=== PATIENT | male | born 1965 | race Caucasian/White ===

== ENCOUNTER 2018-12-04 17:53 | Inpatient (IN) | payer OTHER ==
[2018-12-04] MEDS ORDERED: IPRATROPIUM/ALBUTEROL 0.5-2.5 MG/3 ML AMPUL NEB ONE ×2 (18:10→18:29)
[2018-12-04] MEDS ORDERED: MAGNESIUM SULFATE/D5W 1 GM/100 ML RTUPB IV ONE ×2 (18:29)
[2018-12-04] MEDS ORDERED: METHYLPREDNISOLONE INJ 125 MG/2 ML SDV IV ONE (18:29)
--- NOTE | 2018-12-04 18:32 | ER Document Report ---
ED Medical Screen (RME) - General Chief Complaint: Cough Stated Complaint: DIFFICULTY BREATHING Time Seen by Provider: 12/04/18 18:23 TRAVEL OUTSIDE OF THE [place] IN LAST 30 DAYS: No - HPI Notes: 12/04/18 18:30 Patient is a 53-year-old male with history of COPD (not oxygen dependent) who presents complaining of semi-productive cough with wheezing and shortness of breath over the past 3 days. He was seen by urgent care at [facility] yesterday and was diagnosed with left-sided pneumonia on x-ray and was given steroids and Zithromax. Patient states that his cough is been severe and has not been able to catch his breath with the coughing fits. Patient here for treatment and evaluation. No h/o DVT/PE or CAD. Denies NAGY, fever, neck pain, URI, Abd pain, dysuria, back pain, or rash. I have treated and performed a rapid initial assessment of this patient. A comprehensive ED assessment and evaluation of the patient, analysis of test results and completion of medical decision making process will be conducted by additional ED providers. PHYSICAL EXAMINATION: GENERAL: Well-appearing, well-nourished and in no acute distress. A&Ox4. Answers questions appropriately. LUNGS: wheezing b/l. harsh cough noted HEART: Regular rate and rhythm without murmurs, rubs, gallops. Ext's: no edema. - Related Data Allergies/Adverse Reactions: Penicillins Allergy (Verified 06/06/14 22:21) Past Medical History - Social History Frequency of alcohol use: None Drug Abuse: None Renal/ Medical History: Reports: Hx Kidney Stones - Immunizations Hx Diphtheria, Pertussis, Tetanus Vaccination: No Physical Exam - Vital signs Vitals: Pulse Ox 92 12/04/18 18:23 Course - Vital Signs Vital signs: Temp Pulse Resp BP Pulse Ox 92 12/04/18 18:23 - Laboratory Result Diagrams: 12/04/18 18:15 12/04/18 18:15
[2018-12-04] MEDS ORDERED: NORMAL SALINE 1000 ML 1,000 ML IV ONE (18:34)
[2018-12-04 18:36] LABS: HEMATOCRIT 44.7 % (37.9-51.0); HEMOGLOBIN 15.2 g/dL (13.5-17.0); MEAN CORPUSCULAR HEMOGLOBIN 31.2 pg (27.0-33.4); MEAN CORPUSCULAR VOLUME 92 fl (80-97); PLATELET COUNT 324 10^3/uL (150-450); RED BLOOD COUNT 4.88 10^6/uL (4.35-5.55); RED CELL DISTRIBUTION WIDTH 13.9 % (11.5-14.0); WHITE BLOOD COUNT 16.4 10^3/uL (4.0-10.5)
[2018-12-04 18:47] LABS: ALBUMIN 4.4 g/dL (3.5-5.0); ALKALINE PHOSPHATASE 62 U/L (38-126); ANION GAP 14 (5-19); ASPARTATE AMINO TRANSFERASE 27 U/L (17-59); BILIRUBIN,DIRECT 0.2 mg/dL (0.0-0.4); BILIRUBIN,TOTAL 0.7 mg/dL (0.2-1.3); BLOOD UREA NITROGEN 13 mg/dL (7-20); CALCIUM 10.2 mg/dL (8.4-10.2); CARBON DIOXIDE 23 mmol/L (22-30); CHLORIDE 103 mmol/L (98-107); GLUCOSE 132 mg/dL (75-110); POTASSIUM 4.7 mmol/L (3.6-5.0); TOTAL PROTEIN 7.3 g/dL (6.3-8.2)
--- NOTE | 2018-12-04 18:57 | RADIOLOGY REPORT (SQ) ---
EXAM DESCRIPTION: CHEST SINGLE VIEW COMPLETED DATE/TIME: 12/04/2018 6:43 pm REASON FOR STUDY: SOB COMPARISON: None. NUMBER OF VIEWS: One view. TECHNIQUE: Single frontal radiographic view of the chest acquired. LIMITATIONS: None. FINDINGS: LUNGS AND PLEURA: No opacities, masses or pneumothorax. No pleural effusion. Attenuated bl ood vessels and flattened melony-diaphragms. MEDIASTINUM AND HILAR STRUCTURES: No masses. Contour normal. HEART AND VASCULAR STRUCTURES: Heart normal in size. Normal vasculature. BONES: No acute findings. HARDWARE: None in the chest. OTHER: No other significant finding. IMPRESSION: COPD. NO ACUTE RADIOGRAPHIC FINDING IN THE CHEST. TECHNICAL DOCUMENTATION: JOB ID: [id number] [employer]- All Rights Reserved Reading location - IP/workstation name: [email or web address]
[2018-12-04 19:16] LABS: ABSOLUTE LYMPHOCYTES# (MANUAL) 1.3 10^3/uL (0.5-4.7); ABSOLUTE MONOCYTES # (MANUAL) 0.3 10^3/uL (0.1-1.4); BASOPHILS % (MANUAL) 0 % (0-2); EOSINOPHILS % (MANUAL) 0 % (0-6); LYMPHOCYTES % (MANUAL) 7 % (13-45); MONOCYTES % (MANUAL) 2 % (3-13); PLATELET COMMENT ADEQUATE; RBC MORPHOLOGY COMMENT NORMO-CYTIC/CHROMIC; SEGMENTED NEUTROPHILS % (MAN) 90 % (42-78); TOTAL CELLS COUNTED 100
[2018-12-04 19:59] LABS: VENOUS BLOOD BASE EXCESS -0.2 mmol/L; VENOUS BLOOD HCO3 23.5 mmol/L (20-32); VENOUS BLOOD PCO2 35.9 mmHg (35-63); VENOUS BLOOD PH 7.43 (7.30-7.42)
--- NOTE | 2018-12-04 20:15 | ER Document Report ---
ED General - General Chief Complaint: Cough Stated Complaint: DIFFICULTY BREATHING Time Seen by Provider: 12/04/18 18:23 Primary Care Provider: HAI,MIGUELINA [Primary Care Provider] - Follow up as needed TRAVEL OUTSIDE OF THE [place] IN LAST 30 DAYS: No - HPI Notes: Patient is a 53-year-old male with a history of COPD who comes to the emergency department for evaluation of cough and congestion. Symptoms been present for the last 3 days. He states that he was seen by [facility], diagnosed with pneumonia. He started Zithromax and steroids. He does continue to smoke. He states now that he is short of breath with even just to walk across the room. His cough is intermittently productive. He just feels achy and weak all over. He denies any nausea or vomiting. He states he has coughing spells in which he cannot catch his breath at all. - Related Data Allergies/Adverse Reactions: Penicillins Allergy (Verified 12/04/18 19:35) Home Medications: Singulair, prednisone, Zithromax, ipratropium Past Medical History - General Information source: Patient - Social History Smoking Status: Current Every Day Smoker Frequency of alcohol use: None Drug Abuse: None Family History: Reviewed & Not Pertinent Patient has suicidal ideation: No Patient has homicidal ideation: No Pulmonary Medical History: Reports: Hx COPD Renal/ Medical History: Reports: Hx Kidney Stones - Immunizations Hx Diphtheria, Pertussis, Tetanus Vaccination: No Review of Systems - Review of Systems Constitutional: See HPI EENT: No symptoms reported Cardiovascular: No symptoms reported Respiratory: See HPI Gastrointestinal: No symptoms reported Genitourinary: No symptoms reported Musculoskeletal: No symptoms reported Skin: No symptoms reported Neurological/Psychological: No symptoms reported Physical Exam - Vital signs Vitals: Resp BP Pulse Ox 23 H 156/93 H 95 12/04/18 18:05 12/04/18 18:05 12/04/18 18:05 - Notes Notes: Vital signs reviewed, please refer to chart. Head is normocephalic, atraumatic. Pupils equal round, reactive to light. Neck is supple without meningismus. Heart is regular rate and rhythm. Lungs reveal diminished breath sounds throughout with expiratory wheezes.. Abdomen is soft, nontender, normoactive bowel sounds throughout. Extremities without cyanosis, clubbing. Posterior anay ves are nontender. Peripheral pulses are equal. Skin is warm and dry. Patient is awake, alert, neurological exam is nonfocal. Course - Re-evaluation Re-evalutation: 12/04/18 20:15 Patient presents emergency department for evaluation of cough and shortness of breath. He was treated here in the back with DuoNeb, magnesium, steroids. He still is not feeling any improvement. His laboratory investigations revealed leukocytosis, but he is currently on steroids. He has no clear infiltrate on x- ray, but is certainly appropriate for his COPD exacerbation to be treated with antibiotics. He has already had his Zithromax dose for the day. Just walking to the bathroom, the patient became hypoxic, and this was only a few feet. Will contact Dr. Seaman for potential medicine admission. 12/04/18 20:[address] Seaman, he agrees admission is appropriate. Patient will be admitted for further care. - Vital Signs Vital signs: Temp Pulse Resp BP Pulse Ox 26 H 140/85 H 92 12/04/18 19:00 12/04/18 19:00 12/04/18 19:00 - Laboratory Result Diagrams: 12/04/18 18:15 12/04/18 18:15 Laboratory results interpreted by me: 12/04/18 12/04/18 12/04/18 18:15 18:15 19:21 WBC 16.4 H Seg Neuts % (Manual) 90 H Lymphocytes % (Manual) 7 L Monocytes % (Manual) 2 L Abs Neuts (Manual) 14.8 H VBG pH 7.43 H Glucose 132 H Urine Urobilinogen Urine Ascorbic Acid 12/04/18 19:46 WBC Seg Neuts % (Manual) Lymphocytes % (Manual) Monocytes % (Manual) Abs Neuts (Manual) VBG pH Glucose Urine Urobilinogen 2.0 H Urine Ascorbic Acid 40 H - Diagnostic Test Radiology reviewed: Reports reviewed Radiology results interpreted by me: 12/04/18 20:14 Chest X-Ray 12/04/18 18:10 IMPRESSION: COPD. NO ACUTE RADIOGRAPHIC FINDING IN THE CHEST. - EKG Interpretation by Me Additional EKG results interpreted by me: 12/04/18 20:14 Sinus mechanism with rate 89 bpm. Normal axis and intervals. Nonspecific ST changes, but no acute changes concerning for ischemia or infarction. Discharge - Discharge Clinical Impression: COPD exacerbation, Hypoxia Condition: Stable Disposition: ADMITTED INPATIENT Admitting Provider: Urszula (Hospitalist) Unit Admitted: Medical Floor [facility] - Follow up as needed
[2018-12-04 20:18] LABS: APPEARANCE,URINE CLEAR; BILIRUBIN,URINE NEGATIVE (NEGATIVE); COLOR,URINE YELLOW; GLUCOSE, URINE NEGATIVE (NEGATIVE); KETONES,URINE NEGATIVE (NEGATIVE); LEUKOCYTE ESTERASE,URINE NEGATIVE (NEGATIVE); NITRITE,URINE NEGATIVE (NEGATIVE); PROTEIN,URINE NEGATIVE (NEGATIVE); URINE SPECIFIC GRAVITY 1.018
[2018-12-04] MEDS ORDERED: MAGNESIUM HYDROXIDE SUSP 30 ML UDCUP PO PRN (20:41)
[2018-12-04] MEDS ORDERED: LEVALBUTEROL HCL NEB 0.63 MG/3 ML AMPUL NEB PRN (20:41)
[2018-12-04] MEDS ORDERED: NALBUPHINE HCL INJ 10 MG/1 ML AMPULE IV PRN (20:41)
[2018-12-04] MEDS ORDERED: IBUPROFEN 800 MG TABLET PO PRN (20:41)
[2018-12-04] MEDS ORDERED: ACETAMINOPHEN 325 MG TABLET PO PRN (20:41)
[2018-12-04] MEDS ORDERED: NICOTINE 21 MG/24 HR PATCH.TD24 TD PRN (20:41)
[2018-12-04] MEDS ORDERED: MAG HYDROX/AL HYDROX/SIMETH SUSP 30 ML UDCUP PO PRN (20:41)
[2018-12-04] MEDS ORDERED: PROMETHAZINE HCL INJ 25 MG/1 ML VIAL IV PRN (20:45)
[2018-12-04] MEDS ORDERED: ZOLPIDEM TARTRATE 5 MG TABLET PO PRN (20:45)
[2018-12-04] MEDS: HEPARIN SOD (PORCINE) 5,000 UNIT/ML 1 ML VIAL SUBCUT SCH (21:34)
[2018-12-04] MEDS: FAMOTIDINE 20 MG TABLET PO SCH (21:35)
[2018-12-04] MEDS: AZITHROMYCIN 250 MG TABLET PO SCH (21:35)
[2018-12-04] MEDS ORDERED: GUAIFENESIN/D-METHORPHAN (200-20 MG) SYRUP 10 ML PO PRN (22:11)
--- NOTE | 2018-12-04 22:27 | EKG REPORT ---
SEVERITY:- BORDERLINE ECG - SINUS RHYTHM PROBABLE LEFT ATRIAL ABNORMALITY CONSIDER RIGHT VENTRICULAR HYPERTROPHY : Confirmed by: Andrea Ordaz 04-Dec-2018 22:27:00
[2018-12-04] MEDS ORDERED: BENZONATATE 100 MG CAPSULE PO ONE (22:45)
[2018-12-04] MEDS: METHYLPREDNISOLONE INJ 40 MG/1 ML SDV IV SCH (23:04)
[2018-12-04] MEDS: IPRATROPIUM BROMIDE 0.02% NEB 0.5 MG/2.5 ML AMPUL NEB SCH (23:49)
[2018-12-04] MEDS: LEVALBUTEROL HCL NEB 1.25 MG/3 ML AMPUL NEB SCH (23:49)
--- NOTE | 2018-12-05 03:01 | PDOC H&P ---
History of Present Illness Admission Date/PCP: 12/04/18 20:32 Dr. Celeste Zaragoza Patient complains of: Dyspnea History of Present Illness: CAITLIN CASTELLANO is a 53 year old male who presents the emergency room with a 3-day history of dyspnea. Patient admits progressively worsening dyspnea over the last 3 days becoming severe today. His dyspnea has been accompanied by 3 pillow orthopnea, a progressively worsening cough and wheezing. His dyspnea is markedly worsened by even minimal exertion. Today he was experiencing moderate to severe wheezing and severe paroxysmal coughing episodes. He was seen by a primary care provider yesterday and was diagnosed with pneumonia (by in office x-ray) and was started on oral steroids and Zithromax. He further admits that despite knowing he has COPD he has continued to smoke cigarettes. He denies other associated or accompanying signs or symptoms. He admits prior similar episodes related to his COPD. He has not identified any additional aggravating or ameliorating factors for his dyspnea. In the emergency room he was found to have a chest x-ray negative for an acute pulmonary process but did demonstrate moderate to severe COPD. His white blood count was mildly elevated as was his blood sugar probably associated with his acute use of prednisone. Because the patient had failed to improve on outpatient therapy he was admitted for further evaluation and treatment. 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 Denies: Cataracts Neurological Medical History: Denies: Hemorrhagic CVA, Ischemic CVA, Seizures Endocrine Medical History: Denies: Diabetes Mellitus Type 1, Diabetes Mellitus Type 2, Hyperthyroidism, Hypothyroidism, Obesity Renal/ Medical History: Reports: Nephrolithiasis Denies: Chronic Kidney Disease Malignancy Medical History: Reports: None GI Medical History: Denies: Cirrhosis, Crohn's Disease, Gastroesophageal Reflux Disease, Hepatitis, Peptic Ulcer Disease, Ulcerative Colitis Musculoskeltal Medical History: Denies: Arthritis, Gout Skin Medical History: Reports: Other - 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 Denies: Eczema, Psoriasis - Hearing aids Psychiatric Medical History: Reports: Tobacco Dependency Denies: Alcohol Dependency, Substance Abuse Traumatic Medical History: Reports: None Hematology: Denies: Anemia, Bleeding Tendencies Infectious Medical History: Reports: None Past Surgical History Past Surgical History: Reports: Tonsillectomy, Other - 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 Social History Information Source: Patient Smoking Status: Current Every Day Smoker Frequency of Alcohol Use: None Hx Recreational Drug Use: No Drugs: None Hx Prescription Drug Abuse: No - Advance Directive Resuscitation Status: Full Code Surrogate healthcare decision maker:: Obi Castellano Family History Family History: DM, Hypertension, Other - Stomach ulcers, gout. denies: CAD, Malignancy Parental Family History Reviewed: Yes Children Family History Reviewed: No Sibling(s) Family History Reviewed.: Yes Medication/Allergy Home Medications: Albuterol Sulfate [Proair HFA Inhalation Aerosol 8.5 gm MDI] 2 puff IH Q6HP PRN 12/04/18 Azithromycin 250 mg PO DAILY 12/04/18 Benzonatate 400 mg PO QHS 12/04/18 Budesonide/Formoterol Fumarate [Symbicort HFA 160-4.5 mcg Inhaler 6 gm] 2 puff IH Q12 12/04/18 Ipratropium [place] [Atrovent 0.06% Nasal [place]] 2 spray NASL TIDP PRN 12/04/18 Montelukast Sodium [Singulair 10 mg Tablet] 10 mg PO DAILY 12/04/18 Prednisone 10 mg PO DAILY 12/04/18 Allergies/Adverse Reactions: Penicillins Allergy (Verified 12/04/18 19:35) Review of Systems Constitutional: ABSENT: chills, fever(s) Eyes: ABSENT: visual disturbances, other - Eye pain Ears: ABSENT: hearing changes, other - Ear pain Nose, Mouth, and Throat: ABSENT: mouth pain, sore throat Cardiovascular: PRESENT: as per HPI, dyspnea on exertion, orthropnea. ABSENT: chest pain, edema, palpitations Respiratory: PRESENT: as per HPI, cough, dyspnea, sputum. ABSENT: hemoptysis Gastrointestinal: ABSENT: abdominal pain, constipation, diarrhea, nausea, vomiting Genitourinary: ABSENT: dysuria, hematuria Musculoskeletal: ABSENT: back pain, joint swelling, muscle weakness Integumentary: ABSENT: pruritus, rash Neurological: ABSENT: confusion, convulsions, focal weakness, memory loss, syncope Psychiatric: ABSENT: anxiety, depression Endocrine: ABSENT: cold intolerance, heat intolerance Hematologic/Lymphatic: ABSENT: easy bleeding, easy bruising Allergic/Immunologic: ABSENT: seasonal rhinorrhea Physical Exam Vital Signs: Temp Pulse Resp BP Pulse Ox 26 H 140/85 H 92 12/04/18 19:00 12/04/18 19:00 12/04/18 19:00 Intake & Output 12/02/18 12/03/18 12/04/18 23:59 23:59 23:59 Intake Total 1200 Balance 1200 Weight 68.1 kg General appearance: PRESENT: no acute distress, cooperative, other - On O2 per [place] Head exam: ABSENT: atraumatic, normocephalic Eye exam: PRESENT: conjunctiva pink. ABSENT: conjunctival injection, scleral icterus Ear exam: PRESENT: normal external ear exam. ABSENT: bleeding, drainage Mouth exam: PRESENT: dry mucosa, neck supple Neck exam: ABSENT: thyromegaly, tracheal deviation Respiratory exam: PRESENT: decreased breath sounds - Moderately decreased breath sounds in all sifuentes consistent with moderate to severe COPD, prolonged expiratory phas - Moderately prolonged expiratory phase in all sifuentes, symmetrical, wheezes - Expiratory wheezes in all fileds Cardiovascular exam: PRESENT: RRR. ABSENT: clicks, gallop, rubs Pulses: PRESENT: normal radial pulses, normal dorsalis pedis pul Vascular exam: PRESENT: normal capillary refill. ABSENT: pallor GI/Abdominal exam: PRESENT: normal bowel sounds, soft Rectal exam: PRESENT: deferred Extremities exam: ABSENT: pedal edema, tenderness Musculoskeletal exam: PRESENT: full ROM, normal inspection Neurological exam: PRESENT: alert, oriented to person, oriented to place, oriented to time, oriented to situation, CN II-XII grossly intact. ABSENT: motor sensory deficit Psychiatric exam: PRESENT: appropriate affect, normal mood Skin exam: PRESENT: dry, intact, warm. ABSENT: jaundice, rash, urticaria Results Laboratory Results: 12/04/18 18:15 12/04/18 18:15 12/04/18 12/04/18 12/04/18 18:15 18:15 19:21 WBC 16.4 H RBC 4.88 Hgb 15.2 Hct 44.7 MCV 92 MCH 31.2 MCHC 34.0 RDW 13.9 Plt Count 324 Seg Neutrophils % Not Reportable VBG pH VBG pCO2 VBG HCO3 VBG Base Excess Sodium 140.1 Potassium 4.7 Chloride 103 Carbon Dioxide 23 Anion Gap 14 BUN 13 Creatinine 0.64 Est GFR ( Amer) > 60 Glucose 132 H Lactic Acid 1.8 Calcium 10.2 Total Bilirubin 0.7 AST 27 Alkaline Phosphatase 62 Total Protein 7.3 Albumin 4.4 Urine Color Urine Appearance Urine pH Ur Specific [place] Urine Protein Urine Glucose (UA) Urine Ketones Urine Blood Urine Nitrite Ur Leukocyte Esterase Urine WBC (Auto) Urine RBC (Auto) 12/04/18 12/04/18 19:21 19:46 WBC RBC Hgb Hct MCV MCH MCHC RDW Plt Count Seg Neutrophils % VBG pH 7.43 H VBG pCO2 35.9 VBG HCO3 23.5 VBG Base Excess -0.2 Sodium Potassium Chloride Carbon Dioxide Anion Gap BUN Creatinine Est GFR ( Amer) Glucose Lactic Acid Calcium Total Bilirubin AST Alkaline Phosphatase Total Protein Albumin Urine Color YELLOW Urine Appearance CLEAR Urine pH 6.0 Ur Specific [place] 1.018 Urine Protein NEGATIVE Urine Glucose (UA) NEGATIVE Urine Ketones NEGATIVE Urine Blood NEGATIVE Urine Nitrite NEGATIVE Ur Leukocyte Esterase NEGATIVE Urine WBC (Auto) 1 Urine RBC (Auto) 3 Impressions: Chest X-Ray 12/04/18 18:10 IMPRESSION: COPD. NO ACUTE RADIOGRAPHIC FINDING IN THE CHEST. Assessment and Plan - Diagnosis (1) COPD exacerbation Is this a current diagnosis for this admission?: Yes Plan: Patient will be treated with an aggressive pulmonary toilet utilizing nebulized Xopenex, Atrovent and Pulmicort. He will also receive IV Solu-Medrol and a short burst dosing and will be continued on Zithromax 500 mg p.o. daily. His clinical status was monitored closely with regular examinations. His O2 sat will be monitored on a regular basis with vital signs. Will receive supplemental oxygen as required to maintain an adequate O2 saturation greater than 93%. Any associated pain will be treated with Nubain 5 to 10 mg IV every 3 hours on a as needed basis via sliding scale. (2) Acute respiratory failure with hypoxia Is this a current diagnosis for this admission?: Yes Plan: Patient will be treated with supplemental oxygen utilizing nasal cannula and or noninvasive airway pressure devices as required. Patient's O2 saturation will be maintained at greater than 93%. Patient's O2 sat will be checked on a regular basis throughout his hospital course. (3) Paroxysmal cough Is this a current diagnosis for this admission?: Yes Plan: Patient's paroxysmal cough will be treated with Robitussin-DM and Marizolon Luigi initially, with further intervention using low-dose morphine 2 mg IV every 2 hours as needed, if required. (4) Tobacco use disorder, severe, dependence Is this a current diagnosis for this admission?: Yes Plan: Smoking cessation is advised and counseled briefly at the bedside. A nicotine replacement patch is available for the patient's use. - Time Time Spent with patient: 25-34 minutes Smoking Cessation Education: 3 to 10 minutes Medications reviewed and adjusted accordingly: Yes Anticipated discharge: Home - Inpatient Certification Based on my medical assessment, after consideration of the patient's comorbidities, presenting symptoms, or acuity I expect that the services needed warrant INPATIENT care.: Yes I certify that my determination is in accordance with my understanding of Medicare's requirements for reasonable and necessary INPATIENT services [42 CFR 412.3e].: Yes Medical Necessity: Failure to Improve With Outpatient Therapy, Need Close Monitoring Due to Risk of Patient Decompensation, Need for Nebulizer Therapy and Monitoring of Response, Risk of Complication if Not Cared For in Hospital
[2018-12-05] MEDS ORDERED: MORPHINE SULFATE 10 MG/ML INJ IV PRN (03:08)
[2018-12-05] MEDS: HEPARIN SOD (PORCINE) 5,000 UNIT/ML 1 ML VIAL SUBCUT SCH ×3 (05:16→21:50)
[2018-12-05] MEDS: BENZONATATE 100 MG CAPSULE PO SCH ×3 (05:16→21:50)
[2018-12-05] MEDS: METHYLPREDNISOLONE INJ 40 MG/1 ML SDV IV SCH ×3 (05:16→17:19)
[2018-12-05 05:31] LABS: HEMATOCRIT 42.1 % (37.9-51.0); HEMOGLOBIN 14.4 g/dL (13.5-17.0); MEAN CORPUSCULAR HGB CONC 34.1 g/dL (32.0-36.0); MEAN CORPUSCULAR VOLUME 91 fl (80-97); PLATELET COUNT 288 10^3/uL (150-450); RED BLOOD COUNT 4.63 10^6/uL (4.35-5.55); RED CELL DISTRIBUTION WIDTH 13.9 % (11.5-14.0); WHITE BLOOD COUNT 16.8 10^3/uL (4.0-10.5)
[2018-12-05 05:52] LABS: ANION GAP 10 (5-19); BLOOD UREA NITROGEN 12 mg/dL (7-20); CARBON DIOXIDE 28 mmol/L (22-30); CHLORIDE 103 mmol/L (98-107); GLUCOSE 163 mg/dL (75-110); POTASSIUM 4.9 mmol/L (3.6-5.0)
[2018-12-05] MEDS: BUDESONIDE NEB 0.5 MG/2 ML AMPUL NEB SCH ×2 (08:20→19:26)
[2018-12-05] MEDS: IPRATROPIUM BROMIDE 0.02% NEB 0.5 MG/2.5 ML AMPUL NEB SCH (08:20)
[2018-12-05] MEDS: LEVALBUTEROL HCL NEB 1.25 MG/3 ML AMPUL NEB SCH (08:20)
[2018-12-05] MEDS: DOCUSATE SODIUM 100 MG CAPSULE PO SCH ×2 (09:49→17:16)
[2018-12-05] MEDS: FAMOTIDINE 20 MG TABLET PO SCH ×2 (09:49→21:50)
[2018-12-05] MEDS: AZITHROMYCIN 250 MG TABLET PO SCH (09:49)
[2018-12-05] MEDS ORDERED: HYDRALAZINE HCL INJ/PF 20 MG/1 ML SDV IV PRN (13:22)
--- NOTE | 2018-12-05 13:27 | PDOC PROGRESS REPORT ---
Subjective Progress Note for:: 12/05/18 Subjective:: CAITLIN CASTELLANO is a 53 year old male who presents the emergency room with a 3-day history of dyspnea. Patient admits progressively worsening dyspnea over the last 3 days becoming severe today. His dyspnea has been accompanied by 3 pillow orthopnea, a progressively worsening cough and wheezing. His dyspnea is markedly worsened by even minimal exertion. Today he was experiencing moderate to severe wheezing and severe paroxysmal coughing episodes. He was seen by a primary care provider yesterday and was diagnosed with pneumonia (by in office x-ray) and was started on oral steroids and Zithromax. He further admits that despite knowing he has COPD he has continued to smoke cigarettes. He denies other associated or accompanying signs or symptoms. He admits prior similar episodes related to his COPD. He has not identified any additional aggravating or ameliorating factors for his dyspnea. In the emergency room he was found to have a chest x-ray negative for an acute pulmonary process but did demonstrate moderate to severe COPD. His white blood count was mildly elevated as was his blood sugar probably associated with his acute use of prednisone. Because the patient had failed to improve on outpatient therapy he was admitted for further evaluation and treatment. 12/05/2018. No acute events overnight. Patient is enjoying his breakfast Reason For Visit: ACUTE EXACERBATION OF COPD,ACUTE RESPIRATORY Physical Exam Vital Signs: Temp Pulse Resp BP Pulse Ox 97.8 F 92 26 H 167/98 H 92 12/04/18 22:32 12/05/18 08:15 12/05/18 08:15 12/04/18 22:32 12/05/18 08:15 Intake & Output 12/04/18 12/05/18 12/06/18 06:59 06:59 06:59 Intake Total 1200 Output Total 260 Balance 940 Weight 68.7 kg General appearance: PRESENT: mild distress Head exam: PRESENT: atraumatic, normocephalic Respiratory exam: PRESENT: clear to auscultation rian, prolonged expiratory phas, symmetrical, tachypnea, wheezes. ABSENT: rales, rhonchi Cardiovascular exam: PRESENT: RRR. ABSENT: diastolic murmur, rubs, systolic murmur GI/Abdominal exam: PRESENT: normal bowel sounds, soft. ABSENT: distended, guarding, mass, organolmegaly, rebound, tenderness Neurological exam: PRESENT: alert, awake, oriented to person, oriented to place, oriented to time, oriented to situation, CN II-XII grossly intact. ABSENT: motor sensory deficit Skin exam: PRESENT: dry, intact, warm. ABSENT: cyanosis, rash Results Laboratory Results: 12/05/18 04:25 12/05/18 04:25 12/04/18 12/04/18 12/04/18 18:15 18:15 19:21 WBC 16.4 H RBC 4.88 Hgb 15.2 Hct 44.7 MCV 92 MCH 31.2 MCHC 34.0 RDW 13.9 Plt Count 324 Seg Neutrophils % Not Reportable VBG pH VBG pCO2 VBG HCO3 VBG Base Excess Sodium 140.1 Potassium 4.7 Chloride 103 Carbon Dioxide 23 Anion Gap 14 BUN 13 Creatinine 0.64 Est GFR ( Amer) > 60 Glucose 132 H Lactic Acid 1.8 Calcium 10.2 Total Bilirubin 0.7 AST 27 Alkaline Phosphatase 62 Total Protein 7.3 Albumin 4.4 Urine Color Urine Appearance Urine pH Ur Specific [place] Urine Protein Urine Glucose (UA) Urine Ketones Urine Blood Urine Nitrite Ur Leukocyte Esterase Urine WBC (Auto) Urine RBC (Auto) 12/04/18 12/04/18 12/05/18 19:21 19:46 04:25 WBC 16.8 H RBC 4.63 Hgb 14.4 Hct 42.1 MCV 91 MCH 31.0 MCHC 34.1 RDW 13.9 Plt Count 288 Seg Neutrophils % VBG pH 7.43 H VBG pCO2 35.9 VBG HCO3 23.5 VBG Base Excess -0.2 Sodium Potassium Chloride Carbon Dioxide Anion Gap BUN Creatinine Est GFR ( Amer) Glucose Lactic Acid Calcium Total Bilirubin AST Alkaline Phosphatase Total Protein Albumin Urine Color YELLOW Urine Appearance CLEAR Urine pH 6.0 Ur Specific [place] 1.018 Urine Protein NEGATIVE Urine Glucose (UA) NEGATIVE Urine Ketones NEGATIVE Urine Blood NEGATIVE Urine Nitrite NEGATIVE Ur Leukocyte Esterase NEGATIVE Urine WBC (Auto) 1 Urine RBC (Auto) 3 12/05/18 04:25 WBC RBC Hgb Hct MCV MCH MCHC RDW Plt Count Seg Neutrophils % VBG pH VBG pCO2 VBG HCO3 VBG Base Excess Sodium 140.9 Potassium 4.9 Chloride 103 Carbon Dioxide 28 Anion Gap 10 BUN 12 Creatinine 0.63 Est GFR ( Amer) > 60 Glucose 163 H Lactic Acid Calcium 10.0 Total Bilirubin AST Alkaline Phosphatase Total Protein Albumin Urine Color Urine Appearance Urine pH Ur Specific [place] Urine Protein Urine Glucose (UA) Urine Ketones Urine Blood Urine Nitrite Ur Leukocyte Esterase Urine WBC (Auto) Urine RBC (Auto) Impressions: Chest X-Ray 12/04/18 18:10 IMPRESSION: COPD. NO ACUTE RADIOGRAPHIC FINDING IN THE CHEST. Assessment and Plan - Diagnosis (1) Acute respiratory failure with hypoxia Is this a current diagnosis for this admission?: Yes Plan: Due to COPD exacerbation complicated by ongoing tobacco abuse. DuoNeb's, IV steroids, empiric antibiotics, flutter valve, incentive spirometry, supplemental oxygen, PRN BiPAP, LABA, LAMA, ICS. (2) COPD exacerbation Is this a current diagnosis for this admission?: Yes Plan: Plan as per #1. (3) Tobacco use disorder, severe, dependence Is this a current diagnosis for this admission?: Yes Plan: Advised on smoking cessation. Patient does not want a nicotine patch at this point.
[2018-12-05] MEDS: IPRATROPIUM/ALBUTEROL 0.5-2.5 MG/3 ML AMPUL NEB SCH ×2 (13:54→19:26)
[2018-12-06] MEDS: METHYLPREDNISOLONE INJ 40 MG/1 ML SDV IV SCH ×5 (01:25→20:31)
[2018-12-06] MEDS: IPRATROPIUM/ALBUTEROL 0.5-2.5 MG/3 ML AMPUL NEB SCH ×4 (02:13→19:40)
[2018-12-06] MEDS: HEPARIN SOD (PORCINE) 5,000 UNIT/ML 1 ML VIAL SUBCUT SCH ×3 (05:12→21:03)
[2018-12-06] MEDS: BENZONATATE 100 MG CAPSULE PO SCH ×3 (05:20→21:04)
[2018-12-06 06:49] LABS: HEMATOCRIT 40.5 % (37.9-51.0); HEMOGLOBIN 13.7 g/dL (13.5-17.0); MEAN CORPUSCULAR HGB CONC 33.9 g/dL (32.0-36.0); MEAN CORPUSCULAR VOLUME 91 fl (80-97); PLATELET COUNT 278 10^3/uL (150-450); RED BLOOD COUNT 4.43 10^6/uL (4.35-5.55); WHITE BLOOD COUNT 19.8 10^3/uL (4.0-10.5)
[2018-12-06 07:04] LABS: ANION GAP 10 (5-19); BLOOD UREA NITROGEN 16 mg/dL (7-20); CALCIUM 9.9 mg/dL (8.4-10.2); CARBON DIOXIDE 29 mmol/L (22-30); CHLORIDE 100 mmol/L (98-107); GLUCOSE 196 mg/dL (75-110); POTASSIUM 4.9 mmol/L (3.6-5.0)
[2018-12-06] MEDS: BUDESONIDE NEB 0.5 MG/2 ML AMPUL NEB SCH (08:01)
[2018-12-06] MEDS: DOCUSATE SODIUM 100 MG CAPSULE PO SCH ×2 (09:38→17:05)
[2018-12-06] MEDS: FAMOTIDINE 20 MG TABLET PO SCH ×2 (09:38→21:03)
[2018-12-06] MEDS: LEVOFLOXACIN 500 MG TABLET PO SCH (09:40)
[2018-12-06] MEDS: FLUTICASONE/VILANTEROL 200-25 MCG/DOSE IH SCH (09:41)
[2018-12-06] MEDS: TIOTROPIUM BROMIDE DPI 5 CAP/KIT (18 MCG/CAP) IH SCH (09:41)
[2018-12-06] MEDS ORDERED: CODEINE SULF 15 MG TABLET PO ONE (10:12)
[2018-12-06] MEDS ORDERED: ACETAMINOPHEN WITH CODEINE #3 TABLET PO PRN (10:13)
--- NOTE | 2018-12-06 10:22 | PDOC PROGRESS REPORT ---
Subjective Progress Note for:: 12/06/18 Subjective:: CAITLIN CASTELLANO is a 53 year old male who presents the emergency room with a 3-day history of dyspnea. Patient admits progressively worsening dyspnea over the last 3 days becoming severe today. His dyspnea has been accompanied by 3 pillow orthopnea, a progressively worsening cough and wheezing. His dyspnea is markedly worsened by even minimal exertion. Today he was experiencing moderate to severe wheezing and severe paroxysmal coughing episodes. He was seen by a primary care provider yesterday and was diagnosed with pneumonia (by in office x-ray) and was started on oral steroids and Zithromax. He further admits that despite knowing he has COPD he has continued to smoke cigarettes. He denies other associated or accompanying signs or symptoms. He admits prior similar episodes related to his COPD. He has not identified any additional aggravating or ameliorating factors for his dyspnea. In the emergency room he was found to have a chest x-ray negative for an acute pulmonary process but did demonstrate moderate to severe COPD. His white blood count was mildly elevated as was his blood sugar probably associated with his acute use of prednisone. Because the patient had failed to improve on outpatient therapy he was admitted for further evaluation and treatment. 12/05/2018. No acute events overnight. Patient is enjoying his breakfast 12/06/2018. No acute events overnight. Patient still complaining of shortness of breath, worse on exertion, chest congestion, cough, denies any fever, chills, nausea, vomiting, diarrhea, constipation or any urinary symptoms. Oxygen demand is down from 4 L to 2 L. Still significant wheezing on physical examination. Reason For Visit: ACUTE EXACERBATION OF COPD,ACUTE RESPIRATORY Physical Exam Vital Signs: Temp Pulse Resp BP Pulse Ox 97.6 F 65 18 136/74 H 98 12/06/18 08:01 12/06/18 08:01 12/06/18 08:01 12/06/18 08:01 12/06/18 08:01 Intake & Output 12/05/18 12/06/18 12/07/18 06:59 06:59 06:59 Intake Total 1200 1026 Output Total 260 3 Balance 940 1023 Weight 68.7 kg 69.9 kg General appearance: PRESENT: no acute distress, well-developed, well-nourished Respiratory exam: PRESENT: tachypnea, wheezes. ABSENT: rales, rhonchi Cardiovascular exam: PRESENT: RRR. ABSENT: diastolic murmur, rubs, systolic murmur GI/Abdominal exam: PRESENT: normal bowel sounds, soft. ABSENT: distended, guarding, mass, organolmegaly, rebound, tenderness Neurological exam: PRESENT: alert, awake, oriented to person, oriented to place, oriented to time, oriented to situation, CN II-XII grossly intact. ABSENT: motor sensory deficit Results Laboratory Results: 12/06/18 06:17 12/06/18 06:17 12/06/18 12/06/18 06:17 06:17 WBC 19.8 H RBC 4.43 Hgb 13.7 Hct 40.5 MCV 91 MCH 31.0 MCHC 33.9 RDW 14.0 Plt Count 278 Sodium 138.5 Potassium 4.9 Chloride 100 Carbon Dioxide 29 Anion Gap 10 BUN 16 Creatinine 0.63 Est GFR ( Amer) > 60 Glucose 196 H Calcium 9.9 Impressions: Chest X-Ray 12/04/18 18:10 IMPRESSION: COPD. NO ACUTE RADIOGRAPHIC FINDING IN THE CHEST. Assessment and Plan - Diagnosis (1) Acute respiratory failure with hypoxia Is this a current diagnosis for this admission?: Yes Plan: Mild improvement. SPO2 WNL on 2 L. Significant wheezing on physical examination. Due to COPD exacerbation complicated by ongoing tobacco abuse. Day 3 antibiotics. Received 1 day of azithromycin. Switch to levofloxacin. Levofloxacin day 2. Cultures negative so far. DuoNeb's, IV steroids, empiric antibiotics, flutter valve, incentive spirometry, supplemental oxygen, PRN BiPAP, LABA, LAMA, ICS. (2) COPD exacerbation Is this a current diagnosis for this admission?: Yes Plan: Plan as per #1. (3) Tobacco use disorder, severe, dependence Is this a current diagnosis for this admission?: Yes Plan: Advised on smoking cessation. Patient does not want a nicotine patch at this point.
[2018-12-06] MEDS ORDERED: PROMETHAZINE HCL INJ 25 MG/1 ML VIAL IV PRN (11:00)
[2018-12-06] MEDS: GUAIFENESIN/D-METHORPHAN (200-20 MG) SYRUP 10 ML PO SCH ×5 (12:00→23:40)
[2018-12-07] MEDS: IPRATROPIUM/ALBUTEROL 0.5-2.5 MG/3 ML AMPUL NEB SCH ×4 (01:50→19:36)
[2018-12-07] MEDS: METHYLPREDNISOLONE INJ 40 MG/1 ML SDV IV SCH ×4 (03:50→21:22)
[2018-12-07] MEDS: GUAIFENESIN/D-METHORPHAN (200-20 MG) SYRUP 10 ML PO SCH ×5 (03:50→17:23)
[2018-12-07] MEDS: HEPARIN SOD (PORCINE) 5,000 UNIT/ML 1 ML VIAL SUBCUT SCH ×3 (05:09→21:22)
[2018-12-07] MEDS ORDERED: GUAIFENESIN SYRP 200 MG/10 ML UDC ONE (06:18)
[2018-12-07] MEDS: BENZONATATE 100 MG CAPSULE PO SCH ×3 (06:28→21:22)
[2018-12-07 07:06] LABS: HEMATOCRIT 42.3 % (37.9-51.0); HEMOGLOBIN 14.4 g/dL (13.5-17.0); MEAN CORPUSCULAR VOLUME 91 fl (80-97); PLATELET COUNT 289 10^3/uL (150-450); RED BLOOD COUNT 4.64 10^6/uL (4.35-5.55); RED CELL DISTRIBUTION WIDTH 13.9 % (11.5-14.0); WHITE BLOOD COUNT 17.4 10^3/uL (4.0-10.5)
[2018-12-07 07:25] LABS: ANION GAP 9 (5-19); BLOOD UREA NITROGEN 18 mg/dL (7-20); CALCIUM 9.9 mg/dL (8.4-10.2); CARBON DIOXIDE 32 mmol/L (22-30); CHLORIDE 98 mmol/L (98-107); GLUCOSE 146 mg/dL (75-110); POTASSIUM 4.9 mmol/L (3.6-5.0)
[2018-12-07] MEDS: DOCUSATE SODIUM 100 MG CAPSULE PO SCH ×2 (09:23→17:13)
[2018-12-07] MEDS: FAMOTIDINE 20 MG TABLET PO SCH ×2 (09:23→21:23)
[2018-12-07 09:24] LABS: ARTERIAL BLOOD BASE EXCESS 1.8 mmol/L; ARTERIAL BLOOD FIO2 3L; ARTERIAL BLOOD H2CO3 1.14 mmol/L (1.05-1.35); ARTERIAL BLOOD HCO3 25.6 mmol/L (20-24); ARTERIAL BLOOD O2 SATURATION 89.8 % (94-98); ARTERIAL BLOOD PCO2 37.9 mmHg (35-45); ARTERIAL BLOOD PH 7.45 (7.35-7.45); ARTERIAL BLOOD PO2 54.6 mmHg (80-100); ARTERIAL BLOOD TOTAL CO2 26.8 mmol/L (23-27)
[2018-12-07] MEDS: FLUTICASONE/VILANTEROL 200-25 MCG/DOSE IH SCH (09:24)
[2018-12-07] MEDS: LEVOFLOXACIN 500 MG TABLET PO SCH (09:25)
[2018-12-07] MEDS: TIOTROPIUM BROMIDE DPI 5 CAP/KIT (18 MCG/CAP) IH SCH (09:26)
[2018-12-07] MEDS ORDERED: CEFTRIAXONE 1 GM/D5W RTU 1 GM/50 ML RTUPB IV SCH (10:00)
[2018-12-07] MEDS ORDERED: ACETYLCYSTEINE 10% NEB 400 MG/4 ML VIAL NEB ONE (10:30)
[2018-12-07] MEDS: LEVOFLOXACIN 500 MG/D5W RTU 500 MG/100 ML RTUPB IV SCH (10:59)
--- NOTE | 2018-12-07 12:00 | PDOC PROGRESS REPORT ---
Subjective Progress Note for:: 12/07/18 Subjective:: CAITLIN CASTELLANO is a 53 year old male who presents the emergency room with a 3-day history of dyspnea. Patient admits progressively worsening dyspnea over the last 3 days becoming severe today. His dyspnea has been accompanied by 3 pillow orthopnea, a progressively worsening cough and wheezing. His dyspnea is markedly worsened by even minimal exertion. Today he was experiencing moderate to severe wheezing and severe paroxysmal coughing episodes. He was seen by a primary care provider yesterday and was diagnosed with pneumonia (by in office x-ray) and was started on oral steroids and Zithromax. He further admits that despite knowing he has COPD he has continued to smoke cigarettes. He denies other associated or accompanying signs or symptoms. He admits prior similar episodes related to his COPD. He has not identified any additional aggravating or ameliorating factors for his dyspnea. In the emergency room he was found to have a chest x-ray negative for an acute pulmonary process but did demonstrate moderate to severe COPD. His white blood count was mildly elevated as was his blood sugar probably associated with his acute use of prednisone. Because the patient had failed to improve on outpatient therapy he was admitted for further evaluation and treatment. 12/05/2018. No acute events overnight. Patient is enjoying his breakfast 12/06/2018. No acute events overnight. Patient still complaining of shortness of breath, worse on exertion, chest congestion, cough, denies any fever, chills, nausea, vomiting, diarrhea, constipation or any urinary symptoms. Oxygen demand is down from 4 L to 2 L. Still significant wheezing on physical examination. 12/07/2018. Overnight patient was having worsening of his respiratory symptoms, SPO2 dropped to 89% on 3 L, oxygen was increased to 5 L nasal cannula, steroids increased to 2 mg IV every 6 hours. Stating that he is feeling more tightness in his chest and his shortness of breath has worsened since yesterday. He denies any chest pain, nausea, vomiting, diarrhea, constipation or any urinary symptoms. Reason For Visit: ACUTE EXACERBATION OF COPD,ACUTE RESPIRATORY Physical Exam Vital Signs: Temp Pulse Resp BP Pulse Ox 97.7 F 82 18 152/83 H 93 12/06/18 23:00 12/07/18 07:45 12/07/18 07:45 12/06/18 23:00 12/07/18 07:45 Intake & Output 12/06/18 12/07/18 12/08/18 06:59 06:59 06:59 Intake Total 1026 520 Output Total 3 1 Balance 1023 519 Weight 69.9 kg 96.6 kg General appearance: PRESENT: mild distress Head exam: PRESENT: atraumatic, normocephalic Respiratory exam: PRESENT: decreased breath sounds, prolonged expiratory phas, symmetrical, tachypnea, wheezes. ABSENT: rales, rhonchi Cardiovascular exam: PRESENT: RRR. ABSENT: diastolic murmur, rubs, systolic murmur GI/Abdominal exam: PRESENT: normal bowel sounds, soft. ABSENT: distended, guarding, mass, organolmegaly, rebound, tenderness Neurological exam: PRESENT: alert, awake, oriented to person, oriented to place, oriented to time, oriented to situation, CN II-XII grossly intact. ABSENT: motor sensory deficit Results Laboratory Results: 12/07/18 06:01 12/07/18 06:01 12/07/18 12/07/18 12/07/18 06:01 06:01 09:20 WBC 17.4 H RBC 4.64 Hgb 14.4 Hct 42.3 MCV 91 MCH 31.0 MCHC 34.0 RDW 13.9 Plt Count 289 Carbonic Acid 1.14 HCO3/H2CO3 Ratio 22:1 ABG pH 7.45 ABG pCO2 37.9 ABG pO2 54.6 L ABG HCO3 25.6 H ABG O2 Saturation 89.8 L ABG Base Excess 1.8 FiO2 3L Sodium 138.6 Potassium 4.9 Chloride 98 Carbon Dioxide 32 H Anion Gap 9 BUN 18 Creatinine 0.58 Est GFR ( Amer) > 60 Glucose 146 H Calcium 9.9 Impressions: Chest X-Ray 12/04/18 18:10 IMPRESSION: COPD. NO ACUTE RADIOGRAPHIC FINDING IN THE CHEST. Assessment and Plan - Diagnosis (1) Acute respiratory failure with hypoxia Is this a current diagnosis for this admission?: Yes Plan: Worsening. ABG shows hypoxia. Saturating WNL on 5 L FiO2 32%. Moderate wheezing on physical examination. 12/07/2018. ABG: pH 7.45, PCO2 37.9, PO2 54.6, FiO2 32%.Mild improvement. Due to COPD exacerbation complicated by ongoing tobacco abuse. Day 4 antibiotics. Received 1 day of azithromycin. Switch to levofloxacin. Received 2 days of p.o. levofloxacin. Switch to IV levofloxacin. Day 1 IV levofloxacin. Allergic to penicillins, was started on IV ceftriaxone but unfortunately had a mild allergic reaction and it was stopped. Cultures negative so far. DuoNeb's, IV steroids, switch antibiotics to IV, BiPAP every 6 hours, flutter valve, incentive spirometry, supplemental oxygen, LABA, LAMA, ICS. (2) COPD exacerbation Is this a current diagnosis for this admission?: Yes Plan: Plan as per #1. (3) Tobacco use disorder, severe, dependence Is this a current diagnosis for this admission?: Yes Plan: Advised on smoking cessation. Patient does not want a nicotine patch at this point.
--- NOTE | 2018-12-07 15:12 | RADIOLOGY REPORT (SQ) ---
EXAM DESCRIPTION: CTA CHEST COMPLETED DATE/TIME: 12/07/2018 1:39 pm REASON FOR STUDY: Increased SOB COMPARISON: CT abdomen pelvis 06/07/2014, 08/16/2007 AP chest 12/04/2018 TECHNIQUE: CT scan of the chest performed using helical scanning technique with dynamic intravenous contrast injection. Images reviewed with lung, soft tissue and bone windows. Reconstructed coronal and sagittal MPR images reviewed. Additional 3 dimensional post-processing performed to develop Maximal Intensity Projection images (HI P). All images stored on PACS. All CT scanners at this facility use dose modulation, iterative reconstruction, and/or weight based d osing when appropriate to reduce radiation dose to as low as reasonably achievable (ALARA). [facility]: Dose Right [facility]: CareDose [facility]: Dose Right [facility]: Teradose 4D [facility]: Surround App CONTRAST TYPE AND DOSE: contrast/concentration: Isovue 350.00 mg/ml; Total Contrast Delivered: 61.0 ml; Total Saline Delivered: 55.0 ml Contrast bolus optimized for the pulmonary arteries. Not diagnostic for the aorta. RENAL FUNCTION: Creatinine 0.58 RADIATION DOSE: CT Rad equipment meets quality standard of care and radiation dose reduction techniq ues were employed. CTDIvol: 7.5 - 33.8 mGy. DLP: 362 mGy-cm. . LIMITATIONS: None. FINDINGS: LUNGS AND PLEURA: Diffuse hypoinflation of the left lung is present. There is an ill-defi jill left hilar mass obstructing the left upper and lower lobe bronchi, lower lobe bronchi are partial ly filled with debris. These changes are best shown on coronal images 52-60. Bronchoscopy with airw ay mass biopsy is recommended. There is volume loss throughout the left lung with crowding of bronchovascular markings. Too numerou s to count alveolar nodules throughout the left upper lobe likely from micro atelectasis. 12 mm spic ulated nodule superior segment left lower lobe, scar versus neoplasm axial image 32. Left posterior costophrenic sulcus atelectasis. No left pleural effusion or pneumothorax. Right lung is hyperinflated. Mild increased interstitial markings in the right middle lobe and right upper lobe near the minor fissure, likely chronic in appearance. AORTA AND GREAT VESSELS: No aneurysm. Contrast bolus not optimized for the aorta. HEART: No pericardial effusion. No significant coronary artery calcifications. PULMONARY ARTERIES: No emboli visualized in the main pulmonary arteries or the segmental branches. HILAR AND MEDIASTINAL STRUCTURES: 4 x 3 cm left hilar mass obstructing the left-sided airways, best s hown on axial image 60 HARDWARE: None in the chest. UPPER ABDOMEN: No significant findings. Limited exam. THYROID AND OTHER SOFT TISSUES: No masses. No adenopathy. BONES: No acute or significant finding. 3D MIPS: Confirm above findings. OTHER: No other significant finding. IMPRESSION: Ill-defined left hilar mass obstructing the left mainstem bronchus. Diffuse hypoinflati on of the left lung with debris in lower lobe airways. COMMENT: Quality ID # [id number]: Final reports with documentation of one or more dose reduction techniques (e.g., Automated exposure control, adjustment of the mA and/or kV according to patient size, use of iterative reconstruction technique) TECHNICAL DOCUMENTATION: JOB ID: [id number] [employer]- All Rights Reserved Reading location - IP/workstation name: [email or web address]
[2018-12-07] MEDS ORDERED: LORAZEPAM INJ 2 MG/1 ML VIAL IV ONE ×2 (15:30→20:35)
[2018-12-08] MEDS: IPRATROPIUM/ALBUTEROL 0.5-2.5 MG/3 ML AMPUL NEB SCH ×4 (01:47→19:45)
[2018-12-08] MEDS: HEPARIN SOD (PORCINE) 5,000 UNIT/ML 1 ML VIAL SUBCUT SCH ×3 (05:05→21:50)
[2018-12-08] MEDS: METHYLPREDNISOLONE INJ 40 MG/1 ML SDV IV SCH ×4 (05:05→20:32)
[2018-12-08] MEDS: BENZONATATE 100 MG CAPSULE PO SCH ×3 (05:05→21:51)
[2018-12-08] MEDS: GUAIFENESIN/D-METHORPHAN (200-20 MG) SYRUP 10 ML PO SCH ×4 (05:05→18:12)
[2018-12-08 05:50] LABS: ABSOLUTE LYMPHOCYTES (AUTO) 0.8 10^3/uL (0.5-4.7); ABSOLUTE MONOCYTES (AUTO) 1.4 10^3/uL (0.1-1.4); ABSOLUTE NEUT (AUTO) 12.9 10^3/uL (1.7-8.2); HEMATOCRIT 42.6 % (37.9-51.0); HEMOGLOBIN 14.3 g/dL (13.5-17.0); LYMPHOCYTES % (AUTO) 5.3 % (13-45); MEAN CORPUSCULAR HEMOGLOBIN 30.6 pg (27.0-33.4); MEAN CORPUSCULAR HGB CONC 33.6 g/dL (32.0-36.0); MEAN CORPUSCULAR VOLUME 91 fl (80-97); MONOCYTES % (AUTO) 9.4 % (3-13); PLATELET COUNT 281 10^3/uL (150-450); RED BLOOD COUNT 4.69 10^6/uL (4.35-5.55); RED CELL DISTRIBUTION WIDTH 13.7 % (11.5-14.0); SEGMENTED NEUTROPHILS % (AUTO) 85.3 % (42-78); TOTAL CELLS COUNTED % (AUTO) 100 %; WHITE BLOOD COUNT 15.1 10^3/uL (4.0-10.5)
[2018-12-08 06:10] LABS: ALBUMIN 3.3 g/dL (3.5-5.0); ALKALINE PHOSPHATASE 47 U/L (38-126); ANION GAP 7 (5-19); ASPARTATE AMINO TRANSFERASE 17 U/L (17-59); BILIRUBIN,DIRECT 0.3 mg/dL (0.0-0.4); BILIRUBIN,TOTAL 0.7 mg/dL (0.2-1.3); BLOOD UREA NITROGEN 19 mg/dL (7-20); CALCIUM 9.8 mg/dL (8.4-10.2); CARBON DIOXIDE 32 mmol/L (22-30); CHLORIDE 97 mmol/L (98-107); GLUCOSE 136 mg/dL (75-110); POTASSIUM 4.5 mmol/L (3.6-5.0); TOTAL PROTEIN 5.8 g/dL (6.3-8.2)
--- NOTE | 2018-12-08 09:00 | PDOC CONSULTATION ---
Consultation Consult Date: 12/08/18 Attending physician:: MEJIA DICKEY Provider Consulted: BRANDON CARROLL Consult reason:: New left hilar mass History of Present Illness Admission Date/PCP: 12/07/18 11:[facility] Patient complains of: Shortness of breath, increasing cough and dyspnea History of Present Illness: CAITLIN CASTELLANO is a 53 year old male with about 1 year history of what was felt to initially be a recurrent pneumonia. He was being seen by his PCP in [facility] for this. Thus far no CT imaging had been done only chest x- rays and it was felt to be pneumonia alternating with COPD exacerbations. But functionally he was doing okay. Until about 3 to 4 days ago when he began experiencing extreme shortness of breath and could not catch his breath. Ultimately he came in and he was in acute respiratory distress, he had been on BiPAP, CTA of the chest was done which indicated a large left hilar mass that was about 4.3 cm, with associated postobstructive changes. Over about 3 years he notes about 20 pounds but over the last 1 year he notes that his weight is been stable in the 1 50-1 60 range. He does have left-sided discomfort but since being on the BiPAP over the last 24 hours he feels that discomfort is much better. He has been able to speak in full sentences this morning when I talked to him, and he notes this is the first time he is been able to do that in several days. He has been having very mild hemoptysis over the last 6 months, only specks of blood. He is a lifelong smoker with a [id number] history of tobacco. 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 Denies: Cataracts Neurological Medical History: Denies: Hemorrhagic CVA, Ischemic CVA, Seizures Endocrine Medical History: Denies: Diabetes Mellitus Type 1, Diabetes Mellitus Type 2, Hyperthyroidism, Hypothyroidism, Obesity Renal/ Medical History: Reports: Nephrolithiasis Denies: Chronic Kidney Disease Malignancy Medical History: Reports: None GI Medical History: Denies: Cirrhosis, Crohn's Disease, Gastroesophageal Reflux Disease, Hepatiti s, Peptic Ulcer Disease, Ulcerative Colitis Musculoskeltal Medical History: Denies: Arthritis, Gout Skin Medical History: Reports: Other - 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 Denies: Eczema, Psoriasis - Hearing aids Psychiatric Medical History: Reports: Tobacco Dependency Denies: Alcohol Dependency, Depression, Substance Abuse Traumatic Medical History: Reports: None Hematology: Denies: Anemia, Bleeding Tendencies Infectious Medical History: Reports: None Past Surgical History Past Surgical History: Reports: Tonsillectomy, Other - 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 Social History Information Source: Patient Smoking Status: Current Every Day Smoker Cigarettes Packs Per Day: 1 Number of Years Smokin Last Time Smoked: 12/04/18 Frequency of Alcohol Use: None Hx Recreational Drug Use: No Drugs: None Hx Prescription Drug Abuse: No - Advance Directive Resuscitation Status: Full Code Family History Family History: DM, Hypertension, Other - Stomach ulcers, gout. denies: CAD, Malignancy Parental Family History Reviewed: Yes Children Family History Reviewed: Yes Sibling(s) Family History Reviewed.: Yes Medication/Allergy Home Medications: Albuterol Sulfate [Proair HFA Inhalation Aerosol 8.5 gm MDI] 2 puff IH Q6HP PRN 12/04/18 Azithromycin 250 mg PO DAILY 12/04/18 Benzonatate 400 mg PO QHS 12/04/18 Budesonide/Formoterol Fumarate [Symbicort HFA 160-4.5 mcg Inhaler 6 gm] 2 puff IH Q12 12/04/18 Ipratropium [place] [Atrovent 0.06% Nasal [place]] 2 spray NASL TIDP PRN 12/04/18 Montelukast Sodium [Singulair 10 mg Tablet] 10 mg PO DAILY 12/04/18 Prednisone 10 mg PO DAILY 12/04/18 Allergies/Adverse Reactions: Penicillins Allergy (Intermediate, Verified 12/07/18 09:39) Generalized rash ceftriaxone [From Rocephin] Adverse Reaction (Intermediate, Verified 12/07/18 18:37) Edema Review of Systems Constitutional: ABSENT: chills, fever(s), headache(s), weight gain, weight loss Eyes: ABSENT: visual disturbances Ears: ABSENT: hearing changes Cardiovascular: ABSENT: chest pain, dyspnea on exertion, edema, orthropnea, palpitations Respiratory: ABSENT: cough, hemoptysis Gastrointestinal: ABSENT: abdominal pain, constipation, diarrhea, hematemesis, hematochezia, nausea, vomiting Genitourinary: ABSENT: dysuria, hematuria Musculoskeletal: ABSENT: joint swelling Integumentary: ABSENT: rash, wounds Neurological: ABSENT: abnormal gait, abnormal speech, confusion, dizziness, focal weakness, syncope Psychiatric: ABSENT: anxiety, depression, homidical ideation, suicidal ideation Endocrine: ABSENT: cold intolerance, heat intolerance, polydipsia, polyuria Hematologic/Lymphatic: ABSENT: easy bleeding, easy bruising Physical Exam Vital Signs: Temp Pulse Resp BP Pulse Ox 97.4 F 98 25 H 157/94 H 99 12/07/18 16:20 12/08/18 01:47 12/08/18 01:47 12/07/18 16:20 12/08/18 01:47 Intake & Output 12/07/18 12/08/18 12/09/18 06:59 06:59 06:59 Intake Total 520 927 Output Total 1 350 Balance 519 577 Weight 96.6 kg 68.7 kg General appearance: PRESENT: no acute distress, well-developed, well-nourished Head exam: PRESENT: atraumatic, normocephalic Eye exam: PRESENT: conjunctiva pink, EOMI, PERRLA. ABSENT: scleral icterus Ear exam: PRESENT: normal external ear exam Mouth exam: PRESENT: moist, tongue midline Neck exam: ABSENT: carotid bruit, JVD, lymphadenopathy, thyromegaly Respiratory exam: PRESENT: clear to auscultation rian. ABSENT: rales, rhonchi, w heezes Cardiovascular exam: PRESENT: RRR. ABSENT: diastolic murmur, rubs, systolic murmur Pulses: PRESENT: normal dorsalis pedis pul Vascular exam: PRESENT: normal capillary refill GI/Abdominal exam: PRESENT: normal bowel sounds, soft. ABSENT: distended, guarding, mass, organolmegaly, rebound, tenderness Rectal exam: PRESENT: deferred Extremities exam: PRESENT: full ROM. ABSENT: calf tenderness, clubbing, pedal edema Neurological exam: PRESENT: alert, awake, oriented to person, oriented to place, oriented to time, oriented to situation, CN II-XII grossly intact. ABSENT: motor sensory deficit Psychiatric exam: PRESENT: appropriate affect, normal mood. ABSENT: homicidal ideation, suicidal ideation Skin exam: PRESENT: dry, intact, warm. ABSENT: cyanosis, rash Results Laboratory Results: 12/08/18 05:03 12/08/18 05:03 12/07/18 12/08/18 12/08/18 09:20 05:03 05:03 WBC 15.1 H RBC 4.69 Hgb 14.3 Hct 42.6 MCV 91 MCH 30.6 MCHC 33.6 RDW 13.7 Plt Count 281 Seg Neutrophils % 85.3 H Carbonic Acid 1.14 HCO3/H2CO3 Ratio 22:1 ABG pH 7.45 ABG pCO2 37.9 ABG pO2 54.6 L ABG HCO3 25.6 H ABG O2 Saturation 89.8 L ABG Base Excess 1.8 FiO2 3L Sodium 135.8 L Potassium 4.5 Chloride 97 L Carbon Dioxide 32 H Anion Gap 7 BUN 19 Creatinine 0.64 Est GFR ( Amer) > 60 Glucose 136 H Calcium 9.8 Magnesium 2.2 Total Bilirubin 0.7 AST 17 Alkaline Phosphatase 47 Total Protein 5.8 L Albumin 3.3 L Impressions: Chest X-Ray 12/04/18 18:10 IMPRESSION: COPD. NO ACUTE RADIOGRAPHIC FINDING IN THE CHEST. Chest/Abdomen CTA 12/07/18 00:00 IMPRESSION: Ill-defined left hilar mass obstructing the left mainstem bronchus. Diffuse hypoinflation of the left lung with debris in lower lobe airways. Status: Image reviewed by me Assessment & Plan - Diagnosis (1) Mass of left lung Is this a current diagnosis for this admission?: Yes Plan: Left hilar mass, with smoking history concerning for primary lung cancer, bronchoscopy with biopsy as well as PET/CT will be needed as an outpatient. I usually like to get the bronchoscopy done in [place]. I discussed this with him. Once he is clinically stable from a lung standpoint to be dischargeable, which I do not think will be for another 24 to 48 hours, I will set up outpatient bronchoscopy as well as PET/CT. I will continue to follow. - Time Time Spent: Greater than 70 Minutes - Inpatient Certification Based on my medical assessment, after consideration of the patient's comorbidities, presenting symptoms, or acuity I expect that the services needed warrant INPATIENT care.: Yes I certify that my determination is in accordance with my understanding of Medicare's requirements for reasonable and necessary INPATIENT services [42 CFR 412.3e].: Yes Medical Necessity: Need For Continuous Telemetry Monitoring, Need for Nebulizer Therapy and Monitoring of Response, Need for IV Antibiotics, Risk of Complication if Not Cared For in Hospital
[2018-12-08] MEDS: FAMOTIDINE 20 MG TABLET PO SCH ×2 (09:36→21:51)
[2018-12-08] MEDS: DOCUSATE SODIUM 100 MG CAPSULE PO SCH ×2 (09:36→17:13)
[2018-12-08] MEDS: LEVOFLOXACIN 500 MG/D5W RTU 500 MG/100 ML RTUPB IV SCH (09:39)
[2018-12-08] MEDS: LORAZEPAM INJ 2 MG/1 ML VIAL IV PRN ×2 (09:39→18:12)
[2018-12-08] MEDS: FLUTICASONE/VILANTEROL 200-25 MCG/DOSE IH SCH (09:46)
[2018-12-08] MEDS ORDERED: TIOTROPIUM BROMIDE DPI 5 CAP/KIT (18 MCG/CAP) IH SCH (10:00)
--- NOTE | 2018-12-08 10:42 | PDOC PROGRESS REPORT ---
Subjective Progress Note for:: 12/08/18 Subjective:: CAITLIN CASTELLANO is a 53 year old male who presents the emergency room with a 3-day history of dyspnea. Patient admits progressively worsening dyspnea over the last 3 days becoming severe today. His dyspnea has been accompanied by 3 pillow orthopnea, a progressively worsening cough and wheezing. His dyspnea is markedly worsened by even minimal exertion. Today he was experiencing moderate to severe wheezing and severe paroxysmal coughing episodes. He was seen by a primary care provider yesterday and was diagnosed with pneumonia (by in office x-ray) and was started on oral steroids and Zithromax. He further admits that despite knowing he has COPD he has continued to smoke cigarettes. He denies other associated or accompanying signs or symptoms. He admits prior similar episodes related to his COPD. He has not identified any additional aggravating or ameliorating factors for his dyspnea. In the emergency room he was found to have a chest x-ray negative for an acute pulmonary process but did demonstrate moderate to severe COPD. His white blood count was mildly elevated as was his blood sugar probably associated with his acute use of prednisone. Because the patient had failed to improve on outpatient therapy he was admitted for further evaluation and treatment. 12/05/2018. No acute events overnight. Patient is enjoying his breakfast 12/06/2018. No acute events overnight. Patient still complaining of shortness of breath, worse on exertion, chest congestion, cough, denies any fever, chills, nausea, vomiting, diarrhea, constipation or any urinary symptoms. Oxygen demand is down from 4 L to 2 L. Still significant wheezing on physical examination. 12/07/2018. Overnight patient was having worsening of his respiratory symptoms, SPO2 dropped to 89% on 3 L, oxygen was increased to 5 L nasal cannula, steroids increased to 2 mg IV every 6 hours. Stating that he is feeling more tightness in his chest and his shortness of breath has worsened since yesterday. He denies any chest pain, nausea, vomiting, diarrhea, constipation or any urinary symptoms. 12/08/2018. No acute events overnight, respiratory symptoms are improving, able to speak in full sentences, has been using BiPAP and breathing treatments, stating that left-sided chest discomfort is improving, very anxious about the fact that she might have lung malignancy, cough has improved, is any fever, chills, nausea, vomiting, diarrhea, constipation or any urinary symptoms. Patient has been seen by oncologist and plan is possible outpatient bronchoscopy and biopsy and PET/CT once patient is discharged. Reason For Visit: COPD EXACERBATION Physical Exam Vital Signs: Temp Pulse Resp BP Pulse Ox 98.5 F 89 20 161/90 H 90 L 12/08/18 08:00 12/08/18 08:03 12/08/18 08:03 12/08/18 08:00 12/08/18 08:03 Intake & Output 12/07/18 12/08/18 12/09/18 06:59 06:59 06:59 Intake Total 520 927 Output Total 1 350 Balance 519 577 Weight 96.6 kg 68.7 kg General appearance: PRESENT: no acute distress, well-developed, well-nourished Head exam: PRESENT: atraumatic, normocephalic Respiratory exam: PRESENT: decreased breath sounds, prolonged expiratory phas - Decreased breath sounds on the left side., wheezes. ABSENT: rales, rhonchi Cardiovascular exam: PRESENT: RRR. ABSENT: diastolic murmur, rubs, systolic murmur GI/Abdominal exam: PRESENT: normal bowel sounds, soft. ABSENT: distended, guarding, mass, organolmegaly, rebound, tenderness Neurological exam: PRESENT: alert, awake, oriented to person, oriented to place, oriented to time, oriented to situation, CN II-XII grossly intact. ABSENT: motor sensory deficit Psychiatric exam: PRESENT: anxious Results Laboratory Results: 12/08/18 05:03 12/08/18 05:03 12/08/18 12/08/18 05:03 05:03 WBC 15.1 H RBC 4.69 Hgb 14.3 Hct 42.6 MCV 91 MCH 30.6 MCHC 33.6 RDW 13.7 Plt Count 281 Seg Neutrophils % 85.3 H Sodium 135.8 L Potassium 4.5 Chloride 97 L Carbon Dioxide 32 H Anion Gap 7 BUN 19 Creatinine 0.64 Est GFR ( Amer) > 60 Glucose 136 H Calcium 9.8 Magnesium 2.2 Total Bilirubin 0.7 AST 17 Alkaline Phosphatase 47 Total Protein 5.8 L Albumin 3.3 L 12/06/18 09:36 Sputum Gram Stain - Final Impressions: Chest X-Ray 12/04/18 18:10 IMPRESSION: COPD. NO ACUTE RADIOGRAPHIC FINDING IN THE CHEST. Chest/Abdomen CTA 12/07/18 00:00 IMPRESSION: Ill-defined left hilar mass obstructing the left mainstem bronchus. Diffuse hypoinflation of the left lung with debris in lower lobe airways. Assessment and Plan - Diagnosis (1) Acute respiratory failure with hypoxia Is this a current diagnosis for this admission?: Yes Plan: Improving. Saturating in the 90s on 3 L FiO2 of 32%. Moderate wheezing on physical examination. 12/07/2018. ABG: pH 7.45, PCO2 37.9, PO2 54.6, FiO2 32%. Due to COPD exacerbation complicated by ongoing tobacco abuse and left hilar m ass compromising airflow. Day 5 antibiotics. Day 2 IV levofloxacin. Received 1 day of azithromycin. Switch to levofloxacin. Received 3 days of p.o. levofloxacin. Switched to IV levofloxacin. Allergic to penicillins, was started on IV ceftriaxone but unfortunately had a mild allergic reaction and it was stopped. Cultures negative so far. Continue DuoNeb's, IV steroids, IV antibiotics, BiPAP every 6 hours, flutter valve, incentive spirometry, supplemental oxygen, LABA, LAMA, ICS. (2) Mass of left lung Is this a current diagnosis for this admission?: Yes Plan: Concerning for malignancy given patient's history of chronic smoking. Oncology he has been consulted, recommendations noted. Please refer to note. (3) COPD exacerbation Is this a current diagnosis for this admission?: Yes Plan: Plan as per #1. (4) Tobacco use disorder, severe, dependence Is this a current diagnosis for this admission?: Yes Plan: Advised on smoking cessation. Patient does not want a nicotine patch at this point. (5) HTN (hypertension) Is this a current diagnosis for this admission?: Yes Plan: Euvolemic. Pressure running in the 150s. Start on ARB. Will avoid YUNIOR as patient has been suffering from paroxysmal cough. Avoid beta-blockers if possible due to underlying COPD.
[2018-12-08] MEDS: LOSARTAN POTASSIUM 50 MG TABLET PO SCH (13:21)
[2018-12-08] MEDS: MORPHINE SULFATE 10 MG/ML INJ IV PRN (21:59)
[2018-12-09] MEDS: GUAIFENESIN/D-METHORPHAN (200-20 MG) SYRUP 10 ML PO SCH ×4 (00:14→17:13)
[2018-12-09] MEDS: IPRATROPIUM/ALBUTEROL 0.5-2.5 MG/3 ML AMPUL NEB SCH ×4 (02:10→20:05)
[2018-12-09] MEDS: METHYLPREDNISOLONE INJ 40 MG/1 ML SDV IV SCH ×4 (04:31→21:49)
[2018-12-09] MEDS: HEPARIN SOD (PORCINE) 5,000 UNIT/ML 1 ML VIAL SUBCUT SCH ×3 (05:01→21:42)
[2018-12-09] MEDS: BENZONATATE 100 MG CAPSULE PO SCH ×3 (05:02→21:49)
[2018-12-09 06:21] LABS: CHOLESTEROL 152.11 mg/dL (0-200); TRIGLYCERIDES 100 mg/dL (<150)
[2018-12-09 06:32] LABS: DIRECT LDL 73 mg/dL (<100)
[2018-12-09] MEDS: DOCUSATE SODIUM 100 MG CAPSULE PO SCH ×2 (09:20→17:13)
[2018-12-09] MEDS: FLUTICASONE/VILANTEROL 200-25 MCG/DOSE IH SCH (09:20)
[2018-12-09] MEDS: LOSARTAN POTASSIUM 50 MG TABLET PO SCH (09:24)
[2018-12-09] MEDS: FAMOTIDINE 20 MG TABLET PO SCH ×2 (09:24→21:49)
[2018-12-09] MEDS: LEVOFLOXACIN 500 MG/D5W RTU 500 MG/100 ML RTUPB IV SCH (09:24)
--- NOTE | 2018-12-09 10:46 | PDOC PROGRESS REPORT ---
Subjective Progress Note for:: 12/09/18 Subjective:: CAITLIN CASTELLANO is a 53 year old male who presents the emergency room with a 3-day history of dyspnea. Patient admits progressively worsening dyspnea over the last 3 days becoming severe today. His dyspnea has been accompanied by 3 pillow orthopnea, a progressively worsening cough and wheezing. His dyspnea is markedly worsened by even minimal exertion. Today he was experiencing moderate to severe wheezing and severe paroxysmal coughing episodes. He was seen by a primary care provider yesterday and was diagnosed with pneumonia (by in office x-ray) and was started on oral steroids and Zithromax. He further admits that despite knowing he has COPD he has continued to smoke cigarettes. He denies other associated or accompanying signs or symptoms. He admits prior similar episodes related to his COPD. He has not identified any additional aggravating or ameliorating factors for his dyspnea. In the emergency room he was found to have a chest x-ray negative for an acute pulmonary process but did demonstrate moderate to severe COPD. His white blood count was mildly elevated as was his blood sugar probably associated with his acute use of prednisone. Because the patient had failed to improve on outpatient therapy he was admitted for further evaluation and treatment. 12/05/2018. No acute events overnight. Patient is enjoying his breakfast 12/06/2018. No acute events overnight. Patient still complaining of shortness of breath, worse on exertion, chest congestion, cough, denies any fever, chills, nausea, vomiting, diarrhea, constipation or any urinary symptoms. Oxygen demand is down from 4 L to 2 L. Still significant wheezing on physical examination. 12/07/2018. Overnight patient was having worsening of his respiratory symptoms, SPO2 dropped to 89% on 3 L, oxygen was increased to 5 L nasal cannula, steroids increased to 2 mg IV every 6 hours. Stating that he is feeling more tightness in his chest and his shortness of breath has worsened since yesterday. He denies any chest pain, nausea, vomiting, diarrhea, constipation or any urinary symptoms. 12/08/2018. No acute events overnight, respiratory symptoms are improving, able to speak in full sentences, has been using BiPAP and breathing treatments, stating that left-sided chest discomfort is improving, very anxious about the fact that she might have lung malignancy, cough has improved, is any fever, chills, nausea, vomiting, diarrhea, constipation or any urinary symptoms. Patient has been seen by oncologist and plan is possible outpatient bronchoscopy and biopsy and PET/CT once patient is discharged. 12/09/2018. No acute events overnight. Respiratory symptoms are improving. Able to speak in full sentences while on 2-3 L of nasal cannula. Used BiPAP overnight. Left chest discomfort has improved, wheezing are minimal. Concerned about elevated BPs. Denies any fever, chills, nausea, vomiting, diarrhea, constipation or any urinary symptoms. and [id number] in the room updated about plan. Oncology wants a bronchoscopy for biopsy of the left lung mass which needs to be done at [facility], Dr. Hurtado has arranged has talked to Dr. Dougie chamberlain drone operator who has accepted to do his lung biopsy, however patient needs to be transferred to [facility], he is trying to arrange that. We will transfer patient to [facility] once he has been accepted. Reason For Visit: COPD EXACERBATION Physical Exam Vital Signs: Temp Pulse Resp BP Pulse Ox 97.4 F 85 18 129/90 H 91 L 12/08/18 23:42 12/09/18 08:25 12/09/18 08:25 12/08/18 23:42 12/09/18 08:25 Intake & Output 12/08/18 12/09/18 12/10/18 06:59 06:59 06:59 Intake Total 927 802 Output Total 350 Balance 577 802 Weight 68.7 kg 67.8 kg General appearance: PRESENT: no acute distress, well-developed, well-nourished Head exam: PRESENT: atraumatic, normocephalic Respiratory exam: PRESENT: decreased breath sounds - Left long, wheezes - Mild expiratory wheezes. ABSENT: rales, rhonchi Cardiovascular exam: PRESENT: RRR. ABSENT: diastolic murmur, rubs, systolic murmur GI/Abdominal exam: PRESENT: normal bowel sounds, soft. ABSENT: distended, guarding, mass, organolmegaly, rebound, tenderness Neurological exam: PRESENT: alert, awake, oriented to person, oriented to place, oriented to time, oriented to situation, CN II-XII grossly intact. ABSENT: motor sensory deficit Results Laboratory Results: 12/08/18 05:03 12/08/18 05:03 12/09/18 05:35 Triglycerides 100 Cholesterol 152.11 LDL Cholesterol Direct 73 VLDL Cholesterol 20.0 HDL Cholesterol 67 12/06/18 09:36 Sputum Gram Stain - Final Impressions: Chest X-Ray 12/04/18 18:10 IMPRESSION: COPD. NO ACUTE RADIOGRAPHIC FINDING IN THE CHEST. Chest/Abdomen CTA 12/07/18 00:00 IMPRESSION: Ill-defined left hilar mass obstructing the left mainstem bronchus. Diffuse hypoinflation of the left lung with debris in lower lobe airways. Assessment and Plan - Diagnosis (1) Acute respiratory failure with hypoxia Is this a current diagnosis for this admission?: Yes Plan: Improving. Saturating in the 90s on 3 L FiO2 of 32%. Minimum wheezing on physical examination. Decreased air entry to the left lung. 12/07/2018. ABG: pH 7.45, PCO2 37.9, PO2 54.6, FiO2 32%. Due to COPD exacerbation complicated by ongoing tobacco abuse and left hilar mass compromising airflow. Day 6 antibiotics. Day 3 IV levofloxacin. Received 1 day of azithromycin. Switch to levofloxacin. Received 3 days of p.o. levofloxacin. Switched to IV levofloxacin. Allergic to penicillins, was started on IV ceftriaxone but unfortunately had a mild allergic reaction and it was stopped. Cultures negative so far. Continue DuoNeb's, IV steroids, IV antibiotics, BiPAP every 6 hours, flutter valve, incentive spirometry, supplemental oxygen, LABA, LAMA, ICS. (2) Mass of left lung Is this a current diagnosis for this admission?: Yes Plan: Concerning for malignancy given patient's history of chronic smoking. Oncology he has been consulted, recommendations noted. Please refer to note. Oncology wants a bronchoscopy for biopsy of the left lung mass which needs to be done at [facility], Dr. Hurtado has arranged has talked to Dr. Dougie chamberlain drone operator who has accepted to do his lung biopsy, however patient needs to be transferred to [facility], he is trying to arrange that. We will transfer patient to [facility] once he has been accepted. (3) COPD exacerbation Is this a current diagnosis for this admission?: Yes Plan: Plan as per #1. (4) Tobacco use disorder, severe, dependence Is this a current diagnosis for this admission?: Yes Plan: Advised on smoking cessation. Patient does not want a nicotine patch at this point. (5) HTN (hypertension) Is this a current diagnosis for this admission?: Yes Plan: Euvolemic. Pressure running in the 150s. Denies history of hypertension. Likely due to IV steroids and anxiety. Start on ARB. Will avoid YUNIOR as patient has been suffering from paroxysmal cough. Avoid beta-blockers if possible due to underlying COPD. Continue ARB and PRN IV hydralazine. Monitor vitals, adjust dosage as needed.
--- NOTE | 2018-12-09 11:29 | PDOC PROGRESS REPORT ---
Subjective Progress Note for:: 12/09/18 Subjective:: Patient still required BiPAP overnight, doing a little bit better this morning on nasal cannula. Today we had a long discussion about next steps of care, we discussed transfer to [place] for [facility] with biopsy, to that extent I spoke with Dr. chamberlain of pulmonology as well as spoke with the transfer center in [place] and the hospitalist has accepted the patient. Reason For Visit: COPD EXACERBATION Physical Exam Vital Signs: Temp Pulse Resp BP Pulse Ox 97.8 F 85 18 160/88 H 91 L 12/09/18 08:00 12/09/18 08:25 12/09/18 08:25 12/09/18 08:00 12/09/18 08:25 Intake & Output 12/08/18 12/09/18 12/10/18 06:59 06:59 06:59 Intake Total 927 802 Output Total 350 Balance 577 802 Weight 68.7 kg 67.8 kg General appearance: PRESENT: no acute distress, well-developed, well-nourished Head exam: PRESENT: atraumatic, normocephalic Eye exam: PRESENT: conjunctiva pink, EOMI, PERRLA. ABSENT: scleral icterus Ear exam: PRESENT: normal external ear exam Mouth exam: PRESENT: moist, tongue midline Neck exam: ABSENT: carotid bruit, JVD, lymphadenopathy, thyromegaly Respiratory exam: PRESENT: clear to auscultation rian. ABSENT: rales, rhonchi, wheezes Cardiovascular exam: PRESENT: RRR. ABSENT: diastolic murmur, rubs, systolic murmur Pulses: PRESENT: normal dorsalis pedis pul Vascular exam: PRESENT: normal capillary refill GI/Abdominal exam: PRESENT: normal bowel sounds, soft. ABSENT: distended, guarding, mass, organolmegaly, rebound, tenderness Rectal exam: PRESENT: deferred Extremities exam: PRESENT: full ROM. ABSENT: calf tenderness, clubbing, pedal edema Neurological exam: PRESENT: alert, awake, oriented to person, oriented to place, oriented to time, oriented to situation, CN II-XII grossly intact. ABSENT: motor sensory deficit Psychiatric exam: PRESENT: appropriate affect, normal mood. ABSENT: homicidal ideation, suicidal ideation Skin exam: PRESENT: dry, intact, warm. ABSENT: cyanosis, rash Results Laboratory Results: 12/08/18 05:03 09/27/19 05:03 12/09/18 05:35 Triglycerides 100 Cholesterol 152.11 LDL Cholesterol Direct 73 VLDL Cholesterol 20.0 HDL Cholesterol 67 12/06/18 09:36 Sputum Gram Stain - Final Impressions: Chest X-Ray 12/04/18 18:10 IMPRESSION: COPD. NO ACUTE RADIOGRAPHIC FINDING IN THE CHEST. Chest/Abdomen CTA 12/07/18 00:00 IMPRESSION: Ill-defined left hilar mass obstructing the left mainstem bronchus. Diffuse hypoinflation of the left lung with debris in lower lobe airways. Assessment & Plan - Diagnosis (1) Mass of left lung Is this a current diagnosis for this admission?: Yes Plan: Plan for transfer to [place] for bronc with biopsy, thereafter we can either see him as an outpatient and to take over care. Once bronc is complete and we have a diagnosis I would like to do PET/CT thereafter. - Time Time Spent with patient: 35 or more minutes Anticipated discharge: [facility]
[2018-12-09] MEDS: LORAZEPAM INJ 2 MG/1 ML VIAL IV PRN ×2 (14:37→22:01)
[2018-12-10] MEDS: MORPHINE SULFATE 10 MG/ML INJ IV PRN
[2018-12-10] MEDS: GUAIFENESIN/D-METHORPHAN (200-20 MG) SYRUP 10 ML PO SCH ×5 (00:01→23:02)
[2018-12-10] MEDS: IPRATROPIUM/ALBUTEROL 0.5-2.5 MG/3 ML AMPUL NEB SCH ×4 (02:24→19:49)
[2018-12-10] MEDS: METHYLPREDNISOLONE INJ 40 MG/1 ML SDV IV SCH ×4 (03:21→21:54)
[2018-12-10] MEDS: HEPARIN SOD (PORCINE) 5,000 UNIT/ML 1 ML VIAL SUBCUT SCH ×3 (05:56→21:55)
[2018-12-10] MEDS: BENZONATATE 100 MG CAPSULE PO SCH ×3 (05:58→21:54)
--- NOTE | 2018-12-10 08:50 | PDOC PROGRESS REPORT ---
Subjective Progress Note for:: 12/10/18 Subjective:: CAITLIN CASTELLANO is a 53 year old male who presents the emergency room with a 3-day history of dyspnea. Patient admits progressively worsening dyspnea over the last 3 days becoming severe today. His dyspnea has been accompanied by 3 pillow orthopnea, a progressively worsening cough and wheezing. His dyspnea is markedly worsened by even minimal exertion. Today he was experiencing moderate to severe wheezing and severe paroxysmal coughing episodes. He was seen by a primary care provider yesterday and was diagnosed with pneumonia (by in office x-ray) and was started on oral steroids and Zithromax. He further admits that despite knowing he has COPD he has continued to smoke cigarettes. He denies other associated or accompanying signs or symptoms. He admits prior similar episodes related to his COPD. He has not identified any additional aggravating or ameliorating factors for his dyspnea. In the emergency room he was found to have a chest x-ray negative for an acute pulmonary process but did demonstrate moderate to severe COPD. His white blood count was mildly elevated as was his blood sugar probably associated with his acute use of prednisone. Because the patient had failed to improve on outpatient therapy he was admitted for further evaluation and treatment. 12/05/2018. No acute events overnight. Patient is enjoying his breakfast 12/06/2018. No acute events overnight. Patient still complaining of shortness of breath, worse on exertion, chest congestion, cough, denies any fever, chills, nausea, vomiting, diarrhea, constipation or any urinary symptoms. Oxygen demand is down from 4 L to 2 L. Still significant wheezing on physical examination. 12/07/2018. Overnight patient was having worsening of his respiratory symptoms, SPO2 dropped to 89% on 3 L, oxygen was increased to 5 L nasal cannula, steroids increased to 2 mg IV every 6 hours. Stating that he is feeling more tightness in his chest and his shortness of breath has worsened since yesterday. He denies any chest pain, nausea, vomiting, diarrhea, constipation or any urinary symptoms. 12/08/2018. No acute events overnight, respiratory symptoms are improving, able to speak in full sentences, has been using BiPAP and breathing treatments, stating that left-sided chest discomfort is improving, very anxious about the fact that she might have lung malignancy, cough has improved, is any fever, chills, nausea, vomiting, diarrhea, constipation or any urinary symptoms. Patient has been seen by oncologist and plan is possible outpatient bronchoscopy and biopsy and PET/CT once patient is discharged. 12/09/2018. No acute events overnight. Respiratory symptoms are improving. Able to speak in full sentences while on 2-3 L of nasal cannula. Used BiPAP overnight. Left chest discomfort has improved, wheezing are minimal. Concerned about elevated BPs. Denies any fever, chills, nausea, vomiting, diarrhea, constipation or any urinary symptoms. and [id number] in the room updated about plan. Oncology wants a bronchoscopy for biopsy of the left lung mass which needs to be done at [facility], Dr. Hurtado has arranged has talked to Dr. Dougie chamberlain assurance assistant who has accepted to do his lung biopsy, however patient needs to be transferred to [facility], he is trying to arrange that. We will transfer patient to [facility] once he has been accepted. 12/10/2018. No acute events overnight, patient is feeling better compared to yesterday, still complaining of left-sided pleuritic chest pain, use BiPAP overnight, on 3 L nasal cannula SPO2 WNL, denies any fever, chills, nausea, vomiting, diarrhea, constipation or any urinary symptoms. Cough has improved significantly. Patient is pending transfer to [place] for bronchoscopy. Reason For Visit: COPD EXACERBATION Physical Exam Vital Signs: Temp Pulse Resp BP Pulse Ox 97.5 F 92 18 157/96 H 94 12/10/18 08:10 12/10/18 08:38 12/10/18 08:38 12/10/18 08:10 12/10/18 08:38 Intake & Output 12/09/18 12/10/18 12/11/18 06:59 06:59 06:59 Intake Total 802 820 Balance 802 820 Weight 67.8 kg 68.9 kg General appearance: PRESENT: no acute distress, well-developed, well-nourished Head exam: PRESENT: atraumatic, normocephalic Eye exam: PRESENT: conjunctiva pink, EOMI, PERRLA. ABSENT: scleral icterus Ear exam: PRESENT: normal external ear exam Mouth exam: PRESENT: moist, tongue midline Neck exam: ABSENT: carotid bruit, JVD, lymphadenopathy, thyromegaly Respiratory exam: PRESENT: clear to auscultation rian, decreased breath sounds - LL. ABSENT: rales, rhonchi, wheezes Cardiovascular exam: PRESENT: RRR. ABSENT: diastolic murmur, rubs, systolic murmur Pulses: PRESENT: normal dorsalis pedis pul Vascular exam: PRESENT: normal capillary refill GI/Abdominal exam: PRESENT: normal bowel sounds, soft. ABSENT: distended, guarding, mass, organolmegaly, rebound, tenderness Rectal exam: PRESENT: deferred Extremities exam: PRESENT: full ROM. ABSENT: calf tenderness, clubbing, pedal edema Neurological exam: PRESENT: alert, awake, oriented to person, oriented to place, oriented to time, oriented to situation, CN II-XII grossly intact. ABSENT: motor sensory deficit Psychiatric exam: PRESENT: appropriate affect, normal mood. ABSENT: homicidal ideation, suicidal ideation Skin exam: PRESENT: dry, intact, warm. ABSENT: cyanosis, rash Results Laboratory Results: 12/08/18 05:03 12/08/18 05:03 12/04/18 20:45 Blood Blood Culture - Final NO GROWTH IN 5 DAYS 12/04/18 19:46 Blood Blood Culture - Final NO GROWTH IN 5 DAYS 12/06/18 09:36 Sputum Gram Stain - Final Impressions: Chest X-Ray 12/04/18 18:10 IMPRESSION: COPD. NO ACUTE RADIOGRAPHIC FINDING IN THE CHEST. Chest/Abdomen CTA 12/07/18 00:00 IMPRESSION: Ill-defined left hilar mass obstructing the left mainstem bronchus. Diffuse hypoinflation of the left lung with debris in lower lobe airways. Assessment and Plan - Diagnosis (1) Acute respiratory failure with hypoxia Is this a current diagnosis for this admission?: Yes Plan: Improving. Saturating high 90s on 3-4 L FiO2 of 32%. Minimum wheezing on physical examination. Decreased air entry to the left lung. 12/07/2018. ABG: pH 7.45, PCO2 37.9, PO2 54.6, FiO2 32%. Due to COPD exacerbation complicated by ongoing tobacco abuse and left hilar mass compromising airflow. Day 7 antibiotics. Day 4 IV levofloxacin. Received 1 day of azithromycin. Switch to levofloxacin. Received 3 days of p.o. levofloxacin. Switched to IV levofloxacin. Allergic to penicillins, was started on IV ceftriaxone but unfortunately had a mild allergic reaction and it was stopped. Cultures negative so far. Continue DuoNeb's, IV steroids, IV antibiotics, BiPAP every 6 hours, flutter valve, incentive spirometry, supplemental oxygen, LABA, LAMA, ICS. (2) Mass of left lung Is this a current diagnosis for this admission?: Yes Plan: Concerning for malignancy given patient's history of chronic smoking. Oncology he has been consulted, recommendations noted. Please refer to note. Oncology wants a bronchoscopy for biopsy of the left lung mass which needs to be done at [facility], Dr. Hurtado has arranged has talked to Dr. Dougie chamberlain assurance assistant who has accepted to do his lung biopsy, however patient needs to be transferred to [facility], he is trying to arrange that. Pending transfer to [facility] (3) COPD exacerbation Is this a current diagnosis for this admission?: Yes Plan: Plan as per #1. (4) Tobacco use disorder, severe, dependence Is this a current diagnosis for this admission?: Yes Plan: Advised on smoking cessation. Patient does not want a nicotine patch at this point. (5) HTN (hypertension) Is this a current diagnosis for this admission?: Yes Plan: Euvolemic. Pressure running in the 150s. Denies history of hypertension. Likely due to IV steroids and anxiety. Increase losartan to 100 p.o. daily. Will avoid YUNIOR as patient has been suffering from paroxysmal cough. Avoid beta-blockers if possible due to underlying COPD. Continue ARB and PRN IV hydralazine. Monitor vitals, adjust dosage as needed.
[2018-12-10] MEDS: LEVOFLOXACIN 500 MG/D5W RTU 500 MG/100 ML RTUPB IV SCH (09:42)
[2018-12-10] MEDS: FAMOTIDINE 20 MG TABLET PO SCH ×2 (09:43→21:54)
[2018-12-10] MEDS: LOSARTAN POTASSIUM 50 MG TABLET PO SCH (09:43)
[2018-12-10] MEDS: DOCUSATE SODIUM 100 MG CAPSULE PO SCH ×2 (09:45→17:02)
[2018-12-10] MEDS: FLUTICASONE/VILANTEROL 200-25 MCG/DOSE IH SCH (09:45)
--- NOTE | 2018-12-10 11:11 | PDOC PROGRESS REPORT ---
Subjective Progress Note for:: 12/10/18 Subjective:: Patient is doing a little bit better this morning, overnight he had severe left- sided chest pain related probably to the tumor, while on BiPAP, BiPAP was removed and patient was given morphine and did better. Nursing notes that there is still waiting on a discharge at [place] before they can transfer him, so probably will happen tomorrow. Gave orders for n.p.o. after midnight to nursing. Reason For Visit: COPD EXACERBATION Physical Exam Vital Signs: Temp Pulse Resp BP Pulse Ox 97.5 F 92 18 157/96 H 94 12/10/18 08:10 12/10/18 08:38 12/10/18 08:38 12/10/18 08:10 12/10/18 08:38 Intake & Output 12/09/18 12/10/18 12/11/18 06:59 06:59 06:59 Intake Total 802 820 Balance 802 820 Weight 67.8 kg 68.9 kg General appearance: PRESENT: no acute distress, well-developed, well-nourished Head exam: PRESENT: atraumatic, normocephalic Eye exam: PRESENT: conjunctiva pink, EOMI, PERRLA. ABSENT: scleral icterus Ear exam: PRESENT: normal external ear exam Mouth exam: PRESENT: moist, tongue midline Neck exam: ABSENT: carotid bruit, JVD, lymphadenopathy, thyromegaly Respiratory exam: PRESENT: clear to auscultation rian. ABSENT: rales, rhonchi, wheezes Cardiovascular exam: PRESENT: RRR. ABSENT: diastolic murmur, rubs, systolic mu rmur Pulses: PRESENT: normal dorsalis pedis pul Vascular exam: PRESENT: normal capillary refill GI/Abdominal exam: PRESENT: normal bowel sounds, soft. ABSENT: distended, guarding, mass, organolmegaly, rebound, tenderness Rectal exam: PRESENT: deferred Extremities exam: PRESENT: full ROM. ABSENT: calf tenderness, clubbing, pedal edema Neurological exam: PRESENT: alert, awake, oriented to person, oriented to place, oriented to time, oriented to situation, CN II-XII grossly intact. ABSENT: motor sensory deficit Psychiatric exam: PRESENT: appropriate affect, normal mood. ABSENT: homicidal ideation, suicidal ideation Skin exam: PRESENT: dry, intact, warm. ABSENT: cyanosis, rash Results Laboratory Results: 12/08/18 05:03 12/08/18 05:03 12/04/18 20:45 Blood Blood Culture - Final NO GROWTH IN 5 DAYS 12/04/18 19:46 Blood Blood Culture - Final NO GROWTH IN 5 DAYS 12/06/18 09:36 Sputum Gram Stain - Final Impressions: Chest X-Ray 12/04/18 18:10 IMPRESSION: COPD. NO ACUTE RADIOGRAPHIC FINDING IN THE CHEST. Chest/Abdomen CTA 12/07/18 00:00 IMPRESSION: Ill-defined left hilar mass obstructing the left mainstem bronchus. Diffuse hypoinflation of the left lung with debris in lower lobe airways. Assessment & Plan - Diagnosis (1) Mass of left lung Is this a current diagnosis for this admission?: Yes Plan: Hopeful transfer to [place] soon for [facility] with biopsy, ultimately if a probable stage III lung cancer is confirmed, he will require chemoradiation or potentially neoadjuvant chemotherapy followed by chemoradiation. Once we have diagnosis, the next step would be PET/CT as well as MRI or CT of the head with contrast.
[2018-12-10] MEDS: LORAZEPAM INJ 2 MG/1 ML VIAL IV PRN (16:54)
[2018-12-10] MEDS ORDERED: DEXTROSE 40% GEL 15 GM TUBE PO PRN ×2 (23:12)
[2018-12-10] MEDS ORDERED: GLUCAGON,HUMAN RECOMB 1 MG INJ SUBCUT PRN (23:12)
[2018-12-10] MEDS ORDERED: DEXTROSE 50%-WATER 25 GM/50 ML DISP.SYRIN IV PRN ×2 (23:12)
[2018-12-11] MEDS: IPRATROPIUM/ALBUTEROL 0.5-2.5 MG/3 ML AMPUL NEB SCH ×4 (02:17→20:38)
[2018-12-11] MEDS: METHYLPREDNISOLONE INJ 40 MG/1 ML SDV IV SCH ×4 (02:27→20:42)
[2018-12-11] MEDS: BENZONATATE 100 MG CAPSULE PO SCH ×3 (05:20→21:38)
[2018-12-11] MEDS: GUAIFENESIN/D-METHORPHAN (200-20 MG) SYRUP 10 ML PO SCH ×3 (05:20→19:00)
[2018-12-11] MEDS: HEPARIN SOD (PORCINE) 5,000 UNIT/ML 1 ML VIAL SUBCUT SCH ×3 (05:21→21:38)
[2018-12-11 05:22] LABS: HEMATOCRIT 45.2 % (37.9-51.0); HEMOGLOBIN 15.2 g/dL (13.5-17.0); MEAN CORPUSCULAR HEMOGLOBIN 30.8 pg (27.0-33.4); MEAN CORPUSCULAR HGB CONC 33.6 g/dL (32.0-36.0); MEAN CORPUSCULAR VOLUME 92 fl (80-97); PLATELET COUNT 302 10^3/uL (150-450); RED BLOOD COUNT 4.93 10^6/uL (4.35-5.55); RED CELL DISTRIBUTION WIDTH 13.3 % (11.5-14.0); WHITE BLOOD COUNT 15.2 10^3/uL (4.0-10.5)
[2018-12-11 05:44] LABS: ALBUMIN 2.9 g/dL (3.5-5.0); ALKALINE PHOSPHATASE 43 U/L (38-126); ASPARTATE AMINO TRANSFERASE 19 U/L (17-59); BILIRUBIN,TOTAL 0.7 mg/dL (0.2-1.3); BLOOD UREA NITROGEN 20 mg/dL (7-20); CALCIUM 9.3 mg/dL (8.4-10.2); CHLORIDE 96 mmol/L (98-107); GLUCOSE 152 mg/dL (75-110); POTASSIUM 4.8 mmol/L (3.6-5.0); TOTAL PROTEIN 5.2 g/dL (6.3-8.2)
[2018-12-11 05:48] LABS: ABSOLUTE LYMPHOCYTES# (MANUAL) 0.5 10^3/uL (0.5-4.7); ABSOLUTE MONOCYTES # (MANUAL) 0.8 10^3/uL (0.1-1.4); BAND NEUTROPHILS % (MANUAL) 2 % (3-5); BASOPHILS % (MANUAL) 0 % (0-2); EOSINOPHILS % (MANUAL) 0 % (0-6); LYMPHOCYTES % (MANUAL) 3 % (13-45); MONOCYTES % (MANUAL) 5 % (3-13); SEGMENTED NEUTROPHILS % (MAN) 90 % (42-78); TOTAL CELLS COUNTED 100
[2018-12-11 05:49] LABS: RBC MORPHOLOGY COMMENT NORMO-CYTIC/CHROMIC
[2018-12-11 05:50] LABS: ANION GAP 5 (5-19); CARBON DIOXIDE 34 mmol/L (22-30); PLATELET COMMENT ADEQUATE
--- NOTE | 2018-12-11 08:00 | PDOC PROGRESS REPORT ---
Subjective Progress Note for:: 12/11/18 Subjective:: Pt slept well, NPO currently, awaiting transfer to [facility] Reason For Visit: COPD EXACERBATION Physical Exam Vital Signs: Temp Pulse Resp BP Pulse Ox 98.4 F 89 20 129/86 H 90 L 12/11/18 01:08 12/11/18 07:54 12/11/18 07:54 12/11/18 01:08 12/11/18 07:54 Intake & Output 12/10/18 12/11/18 12/12/18 06:59 06:59 06:59 Intake Total 820 1047 Balance 820 1047 Weight 68.9 kg 68.5 kg General appearance: PRESENT: no acute distress, well-developed, well-nourished Head exam: PRESENT: atraumatic, normocephalic Eye exam: PRESENT: conjunctiva pink, EOMI, PERRLA. ABSENT: scleral icterus Ear exam: PRESENT: normal external ear exam Mouth exam: PRESENT: moist, tongue midline Neck exam: ABSENT: carotid bruit, JVD, lymphadenopathy, thyromegaly Respiratory exam: PRESENT: clear to auscultation rian. ABSENT: rales, rhonchi, wheezes Cardiovascular exam: PRESENT: RRR. ABSENT: diastolic murmur, rubs, systolic murmur Pulses: PRESENT: normal dorsalis pedis pul Vascular exam: PRESENT: normal capillary refill GI/Abdominal exam: PRESENT: normal bowel sounds, soft. ABSENT: distended, guarding, mass, organolmegaly, rebound, tenderness Rectal exam: PRESENT: deferred Extremities exam: PRESENT: full ROM. ABSENT: calf tenderness, clubbing, pedal edema Neurological exam: PRESENT: alert, awake, oriented to person, oriented to place, oriented to time, oriented to situation, CN II-XII grossly intact. ABSENT: motor sensory deficit Psychiatric exam: PRESENT: appropriate affect, normal mood. ABSENT: homicidal ideation, suicidal ideation Skin exam: PRESENT: dry, intact, warm. ABSENT: cyanosis, rash Results Laboratory Results: 12/11/18 05:03 12/11/18 05:03 12/11/18 12/11/18 05:03 05:03 WBC 15.2 H RBC 4.93 Hgb 15.2 Hct 45.2 MCV 92 MCH 30.8 MCHC 33.6 RDW 13.3 Plt Count 302 Seg Neutrophils % Not Reportable Sodium 134.5 L Potassium 4.8 Chloride 96 L Carbon Dioxide 34 H Anion Gap 5 BUN 20 Creatinine 0.78 Est GFR ( Amer) > 60 Glucose 152 H Calcium 9.3 Total Bilirubin 0.7 AST 19 Alkaline Phosphatase 43 Total Protein 5.2 L Albumin 2.9 L 12/06/18 09:36 Sputum Gram Stain - Final 12/06/18 09:36 Sputum Sputum Culture - Final Yeast, Not Dalia Albicans Normal Bella Impressions: Chest X-Ray 12/04/18 18:10 IMPRESSION: COPD. NO ACUTE RADIOGRAPHIC FINDING IN THE CHEST. Chest/Abdomen CTA 12/07/18 00:00 IMPRESSION: Ill-defined left hilar mass obstructing the left mainstem bronchus. Diffuse hypoinflation of the left lung with debris in lower lobe airways. Assessment & Plan - Diagnosis (1) Mass of left lung Is this a current diagnosis for this admission?: Yes Plan: Hopeful transfer to [facility] today, hopeful bronch soon.
[2018-12-11] MEDS: DOCUSATE SODIUM 100 MG CAPSULE PO SCH ×2 (10:55→19:01)
[2018-12-11] MEDS: FLUTICASONE/VILANTEROL 200-25 MCG/DOSE IH SCH (10:55)
[2018-12-11] MEDS: LEVOFLOXACIN 500 MG/D5W RTU 500 MG/100 ML RTUPB IV SCH (11:17)
[2018-12-11] MEDS: LOSARTAN POTASSIUM 50 MG TABLET PO SCH (11:17)
[2018-12-11] MEDS: FAMOTIDINE 20 MG TABLET PO SCH ×2 (11:18→21:38)
--- NOTE | 2018-12-11 12:41 | PDOC PROGRESS REPORT ---
Subjective Progress Note for:: 12/11/18 Subjective:: CAITLIN CASTELLANO is a 53 year old male who presents the emergency room with a 3-day history of dyspnea. Patient admits progressively worsening dyspnea over the last 3 days becoming severe today. His dyspnea has been accompanied by 3 pillow orthopnea, a progressively worsening cough and wheezing. His dyspnea is markedly worsened by even minimal exertion. Today he was experiencing moderate to severe wheezing and severe paroxysmal coughing episodes. He was seen by a primary care provider yesterday and was diagnosed with pneumonia (by in office x-ray) and was started on oral steroids and Zithromax. He further admits that despite knowing he has COPD he has continued to smoke cigarettes. He denies other associated or accompanying signs or symptoms. He admits prior similar episodes related to his COPD. He has not identified any additional aggravating or ameliorating factors for his dyspnea. In the emergency room he was found to have a chest x-ray negative for an acute pulmonary process but did demonstrate moderate to severe COPD. His white blood count was mildly elevated as was his blood sugar probably associated with his acute use of prednisone. Because the patient had failed to improve on outpatient therapy he was admitted for further evaluation and treatment. 12/05/2018. No acute events overnight. Patient is enjoying his breakfast 12/06/2018. No acute events overnight. Patient still complaining of shortness of breath, worse on exertion, chest congestion, cough, denies any fever, chills, nausea, vomiting, diarrhea, constipation or any urinary symptoms. Oxygen demand is down from 4 L to 2 L. Still significant wheezing on physical examination. 12/07/2018. Overnight patient was having worsening of his respiratory symptoms, SPO2 dropped to 89% on 3 L, oxygen was increased to 5 L nasal cannula, steroids increased to 2 mg IV every 6 hours. Stating that he is feeling more tightness in his chest and his shortness of breath has worsened since yesterday. He denies any chest pain, nausea, vomiting, diarrhea, constipation or any urinary symptoms. 12/08/2018. No acute events overnight, respiratory symptoms are improving, able to speak in full sentences, has been using BiPAP and breathing treatments, stating that left-sided chest discomfort is improving, very anxious about the fact that she might have lung malignancy, cough has improved, is any fever, chills, nausea, vomiting, diarrhea, constipation or any urinary symptoms. Patient has been seen by oncologist and plan is possible outpatient bronchoscopy and biopsy and PET/CT once patient is discharged. 12/09/2018. No acute events overnight. Respiratory symptoms are improving. Able to speak in full sentences while on 2-3 L of nasal cannula. Used BiPAP overnight. Left chest discomfort has improved, wheezing are minimal. Concerned about elevated BPs. Denies any fever, chills, nausea, vomiting, diarrhea, constipation or any urinary symptoms. and [id number] in the room updated about plan. Oncology wants a bronchoscopy for biopsy of the left lung mass which needs to be done at [facility], Dr. Hurtado has arranged has talked to Dr. Dougie chamberlain transitional care nurse who has accepted to do his lung biopsy, however patient needs to be transferred to [facility], he is trying to arrange that. We will transfer patient to [facility] once he has been accepted. 12/10/2018. No acute events overnight, patient is feeling better compared to yesterday, still complaining of left-sided pleuritic chest pain, use BiPAP overnight, on 3 L nasal cannula SPO2 WNL, denies any fever, chills, nausea, vomiting, diarrhea, constipation or any urinary symptoms. Cough has improved significantly. Patient is pending transfer to [place] for bronchoscopy. 12/11/2018. No acute distress overnight, pending transfer to [facility]. SPO2 98% on on 4 L nasal cannula FiO2 36%. Patient reports improvement of left chest pleuritic pain, cough is improved, denies any fever, chills, nausea, vomiting, diarrhea, constipation or any urinary symptoms. Reason For Visit: COPD EXACERBATION Physical Exam Vital Signs: Temp Pulse Resp BP Pulse Ox 97.7 F 71 18 139/83 H 98 12/11/18 11:09 12/11/18 11:09 12/11/18 11:09 12/11/18 11:09 12/11/18 11:09 Intake & Output 12/10/18 12/11/18 12/12/18 06:59 06:59 06:59 Intake Total 820 1147 Balance 820 1147 Weight 68.9 kg 68.5 kg General appearance: PRESENT: no acute distress, well-developed, well-nourished Head exam: PRESENT: atraumatic, normocephalic Respiratory exam: PRESENT: decreased breath sounds - Left long. ABSENT: rales, rhonchi, wheezes Cardiovascular exam: PRESENT: RRR. ABSENT: diastolic murmur, rubs, systolic murmur GI/Abdominal exam: PRESENT: normal bowel sounds, soft. ABSENT: distended, guarding, mass, organolmegaly, rebound, tenderness Neurological exam: PRESENT: alert, awake, oriented to person, oriented to place, oriented to time, oriented to situation, CN II-XII grossly intact. ABSENT: motor sensory deficit Results Laboratory Results: 12/11/18 05:03 12/11/18 05:03 12/11/18 12/11/18 05:03 05:03 WBC 15.2 H RBC 4.93 Hgb 15.2 Hct 45.2 MCV 92 MCH 30.8 MCHC 33.6 RDW 13.3 Plt Count 302 Seg Neutrophils % Not Reportable Sodium 134.5 L Potassium 4.8 Chloride 96 L Carbon Dioxide 34 H Anion Gap 5 BUN 20 Creatinine 0.78 Est GFR ( Amer) > 60 Glucose 152 H Calcium 9.3 Total Bilirubin 0.7 AST 19 Alkaline Phosphatase 43 Total Protein 5.2 L Albumin 2.9 L 12/06/18 09:36 Sputum Gram Stain - Final 12/06/18 09:36 Sputum Sputum Culture - Final Yeast, Not Dalia Albicans Normal Bella Impressions: Chest X-Ray 12/04/18 18:10 IMPRESSION: COPD. NO ACUTE RADIOGRAPHIC FINDING IN THE CHEST. Chest/Abdomen CTA 12/07/18 00:00 IMPRESSION: Ill-defined left hilar mass obstructing the left mainstem bronchus. Diffuse hypoinflation of the left lung with debris in lower lobe airways. Assessment and Plan - Diagnosis (1) Acute respiratory failure with hypoxia Is this a current diagnosis for this admission?: Yes Plan: Improving. SPO2 WNL on 3-4 L FiO2 of 32%. Minimum wheezing on physical examination. Decreased air entry to the left lung. 12/07/2018. ABG: pH 7.45, PCO2 37.9, PO2 54.6, FiO2 32%. Due to COPD exacerbation complicated by ongoing tobacco abuse and left hilar mass compromising airflow. Day 8 antibiotics. Day 5 IV levofloxacin. Received 1 day of azithromycin. Switch to levofloxacin. Received 3 days of p.o. levofloxacin. Switched to IV levofloxacin. Allergic to penicillins, was started on IV ceftriaxone but unfortunately had a mild allergic reaction and it was stopped. Cultures negative so far. Continue DuoNeb's, IV steroids, IV antibiotics, BiPAP every 6 hours, flutter valve, incentive spirometry, supplemental oxygen, LABA, LAMA, ICS. (2) Mass of left lung Is this a current diagnosis for this admission?: Yes Plan: Concerning for malignancy given patient's history of chronic smoking. Oncology he has been consulted, recommendations noted. Please refer to note. Oncology wants a bronchoscopy for biopsy of the left lung mass which needs to be done at [facility], Dr. Hurtado has arranged has talked to Dr. Dougie chamberlain transitional care nurse who has accepted to do his lung biopsy, however patient needs to be transferred to [facility], he is trying to arrange that. Pending transfer to [facility] (3) COPD exacerbation Is this a current diagnosis for this admission?: Yes Plan: Plan as per #1. (4) Tobacco use disorder, severe, dependence Is this a current diagnosis for this admission?: Yes Plan: Advised on smoking cessation. Patient does not want a nicotine patch at this point. (5) HTN (hypertension) Is this a current diagnosis for this admission?: Yes Plan: Euvolemic. Pressure running in the 150s. Denies history of hypertension. Likely due to IV steroids and anxiety. Increase losartan to 100 p.o. daily. Will avoid YUNIOR as patient has been suffering from paroxysmal cough. Avoid beta-blockers if possible due to underlying COPD. Continue ARB and PRN IV hydralazine. Monitor vitals, adjust dosage as needed.
--- NOTE | 2018-12-11 12:41 | PDOC TRANSFER SUMMARY ---
General Admission Date/PCP: 12/07/18 11:58 [facility] Resuscitation Status: Full Code - Transfer Diagnosis (1) Acute respiratory failure with hypoxia Is this a current diagnosis for this admission?: Yes (2) Mass of left lung Is this a current diagnosis for this admission?: Yes (3) COPD exacerbation Is this a current diagnosis for this admission?: Yes (4) Tobacco use disorder, severe, dependence Is this a current diagnosis for this admission?: Yes (5) HTN (hypertension) Is this a current diagnosis for this admission?: Yes - Transfer Medications Home Medications: Albuterol Sulfate [Proair HFA Inhalation Aerosol 8.5 gm MDI] 2 puff IH Q6HP PRN 12/04/18 Azithromycin 250 mg PO DAILY 12/04/18 Benzonatate 400 mg PO QHS 12/04/18 Budesonide/Formoterol Fumarate [Symbicort HFA 160-4.5 mcg Inhaler 6 gm] 2 puff IH Q12 12/04/18 Ipratropium [place] [Atrovent 0.06% Nasal [place]] 2 spray NASL TIDP PRN 12/04/18 Montelukast Sodium [Singulair 10 mg Tablet] 10 mg PO DAILY 12/04/18 Prednisone 10 mg PO DAILY 12/04/18 Transfer Medications: Current Medications Acetaminophen (Tylenol 325 Mg Tablet) 650 mg PO Q4HP PRN PRN Reason: For headache, pain or fever Stop: 01/03/19 20:40 Last Admin: 12/05/18 19:53 Dose: 650 mg Documented by: Al Hydrox/Mg Hydrox/Simethicone (Maalox Plus Susp 30 Udcup) 30 ml PO Q6HP PRN PRN Reason: HEARTBURN Stop: 01/03/19 20:40 Albuterol/Ipratropium (Duoneb 3 Ml Ampul) 3 ml NEB RTQ6 JAYA Stop: 01/04/19 13:59 Last Admin: 12/11/18 07:53 Dose: 3 ml Documented by: Benzonatate (Tessalon Perles 100 Mg Capsule) 100 mg PO Q8 JAYA Stop: 01/04/19 05:59 Last Admin: 12/11/18 05:20 Dose: 100 mg Documented by: Dextrose (Dextrose Inj 50% Syringe (25 Gm/50 Ml)) 12.5 gm IV PRN PRN; Protocol PRN Reason: FOR BG 50-69 IN ALERT PATIENT Stop: 01/09/19 23:11 Dextrose (Dextrose Inj 50% Syringe (25 Gm/50 Ml)) 25 gm IV PRN PRN; Protocol PRN Reason: See Label Comments Stop: 01/09/19 23:11 Docusate Sodium (Colace 100 Mg Capsule) 100 mg PO BID [facility] Stop: 01/04/19 09:59 Last Admin: 12/11/18 10:55 Dose: Not Given Documented by: Famotidine (Pepcid 20 Mg Tablet) 20 mg PO Q12 JAYA Stop: 01/03/19 21:59 Last Admin: 12/11/18 11:18 Dose: 20 mg Documented by: Fluticasone/Vilanterol (Breo 200-25 Mcg Ellipta 14 Dose/Dpi) 1 inh IH DAILY [facility] Stop: 01/05/19 09:59 Last Admin: 12/11/18 10:55 Dose: Not Given Documented by: Glucagon (Glucagen Inj 1 Mg Vial) 1 mg SUBCUT PRN PRN; Protocol PRN Reason: Evaluate for BG < 70 Stop: 01/09/19 23:11 Glucose (Glutose 40% Gel 15 Gm Tube) 15 gm PO PRN PRN; Protocol PRN Reason: For BG 50-69 in Alert Patient Stop: 01/09/19 23:11 Glucose (Glutose 40% Gel 15 Gm Tube) 30 gm PO PRN PRN; Protocol PRN Reason: FOR BG < 50 IN ALERT PATIENT Stop: 01/09/19 23:11 Guaifenesin/Dextromethorphan (Robitussin-Dm Syrup 10 Ml Udcup) 10 ml PO Q6 JAYA Stop: 01/06/19 11:59 Last Admin: 12/11/18 11:17 Dose: 10 ml Documented by: Heparin Sodium (Porcine) (Heparin Inj 5,000 Units/Ml 1 Ml Vial) 5,000 unit SUBCUT Q8 JAYA Stop: 01/03/19 21:59 Last Admin: 12/11/18 05:21 Dose: Not Given Documented by: Hydralazine HCl (Apresoline Inj/Pf 20 Mg/1 Ml Sdv) 10 mg IV Q3HP PRN PRN Reason: Give For Sbp > [150] Stop: 01/04/19 13:21 Levofloxacin/Dextrose (Levaquin Rtu 500mg/D5w 100 Ml Premix) 500 mg in 100 mls @ 100 mls/hr IV DAILY JAYA Stop: 12/14/18 09:59 Last Admin: 12/11/18 11:17 Dose: 100 mls/hr, 100 mls/hr Documented by: Lorazepam (Ativan Inj 2 Mg/1 Ml Vial) 1 mg IV Q6HP PRN PRN Reason: ANXIETY/AGITATION Stop: 12/15/18 06:52 Last Admin: 12/10/18 16:54 Dose: 1 mg Documented by: Losartan Potassium (Cozaar 50 Mg Tablet) 100 mg PO DAILY JAYA Stop: 01/09/19 09:59 Last Admin: 12/11/18 11:17 Dose: 100 mg Documented by: Magnesium Hydroxide (Milk Of Magnesia 30 Ml Udcup) 30 ml PO HSP PRN PRN Reason: FOR CONSTIPATION Stop: 01/03/19 20:40 Methylprednisolone Sodium Succinate (Solu-Medrol Inj/Pf 40 Mg/1 Ml Sdv) 40 mg IV Q6A JAYA Stop: 01/05/19 20:59 Last Admin: 12/11/18 11:17 Dose: 40 mg Documented by: Morphine Sulfate (Morphine 10 Mg/Ml Inj) 2 mg IV Q6HP PRN PRN Reason: FOR PAIN SCALE 3-4 Stop: 12/14/18 09:26 Last Admin: 12/10/18 00:00 Dose: 2 mg Documented by: Nicotine (Nicoderm 21 Mg/24 Hr Transderm Patch) 1 each TD DAILYP PRN PRN Reason: WITHDRAWAL SYMPTOMS Stop: 01/03/19 20:40 Promethazine HCl (Phenergan Inj 25 Mg/1 Ml Vial) 12.5 mg IV Q4HP PRN PRN Reason: FOR NAUSEA/VOMITING Stop: 01/03/19 20:44 Sodium Chloride (Saline Flush 2.5 Ml Monoject Prefil Syrin) 2.5 ml IV Q8 [facility] Stop: 01/03/19 21:59 Last Admin: 12/11/18 05:20 Dose: 2.5 ml Documented by: - Allergies Allergies/Adverse Reactions: Penicillins Allergy (Intermediate, Verified 12/07/18 09:39) Generalized rash ceftriaxone [From Rocephin] Adverse Reaction (Intermediate, Verified 12/07/18 18:37) Edema Hospital Course Hospital Course: CAITLIN CASTELLANO is a 53 no significant past medical 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 His shortness of breath started around March 2018, seen his PCP and has been treated for pneumonia with no significant clinical improvement. Initially he was treated for community-acquired pneumonia complicated by COPD e xacerbation, and was started on IV Zithromax, IV steroids, duo nebs, supplemental oxygen and BiPAP. On physical examination patient had significant wheezing on the right side but minimal air entry on the left side. Patient was not showing any sign of improvement and his hypoxia was worsening, and CTA chest was pursued which showed left mediastinal mass compromising airflow to the left lung. Given his history of heavy chronic tobacco abuse suspicion was raised for lung malignancy. Oncology were consulted and bronchoscopy was recommended for possible left flank mass biopsy. A transfer has been arranged by Dr. Hurtado oncologist at [facility] where Dr. Spivey will do a bronchoscopy for possible Mass biopsy. Patient was placed on n.p.o. Tuesday night in anticipation of transfer this morning but as per transfer center at [facility] patient may not be transferred until this afternoon or tomorrow. Patient is placed back on regular diet, and n.p.o. was planned after midnight. Patient antibiotic regiment has been as follows so far with blood culture being negative and sputum culture growing yeast normal oral natty. Day 8 IV antibiotics. Day 5 IV levofloxacin. Received 1 day of azithromycin. Switch to levofloxacin. Received 3 days of p.o. levofloxacin. Switched to IV levofloxacin. Allergic to penicillins, was started on IV ceftriaxone but unfortunately had a mild allergic reaction and it was stopped. Patient does not have history of hypertension however he was found to be hypertensive on this admission on a started on losartan 50 mg p.o. daily which was increased to 100 mg p.o. daily. Physical Exam Vital Signs: Temp Pulse Resp BP Pulse Ox 97.7 F 71 18 139/83 H 98 12/11/18 11:09 12/11/18 11:09 12/11/18 11:09 12/11/18 11:09 12/11/18 11:09 Intake & Output 12/10/18 12/11/18 12/12/18 06:59 06:59 06:59 Intake Total 820 1147 Balance 820 1147 Weight 68.9 kg 68.5 kg General appearance: PRESENT: no acute distress, well-developed, well-nourished Head exam: PRESENT: atraumatic, normocephalic Eye exam: PRESENT: conjunctiva pink, EOMI, PERRLA. ABSENT: scleral icterus Ear exam: PRESENT: normal external ear exam Mouth exam: PRESENT: moist, tongue midline Neck exam: ABSENT: carotid bruit, JVD, lymphadenopathy, thyromegaly Respiratory exam: PRESENT: decreased breath sounds - LL. ABSENT: rales, rhonchi, wheezes Cardiovascular exam: PRESENT: RRR. ABSENT: diastolic murmur, rubs, systolic murmur Pulses: PRESENT: normal dorsalis pedis pul Vascular exam: PRESENT: normal capillary refill GI/Abdominal exam: PRESENT: normal bowel sounds, soft. ABSENT: distended, guarding, mass, organolmegaly, rebound, tenderness Rectal exam: PRESENT: deferred Extremities exam: PRESENT: full ROM. ABSENT: calf tenderness, clubbing, pedal edema Neurological exam: PRESENT: alert, awake, oriented to person, oriented to place, oriented to time, oriented to situation, CN II-XII grossly intact. ABSENT: motor sensory deficit Psychiatric exam: PRESENT: appropriate affect, normal mood. ABSENT: homicidal ideation, suicidal ideation Skin exam: PRESENT: dry, intact, warm. ABSENT: cyanosis, rash Results Laboratory Results: 12/11/18 05:03 12/11/18 05:03 12/11/18 12/11/18 05:03 05:03 WBC 15.2 H RBC 4.93 Hgb 15.2 Hct 45.2 MCV 92 MCH 30.8 MCHC 33.6 RDW 13.3 Plt Count 302 Seg Neutrophils % Not Reportable Sodium 134.5 L Potassium 4.8 Chloride 96 L Carbon Dioxide 34 H Anion Gap 5 BUN 20 Creatinine 0.78 Est GFR ( Amer) > 60 Glucose 152 H Calcium 9.3 Total Bilirubin 0.7 AST 19 Alkaline Phosphatase 43 Total Protein 5.2 L Albumin 2.9 L 12/06/18 09:36 Sputum Gram Stain - Final 12/06/18 09:36 Sputum Sputum Culture - Final Yeast, Not Dalia Albicans Normal Natty Impressions: Chest X-Ray 12/04/18 18:10 IMPRESSION: COPD. NO ACUTE RADIOGRAPHIC FINDING IN THE CHEST. Chest/Abdomen CTA 12/07/18 00:00 IMPRESSION: Ill-defined left hilar mass obstructing the left mainstem bronchus. Diffuse hypoinflation of the left lung with debris in lower lobe airways.
[2018-12-11 20:18] VITALS: BP 144/86
[2018-12-11] MEDS: LORAZEPAM INJ 2 MG/1 ML VIAL IV PRN (21:39)
== END 2018-12-11 22:53 | disposition short-term general hospital (02) | DRG 190 ==
LOC: ER 17:53 → EH 20:32 → INTOOBSV 20:32 → 5 22:20 → OBSVTOIN 12-07 11:58
PROVIDERS: ADMIT Emergency Medicine; ATTEND Emergency Medicine
PROC: 5A09357 Assistance with Respiratory Ventilation, Less than 24 Consecutive Hours, Continuous Positive Airway Pressure (ICD-10-PCS; principal; 2018-12-07)
DX: J44.0 Chronic obstructive pulmonary disease with (acute) lower respiratory infection (principal); J96.01 Acute respiratory failure with hypoxia; J18.9 Pneumonia, unspecified organism; R04.2 Hemoptysis; J44.1 Chronic obstructive pulmonary disease with (acute) exacerbation; I10 Essential (primary) hypertension; E78.5 Hyperlipidemia, unspecified; F17.210 Nicotine dependence, cigarettes, uncomplicated; R91.8 Other nonspecific abnormal finding of lung field; Z71.6 Tobacco abuse counseling; Z88.1 Allergy status to other antibiotic agents; Z88.0 Allergy status to penicillin; Z82.49 Family history of ischemic heart disease and other diseases of the circulatory system
CPT/HCPCS: 36415; 36600; 71045; 71275; 80048; 80053; 80061; 81001; 82803; 83036; 83605; 83735; 85025; 85027; 87040; 87070; 87205; 93005; 93010; 94640; 94660; 94667; 99284; G0378; J0696; J1644; J1956; J2060; J2270; J2920; J2930; J3475; J3490; J7030; J7620

== ENCOUNTER → 2019-01-14 | Outpatient (CLI) | payer OTHER ==
--- NOTE | 2019-01-15 08:50 | RADIOLOGY REPORT (SQ) ---
EXAM DESCRIPTION: PET CT SKULL/THIGH COMPLETED DATE/TIME: 01/14/2019 11:58 pm REASON FOR STUDY: (C34.32)MALIGNANT NEOPLASM OF LOWER LOBE, LEFT BRONCHUS OR LUNG C34.32 MALIGNANT NEOPLASM OF LOWER LOBE, LEFT BRONCHUS OR ANGIE COMPARISON: None. RADIONUCLIDE AND DOSE: 9.87 mCi F18 FDG The route of agent administration: Intravenous FASTING BLOOD SUGAR: 87 mg/dl CONTRAST TYPE AND DOSE: No CT contrast given. TECHNIQUE: Blood glucose level was verified. Above dose of FDG was injected intravenously. 2-D seg mented attenuation correction images were obtained from the base of the skull to the midthighs. Nonc ontrast CT images were obtained for attenuation correction and fusion with emission images. CT image s were performed without oral or intravenous contrast and are not sensitive for parenchymal lesions. A series of overlapping emission PET images were obtained. Images reviewed and manipulated at [facility] work station by the radiologist. Images stored on PACS. LIMITATIONS: None. FINDINGS: HEAD AND NECK: Symmetric vocal cord uptake likely artifact secondary to phonation. CHEST: Hypermetabolic left hilar mass 7.8 SUV and approximately 3.5 x 4.4 cm AP by transverse diamete r. ABDOMEN AND PELVIS: No areas of abnormal metabolic activity in the abdomen or pelvis. Expected physi ologic activity is present in the genitourinary system and bowel. PROXIMAL LOWER EXTREMITIES: No areas of abnormal metabolic activity in the soft tissues of the lower extremities. BONES: No abnormal metabolic activity in the visualized skeleton. ADDITIONAL CT FINDINGS: See recent separate reports. OTHER: Blood pool 1.3 SUV. Liver background 2.0 SUV. IMPRESSION: Hypermetabolic left hilar mass. No evidence of metastatic disease. TECHNICAL DOCUMENTATION: JOB ID: [id number]- All Rights Reserved Reading location - IP/workstation name: [email or web address]
== END ==
LOC: RAD 14:25
PROVIDERS: ATTEND Internal Medicine
DX: C34.32 Malignant neoplasm of lower lobe, left bronchus or lung (principal)
CPT/HCPCS: 78815; A9552

== ENCOUNTER 2019-03-05 10:43 | Emergency (ER) | payer OTHER, MEDICAID ==
[2019-03-05] MEDS ORDERED: ASPIRIN 81 MG TABLET, CHEWABLE PO ONE (10:55)
[2019-03-05] MEDS ORDERED: NORMAL SALINE 1000 ML 1,000 ML IV ONE (10:56)
[2019-03-05] MEDS ORDERED: IPRATROPIUM/ALBUTEROL 0.5-2.5 MG/3 ML AMPUL NEB ONE (10:57)
--- NOTE | 2019-03-05 10:58 | ER Document Report ---
ED Medical Screen (RME) - General Chief Complaint: Chest Pain Stated Complaint: CHEST PAIN, LEFT ARM PAIN Time Seen by Provider: 03/05/19 10:51 Primary Care Provider: BRANDON CARROLL MD [Primary Care Provider] - Follow up as needed Mode of Arrival: Ambulatory Information source: Patient Notes: Patient has a history of lung cancer for which he is receiving chemotherapy and radiation treatment. Patient reports having chest discomfort for the past 3 days. Patient states that the pain does radiate to the left arm making the arm feel numb. Patient complains of some nausea. Patient denies any cough or cold symptoms but does report exertional shortness of breath. I have greeted and performed a rapid initial assessment of this patient. A comprehensive ED assessment and evaluation of the patient, analysis of test results and completion of the medical decision making process will be conducted by additional ED providers. TRAVEL OUTSIDE OF THE [place] IN LAST 30 DAYS: No - Related Data Allergies/Adverse Reactions: Penicillins Allergy (Intermediate, Verified 03/05/19 10:54) Generalized rash ceftriaxone [From Rocephin] Adverse Reaction (Intermediate, Verified 03/05/19 10:54) Edema Past Medical History - Past Medical History Cardiac Medical History: Reports: Hx Hypercholesterolemia Denies: Hx Coronary Artery Disease, Hx Hypertension Pulmonary Medical History: Reports: Hx COPD Denies: Hx Asthma Neurological Medical History: Denies: Hx Seizures Endocrine Medical History: Denies: Hx Diabetes Mellitus Type 1, Hx Diabetes Mellitus Type 2, Hx Hyperthyroidism, Hx Hypothyroidism Renal/ Medical History: Reports: Hx Kidney Stones GI Medical History: Denies: Hx Cirrhosis, Hx Crohn's Disease, Hx Gastroesophageal Reflux Disease, Hx Hepatitis, Hx Ulcerative Colitis Musculoskeltal Medical History: Denies Hx Arthritis, Denies Hx Gout Skin Medical History: Denies Hx Eczema, Denies Hx Psoriasis - Hearing aids Psychiatric Medical History: Denies: Hx Depression Infectious Medical History: Denies: Hx Hepatitis Past Surgical History: Reports: Hx Tonsillectomy, Other - 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
[2019-03-05 11:18] LABS: ABSOLUTE LYMPHOCYTES (AUTO) 1.3 10^3/uL (0.5-4.7); ABSOLUTE MONOCYTES (AUTO) 0.5 10^3/uL (0.1-1.4); BASOPHILS % (AUTO) 0.6 % (0-2); EOSINOPHILS % (AUTO) 0.6 % (0-6); HEMOGLOBIN 14.1 g/dL (13.5-17.0); LYMPHOCYTES % (AUTO) 26.7 % (13-45); MEAN CORPUSCULAR HEMOGLOBIN 32.4 pg (27.0-33.4); MEAN CORPUSCULAR HGB CONC 35.2 g/dL (32.0-36.0); MEAN CORPUSCULAR VOLUME 92 fl (80-97); MONOCYTES % (AUTO) 10.1 % (3-13); PLATELET COUNT 240 10^3/uL (150-450); RED BLOOD COUNT 4.35 10^6/uL (4.35-5.55); RED CELL DISTRIBUTION WIDTH 16.6 % (11.5-14.0); TOTAL CELLS COUNTED % (AUTO) 100 %; WHITE BLOOD COUNT 4.9 10^3/uL (4.0-10.5)
[2019-03-05 11:49] LABS: ALBUMIN 4.5 g/dL (3.5-5.0); ALKALINE PHOSPHATASE 46 U/L (38-126); ANION GAP 12 (5-19); ASPARTATE AMINO TRANSFERASE 26 U/L (17-59); BILIRUBIN,DIRECT 0.1 mg/dL (0.0-0.4); BILIRUBIN,TOTAL 0.8 mg/dL (0.2-1.3); BLOOD UREA NITROGEN 20 mg/dL (7-20); CALCIUM 10.3 mg/dL (8.4-10.2); CARBON DIOXIDE 25 mmol/L (22-30); CHLORIDE 100 mmol/L (98-107); GLUCOSE 128 mg/dL (75-110); POTASSIUM 4.1 mmol/L (3.6-5.0); TOTAL PROTEIN 6.9 g/dL (6.3-8.2)
[2019-03-05 12:02] LABS: NT PRO BNP 19 pg/mL (<125); TROPONIN I < 0.012 ng/mL
--- NOTE | 2019-03-05 12:02 | ER Document Report ---
ED General - General Chief Complaint: Chest Pain Stated Complaint: CHEST PAIN, LEFT ARM PAIN Time Seen by Provider: 03/05/19 10:51 Primary Care Provider: BRANDON CARROLL MD [Primary Care Provider] - Follow up as needed Mode of Arrival: Ambulatory TRAVEL OUTSIDE OF THE [place] IN LAST 30 DAYS: No - Related Data Allergies/Adverse Reactions: Penicillins Allergy (Intermediate, Verified 03/05/19 10:54) Generalized rash ceftriaxone [From Rocephin] Adverse Reaction (Intermediate, Verified 03/05/19 10:54) Edema Past Medical History - General Information source: Patient - Social History Smoking Status: Former Smoker Family History: DM, Hypertension, Other - Stomach ulcers, gout. denies: CAD, Malignancy Patient has suicidal ideation: No Patient has homicidal ideation: No - Past Medical History Cardiac Medical History: Reports: Hx Hypercholesterolemia Denies: Hx Coronary Artery Disease, Hx Hypertension Pulmonary Medical History: Reports: Hx COPD Denies: Hx Asthma Neurological Medical History: Denies: Hx Seizures Endocrine Medical History: Denies: Hx Diabetes Mellitus Type 1, Hx Diabetes Mellitus Type 2, Hx Hyperthyroidism, Hx Hypothyroidism Renal/ Medical History: Reports: Hx Kidney Stones GI Medical History: Denies: Hx Cirrhosis, Hx Crohn's Disease, Hx Gastroesophageal Reflux Disease, Hx Hepatitis, Hx Ulcerative Colitis Musculoskeletal Medical History: Denies Hx Arthritis, Denies Hx Gout Skin Medical History: Denies Hx Eczema, Denies Hx Psoriasis - Hearing aids Psychiatric Medical History: Denies: Hx Depression Infectious Medical History: Denies: Hx Hepatitis Past Surgical History: Reports: Hx Tonsillectomy, Other - 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 Not related to activity or rest pain seems to be worse at night. Is a squeezing sensation similar to what he had before when he was seen in the emergency department and diagnosed with lung cancer in the past episodes were brief but he says over the past 2 to 3 days and lasting longer than usual and now going into his left arm. Said he had the pain all day yesterday. Did not have any this morning but still had persistent pain in his left shoulder. He says some intermittent nausea but no vomiting. He has chronic shortness of breath which is unchanged. He said he had a chronic cough for months which is unchanged he has had no diaphoresis fevers associated with this. He denies any trauma falls or heavy lifting. He says the pain does not really seem to be occurring with activity does not change with rest. Is not related to meals and again reports that she is worse at night. Occasionally waking him up. However he denies any history of reflux when he wakes up is not associated with a sour taste in his mouth or increasing burping. Patient was reports that he had some numbness in his left arm that is been constant for the past 2 days. Denies any headaches or neck pain. Is no weakness in the arm and no numbness or weakness in his leg Past medical history significant for hypertension and COPD. Recently diagnosed with left lung cancer and is currently receiving chemo has not had radiation. He has no history of elevated cholesterol or coronary artery disease and no diabetes. Social history smokes no alcohol. Family history is negative for heart disease at an early age Review of systems pertinent positives and negatives in HPI otherwise all the systems were reviewed and acutely negative PHYSICIAN EXAM -vital signs are noted triage note and note from triage reviewed GENERAL: Well-appearing, well-nourished and in _no acute distress HEAD: Atraumatic, normocephalic. EYES: Pupils equal round and reactive to light, extraocular movements intact, sclera anicteric, conjunctiva are normal. ENT: nares patent, oropharynx clear without exudates. Moist mucous membranes. NECK: supple without lymphadenopathy no JVD nontender in the midline LUNGS: He has decreased breath sounds on the left but no respiratory distress is a rare wheeze on forced exhalation chest wall tenderness HEART: Regular rate and rhythm without murmurs ABDOMEN: Soft, nontender, normoactive bowel sounds. EXTREMITIES: No deformity, no edema. There is no palpable cords NEUROLOGICAL: Alert and oriented x4. Cranial nerves he has symmetrical smile facies and shoulder shrug. His motor strength is 5/5 bilaterally in the upper and lower extremities. Toes downgoing. Sensation is intact to light touch and pinprick in the upper lower extremities. Is a negative Romberg PSYCH: Normal mood, normal affect. SKIN: Warm, Dry, normal turgor, no rashes or lesions noted. BACK-nontender in the midline Differential diagnosis includes angina malignancy pleurisy reflux apathy neuropathy Course - Vital Signs Vital signs: Temp Pulse Resp BP Pulse Ox 97.5 F 106 H 15 129/77 H 100 03/05/19 10:57 03/05/19 10:57 03/05/19 14:00 03/05/19 14:00 03/05/19 14:00 - Laboratory Result Diagrams: 03/05/19 11:08 03/05/19 11:08 Laboratory results interpreted by me: 03/05/19 03/05/19 11:08 11:08 RDW 16.6 H Glucose 128 H Calcium 10.3 H Discharge - Discharge Clinical Impression: COPD exacerbation, Reflux esophagitis Chest pain Qualifiers: Chest pain type: unspecified Qualified Code(s): R07.9 - Chest pain, unspecified Disposition: HOME, SELF-CARE Instructions: Chest Pain of Unclear Cause ([facility]), Reflux Disease (GERD) ([facility]) Additional Instructions: Please review the discharge instructions, they will tell you about your d isease/injury and what you need to return to the ED for Return to the ED if you feel worse or can follow-up with your family doctor Use your aerosol machine 4 times a day for the next 5 days then as needed Avoid fatty greasy foods and caffeine especially in the evening Prescriptions: Prednisone [Deltasone] 20 mg PO TID #15 tablet Doxycycline Hyclate 100 mg PO BID #14 capsule Esomeprazole Magnesium [Nexium] 20 mg PO ASDIR PRN #30 capsule.dr EDMONDSON Reason: Referrals: BRANDON CARROLL MD [Primary Care Provider] - Follow up as needed
--- NOTE | 2019-03-05 12:08 | RADIOLOGY REPORT (SQ) ---
EXAM DESCRIPTION: CHEST 2 VIEWS COMPLETED DATE/TIME: 03/05/2019 11:20 am REASON FOR STUDY: cp, hx lung cancer COMPARISON: None. EXAM PARAMETERS: NUMBER OF VIEWS: two views TECHNIQUE: Digital Frontal and Lateral radiographic views of the chest acquired. RADIATION DOSE: NA LIMITATIONS: none FINDINGS: LUNGS AND PLEURA: Decreased volume in the left lung compared to the right. No infiltrate, effusion, or mass. MEDIASTINUM AND HILAR STRUCTURES: No masses or contour abnormalities. HEART AND VASCULAR STRUCTURES: Heart normal size. No evidence for failure. BONES: No acute findings. HARDWARE: None in the chest. OTHER: No other significant finding. IMPRESSION: NO ACUTE RADIOGRAPHIC FINDING IN THE CHEST. TECHNICAL DOCUMENTATION: JOB ID: [id number] [email or web address]- All Rights Reserved Reading location - IP/workstation name: [email or web address]
--- NOTE | 2019-03-05 12:44 | EKG REPORT ---
SEVERITY:- NORMAL ECG - SINUS RHYTHM : Confirmed by: Kary King MD 05-Mar-2019 12:43:40
[2019-03-05 15:43] VITALS: BP 127/83
== END 2019-03-05 15:47 | disposition home or self-care (01) ==
LOC: ER 10:43
DX: J44.1 Chronic obstructive pulmonary disease with (acute) exacerbation (principal); K21.0 Gastro-esophageal reflux disease with esophagitis; R07.9 Chest pain, unspecified; M79.602 Pain in left arm; R05 Cough; R20.0 Anesthesia of skin; I45.10 Unspecified right bundle-branch block; Z87.891 Personal history of nicotine dependence; I10 Essential (primary) hypertension
CPT/HCPCS: 93005; 94640; 99285; 96360; 36415; 85025; 80053; 84484; 83880; 71046; 93010; J7030; J7620

== ENCOUNTER 2019-03-12 18:18 | Inpatient (IN) | payer OTHER, MEDICAID ==
--- NOTE | 2019-03-12 18:47 | EKG REPORT ---
SEVERITY:- BORDERLINE ECG - SINUS TACHYCARDIA RIGHT AXIS DEVIATION BORDERLINE ST DEPRESSION, ANTEROLATERAL LEADS : Confirmed by: Louis Holloway MD 12-Mar-2019 18:47:30
--- NOTE | 2019-03-12 19:43 | ER Document Report ---
ED Medical Screen (RME) - General Chief Complaint: Chest Pain Stated Complaint: CHEST PAINS Time Seen by Provider: 03/12/19 19:38 Primary Care Provider: BRANDON CARROLL MD [Primary Care Provider] - Follow up as needed Mode of Arrival: Wheelchair Information source: Patient Notes: 53-year-old patient with history of lung cancer presents emergency department with complaints of chest pain. Reports chest pain radiates down his left arm. Reports he was here last week for the same things. He reports his left arm is now more swollen than his right arm. Patient also reports now he has to stay on home oxygen all the time because he is not breathing well enough. He reports he is on 4 L nasal cannula. No other complaint such as nausea vomiting diarrhea. I have greeted and performed a rapid initial assessment of this patient. A comprehensive ED assessment and evaluation of the patient, analysis of test results and completion of the medical decision making process will be conducted by additional ED providers. TRAVEL OUTSIDE OF THE [place] IN LAST 30 DAYS: No - Related Data Allergies/Adverse Reactions: Penicillins Allergy (Intermediate, Verified 03/12/19 19:36) Generalized rash ceftriaxone [From Rocephin] Adverse Reaction (Intermediate, Verified 03/12/19 19:36) Edema Past Medical History - Past Medical History Cardiac Medical History: Reports: Hx Hypercholesterolemia Denies: Hx Coronary Artery Disease, Hx Hypertension Pulmonary Medical History: Reports: Hx COPD Denies: Hx Asthma Neurological Medical History: Denies: Hx Seizures Endocrine Medical History: Denies: Hx Diabetes Mellitus Type 1, Hx Diabetes Mellitus Type 2, Hx Hyperthyroidism, Hx Hypothyroidism Renal/ Medical History: Reports: Hx Kidney Stones GI Medical History: Denies: Hx Cirrhosis, Hx Crohn's Disease, Hx Gastroesophageal Reflux Disease, Hx Hepatitis, Hx Ulcerative Colitis Musculoskeltal Medical History: Denies Hx Arthritis, Denies Hx Gout Skin Medical History: Denies Hx Eczema, Denies Hx Psoriasis - Hearing aids Psychiatric Medical History: Denies: Hx Depression Infectious Medical History: Denies: Hx Hepatitis Past Surgical History: Reports: Hx Tonsillectomy, Other - 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
[2019-03-12 21:03] LABS: ABSOLUTE LYMPHOCYTES (AUTO) 1.1 10^3/uL (0.5-4.7); ABSOLUTE NEUT (AUTO) 7.4 10^3/uL (1.7-8.2); BASOPHILS % (AUTO) 0.2 % (0-2); HEMATOCRIT 42.6 % (37.9-51.0); HEMOGLOBIN 14.9 g/dL (13.5-17.0); LYMPHOCYTES % (AUTO) 11.5 % (13-45); MEAN CORPUSCULAR HEMOGLOBIN 33.1 pg (27.0-33.4); MEAN CORPUSCULAR HGB CONC 35.1 g/dL (32.0-36.0); MEAN CORPUSCULAR VOLUME 94 fl (80-97); MONOCYTES % (AUTO) 10.5 % (3-13); PLATELET COUNT 374 10^3/uL (150-450); RED BLOOD COUNT 4.51 10^6/uL (4.35-5.55); RED CELL DISTRIBUTION WIDTH 17.5 % (11.5-14.0); SEGMENTED NEUTROPHILS % (AUTO) 77.8 % (42-78); TOTAL CELLS COUNTED % (AUTO) 100 %; WHITE BLOOD COUNT 9.5 10^3/uL (4.0-10.5)
[2019-03-12 21:11] LABS: ALBUMIN 4.5 g/dL (3.5-5.0); ALKALINE PHOSPHATASE 53 U/L (38-126); ANION GAP 11 (5-19); ASPARTATE AMINO TRANSFERASE 21 U/L (17-59); BILIRUBIN,DIRECT 0.3 mg/dL (0.0-0.4); BILIRUBIN,TOTAL 0.5 mg/dL (0.2-1.3); BLOOD UREA NITROGEN 18 mg/dL (7-20); CALCIUM 10.2 mg/dL (8.4-10.2); CARBON DIOXIDE 29 mmol/L (22-30); CHLORIDE 100 mmol/L (98-107); CREATINE KINASE 25 U/L (55-170); GLUCOSE 117 mg/dL (75-110); POTASSIUM 4.1 mmol/L (3.6-5.0); TOTAL PROTEIN 6.9 g/dL (6.3-8.2)
--- NOTE | 2019-03-12 21:30 | RADIOLOGY REPORT (SQ) ---
EXAM DESCRIPTION: XR CHEST 2 VIEWS COMPLETED DATE/TME: 03/12/2019 19:42 CLINICAL HISTORY: 53 years, Male, cp COMPARISON: X-ray chest 03/05/2019 NUMBER OF VIEWS: TECHNIQUE: LIMITATIONS: None. FINDINGS: There is atelectasis/consolidation of the left lower lobe, a new finding, as compared with the prior study. There is increased shift of the heart and mediastinum toward the left side, as compared with the prior chest x-ray. The right lung is clear. Pulmonary vascularity appears normal. IMPRESSION: Atelectasis/consolidation of the left lower lobe, compatible with pneumonia. An endobronchial mucous plug or neoplasm are considerations. copyright 2010 [employer]- All Rights Reserved
[2019-03-12] MEDS ORDERED: NITROGLYCERIN 0.4 MG/TAB 25 TAB/BOTTLE ONE (21:49)
[2019-03-12] MEDS ORDERED: NITROGLYCERIN 0.4 MG/TAB 25 TAB/BOTTLE SL PRN (21:50)
[2019-03-12] MEDS ORDERED: LORAZEPAM INJ 2 MG/1 ML VIAL IV ONE (22:10)
[2019-03-12] MEDS ORDERED: IPRATROPIUM/ALBUTEROL 0.5-2.5 MG/3 ML AMPUL NEB ONE (22:17)
[2019-03-12 22:30] LABS: INTERNATIONAL RATION (INR) 0.93; PARTIAL THROMBOPLASTIN TIME 25.8 SEC (23.5-35.8); PROTHROMBIN TIME 12.5 SEC (11.4-15.4)
[2019-03-12] MEDS ORDERED: TRANEXAMIC ACID INJ/PF 1,000 MG/10 ML SDV IV ONE (22:31)
--- NOTE | 2019-03-12 22:33 | RADIOLOGY REPORT (SQ) ---
EXAM DESCRIPTION: [facility]: CT CHEST ANGIOGRAPHY WITHOUT THEN WITH IV CONTRAST CLINICAL HISTORY: 53 years Male; hypoxic; C34.32 MALIGNANT NEOPLASM OF LOWER LOBE, LEFT BRONCHUS OR LUNG TECHNIQUE: CT angiogram of the chest using intravenous contrast.. MIP reconstructions were performed. All CT scans at this facility use dose modulation, iterative reconstruction, and/or weight based dosing when appropriate to reduce radiation dose to as low as reasonably achievable. COMPARISON: CT 02/26/2019 FINDINGS: Chest: No filling defects in the pulmonary arteries. There is complete collapse of the left lower lobe, new since the prior exam. Partial atelectasis of the left upper lobe. A small left pleural effusion has developed. The left hilar mass is again noted, likely responsible for occlusion of the left lower lobe bronchus. Right lung remains clear, slightly hyperinflated. No pneumothorax. Mediastinum is slightly shifted to the left due to volume loss in the left hemithorax. No pericardial effusion. Visualized portions of the upper abdomen are unchanged. No acute bone findings. IMPRESSION: 1. Collapse of the left lower lobe due to bronchial obstruction by the known left hilar mass. There is also partial atelectasis of the left upper lobe. Cannot exclude underlying pneumonia. 2. Small left pleural effusion, also new since 02/26/2019. 3. No CT evidence for pulmonary embolism.
[2019-03-12 22:52] LABS: ARTERIAL BLOOD BASE EXCESS 0.9 mmol/L; ARTERIAL BLOOD FIO2 4L; ARTERIAL BLOOD H2CO3 1.08 mmol/L (1.05-1.35); ARTERIAL BLOOD HCO3 24.5 mmol/L (20-24); ARTERIAL BLOOD O2 SATURATION 83.4 % (94-98); ARTERIAL BLOOD PH 7.45 (7.35-7.45); ARTERIAL BLOOD TOTAL CO2 25.6 mmol/L (23-27)
[2019-03-12] MEDS ORDERED: FENTANYL CITRATE INJ/PF 100 MCG/2 ML AMPUL IV ONE (22:52)
[2019-03-12] MEDS ORDERED: AZITHROMYCIN INJ 500 MG VIAL IV ONE (23:04)
[2019-03-12] MEDS ORDERED: VANCOMYCIN HCL INJ 1000 MG VIAL IV ONE (23:19)
[2019-03-12] MEDS ORDERED: METHYLPREDNISOLONE INJ 125 MG/2 ML SDV IV ONE (23:19)
[2019-03-12] MEDS ORDERED: MEROPENEM 1 GM VIAL IV ONE (23:21)
--- NOTE | 2019-03-12 23:34 | ER Document Report ---
ED General - General Chief Complaint: Shortness Of Breath Stated Complaint: CHEST PAINS Time Seen by Provider: 03/12/19 19:38 Primary Care Provider: BRANDON CARROLL MD [Primary Care Provider] - Follow up as needed Mode of Arrival: Wheelchair Notes: 53 year old male presents the emergency department complaining of progressively worsening left-sided chest pain radiating to his left arm and shortness of breath for the past week associated with worsening shortness of breath. Patient has tried using his home oxygen in his home breathing treatments without any improvement. Patient does have a history of lung cancer on the left-hand side that they have been told is blocking off a blood vessel in his lung. They are not entirely certain what type of lung cancer it is. They follow with Dr. Carroll. Of note they did recently finish a course of steroids and antibiotics for pneumonia within the past 2 weeks. Patient denies history of heart attack personally or in his family, also denies history of DVT, PE or dissection personally or in his family. Patient states that while waiting in the waiting room his chest pain and his breathing has acutely worsened. Patient was brought back to trauma 1 where he was found to have an oxygen saturation in the 80s. TRAVEL OUTSIDE OF THE [place] IN LAST 30 DAYS: No - Related Data Allergies/Adverse Reactions: Penicillins Allergy (Intermediate, Verified 03/12/19 19:36) Generalized rash ceftriaxone [From Rocephin] Adverse Reaction (Intermediate, Verified 03/12/19 19:36) Edema Past Medical History - General Information source: Patient - Social History Smoking Status: Former Smoker Frequency of alcohol use: Rare Drug Abuse: None Family History: DM, Hypertension, Other - Stomach ulcers, gout. denies: CAD, Malignancy Patient has suicidal ideation: No Patient has homicidal ideation: No - Past Medical History Cardiac Medical History: Reports: Hx Hypercholesterolemia Denies: Hx Coronary Artery Disease, Hx Hypertension Pulmonary Medical History: Reports: Hx COPD Denies: Hx Asthma Neurological Medical History: Denies: Hx Seizures Endocrine Medical History: Denies: Hx Diabetes Mellitus Type 1, Hx Diabetes Mellitus Type 2, Hx Hyperthyroidism, Hx Hypothyroidism Renal/ Medical History: Reports: Hx Kidney Stones GI Medical History: Denies: Hx Cirrhosis, Hx Crohn's Disease, Hx Gastroesophageal Reflux Disease, Hx Hepatitis, Hx Ulcerative Colitis Musculoskeletal Medical History: Denies Hx Arthritis, Denies Hx Gout Skin Medical History: Denies Hx Eczema, Denies Hx Psoriasis - Hearing aids Psychiatric Medical History: Denies: Hx Depression Infectious Medical History: Denies: Hx Hepatitis Past Surgical History: Reports: Hx Tonsillectomy, Other - 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 Pale, speaks in 2-3 word sentences. HEAD: Normocephalic, atraumatic EYES: Pupils equal, round and reactive to light, extraocular movements intact. ENT: Oral mucosa moist, tongue midline. NECK: Full range of motion, supple, trachea midline. LUNGS: Trace expiratory wheezing, tachypneic, no rales or rhonchi, sitting straight up and breathing rapidly and appears quite short of breath. Oxygen sat uration in the mid to low 80s with good waveform on nonrebreather. HEART: Tachycardic rate and rhythm, no murmurs, gallops, rubs. ABDOMEN: Soft, nontender, nondistended, bowel sounds present in all 4 quadrants. EXTREMITIES: Moves all 4 extremities spontaneously, no edema, radial and dorsalis pedis pulses 2/4 bilaterally. No cyanosis. NEUROLOGICAL: Alert and oriented x3, normal speech. PSYCH: Anxious. SKIN: Warm, Dry, normal turgor, no rashes or lesions noted. Course - Re-evaluation Re-evalutation: 03/13/19 00:11 When brought back from the lobby the patient was immediately placed on nonrebreather, oxygenation improved somewhat but not wonderfully, patient is uncertain about the possibility of being intubated. Patient was sent for a CTA of the chest to rule out pulmonary embolism from his cancer that may have acu tely worsened his hypoxia and pain. Nitroglycerin did not significantly relieve his pain, EKG did not show a STEMI on the repeat EKG. Patient was placed on BiPAP and given breathing treatments, oxygenation only improved somewhat, Ativan did improve compliance with the BiPAP however he kept sitting straight up and was unable to breathe well with BiPAP, he kept complaining of severe chest pain. Patient was then given 50 mcg of fentanyl IV which actually relieved all of his pain, normalized his breathing and made him able to maintain a normal oxygen saturation. His respiratory rate also slowed somewhat and his blood pressure normalized. Patient is appearing quite a bit more comfortable. Chest x-ray showed opacification on the left-hand side which was suspicious for mass versus effusion versus atelectasis versus pneumonia. CBC unremarkable, coags normal, arterial blood gas does not show any CO2 retention but it does show hypoxia, CMP grossly unremarkable, initial troponin negative. Chest/Abdomen CTA 03/12/19 00:00 IMPRESSION: 1. Collapse of the left lower lobe due to bronchial obstruction by the known left hilar mass. There is also partial atelectasis of the left upper lobe. Cannot exclude underlying pneumonia. 2. Small left pleural effusion, also new since 02/26/2019. 3. No CT evidence for pulmonary embolism. Chest X-Ray 03/12/19 19:42 IMPRESSION: Atelectasis/consolidation of the left lower lobe, compatible with pneumonia. An endobronchial mucous plug or neoplasm are considerations. copyright 2010 [employer]- All Rights Reserved Patient has now stabilized. I did discuss the patient with CT surgery at [facility] due to my concerns that the patient's pleural effusion may represent hemorrhage into the left lung. They made a very good point that if the patient is not having hemoptysis this is unlikely to be hemorrhage. Discussed the patient with Dr. Pamela tran who recommends intubating the patient should he remain hypoxic. Discussed the patient with Dr. Izzy Rosas the block saw operator who agrees to accept the patient to her service. Patient has now stabilized on BiPAP. Patient will be treated with vancomycin and meropenem, steroids and placed in the ICU. Family is aware of the plan, would like a trial of intubation if he worsens. - Vital Signs Vital signs: Temp Pulse Resp BP Pulse Ox 97.2 F 95 14 138/100 H 97 03/12/19 19:43 03/12/19 19:43 03/12/19 23:01 03/12/19 23:01 03/12/19 23:01 - Laboratory Result Diagrams: 03/12/19 19:55 03/12/19 19:55 Laboratory results interpreted by me: 03/12/19 03/12/19 03/12/19 19:55 19:55 22:20 RDW 17.5 H Lymph % (Auto) 11.5 L ABG pO2 ABG HCO3 ABG O2 Saturation Glucose 117 H Lactic Acid 2.3 H Creatine Kinase 25 L 03/12/19 22:20 RDW Lymph % (Auto) ABG pO2 45.0 L ABG HCO3 24.5 H ABG O2 Saturation 83.4 L Glucose Lactic Acid Creatine Kinase - EKG Interpretation by Me Additional EKG results interpreted by me: 03/13/19 00:13 Initial EKG shows sinus tachycardia at a rate of 102, right axis deviation, normal intervals, no ST segment elevations, trace ST segment depressions in the 2 through the 6, no elevations per my interpretation. Repeat EKG performed at 2153 shows sinus tachycardia at a rate of 105, right axis deviation, slightly improved ST segment depressions in V2 through V6, no ST segment elevations, normal intervals per my interpretation. Critical Care Note - Critical Care Note Total time excluding time spent on procedures (mins): 55 Discharge - Discharge Clinical Impression: Acute respiratory failure with hypoxia, Obstructive pneumonia, COPD exacerbation Cancer of left lung Qualifiers: Lung location: lower lobe of lung Qualified Code(s): C34.32 - Malignant neoplasm of lower lobe, left bronchus or lung Condition: Critical Disposition: ADMITTED INPATIENT Admitting Provider: Ralph ([facility]) Unit Admitted: ICU Referrals: BRANDON CARROLL MD [Primary Care Provider] - Follow up as needed
[2019-03-12] MEDS ORDERED: ALBUTEROL SULFATE 0.083% NEB 2.5 MG/3 ML AMPUL NEB PRN (23:43)
[2019-03-12] MEDS ORDERED: RINGERS SOLUTION,LACTATED 1,000 ML IV PRN (23:43)
[2019-03-12] MEDS ORDERED: CEFTRIAXONE 1 GM/D5W RTU 1 GM/50 ML RTUPB IV ONE (23:59)
[2019-03-13] MEDS ORDERED: VANCOMYCIN HCL 0 MG in DEXTROSE 5%-WATER 250 ML IV NR (02:15)
[2019-03-13] MEDS: MORPHINE SULFATE 10 MG/ML INJ IV PRN ×3 (02:30→12:58)
[2019-03-13 04:37] LABS: HEMOGLOBIN 14.7 g/dL (13.5-17.0); MEAN CORPUSCULAR HGB CONC 34.9 g/dL (32.0-36.0); MEAN CORPUSCULAR VOLUME 95 fl (80-97); PLATELET COUNT 346 10^3/uL (150-450); RED BLOOD COUNT 4.45 10^6/uL (4.35-5.55); RED CELL DISTRIBUTION WIDTH 18.1 % (11.5-14.0); WHITE BLOOD COUNT 11.3 10^3/uL (4.0-10.5)
[2019-03-13] MEDS ORDERED: SIMETHICONE 80 MG TAB.CHEW PO PRN (04:38)
[2019-03-13] MEDS ORDERED: METOPROLOL TARTRATE PF/INJ 5 MG/5 ML SDV IV ONE (04:45)
[2019-03-13 04:47] LABS: INTERNATIONAL RATION (INR) 0.98; PARTIAL THROMBOPLASTIN TIME 24.1 SEC (23.5-35.8)
[2019-03-13 05:10] LABS: ALBUMIN 4.2 g/dL (3.5-5.0); ALKALINE PHOSPHATASE 54 U/L (38-126); ANION GAP 10 (5-19); ASPARTATE AMINO TRANSFERASE 20 U/L (17-59); BILIRUBIN,DIRECT 0.2 mg/dL (0.0-0.4); BILIRUBIN,TOTAL 0.7 mg/dL (0.2-1.3); BLOOD UREA NITROGEN 19 mg/dL (7-20); CALCIUM 10.2 mg/dL (8.4-10.2); CARBON DIOXIDE 27 mmol/L (22-30); CHLORIDE 100 mmol/L (98-107); GLUCOSE 156 mg/dL (75-110); PHOSPHORUS 4.9 mg/dL (2.5-4.5); POTASSIUM 4.5 mmol/L (3.6-5.0); TOTAL PROTEIN 6.5 g/dL (6.3-8.2)
--- NOTE | 2019-03-13 05:21 | CRITICAL CARE ADMISSION REPORT ---
HPI Date:: 03/12/19 Time:: 23:55 Reason for ICU Reason:: acute respiratory failure, PNA HPI: Mr. Myles is a very pleasant 53yr old M with PMH of COPD, 70pk yr history of tobacco dependence and recently diagnosed lung cancer. Pt was recently admitted to the hospital in 11/2018 with complaints of progressive SOB and orthopnea and treated for COPD exacerbation. During this most recent admission, Dr. Hurtado was consulted for concerns for new left hilar mass (4.3cm with postobstructive changes) found on imaging with recs for PET scan and out patient bronchoscopy. Pt was discharged and PET scan was performed on 02/10/19 showing 3.5x4.4 left hilar mass. Pt returned to the ED on 03/05/19 complaining of left chest pain with left arm numbness for several days and discharged home from the ED. Today, pt arrived to the ED with complaints of progressive SOB, left-sided chest pain that radiates to left arm. He was placed on BiPAP in the ED and treated for pain with much relief. CTA chest showing collapse of LLL, partial atelectasis of MANUEL and new left side pleural effusion from most recent CT on 03/08. Chest XR showing marked shift of the heart and medistinum to the left that is worse than previous CXR on 03/05. Pt will be admitted to ICU on BiPAP for respiratory support, continued pain management, treatment for presumed PNA. - Diagnosis/Plan (1) Acute respiratory failure with hypoxia Is this a current diagnosis for this admission?: Yes (2) COPD exacerbation Is this a current diagnosis for this admission?: Yes (3) Tracheal deviation Is this a current diagnosis for this admission?: Yes (4) Obstructive pneumonia Is this a current diagnosis for this admission?: Yes (5) Cancer of left lung Qualifiers: Lung location: lower lobe of lung Qualified Code(s): C34.32 - Malignant neoplasm of lower lobe, left bronchus or lung Is this a current diagnosis for this admission?: Yes (6) HTN (hypertension) Is this a current diagnosis for this admission?: Yes (7) Tobacco use disorder, severe, dependence Is this a current diagnosis for this admission?: Yes - . Plan Summary: Pulm: * continue on BiPAP and wean FiO2 as tolerated - repeat ABG in the AM * Left medistinal, tracheal and heart shift that is worse since previous CRX - continue to follow and use extreme caution if pt require intubation or procedures * Recent dx of lung CA type unknown - follows with Dr. Hurtado, consult pending * Hx of COPD with exacerbation - uses home O2, continue nebs, steroids, abx CV: * Medistinal and heart shift to left - markedly worse since previous CRX - consider cardiothoracic or caridology consult, ECHO pending * continue close monitoring on tele Neuro: * no acute concerns - Q2hr neuro exams for acute changes * morphine q2hr for pain management Renal: * Monitor I&O, trend renal indices, replace lytes PRN * continue IV fluids GI: * NPO while on BiPAP * no current indication for GI ppx * Pt reports bowel gas while passing flautus - simethacone ordered ID: * Compressive atelectasis/consolidation of left lower lobe - expectorated sputum pending, continue vanco/mitra * COPD exacerbation - continue nebs, abx and steroids Heme/Onc: * Recent dx of lung CA type unknown - followed by Dr. Hurtado with consult pending * DVT ppx - subQ heparin and SCDs MSK/skin: * Left chest and left arm pain - likely 2/2 mass and shift in anatomy - CTA negative for PE, continue to treat pain * turn Q2 Prolonged conversation with pt and regarding goals of care. Presented pts initial chest xray on 12/04, follow up chest XR on 03/05 and his xray done today to show the dramatic difference. and pt states they were both unaware of how much change there has been and the concerns with the deviation in his chest. Pt and are both agreeable to meeting with palliative care to discuss goals of care and obtaining assistance in making decisions regarding HCP and POA - Palliative care consult placed. Past Medical History Past Medical History: as per HPI Cardiac Medical History: Reports: Hyperlipidema Denies: Coronary Artery Disease, Hypertension Pulmonary Medical History: Reports: Chronic Obstructive Pulmonary Disease (COPD), Pneumonia Denies: Asthma Neurological Medical History: Denies: Seizures Endocrine Medical History: Denies: Diabetes Mellitus Type 1, Diabetes Mellitus Type 2, Hyperthyroidism, Hypothyroidism GI Medical History: Denies: Cirrhosis, Crohn's Disease, Gastroesophageal Reflux Disease, Hepatitis, Ulcerative Colitis Musculoskeltal Medical History: Denies: Arthritis, Gout Skin Medical History: Denies: Eczema, Psoriasis - Hearing aids Psychiatric Medical History: Denies: Depression Hematology: Denies: Anemia, Bleeding Tendencies Past Surgical History Past Surgical History: Reports: Tonsillectomy, Other - 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 Social/Family History - Social History Smoking Status: Former Smoker Frequency of Alcohol Use: None Hx Recreational Drug Use: No Drugs: None Hx Prescription Drug Abuse: No - Medication/Allergies Home Medications: Albuterol Sulfate [Proair HFA Inhalation Aerosol 8.5 gm MDI] 2 puff IH Q6HP PRN 12/04/18 Azithromycin 250 mg PO DAILY 12/04/18 Benzonatate 400 mg PO QHS 12/04/18 Budesonide/Formoterol Fumarate [Symbicort HFA 160-4.5 mcg Inhaler 6 gm] 2 puff IH Q12 12/04/18 Ipratropium [place] [Atrovent 0.06% Nasal [place]] 2 spray NASL TIDP PRN 12/04/18 Montelukast Sodium [Singulair 10 mg Tablet] 10 mg PO DAILY 12/04/18 Prednisone 10 mg PO DAILY 12/04/18 Doxycycline Hyclate 100 mg PO BID #14 capsule 03/05/19 Esomeprazole Magnesium [Nexium] 20 mg PO ASDIR PRN #30 capsule. 03/05/19 Prednisone [Deltasone] 20 mg PO TID #15 tablet 03/05/19 Allergies/Adverse Reactions: Penicillins Allergy (Intermediate, Verified 03/12/19 19:36) Generalized rash ceftriaxone [From Rocephin] Adverse Reaction (Intermediate, Verified 03/12/19 19:36) Edema Review of Systems Constitutional: ABSENT: chills, fatigue, headache(s), night sweats Nose, Mouth, and Throat: ABSENT: mouth pain, sore throat Cardiovascular: PRESENT: chest pain - left side radiating to left arm, dyspnea on exertion, orthropnea. ABSENT: palpitations Respiratory: PRESENT: cough, dyspnea. ABSENT: hemoptysis, sputum Gastrointestinal: PRESENT: other - stool changes from regular to small round pieces. ABSENT: abdominal pain, nausea, vomiting Genitourinary: ABSENT: difficulty urinating, hematuria Integumentary: ABSENT: lesions, pruritus, rash Neurological: ABSENT: confusion, dizziness, numbness, tingling Hematologic/Lymphatic: ABSENT: easy bleeding, easy bruising Physical Exam Vital Signs: Temp Pulse Resp BP Pulse Ox 97.2 F 95 20 136/98 H 98 03/12/19 19:43 03/12/19 19:43 03/12/19 23:50 03/12/19 23:41 03/12/19 23:50 Intake & Output 03/11/19 03/12/19 03/13/19 06:59 06:59 06:59 Weight 75.7 kg Weight/Height Weight 75.7 kg Height 6 ft General appearance: PRESENT: no acute distress, well-developed, well-nourished Head exam: PRESENT: atraumatic, normocephalic Eye exam: PRESENT: conjunctiva pink, EOMI, PERRLA Ear exam: PRESENT: normal external ear exam Neck exam: ABSENT: tracheal deviation - no noted deviation on external exam Respiratory exam: PRESENT: chest wall tenderness, decreased breath sounds - LLL, rhonchi - MANUEL Cardiovascular exam: PRESENT: +S1, +S2 Pulses: PRESENT: normal dorsalis pedis pul GI/Abdominal exam: PRESENT: normal bowel sounds, soft. ABSENT: tenderness Extremities exam: ABSENT: pedal edema Neurological exam: PRESENT: alert, awake, oriented to person, oriented to place, oriented to time, oriented to situation, CN II-XII grossly intact Psychiatric exam: PRESENT: appropriate affect, normal mood Laboratory/Radiographs Laboratory Results: 03/12/19 19:55 03/12/19 19:55 03/12/19 03/12/19 03/12/19 19:55 19:55 22:20 WBC 9.5 RBC 4.51 Hgb 14.9 Hct 42.6 MCV 94 MCH 33.1 MCHC 35.1 RDW 17.5 H Plt Count 374 Seg Neutrophils % 77.8 Carbonic Acid HCO3/H2CO3 Ratio ABG pH ABG pCO2 ABG pO2 ABG HCO3 ABG O2 Saturation ABG Base Excess FiO2 Sodium 139.7 Potassium 4.1 Chloride 100 Carbon Dioxide 29 Anion Gap 11 BUN 18 Creatinine 0.67 Est GFR ( Amer) > 60 Glucose 117 H Lactic Acid 2.3 H Calcium 10.2 Total Bilirubin 0.5 AST 21 Alkaline Phosphatase 53 Total Protein 6.9 Albumin 4.5 03/12/19 22:20 WBC RBC Hgb Hct MCV MCH MCHC RDW Plt Count Seg Neutrophils % Carbonic Acid 1.08 HCO3/H2CO3 Ratio 22:1 ABG pH 7.45 ABG pCO2 36.0 ABG pO2 45.0 L ABG HCO3 24.5 H ABG O2 Saturation 83.4 L ABG Base Excess 0.9 FiO2 4L Sodium Potassium Chloride Carbon Dioxide Anion Gap BUN Creatinine Est GFR ( Amer) Glucose Lactic Acid Calcium Total Bilirubin AST Alkaline Phosphatase Total Protein Albumin 03/12/19 03/12/19 03/12/19 19:55 19:55 22:45 Creatine Kinase 25 L Troponin I < 0.012 < 0.012 Impressions: Chest/Abdomen CTA 03/12/19 00:00 IMPRESSION: 1. Collapse of the left lower lobe due to bronchial obstruction by the known left hilar mass. There is also partial atelectasis of the left upper lobe. Cannot exclude underlying pneumonia. 2. Small left pleural effusion, also new since 02/26/2019. 3. No CT evidence for pulmonary embolism. Chest X-Ray 03/12/19 19:42 IMPRESSION: Atelectasis/consolidation of the left lower lobe, compatible with pneumonia. An endobronchial mucous plug or neoplasm are considerations. copyright 2010 [employer]- All Rights Reserved Critical Time Critical Time (minutes): 60 - not including procedures -: The care of a critically ill patient is dynamic. This note represents a static moment in the admission process. Orders and treatments may be given simultaneously and urgently, and time is not medical service representative of the treatment process. This patient requires Critical Care secondary to life threatening organ or limb dysfunction. Without Critical Care services, the patient is at risk for incr eased mortality and morbidity.
[2019-03-13 05:42] LABS: ABSOLUTE LYMPHOCYTES# (MANUAL) 0.6 10^3/uL (0.5-4.7); BASOPHILS % (MANUAL) 0 % (0-2); EOSINOPHILS % (MANUAL) 0 % (0-6); LYMPHOCYTES % (MANUAL) 5 % (13-45); MONOCYTES % (MANUAL) 0 % (3-13); SEGMENTED NEUTROPHILS % (MAN) 95 % (42-78); TOTAL CELLS COUNTED 100
[2019-03-13 05:43] LABS: ANISOCYTOSIS 1+; PLATELET COMMENT ADEQUATE
[2019-03-13 05:44] LABS: TEAR DROP CELLS SLIGHT
[2019-03-13] MEDS ORDERED: MEROPENEM 1 GM in NORMAL SALINE 50 ML IV SCH ×2 (06:00→10:00)
[2019-03-13] MEDS ORDERED: HYDROCORTISONE SOD SUCCINATE INJ/PF 100 MG/2 ML SDV IV SCH (06:00)
[2019-03-13] MEDS ORDERED: HEPARIN SOD (PORCINE) 5,000 UNIT/ML 1 ML VIAL SUBCUT SCH (06:00)
[2019-03-13] MEDS ORDERED: DEXTROSE 50%-WATER 25 GM/50 ML DISP.SYRIN IV PRN ×2 (07:04)
[2019-03-13] MEDS ORDERED: GLUCAGON,HUMAN RECOMB 1 MG INJ IM PRN (07:04)
[2019-03-13] MEDS ORDERED: DEXTROSE 40% GEL 15 GM TUBE PO PRN ×2 (07:04)
[2019-03-13] MEDS ORDERED: VANCOMYCIN HCL 1,000 MG in DEXTROSE 5%-WATER 250 ML IV SCH (08:00)
[2019-03-13 08:26] LABS: ARTERIAL BLOOD H2CO3 1.32 mmol/L (1.05-1.35); ARTERIAL BLOOD HCO3 28.9 mmol/L (20-24); ARTERIAL BLOOD O2 SATURATION 97.9 % (94-98); ARTERIAL BLOOD PCO2 43.9 mmHg (35-45); ARTERIAL BLOOD PH 7.44 (7.35-7.45); ARTERIAL BLOOD PO2 103.9 mmHg (80-100); ARTERIAL BLOOD TOTAL CO2 30.2 mmol/L (23-27)
[2019-03-13 08:29] LABS: ARTERIAL BLOOD FIO2 90%
--- NOTE | 2019-03-13 08:34 | PDOC CONSULTATION ---
Consultation Consult Date: 03/13/19 Attending physician:: TAZ ULLOA Provider Consulted: BRANDON CARROLL Consult reason:: Respiratory failure, left lower lobe collapse History of Present Illness Admission Date/PCP: 03/13/19 00:07 BRANDON CARROLL MD Patient complains of: Extreme shortness of breath, hypoxia, weakness History of Present Illness: CAITLIN CASTELLANO is a 53 year old male with known history of non-small cell lung cancer, he presented initially about 2 months ago with a left postobstructive pneumonia, he had a large left hilar mass with partial collapse of the left lower lobe. Of note, PET/CT done as an outpatient only indicated the left hilar mass but no other distant disease. Ultimately he went to [place], saw Dr. Dougie chamberlain of the interventional pulmonology program, had bronchoscopy with biopsy which indicated non-small cell lung cancer, thereafter he got his first cycle of chemotherapy at [facility], thus far is gotten 2 more cycles of chemotherapy with carboplatin and Abraxane, we just had restaging rae ging done on 02/26/2019 which actually indicated improvement in aeration of the left lung. Next he was planned for concurrent chemoradiation approach, to start in approximately 3 to 4 weeks. Unfortunately about 48 hours prior to admission here, he was experiencing worsening shortness of breath, cough, congestion and some mild fevers. Upon presentation to the ED, he was there for several hours b ut then became acutely hypoxic, even on BiPAP he then was still satting in the 60s and 70s. Ultimately they got him to the ICU they are able to position him appropriately, give him some morphine, and his respiratory status improved. He is currently on BiPAP and satting well. However CT of the chest indicates full obstruction out of the left lower lobe, and there is tracheal deviation to the left because of that affect. Past Medical History Cardiac Medical History: Reports: Hyperlipidema Denies: Coronary Artery Disease, Hypertension Pulmonary Medical History: Reports: Chronic Obstructive Pulmonary Disease (COPD), Pneumonia Denies: Asthma Neurological Medical History: Denies: Seizures Endocrine Medical History: Denies: Diabetes Mellitus Type 1, Diabetes Mellitus Type 2, Hyperthyroidism, Hypothyroidism Malignancy Medical History: Reports: Lung Cancer GI Medical History: Denies: Cirrhosis, Crohn's Disease, Gastroesophageal Reflux Disease, Hepatitis, Ulcerative Colitis Musculoskeltal Medical History: Denies: Arthritis, Gout Skin Medical History: Denies: Eczema, Psoriasis - Hearing aids Psychiatric Medical History: Denies: Depression Hematology: Denies: Anemia, Bleeding Tendencies Past Surgical History Past Surgical History: Reports: Tonsillectomy, Other - 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 denies: CAD, Malignancy Parental Family History Reviewed: Yes Children Family History Reviewed: Yes Sibling(s) Family History Reviewed.: Yes Medication/Allergy Allergies/Adverse Reactions: Penicillins Allergy (Intermediate, Verified 03/12/19 19:36) Generalized rash ceftriaxone [From Rocephin] Adverse Reaction (Intermediate, Verified 03/12/19 19:36) Edema Review of Systems Constitutional: ABSENT: chills, fever(s), headache(s), weight gain, weight loss Eyes: ABSENT: visual disturbances Ears: ABSENT: hearing changes Cardiovascular: ABSENT: chest pain, dyspnea on exertion, edema, orthropnea, palpitations Respiratory: ABSENT: cough, hemoptysis Gastrointestinal: ABSENT: abdominal pain, constipation, diarrhea, hematemesis, hematochezia, nausea, vomiting Genitourinary: ABSENT: dysuria, hematuria Musculoskeletal: ABSENT: joint swelling Integumentary: ABSENT: rash, wounds Neurological: ABSENT: abnormal gait, abnormal speech, confusion, dizziness, focal weakness, syncope Psychiatric: ABSENT: anxiety, depression, homidical ideation, suicidal ideation Endocrine: ABSENT: cold intolerance, heat intolerance, polydipsia, polyuria Hematologic/Lymphatic: ABSENT: easy bleeding, easy bruising Physical Exam Vital Signs: Temp Pulse Resp BP Pulse Ox 96.9 F L 91 19 158/107 H 97 03/13/19 02:14 03/13/19 02:14 03/13/19 07:47 03/13/19 07:47 03/13/19 07:47 Intake & Output 03/12/19 03/13/19 03/14/19 06:59 06:59 06:59 Output Total 700 Balance -700 Weight 76.4 kg General appearance: PRESENT: no acute distress, well-developed, well-nourished Head exam: PRESENT: atraumatic, normocephalic Eye exam: PRESENT: conjunctiva pink, EOMI, PERRLA. ABSENT: scleral icterus Ear exam: PRESENT: normal external ear exam Mouth exam: PRESENT: moist, tongue midline Neck exam: ABSENT: carotid bruit, JVD, lymphadenopathy, thyromegaly Respiratory exam: PRESENT: clear to auscultation rian. ABSENT: rales, rhonchi, wheezes Cardiovascular exam: PRESENT: RRR. ABSENT: diastolic murmur, rubs, systolic murmur Pulses: PRESENT: normal dorsalis pedis pul Vascular exam: PRESENT: normal capillary refill GI/Abdominal exam: PRESENT: normal bowel sounds, soft. ABSENT: distended, guarding, mass, organolmegaly, rebound, tenderness Rectal exam: PRESENT: deferred Extremities exam: PRESENT: full ROM. ABSENT: calf tenderness, clubbing, pedal edema Neurological exam: PRESENT: alert, awake, oriented to person, oriented to place, oriented to time, oriented to situation, CN II-XII grossly intact. ABSENT: motor sensory deficit Psychiatric exam: PRESENT: appropriate affect, normal mood. ABSENT: homicidal ideation, suicidal ideation Skin exam: PRESENT: dry, intact, warm. ABSENT: cyanosis, rash Results Laboratory Results: 03/13/19 04:18 03/13/19 04:18 03/12/19 03/12/19 03/12/19 19:55 19:55 22:20 WBC 9.5 RBC 4.51 Hgb 14.9 Hct 42.6 MCV 94 MCH 33.1 MCHC 35.1 RDW 17.5 H Plt Count 374 Seg Neutrophils % 77.8 Carbonic Acid HCO3/H2CO3 Ratio ABG pH ABG pCO2 ABG pO2 ABG HCO3 ABG O2 Saturation ABG Base Excess FiO2 Sodium 139.7 Potassium 4.1 Chloride 100 Carbon Dioxide 29 Anion Gap 11 BUN 18 Creatinine 0.67 Est GFR ( Amer) > 60 Glucose 117 H Lactic Acid 2.3 H Calcium 10.2 Phosphorus Magnesium Total Bilirubin 0.5 AST 21 Alkaline Phosphatase 53 Total Protein 6.9 Albumin 4.5 03/12/19 03/13/19 03/13/19 22:20 04:18 04:18 WBC 11.3 H RBC 4.45 Hgb 14.7 Hct 42.0 MCV 95 MCH 33.0 MCHC 34.9 RDW 18.1 H Plt Count 346 Seg Neutrophils % Not Reportable Carbonic Acid 1.08 HCO3/H2CO3 Ratio 22:1 ABG pH 7.45 ABG pCO2 36.0 ABG pO2 45.0 L ABG HCO3 24.5 H ABG O2 Saturation 83.4 L ABG Base Excess 0.9 FiO2 4L Sodium 137.4 Potassium 4.5 Chloride 100 Carbon Dioxide 27 Anion Gap 10 BUN 19 Creatinine 0.65 Est GFR ( Amer) > 60 Glucose 156 H Lactic Acid Calcium 10.2 Phosphorus 4.9 H Magnesium 1.8 Total Bilirubin 0.7 AST 20 Alkaline Phosphatase 54 Total Protein 6.5 Albumin 4.2 03/12/19 03/12/19 03/12/19 19:55 19:55 22:45 Creatine Kinase 25 L Troponin I < 0.012 < 0.012 Impressions: Chest/Abdomen CTA 03/12/19 00:00 IMPRESSION: 1. Collapse of the left lower lobe due to bronchial obstruction by the known left hilar mass. There is also partial atelectasis of the left upper lobe. Cannot exclude underlying pneumonia. 2. Small left pleural effusion, also new since 02/26/2019. 3. No CT evidence for pulmonary embolism. Status: Image reviewed by me Assessment & Plan - Diagnosis (1) Acute respiratory failure with hypoxia Is this a current diagnosis for this admission?: Yes Plan: I am concerned this is may be related to mucous plugging or postobstructive pneumonia. Agree with current antibiotic regimen but I had a long discussion with cooker soda, he would be better served in [place] where he can have aggressive bronchoscopy for possible mucous plugging. Also if there is some sort of obstructive component that is worsening of the cancer, may be stent could be considered. However, I think worsening of the cancer is less likely because the tumor had shrunk on scan done just 2 weeks ago (2) Obstructive pneumonia Is this a current diagnosis for this admission?: Yes Plan: Postobstructive pneumonia, continue with meropenem and vancomycin. If cultures are negative for 48 hours, vancomycin can be discontinued. (3) Cancer of left lung Qualifiers: Lung location: lower lobe of lung Qualified Code(s): C34.32 - Malignant neoplasm of lower lobe, left bronchus or lung Is this a current diagnosis for this admission?: Yes Plan: Status post 3 cycles of chemotherapy, next step was going to be a concurrent chemoradiation approach. Patient had a good response thus far so I think we need to continue to be aggressive with his care. - Time Time Spent: Greater than 70 Minutes - Inpatient Certification Based on my medical assessment, after consideration of the patient's comorbidities, presenting symptoms, or acuity I expect that the services needed warrant INPATIENT care.: Yes I certify that my determination is in accordance with my understanding of Medicare's requirements for reasonable and necessary INPATIENT services [42 CFR 412.3e].: Yes Medical Necessity: Need For Continuous Telemetry Monitoring, Need for Nebulizer Therapy and Monitoring of Response, Risk of Complication if Not Cared For in Hospital
--- NOTE | 2019-03-13 08:59 | RADIOLOGY REPORT (SQ) ---
EXAM DESCRIPTION: CHEST SINGLE VIEW COMPLETED DATE/TIME: 03/13/2019 7:02 am REASON FOR STUDY: follow up COMPARISON: 03/12/2019 FINDINGS: Single-view chest AP portable upright. Worse compared to yesterday. There is now essential complete opacification of the left hemithorax with lung collapse and progressi ve pleural effusion. Associated shift of mediastinal structures to the left, as before. Right lung remains clear. TECHNICAL DOCUMENTATION: JOB ID: [id number] Reading location - IP/workstation name: [email or web address]
--- NOTE | 2019-03-13 11:28 | PDOC CRITICAL CARE PROG REPORT ---
General Date:: 03/13/19 - Critical Care Attending Note Resuscitation Status: Full Code Events in the past 12 to 24 Hours:: Pt is doing well on bipap. Is awake and alert and not in any distress. Reason for ICU Addmission:: acute respiratory failure, PNA - Medications: Medications reviewed and adjusted accordingly: Yes Physical Exam Vital Signs: Temp Pulse Resp BP Pulse Ox 97.3 F 80 22 H 159/106 H 98 03/13/19 08:00 03/13/19 10:00 03/13/19 10:22 03/13/19 10:00 03/13/19 10:22 Intake & Output 03/12/19 03/13/19 03/14/19 06:59 06:59 06:59 Intake Total 250 Output Total 700 0 Balance -700 250 Weight 76.4 kg Weight/Height Weight 76.4 kg Height 6 ft General appearance: PRESENT: no acute distress, well-developed, well-nourished Head exam: PRESENT: atraumatic, normocephalic Respiratory exam: PRESENT: decreased breath sounds, unlabored Cardiovascular exam: PRESENT: RRR GI/Abdominal exam: PRESENT: soft Extremities exam: PRESENT: other - no edema Neurological exam: PRESENT: alert, awake, CN II-XII grossly intact Laboratory/Radiographs Laboratory Results: 03/13/19 04:18 03/13/19 04:18 03/12/19 03/12/19 03/12/19 19:55 19:55 22:20 WBC 9.5 RBC 4.51 Hgb 14.9 Hct 42.6 MCV 94 MCH 33.1 MCHC 35.1 RDW 17.5 H Plt Count 374 Seg Neutrophils % 77.8 Carbonic Acid HCO3/H2CO3 Ratio ABG pH ABG pCO2 ABG pO2 ABG HCO3 ABG O2 Saturation ABG Base Excess FiO2 Sodium 139.7 Potassium 4.1 Chloride 100 Carbon Dioxide 29 Anion Gap 11 BUN 18 Creatinine 0.67 Est GFR ( Amer) > 60 Glucose 117 H Lactic Acid 2.3 H Calcium 10.2 Phosphorus Magnesium Total Bilirubin 0.5 AST 21 Alkaline Phosphatase 53 Total Protein 6.9 Albumin 4.5 03/12/19 03/13/19 03/13/19 22:20 04:18 04:18 WBC 11.3 H RBC 4.45 Hgb 14.7 Hct 42.0 MCV 95 MCH 33.0 MCHC 34.9 RDW 18.1 H Plt Count 346 Seg Neutrophils % Not Reportable Carbonic Acid 1.08 HCO3/H2CO3 Ratio 22:1 ABG pH 7.45 ABG pCO2 36.0 ABG pO2 45.0 L ABG HCO3 24.5 H ABG O2 Saturation 83.4 L ABG Base Excess 0.9 FiO2 4L Sodium 137.4 Potassium 4.5 Chloride 100 Carbon Dioxide 27 Anion Gap 10 BUN 19 Creatinine 0.65 Est GFR ( Amer) > 60 Glucose 156 H Lactic Acid Calcium 10.2 Phosphorus 4.9 H Magnesium 1.8 Total Bilirubin 0.7 AST 20 Alkaline Phosphatase 54 Total Protein 6.5 Albumin 4.2 03/13/19 08:15 WBC RBC Hgb Hct MCV MCH MCHC RDW Plt Count Seg Neutrophils % Carbonic Acid 1.32 HCO3/H2CO3 Ratio 21:1 ABG pH 7.44 ABG pCO2 43.9 ABG pO2 103.9 H ABG HCO3 28.9 H ABG O2 Saturation 97.9 ABG Base Excess 4.0 FiO2 90% Sodium Potassium Chloride Carbon Dioxide Anion Gap BUN Creatinine Est GFR ( Amer) Glucose Lactic Acid Calcium Phosphorus Magnesium Total Bilirubin AST Alkaline Phosphatase Total Protein Albumin 03/12/19 03/12/19 03/12/19 19:55 19:55 22:45 Creatine Kinase 25 L Troponin I < 0.012 < 0.012 Impressions: Chest/Abdomen CTA 03/12/19 00:00 IMPRESSION: 1. Collapse of the left lower lobe due to bronchial obstruction by the known left hilar mass. There is also partial atelectasis of the left upper lobe. Cannot exclude underlying pneumonia. 2. Small left pleural effusion, also new since 02/26/2019. 3. No CT evidence for pulmonary embolism. Assessment and Plan - Diagnosis (1) Acute respiratory failure with hypoxia Is this a current diagnosis for this admission?: Yes (2) Obstructive pneumonia Is this a current diagnosis for this admission?: Yes (3) Cancer of left lung Qualifiers: Lung location: lower lobe of lung Qualified Code(s): C34.32 - Malignant neoplasm of lower lobe, left bronchus or lung Is this a current diagnosis for this admission?: Yes (4) COPD exacerbation Is this a current diagnosis for this admission?: Yes Plan Summary: Assessment: Critically ill 53 yo man with acute on chronic respiratory failure, lung cancer, post-obstructive PNA, COPD. Plan: 1. Respiratory: acute on chronic respiratory failure. Pt is currently doing well on bipap. Will continue. Pt ok with intubation if the need arises. 2. Pulmonary:NSCLC involving left lung, post-obstructive PNA, COPD. Continue vanc and meropenem, solumedrol, bronchodilators. D/W Dr. Hurtado and we agree that pt should be tranferred to [facility] for evaluation by his sugar reprocess operator head Dr. Dougie Spivey. I spoke with Dr. Spivey and he has accept the pt for transfer 3. CV: heart rate and BP acceptable 4. Nutrition: NPO 5. Prophylaxis: sq heparin 6. at bedside. Updated on pt condition and plan of care. 7. Disposition: will transfer pt to [facility] when a bed becomes available Critical care time= 45 mi, excluding procedures Critical Time Critical Time (minutes): 45 Level of Care: ICU -: 1. The care of a critical patient is a dynamic process. This note is a charter representative synopsis but static in nature. The timeframe for treatments given in order is not necessarily the actual time these treatments may have been done. 2. This patient requires critical care secondary to ongoing requirements for therapy not offered or safe outside the critical care environment. Transfer to a lower level of care will result in altered life or limb morbidity and mortality. 3. Multidisciplinary rounds completed. 4. ABCDE bundle addressed.
[2019-03-13] MEDS ORDERED: INSULIN REG, HUMAN 100 UNIT/ML 3 ML VIAL (PYX) SUBCUT SCH (12:00)
[2019-03-13] MEDS ORDERED: METHYLPREDNISOLONE INJ 40 MG/1 ML SDV IV SCH (12:00)
--- NOTE | 2019-03-13 12:26 | PDOC TRANSFER SUMMARY ---
General Admission Date/PCP: 03/13/19 00:07 BRANDON HURTADO MD Admission Date: 03/12/19 Transfer Date: 03/13/19 Accepting Facility: [facility] Accepting Physician: Dr. Dougie Spivey Resuscitation Status: Full Code - Transfer Diagnosis (1) Acute respiratory failure with hypoxia Is this a current diagnosis for this admission?: Yes (2) Obstructive pneumonia Is this a current diagnosis for this admission?: Yes (3) Cancer of left lung Is this a current diagnosis for this admission?: Yes (4) COPD exacerbation Is this a current diagnosis for this admission?: Yes - Transfer Medications Home Medications: Budesonide/Formoterol Fumarate [Symbicort Hfa 160-4.5 Mcg Inhaler 6 gm] 2 puff IH Q12 03/13/19 Ipratropium/Albuterol Sulfate [Combivent Respimat 4 gm Mdi] 1 puff IH Q4 03/13/19 Ipratropium/Albuterol Sulfate [Duoneb 3 ml Ampul] 3 ml NEB RTQ4HP PRN 03/13/19 Lorazepam [Ativan 1 mg Tablet] 1 mg PO Q6HP PRN 03/13/19 Triamcinolone Acetonide [Aristocort 0.1% Cream 15 gm] 1 applic TP TIDP PRN 03/13/19 Transfer Medications: Current Medications Albuterol (Ventolin 0.083% Neb 2.5 Mg/3 Ml Ampul) 2.5 mg NEB RTQ2HP PRN PRN Reason: SHORTNESS OF BREATH Stop: 04/11/19 23:42 Dextrose (Dextrose Inj 50% Syringe (25 Gm/50 Ml)) 12.5 gm IV PRN PRN; Protocol PRN Reason: FOR BG 50-69 IN ALERT PATIENT Stop: 04/12/19 07:03 Dextrose (Dextrose Inj 50% Syringe (25 Gm/50 Ml)) 25 gm IV PRN PRN; Protocol PRN Reason: PER PROTOCOL Stop: 04/12/19 07:03 Glucagon (Glucagen Inj 1 Mg Vial) 1 mg IM PRN PRN; Protocol PRN Reason: Evaluate for BG < 70 Stop: 04/12/19 07:03 Glucose (Glutose 40% Gel 15 Gm Tube) 15 gm PO PRN PRN; Protocol PRN Reason: FOR BG 50-69 IN ALERT PATIENT Stop: 04/12/19 07:03 Glucose (Glutose 40% Gel 15 Gm Tube) 30 gm PO PRN PRN; Protocol PRN Reason: FOR BG < 50 IN ALERT PATIENT Stop: 04/12/19 07:03 Heparin Sodium (Porcine) (Heparin Inj 5,000 Units/Ml 1 Ml Vial) 5,000 unit SUBCUT Q8 [facility] Stop: 04/12/19 05:59 Last Admin: 03/13/19 06:24 Dose: 5,000 unit Documented by: Lactated Ringer's (Lactated Ringers 1000 Ml Iv Soln) 1,000 mls @ 75 mls/hr IV CONTINUOUS PRN PRN Reason: THIS MED IS NOT "PRN" Stop: 04/11/19 23:42 Last Admin: 03/13/19 06:26 Dose: 75 mls/hr Documented by: Meropenem 1 gm/ Sodium (Chloride) 50 mls @ 100 mls/hr IV Q8A [facility] Stop: 03/20/19 09:59 Last Admin: 03/13/19 10:27 Dose: 100 mls/hr, 100 mls/hr Documented by: Vancomycin HCl 1,000 mg/ (Dextrose) 250 mls @ 166.667 mls/hr IV 0000,0800,1600 [facility] Stop: 03/20/19 07:59 Last Infusion: 03/13/19 10:00 Dose: Infused Documented by: Insulin Human Regular (Humulin R (Pyxis) Insulin 100 Unit/Ml 3ml) 0 - 12 unit SUBCUT Q6 JAYA; Protocol Stop: 04/12/19 11:59 Methylprednisolone Sodium Succinate (Solu-Medrol Inj/Pf 40 Mg/1 Ml Sdv) 60 mg IV Q6 [facility] Stop: 04/12/19 11:59 Morphine Sulfate (Morphine 10 Mg/Ml Inj) 2 mg IV Q4HP PRN PRN Reason: FOR PAIN Stop: 03/20/19 01:49 Last Admin: 03/13/19 06:32 Dose: 2 mg Documented by: Nitroglycerin (Nitrostat 0.4 Mg (1/150 Gr) Tabs 25/Bottle) 1 tab SL Q5MP PRN PRN Reason: FOR CHEST PAIN Stop: 04/11/19 21:49 Last Admin: 03/12/19 21:52 Dose: 1 tab Documented by: Simethicone (Mylicon 80 Mg Chewable Tablet) 80 mg PO QIDP PRN PRN Reason: FOR GAS (FLATULENCE) Stop: 04/12/19 04:37 Sodium Chloride (Saline Flush 2.5 Ml Monoject Prefil Syrin) 2.5 ml IV Q8 JAYA Stop: 04/12/19 05:59 Last Admin: 03/13/19 06:25 Dose: 2.5 ml Documented by: - Allergies Allergies/Adverse Reactions: Penicillins Allergy (Intermediate, Verified 03/12/19 19:36) Generalized rash ceftriaxone [From Rocephin] Adverse Reaction (Intermediate, Verified 03/12/19 19:36) Edema Hospital Course Hospital Course: Assessment: Critically ill 53 yo man with acute on chronic respiratory failure, lung cancer, post-obstructive PNA, COPD. Plan: 1. Respiratory: acute on chronic respiratory failure. Pt has been on bipap, but has been weaned to NRB. Is doing well. 2. Pulmonary:NSCLC involving left lung, post-obstructive PNA, COPD. Continue vanc and meropenem, solumedrol, bronchodilators. D/W Dr. Hurtado and we agree that pt should be tranferred to [facility] for evaluation by his chemical plant manager Dr. Dougie Spivey. I spoke with Dr. Spivey and he has accept the pt for transfer 3. CV: heart rate and BP acceptable 4. Nutrition: NPO 5. Prophylaxis: sq heparin 6. at bedside. Updated on pt condition and plan of care. 7. Disposition: will transfer pt to [facility] when a bed becomes available Physical Exam Vital Signs: Temp Pulse Resp BP Pulse Ox 97.3 F 80 22 H 159/106 H 95 03/13/19 08:00 03/13/19 10:00 03/13/19 10:22 03/13/19 10:00 03/13/19 12:23 Intake & Output 03/12/19 03/13/19 03/14/19 06:59 06:59 06:59 Intake Total 250 Output Total 700 0 Balance -700 250 Weight 76.4 kg Results Laboratory Results: 03/13/19 04:18 03/13/19 04:18 03/12/19 03/12/19 03/12/19 19:55 19:55 22:20 WBC 9.5 RBC 4.51 Hgb 14.9 Hct 42.6 MCV 94 MCH 33.1 MCHC 35.1 RDW 17.5 H Plt Count 374 Seg Neutrophils % 77.8 Carbonic Acid HCO3/H2CO3 Ratio ABG pH ABG pCO2 ABG pO2 ABG HCO3 ABG O2 Saturation ABG Base Excess FiO2 Sodium 139.7 Potassium 4.1 Chloride 100 Carbon Dioxide 29 Anion Gap 11 BUN 18 Creatinine 0.67 Est GFR ( Amer) > 60 Glucose 117 H Lactic Acid 2.3 H Calcium 10.2 Phosphorus Magnesium Total Bilirubin 0.5 AST 21 Alkaline Phosphatase 53 Total Protein 6.9 Albumin 4.5 03/12/19 03/13/19 03/13/19 22:20 04:18 04:18 WBC 11.3 H RBC 4.45 Hgb 14.7 Hct 42.0 MCV 95 MCH 33.0 MCHC 34.9 RDW 18.1 H Plt Count 346 Seg Neutrophils % Not Reportable Carbonic Acid 1.08 HCO3/H2CO3 Ratio 22:1 ABG pH 7.45 ABG pCO2 36.0 ABG pO2 45.0 L ABG HCO3 24.5 H ABG O2 Saturation 83.4 L ABG Base Excess 0.9 FiO2 4L Sodium 137.4 Potassium 4.5 Chloride 100 Carbon Dioxide 27 Anion Gap 10 BUN 19 Creatinine 0.65 Est GFR ( Amer) > 60 Glucose 156 H Lactic Acid Calcium 10.2 Phosphorus 4.9 H Magnesium 1.8 Total Bilirubin 0.7 AST 20 Alkaline Phosphatase 54 Total Protein 6.5 Albumin 4.2 03/13/19 08:15 WBC RBC Hgb Hct MCV MCH MCHC RDW Plt Count Seg Neutrophils % Carbonic Acid 1.32 HCO3/H2CO3 Ratio 21:1 ABG pH 7.44 ABG pCO2 43.9 ABG pO2 103.9 H ABG HCO3 28.9 H ABG O2 Saturation 97.9 ABG Base Excess 4.0 FiO2 90% Sodium Potassium Chloride Carbon Dioxide Anion Gap BUN Creatinine Est GFR ( Amer) Glucose Lactic Acid Calcium Phosphorus Magnesium Total Bilirubin AST Alkaline Phosphatase Total Protein Albumin 03/12/19 03/12/19 03/12/19 19:55 19:55 22:45 Creatine Kinase 25 L Troponin I < 0.012 < 0.012 Impressions: Chest/Abdomen CTA 03/12/19 00:00 IMPRESSION: 1. Collapse of the left lower lobe due to bronchial obstruction by the known left hilar mass. There is also partial atelectasis of the left upper lobe. Cannot exclude underlying pneumonia. 2. Small left pleural effusion, also new since 02/26/2019. 3. No CT evidence for pulmonary embolism. Plan Discharge Plan: Will transfer to [facility]. Dr. Dougie Spivey is the accepting physician. Time Spent: Greater than 30 Minutes
[2019-03-13 12:48] LABS: A TYPE INFLUENZA AG NEGATIVE (NEGATIVE); B INFLUENZA AG NEGATIVE (NEGATIVE)
[2019-03-13 13:15] VITALS: BP 174/95
== END 2019-03-13 13:11 | disposition short-term general hospital (02) | DRG 189 ==
LOC: ER 18:18 → EH 03-13 00:07 → ICU 03-13 01:46
PROVIDERS: ADMIT Internal Medicine; ATTEND Internal Medicine
DX: J96.21 Acute and chronic respiratory failure with hypoxia (principal); J18.9 Pneumonia, unspecified organism; C34.32 Malignant neoplasm of lower lobe, left bronchus or lung; J44.1 Chronic obstructive pulmonary disease with (acute) exacerbation; J98.19 Other pulmonary collapse; J39.8 Other specified diseases of upper respiratory tract; E78.00 Pure hypercholesterolemia, unspecified; F17.210 Nicotine dependence, cigarettes, uncomplicated; Z79.51 Long term (current) use of inhaled steroids; Z79.52 Long term (current) use of systemic steroids; Z79.899 Other long term (current) drug therapy
CPT/HCPCS: 36415; 71045; 71046; 71275; 80053; 82550; 82803; 82962; 83605; 83735; 84100; 84484; 85025; 85610; 85730; 87040; 87804; 93005; 93010; 94640; 94660; 96365; 96368; 96375; 99239; 99291; J1644; J1720; J2060; J2185; J2270; J2920; J2930; J3010; J3370; J3490; J7060; J7120; J7620

== ENCOUNTER 2019-03-26 08:02 | Day surgery (SDC) | payer MEDICAID ==
[~2019-03-26 08:02] MED LIST: CEFAZOLIN 1 GM/D5W RTU 1 GM/50 ML RTUPB IV PRN; DIAZEPAM 5 MG TABLET PO PRN; OXYCODONE-ACETAMINOPHEN 5-325 MG TABLET PO PRN
[2019-03-26] MEDS ORDERED: CLINDAMYCIN 300 MG/D5W RTU 300 MG/50 ML RTUPB IV PRN (08:38)
[2019-03-26] MEDS ORDERED: CLINDAMYCIN 300 MG/D5W RTU 300 MG/50 ML RTUPB IV ONE (08:52)
[2019-03-26 09:27] LABS: HEMOGLOBIN 13.6 g/dL (13.5-17.0); MEAN CORPUSCULAR HEMOGLOBIN 33.6 pg (27.0-33.4); MEAN CORPUSCULAR VOLUME 96 fl (80-97); PLATELET COUNT 213 10^3/uL (150-450); RED BLOOD COUNT 4.05 10^6/uL (4.35-5.55); RED CELL DISTRIBUTION WIDTH 15.8 % (11.5-14.0); WHITE BLOOD COUNT 6.2 10^3/uL (4.0-10.5)
[2019-03-26] MEDS ORDERED: LIDOCAINE 0.5% INJ-PF (5 MG/ML) 50 ML SDV ONE (09:33)
[2019-03-26] MEDS ORDERED: FENTANYL CITRATE INJ/PF 100 MCG/2 ML AMPUL ONE (09:34)
[2019-03-26] MEDS ORDERED: MIDAZOLAM 2 MG/2 ML INJ ONE (09:34)
[2019-03-26] MEDS ORDERED: BACITRACIN INJ 50,000 UNIT VIAL ONE (09:34)
[2019-03-26] MEDS ORDERED: OXYCODONE-ACETAMINOPHEN 5-325 MG TABLET ONE (09:38)
[2019-03-26] MEDS ORDERED: DIAZEPAM 5 MG TABLET ONE (09:39)
--- NOTE | 2019-03-26 09:43 | RADIOLOGY REPORT (SQ) ---
EXAM DESCRIPTION: CHEST SINGLE VIEW COMPLETED DATE/TIME: 03/26/2019 9:30 am REASON FOR STUDY: PREOP COMPARISON: 03/13/2019 EXAM PARAMETERS: NUMBER OF VIEWS: One view. TECHNIQUE: Single frontal radiographic view of the chest acquired. RADIATION DOSE: NA LIMITATIONS: None. FINDINGS: LUNGS AND PLEURA: Aeration is significantly improved in the left upper lobe when compared to prior study. Persistent atelectasis or pneumonia involving the left base. Small left effusion. Right lung sifuentes hyperexpanded but clear. MEDIASTINUM AND HILAR STRUCTURES: No masses. Contour normal. HEART AND VASCULAR STRUCTURES: Grossly stable in appearance. BONES: No acute findings. HARDWARE: None in the chest. OTHER: No other significant finding. IMPRESSION: Improved aeration in the left upper lobe. Persistent left basilar collapse with small l eft effusion. TECHNICAL DOCUMENTATION: JOB ID: [id number] [employer]- All Rights Reserved Reading location - IP/workstation name: [email or web address]
[2019-03-26 09:45] LABS: ANION GAP 7 (5-19); BLOOD UREA NITROGEN 17 mg/dL (7-20); CALCIUM 9.8 mg/dL (8.4-10.2); CARBON DIOXIDE 29 mmol/L (22-30); CHLORIDE 101 mmol/L (98-107); GLUCOSE 90 mg/dL (75-110); POTASSIUM 4.1 mmol/L (3.6-5.0)
--- NOTE | 2019-03-26 11:19 | RADIOLOGY REPORT (SQ) ---
EXAM DESCRIPTION: PORTACATH INSERTION COMPLETED DATE/TIME: 03/26/2019 11:00 am REASON FOR STUDY: C34.32 LT LUNG CA C34.32 MALIGNANT NEOPLASM OF LOWER LOBE, LEFT BRONCHUS OR ANGIE COMPARISON: None. FLUOROSCOPY TIME: 0.1 minutes Cine images saved to PACS. TECHNIQUE: Intra-operative images acquired during surgical procedure to evaluate progress. NUMBER OF IMAGES: 76 LIMITATIONS: None. FINDINGS: Fluoroscopy was provided for intraoperative procedure. Please refer to the operative repo rt for further discussion. IMPRESSION: IMAGE(S) OBTAINED DURING PROCEDURE. COMMENT: Quality ID [id number]: Final reports for procedures using fluoroscopy that document radiation exp osure indices, or exposure time and number of fluorographic images (if radiation exposure indices are not available) Please consult full operative report of the attending physician for description of the procedure. TECHNICAL DOCUMENTATION: JOB ID: [id number] [employer]- All Rights Reserved Reading location - IP/workstation name: [email or web address]
--- NOTE | 2019-03-26 11:27 | Discharge Summary ---
Discharge Summary (SDC) - Discharge Final Diagnosis: #1 left lung cancer. 2. Hypertension. Date of Surgery: 03/26/19 Discharge Date: 03/26/19 Condition: Fair Forms: ASU Anesthesia D/C Instruction, Discharge POC-Surgical Service Treatment or Instructions: Discharge home [after recovery per ASU criteria]. Diet , s tolerated, when fully awake advance as tolerated. Activities within moderation encouraged. Follow up in my office by appointment in about [1 week]. Call for appointment. Leave wounds [covered], [keep clean and dry, until office visit in 1 week]. Hold of on school/work [until evaluation in office]. Meds per med rec. May shower [in 48 hrs], [try to keep operated area as dry as possible]. Referrals: NEIL HUGGINS PA-C [Primary Care Provider] - ZOLTAN SALINAS MD [ACTIVE STAFF] - 04/05/19 8:45 am Discharge Diet: As Tolerated Respiratory Treatments at Home: Deep Breathing/Coughing Discharge Activity: Activity As Tolerated Report the Following to Your Physician Immediately: Shortness of Breath, Unusual Bleeding
--- NOTE | 2019-03-26 11:29 | Operative Report ---
Operative Report DATE OF SURGERY: 03/26/19 PREOPERATIVE DIAGNOSIS: #1 left lung cancer. 2. Hypertension. POSTOPERATIVE DIAGNOSIS: #1 left lung cancer. 2. Hypertension. OPERATION: 1. Ultrasound evaluation of right internal jugular vein. 2. Insertion of single-lumen Port-A-Cath via real-time access in the right internal jugular vein. 3. Angiogram and interpretation. SURGEON: ZOLTAN BA STERILIZATION SPECIALIST: None. ANESTHESIA: Moderate Sedation TISSUE REMOVED OR ALTERED: Not applicable. COMPLICATIONS: None. ESTIMATED BLOOD LOSS: 5 mL. INTRAOPERATIVE FINDINGS: Of a satisfactory right internal jugular vein to support catheter. Good position of the catheter with the tip down of the distal superior vena cava. Easy egress of blood and ingress of heparinized solution. Contrast through the superior vena cava, right atrium. Postprocedure chest x- ray shows no untoward no untoward finding, hardware in good position. PROCEDURE: After obtaining informed consent, the patient was taken to the Outreach Specialist and positioned supine. The [right] neck and chest were prepared with chlorhexidine and draped out with sterile linen. After the " universal timeout", in which it was verified that the patient continued to receive antibiotic, the procedure commenced. A steriley sheathed ultrasound probe was used to evaluate the [right] internal jugular vein. Local anesthesia was infiltrated adjacent to the probe. Access into the [right] internal jugular vein was obtained using a micropuncture needle, followed by micropuncture wire and then a micropuncture catheter. This was followed by introduction of a 0.035 guidewire the tip of which was placed down into the inferior vena cava . The port sites was marked , locally anesthetized and incision made. Dissection now proceeded to the deep subcutaneous subcutaneous tissues so that a pocket for the port was made. Meticulous hemostasis was secured and the catheter was tunneled between the 2 incisions. Proximally, the catheter was now positioned using a peel-away sheath. Distally the catheter was tailored to an appropriate length and then mated to the port using the contained fixating device. The port was now placed in the pocket and the catheter optimally positioned. The port was accessed with a Porter needle and an angiogram done under digital subtraction. The findings as dictated. With adequate and satisfactory positioning, the lumen of the chamber were irrigated with heparinized solution. The wounds were now closed using interrupted 3-0 PDS to the subcutaneous tissues and a continuous subcuticular suture of 4-0 Monocryl to the skin. These are reinforced with Steri-Strips over benzoin and then dressings applied. Time: 0.1 minute. Dose: 2.08 m Gy Contrast: 5 Mls. Isovue 300. Copies of the dictated operative report for Dr. Zoltan Parra MD.
[2019-03-26 14:18] VITALS: BP 133/77
--- NOTE | 2019-03-26 17:18 | EKG REPORT ---
SEVERITY:- ABNORMAL ECG - SINUS RHYTHM PROBABLE LEFT ATRIAL ABNORMALITY PROBABLE LEFT VENTRICULAR HYPERTROPHY : Confirmed by: Kary King MD 26-Mar-2019 17:17:40
== END 2019-03-26 12:15 | disposition home or self-care (01) ==
LOC: CCL 08:02
PROVIDERS: ATTEND Surgery
DX: C34.32 Malignant neoplasm of lower lobe, left bronchus or lung (principal); I10 Essential (primary) hypertension; Z88.0 Allergy status to penicillin; J44.9 Chronic obstructive pulmonary disease, unspecified; J93.9 Pneumothorax, unspecified; Z99.81 Dependence on supplemental oxygen; Z79.51 Long term (current) use of inhaled steroids; Z79.899 Other long term (current) drug therapy
CPT/HCPCS: 36415; 85027; 80048; 36561; 76937; 77001; 71045; 93005; 93010; C1752; C1788; Q9967; J2250; J3490 ×4; J3010; J1644

== ENCOUNTER 2019-03-28 07:28 | Emergency (ER) | payer OTHER, MEDICAID ==
[2019-03-28 08:44] LABS: ABSOLUTE LYMPHOCYTES (AUTO) 0.5 10^3/uL (0.5-4.7); ABSOLUTE MONOCYTES (AUTO) 0.5 10^3/uL (0.1-1.4); ABSOLUTE NEUT (AUTO) 7.1 10^3/uL (1.7-8.2); BASOPHILS % (AUTO) 0.4 % (0-2); EOSINOPHILS % (AUTO) 0.2 % (0-6); HEMATOCRIT 39.7 % (37.9-51.0); HEMOGLOBIN 14.2 g/dL (13.5-17.0); LYMPHOCYTES % (AUTO) 6.2 % (13-45); MEAN CORPUSCULAR HEMOGLOBIN 34.4 pg (27.0-33.4); MEAN CORPUSCULAR HGB CONC 35.6 g/dL (32.0-36.0); MEAN CORPUSCULAR VOLUME 97 fl (80-97); MONOCYTES % (AUTO) 5.6 % (3-13); PLATELET COUNT 205 10^3/uL (150-450); RED BLOOD COUNT 4.12 10^6/uL (4.35-5.55); RED CELL DISTRIBUTION WIDTH 15.8 % (11.5-14.0); SEGMENTED NEUTROPHILS % (AUTO) 87.6 % (42-78); TOTAL CELLS COUNTED % (AUTO) 100 %; WHITE BLOOD COUNT 8.1 10^3/uL (4.0-10.5)
--- NOTE | 2019-03-28 08:54 | ER Document Report ---
ED General - General Chief Complaint: Chest Pain Stated Complaint: CHEST PAIN Time Seen by Provider: 03/28/19 08:33 Primary Care Provider: NEIL HUGGINS PA-C [Primary Care Provider] - Follow up as needed TRAVEL OUTSIDE OF THE [place] IN LAST 30 DAYS: No - HPI Notes: Mr. sams is a 53-year-old male with a history of stage II cancer of the left lung and oxygen dependent COPD with chronic respiratory failure dependent on 2 L of nasal O2 at home who is receiving XRT and chemotherapy now presenting with a chief complaint of worsening chronic/persistent pleuritic pain left chest area. Worse this morning. Severe when he first got up. He subsequently took some oxycodone and says his pain level is now 2/10. He denies any worsening of his shortness of breath. Denies hemoptysis. Denies pain or swelling of legs. Denies any prior history of PE. Patient spoke with his oncologist Dr. Max who sent him here for IV pain medication if needed. Patient says at this point he does not really feel he needs the IV medication. - Related Data Allergies/Adverse Reactions: Penicillins Allergy (Intermediate, Verified 03/12/19 19:36) Generalized rash ceftriaxone [From Rocephin] Adverse Reaction (Intermediate, Verified 03/12/19 19 :36) Edema Past Medical History - General Information source: Patient, Relative - Social History Smoking Status: Former Smoker Family History: DM, Hypertension, Other - Stomach ulcers, gout. denies: CAD, Malignancy Patient has suicidal ideation: No Patient has homicidal ideation: No - Past Medical History Cardiac Medical History: Reports: Hx Hypercholesterolemia Denies: Hx Coronary Artery Disease, Hx Hypertension Pulmonary Medical History: Reports: Hx COPD, Hx Pneumonia Denies: Hx Asthma Neurological Medical History: Denies: Hx Seizures Endocrine Medical History: Denies: Hx Diabetes Mellitus Type 1, Hx Diabetes Mellitus Type 2, Hx Hyperthyroidism, Hx Hypothyroidism Renal/ Medical History: Reports: Hx Kidney Stones Malignancy Medical History: Reports Hx Lung Cancer GI Medical History: Denies: Hx Cirrhosis, Hx Crohn's Disease, Hx Gastroesophageal Reflux Disease, Hx Hepatitis, Hx Ulcerative Colitis Musculoskeletal Medical History: Denies Hx Arthritis, Denies Hx Gout Skin Medical History: Denies Hx Eczema, Denies Hx Psoriasis - Hearing aids Psychiatric Medical History: Denies: Hx Depression Infectious Medical History: Denies: Hx Hepatitis Past Surgical History: Reports: Hx Tonsillectomy, Other - 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 HENT: Negative for sore throat. Eyes: Negative for visual changes. Cardiovascular: Negative for chest pain. Respiratory: As per HPI. Gastrointestinal: Negative for abdominal pain, vomiting or diarrhea. Genitourinary: Negative for dysuria. Musculoskeletal: Negative for back pain. Skin: Negative for rash. Neurological: Negative for headaches, weakness or numbness. 10 point ROS negative except as marked above and in HPI. Physical Exam - Vital signs Vitals: Temp Resp Pulse Ox 98 F 21 H 100 03/28/19 07:42 03/28/19 07:42 03/28/19 07:42 - Notes Notes: GENERAL: Chronically ill-appearing male who looks somewhat older than stated age and appears to be in mild discomfort. SKIN: Good turgor no rashes. HEAD: Normocephalic atraumatic. EYES: PERRLA. EOMI. Conjunctivae and sclerae clear. EARS: CANALS AND TMS CLEAR. NOSE: CLEAR. MOUTH: Moist mucosa. Good dentition. No stridor or edema. No drooling. NECK: Supple. No masses or thyromegaly. No adenopathy. Carotids 2+ without bruits. No JVD. BACK: Symmetrical without tenderness. CHEST: Respirations unlabored. Breath sounds diminished left base. HEART: Regular rhythm. No murmur gallop or rub. ABDOMEN: Soft nontender without masses, organomegaly or rebound. Bowel sounds normally active. No bruits. GENITALIA: Deferred. EXTREMITIES: Prominent clubbing of fingers both hands. No edema. No calf tenderness. Cap refill less than 1.5 seconds. Dorsalis pedis and posterior tibial pulses 3+ and symmetrical. NEUROLOGICAL: GCS 15. Alert and oriented x3. Normal gait. Fluent speech. Cranial nerves II through XII intact. Sensorimotor and cerebellar normal. Normal tone. PSYCHIATRIC: Appropriate affect. Course - Re-evaluation Re-evalutation: 03/28/19 10:09 Patient's pain level was only 2/10 by the time of his arrival here. He is remained relatively comfortable in the department and has declined IV pain medication here. His EKG showed no acute changes. His oxygenation is 100% on his usual 2 L of nasal O2. He is hemodynamically stable. His chest x-ray actually looks better than his prior film. His troponin level is normal. His CBC and chemistry profile are unremarkable. Current findings are discussed with his oncologist Dr. Hurtado who recommends he continue his oral pain medications at home and follow-up in the office PRN. - Vital Signs Vital signs: Temp Pulse Resp BP Pulse Ox 98 F 16 124/94 H 100 03/28/19 07:42 03/28/19 08:01 03/28/19 08:01 03/28/19 08:01 - Laboratory Result Diagrams: 03/28/19 07:40 03/28/19 07:40 Laboratory results interpreted by me: 03/28/19 03/28/19 07:40 07:40 RBC 4.12 L MCH 34.4 H RDW 15.8 H Lymph % (Auto) 6.2 L Seg Neutrophils % 87.6 H Sodium 133.9 L Chloride 95 L Glucose 114 H - EKG Interpretation by Me Additional EKG results interpreted by me: 03/28/19 10:10 Twelve-lead EKG obtained at 0820 hrs. was reviewed contemporaneously by me demonstrating a normal sinus rhythm with a rate of 86 normal axis and normal intervals. There were no acute ST/T wave changes. Discharge - Discharge Clinical Impression: Lung CA stage II left lung Condition: Stable Disposition: HOME, SELF-CARE Additional Instructions: Take your previously prescribed narcotic analgesic oxycodone 5 mg 2 tablets every 4-6 hours as needed for pain. Follow-up with your oncologist this week. Return here as needed for new or worsening symptoms: Pain that is worsening or unimproved Uncontrolled vomiting High fever or shaking chills Overall worsening Referrals: NEIL HUGGINS PA-C [Primary Care Provider] - Follow up as needed
[2019-03-28 08:55] LABS: ALKALINE PHOSPHATASE 47 U/L (38-126); ANION GAP 11 (5-19); ASPARTATE AMINO TRANSFERASE 21 U/L (17-59); BILIRUBIN,DIRECT 0.3 mg/dL (0.0-0.4); BLOOD UREA NITROGEN 14 mg/dL (7-20); CALCIUM 9.9 mg/dL (8.4-10.2); CARBON DIOXIDE 28 mmol/L (22-30); CHLORIDE 95 mmol/L (98-107); GLUCOSE 114 mg/dL (75-110); POTASSIUM 4.7 mmol/L (3.6-5.0); TOTAL PROTEIN 6.4 g/dL (6.3-8.2)
[2019-03-28 09:31] LABS: INTERNATIONAL RATION (INR) 1.01; PROTHROMBIN TIME 13.3 SEC (11.4-15.4)
--- NOTE | 2019-03-28 09:31 | RADIOLOGY REPORT (SQ) ---
EXAM DESCRIPTION: CHEST 2 VIEWS COMPLETED DATE/TIME: 03/28/2019 9:09 am REASON FOR STUDY: cp, lung CA COMPARISON: PA and lateral views of the chest from 03/28/2019 EXAM PARAMETERS: NUMBER OF VIEWS: two views TECHNIQUE: PA and lateral views of the chest were obtained. RADIATION DOSE: NA LIMITATIONS: none FINDINGS: LUNGS AND PLEURA: The left main bronchus is tapered, left costophrenic sulcus remains blun lena and the degree of volume loss in the left hemithorax is unchanged; despite these findings overall the aeration in the left base is improved compared to the radiograph from 03/26/2019. There is no pn eumothorax or consolidation MEDIASTINUM AND HILAR STRUCTURES: Stable mediastinal and hilar contours with mediastinal shift to the left of midline HEART AND VASCULAR STRUCTURES: Stable cardiac silhouette. BONES: No acute findings. HARDWARE: The tip of the right-sided single-lumen port projects within the SVC. OTHER: No other finding. IMPRESSION: The left main bronchus is tapered, left costophrenic sulcus remains blunted and the degr ee of volume loss in the left hemithorax is unchanged; despite these findings overall the aeration in the left base is improved compared to the radiograph from 03/26/2019. There is no acute cardiopulmon shirley process. TECHNICAL DOCUMENTATION: JOB ID: [id number] [employer]- All Rights Reserved Reading location - IP/workstation name: [email or web address]
[2019-03-28 09:32] LABS: PARTIAL THROMBOPLASTIN TIME 28.7 SEC (23.5-35.8)
[2019-03-28 10:28] VITALS: BP 126/84
--- NOTE | 2019-03-28 11:38 | EKG REPORT ---
SEVERITY:- NORMAL ECG - SINUS RHYTHM : Confirmed by: Kary King MD 28-Mar-2019 11:37:30
== END 2019-03-28 10:33 | disposition home or self-care (01) ==
LOC: ER 07:28
DX: C34.92 Malignant neoplasm of unspecified part of left bronchus or lung (principal); J44.9 Chronic obstructive pulmonary disease, unspecified; Z99.81 Dependence on supplemental oxygen; R07.81 Pleurodynia; E78.00 Pure hypercholesterolemia, unspecified; Z88.0 Allergy status to penicillin; Z87.442 Personal history of urinary calculi
CPT/HCPCS: 36415; 71046; 80053; 84484; 85025; 85610; 85730; 93005; 93010; 99285

== ENCOUNTER → 2019-05-25 | Outpatient (CLI) | payer OTHER ==
--- NOTE | 2019-05-25 11:02 | RADIOLOGY REPORT (SQ) ---
EXAM DESCRIPTION: CT CHEST WITH COMPLETED DATE/TIME: 05/25/2019 9:05 am REASON FOR STUDY: LUNG CA (C34.32) C34.32 MALIGNANT NEOPLASM OF LOWER LOBE, LEFT BRONCHUS OR ANGIE COMPARISON: 03/12/2019, 02/26/2019 CT chest TECHNIQUE: CT scan of the chest performed using helical scanning technique with dynamic intravenous contrast injection. Images reviewed with lung, soft tissue and bone windows. Reconstructed coronal and sagittal MPR and MIP images reviewed. All images stored on PACS. All CT scanners at this facility use dose modulation, iterative reconstruction, and/or weight based d osing when appropriate to reduce radiation dose to as low as reasonably achievable (ALARA). [facility]: Dose Right [facility]: CareDose [facility]: Dose Right [facility]: Teradose 4D [facility]: [employer] CONTRAST TYPE AND DOSE: contrast/concentration: Isovue 350.00 mg/ml; Total Contrast Delivered: 80.0 ml; Total Saline Delivered: 55.0 ml RENAL FUNCTION: Creatinine 0.7 RADIATION DOSE: CT Rad equipment meets quality standard of care and radiation dose reduction techniq ues were employed. CTDIvol: 6.2 mGy. DLP: 260 mGy-cm. . LIMITATIONS: None. FINDINGS: LUNGS AND PLEURA: There is been further reduction in size of the confluent soft tissue de nsity within the left hilum measuring approximately 3.0 xl 1.4 cm (series 2, image 36), previously do cumented at 3.9 x 2.2 cm. No new discrete soft tissue mass or adenopathy. Stable scattered calcifie d hilar and mediastinal nodes. No new discrete parenchymal nodules or masses. No focal airspace dis ease, pleural effusion or pneumothorax. Mild emphysematous change. HILAR AND MEDIASTINAL STRUCTURES: As above. HEART AND VASCULAR STRUCTURES: Normal heart size. Minimal scattered coronary atherosclerosis. Trace pericardial effusion. HARDWARE: Right-sided chest port with catheter tip at cavoatrial junction. UPPER ABDOMEN: No acute findings. THYROID AND OTHER SOFT TISSUES: Unremarkable thyroid. No discrete soft tissue mass. BONES: No acute bony abnormality. No suspicious osseous lesions. OTHER: No other significant finding. IMPRESSION: 1. Further reduction in size of the confluent soft tissue density within the left hilum as above. No evidence of new intrathoracic disease. 2. Stable areas of pleuroparenchymal biapical consolidation, likely scarring. TECHNICAL DOCUMENTATION: JOB ID: [id number] Quality ID # [id number]: Final reports with documentation of one or more dose reduction techniques (e.g., Au tomated exposure control, adjustment of the mA and/or kV according to patient size, use of iterative reconstruction technique) 2010 [employer]- All Rights Reserved Reading location - IP/workstation name: [email or web address]
== END ==
LOC: RAD 08:33
PROVIDERS: ATTEND Internal Medicine
DX: C34.32 Malignant neoplasm of lower lobe, left bronchus or lung (principal)
CPT/HCPCS: 71260

== ENCOUNTER → 2019-08-13 | Outpatient (CLI) | payer OTHER ==
--- NOTE | 2019-08-13 12:02 | RADIOLOGY REPORT (SQ) ---
EXAM DESCRIPTION: CT CHEST WITH IMAGES COMPLETED DATE/TIME: 08/13/2019 10:00 am REASON FOR STUDY: MALIGNANT NEOPLASM OF LOWER LOBE, LEFT BRONCHUS OR LUNG C34.32 MALIGNANT NEOPLASM OF LOWER LOBE, LEFT BRONCHUS OR ANGIE COMPARISON: 05/25/2019 TECHNIQUE: CT scan of the chest performed using helical scanning technique with dynamic intravenous contrast injection. Images reviewed with lung, soft tissue and bone windows. Reconstructed coronal and sagittal MPR and MIP images reviewed. All images stored on PACS. All CT scanners at this facility use dose modulation, iterative reconstruction, and/or weight based d osing when appropriate to reduce radiation dose to as low as reasonably achievable (ALARA). [facility]: Dose Right [facility]: CareDose [facility]: Dose Right [facility]: Teradose 4D [facility]: [employer] CONTRAST TYPE AND DOSE: contrast/concentration: Isovue 350.00 mg/ml; Total Contrast Delivered: 80.0 ml; Total Saline Delivered: 56.0 ml RENAL FUNCTION: GFR > 60. RADIATION DOSE: CT Rad equipment meets quality standard of care and radiation dose reduction techniq ues were employed. CTDIvol: 6.1 mGy. DLP: 282 mGy-cm. . LIMITATIONS: None. FINDINGS: LUNGS AND PLEURA: Stable nodular scarring in the right upper lobe. Scarring also in the l eft upper lobe and left lower lobe. 6 mm nodule left lower lobe image 73/132 looks new. There is ad jacent linear scarring or subsegmental atelectasis which looks slightly progressive as well. HILAR AND MEDIASTINAL STRUCTURES: Calcified nodes, as before. Tissue in the left hilum looks similar compared to prior. There appears to be more airspace disease or volume loss in the adjacent lung ne xt to the hilum. HEART AND VASCULAR STRUCTURES: No aneurysm or dissection. No central pulmonary emboli. No pericardi al effusion. HARDWARE: Right port. UPPER ABDOMEN: No significant findings. Limited exam. THYROID AND OTHER SOFT TISSUES: No masses. No adenopathy. BONES: No significant finding. OTHER: No other significant finding. IMPRESSION: 1. New nodule adjacent to more conspicuous appearing scar in the left lower lobe when compared to [place] dy from May. 2. Slightly more atelectatic lung or consolidation noted adjacent to the left hilum. 3. Other findings are stable. TECHNICAL DOCUMENTATION: JOB ID: [id number] Quality ID # [id number]: Final reports with documentation of one or more dose reduction techniques (e.g., Au tomated exposure control, adjustment of the mA and/or kV according to patient size, use of iterative reconstruction technique) 2010 [employer]- All Rights Reserved Reading location - IP/workstation name: [email or web address]
== END ==
LOC: RAD 09:32
PROVIDERS: ATTEND Nurse Practitioner Family
DX: C34.32 Malignant neoplasm of lower lobe, left bronchus or lung (principal)
CPT/HCPCS: 71260; 82565

== ENCOUNTER 2019-11-01 13:59 | Emergency (ER) | payer OTHER, MEDICAID ==
--- NOTE | 2019-11-01 14:24 | ER Document Report ---
ED Medical Screen (RME) - General Stated Complaint: COUGHING BLOOD Time Seen by Provider: 11/01/19 14:18 Primary Care Provider: BRANDON CARROLL MD [Primary Care Provider] - Follow up as needed Mode of Arrival: Ambulatory Information source: Patient Notes: HPI; 54-year-old male past medical history significant for lung cancer diagnosed 1 year ago, currently following with Dr. Ang presents emergency room stating that he has been coughing up blood that started earlier today after using his nebulizer. States he has been congested for the past 6 weeks was told by the office to take Mucinex which has been taking without relief. He denies any recent travel. No night sweats. No COVID-19 exposure. No history of TB. PE: Alert and oriented x3. Mild distress noted. Lungs diminished in the bases. Without rales, rhonchi, wheezes. Heart: Regular rate and rhythm without murmurs, rubs, gallops. I have greeted and performed a rapid initial assessment of this patient. A comprehensive ED assessment and evaluation of the patient, analysis of test results and completion of the medical decision making process will be conducted by additional ED providers. I have specifically instructed the patient or family members with the patient to immediately return to any nursing staff should anything change in the patient's condition or with their chief complaint. TRAVEL OUTSIDE OF THE [place] IN LAST 30 DAYS: No - Related Data Allergies/Adverse Reactions: Penicillins Allergy (Intermediate, Verified 03/12/19 19:36) Generalized rash ceftriaxone [From Rocephin] Adverse Reaction (Intermediate, Verified 03/12/19 19:36) Edema Past Medical History - Past Medical History Cardiac Medical History: Reports: Hx Hypercholesterolemia Denies: Hx Coronary Artery Disease, Hx Hypertension Pulmonary Medical History: Reports: Hx COPD, Hx Pneumonia Denies: Hx Asthma Neurological Medical History: Denies: Hx Seizures Endocrine Medical History: Denies: Hx Diabetes Mellitus Type 1, Hx Diabetes Mellitus Type 2, Hx Hyperthyroidism, Hx Hypothyroidism Renal/ Medical History: Reports: Hx Kidney Stones Malignancy Medical History: Reports Hx Lung Cancer GI Medical History: Denies: Hx Cirrhosis, Hx Crohn's Disease, Hx Gastroesophageal Reflux Disease, Hx Hepatitis, Hx Ulcerative Colitis Musculoskeltal Medical History: Denies Hx Arthritis, Denies Hx Gout Skin Medical History: Denies Hx Eczema, Denies Hx Psoriasis - Hearing aids Psychiatric Medical History: Denies: Hx Depression Infectious Medical History: Denies: Hx Hepatitis Past Surgical History: Reports: Hx Tonsillectomy, Other - 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
[2019-11-01 15:05] LABS: ABSOLUTE BASOPHILS # (AUTO) 0.1 10^3/uL (0.0-0.2); ABSOLUTE EOSINOPHILS # (AUTO) 0.1 10^3/uL (0.0-0.6); ABSOLUTE LYMPHOCYTES (AUTO) 0.8 10^3/uL (0.5-4.7); ABSOLUTE MONOCYTES (AUTO) 0.7 10^3/uL (0.1-1.4); ABSOLUTE NEUT (AUTO) 4.7 10^3/uL (1.7-8.2); BASOPHILS % (AUTO) 0.9 % (0-2); EOSINOPHILS % (AUTO) 0.8 % (0-6); HEMATOCRIT 43.4 % (37.9-51.0); LYMPHOCYTES % (AUTO) 12.7 % (13-45); MEAN CORPUSCULAR HEMOGLOBIN 31.5 pg (27.0-33.4); MEAN CORPUSCULAR HGB CONC 34.6 g/dL (32.0-36.0); MEAN CORPUSCULAR VOLUME 91 fl (80-97); MONOCYTES % (AUTO) 10.9 % (3-13); PLATELET COUNT 253 10^3/uL (150-450); RED BLOOD COUNT 4.77 10^6/uL (4.35-5.55); RED CELL DISTRIBUTION WIDTH 14.1 % (11.5-14.0); SEGMENTED NEUTROPHILS % (AUTO) 74.7 % (42-78); TOTAL CELLS COUNTED % (AUTO) 100 %; WHITE BLOOD COUNT 6.3 10^3/uL (4.0-10.5)
--- NOTE | 2019-11-01 15:08 | RADIOLOGY REPORT (SQ) ---
EXAM DESCRIPTION: CHEST 2 VIEWS IMAGES COMPLETED DATE/TIME: 11/01/2019 2:57 pm REASON FOR STUDY: cough COMPARISON: 03/28/2019 EXAM PARAMETERS: NUMBER OF VIEWS: two views TECHNIQUE: Digital Frontal and Lateral radiographic views of the chest acquired. RADIATION DOSE: NA LIMITATIONS: none FINDINGS: LUNGS AND PLEURA: No opacities, masses or pneumothorax. No pleural effusion. MEDIASTINUM AND HILAR STRUCTURES: No masses or contour abnormalities. HEART AND VASCULAR STRUCTURES: Heart normal size. No evidence for failure. BONES: No acute findings. HARDWARE: None in the chest. OTHER: Stable position of right-sided port. IMPRESSION: NO ACUTE RADIOGRAPHIC FINDING IN THE CHEST. TECHNICAL DOCUMENTATION: JOB ID: [id number] 2010 [employer]- All Rights Reserved Reading location - IP/workstation name: [email or web address]
[2019-11-01 15:32] LABS: ALBUMIN 4.7 g/dL (3.5-5.0); ALKALINE PHOSPHATASE 64 U/L (38-126); ANION GAP 8 (5-19); ASPARTATE AMINO TRANSFERASE 25 U/L (17-59); BILIRUBIN,TOTAL 0.8 mg/dL (0.2-1.3); BLOOD UREA NITROGEN 18 mg/dL (7-20); CALCIUM 10.1 mg/dL (8.4-10.2); CARBON DIOXIDE 31 mmol/L (22-30); CHLORIDE 102 mmol/L (98-107); GLUCOSE 105 mg/dL (75-110); POTASSIUM 4.6 mmol/L (3.6-5.0); TOTAL PROTEIN 7.2 g/dL (6.3-8.2)
--- NOTE | 2019-11-01 16:36 | ER Document Report ---
ED General - General Chief Complaint: Cough Stated Complaint: COUGHING BLOOD Time Seen by Provider: 11/01/19 14:18 Primary Care Provider: BRANDON CARROLL MD [Primary Care Provider] - Follow up as needed Mode of Arrival: Ambulatory TRAVEL OUTSIDE OF THE [place] IN LAST 30 DAYS: No - HPI Notes: Patient is a 54-year-old male with a known history of lung cancer, who has undergone chemotherapy and radiation, currently on immunotherapy, who presents to the emergency department for evaluation of hemoptysis. He has a chronic cough, states is not worse than normal. Over the last several weeks he has been wheezing a lot. He did have a cough productive of some clear/white mucus. He has been using his nebulizers, has also been using Mucinex. This morning, after his nebulizer therapy, he started coughing up blood. He brings a bottle with him, to which she admits he is also been spitting up clear phlegm. It seems to be about one quarter of a cup of liquid, some clearly bright red blood. He states this happened for about half an hour, he is continued coughing, and has had no further hemoptysis. He has some pain on the right side of his chest, this is not new. Otherwise he denies any current complaints. He states he does not feel like he is wheezing, this is been the first time in some time he is not wheezing. He states he is due for a chest CT next week. - Related Data Allergies/Adverse Reactions: Penicillins Allergy (Intermediate, Verified 03/12/19 19:36) Generalized rash ceftriaxone [From Rocephin] Adverse Reaction (Intermediate, Verified 03/12/19 19:36) Edema Home Medications: Nebulizers, Combivent, Tessalon Perles, Mucinex Past Medical History - General Information source: Patient - Social History Smoking Status: Former Smoker Chew tobacco use (# tins/day): No Frequency of alcohol use: Rare Drug Abuse: None Family History: DM, Hypertension, Other - Stomach ulcers, gout. denies: CAD, Malignancy Patient has homicidal ideation: No - Past Medical History Cardiac Medical History: Reports: Hx Hypercholesterolemia Denies: Hx Coronary Artery Disease, Hx Hypertension Pulmonary Medical History: Reports: Hx COPD, Hx Pneumonia Denies: Hx Asthma Neurological Medical History: Denies: Hx Seizures Endocrine Medical History: Denies: Hx Diabetes Mellitus Type 1, Hx Diabetes Mellitus Type 2, Hx Hyperthyroidism, Hx Hypothyroidism Renal/ Medical History: Reports: Hx Kidney Stones Malignancy Medical History: Reports Hx Lung Cancer GI Medical History: Denies: Hx Cirrhosis, Hx Crohn's Disease, Hx Gastroesophageal Reflux Disease, Hx Hepatitis, Hx Ulcerative Colitis Musculoskeletal Medical History: Denies Hx Arthritis, Denies Hx Gout Skin Medical History: Denies Hx Eczema, Denies Hx Psoriasis - Hearing aids Psychiatric Medical History: Denies: Hx Depression Infectious Medical History: Denies: Hx Hepatitis Past Surgical History: Reports: Hx Tonsillectomy, Other - 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 - Immunizations Hx Diphtheria, Pertussis, Tetanus Vaccination: No Hx Pneumococcal Vaccination: 11/28/18 Review of Systems - Review of Systems Constitutional: No symptoms reported EENT: No symptoms reported Cardiovascular: See HPI Respiratory: See HPI Gastrointestinal: No symptoms reported Genitourinary: No symptoms reported Musculoskeletal: No symptoms reported Skin: No symptoms reported Neurological/Psychological: No symptoms reported -: Yes All other systems reviewed and negative Physical Exam - Vital signs Vitals: Temp 98.2 F 11/01/19 14:00 - Notes Notes: This is a 54-year-old male who appears much older than his stated age, in no acute distress. Vital signs reviewed, please refer to chart. Head is normocephalic, atraumatic. Pupils equal round, reactive to light. Neck is supp le without meningismus. Heart is regular rate and rhythm. Lungs reveal diminished breath sounds but no wheezes, rales, rhonchi. Abdomen is soft, nontender, normoactive bowel sounds throughout. Extremities without cyanosis, clubbing. Posterior calves are nontender. Peripheral pulses are equal. Skin is warm and dry. Patient is awake, alert, neurological exam is nonfocal. Course - Re-evaluation Re-evalutation: 11/01/19 16:37 Patient presents to the emergency department for evaluation. He is complaining of hemoptysis. The patient has known lung cancer, although I cannot discern from the chart what kind of cancer he has, and he does not have much insight into this. His laboratory investigations and imaging were largely unremarkable. He is actually sitting in the room without his PRN oxygen, states he not feeling short of breath at all. He does remark that he needs a CT scan next week. I will speak to the on-call oncologist, patient is currently stable. 11/01/19 17:[address] Bonilla, on-call oncologist. She states that sometimes immunotherapy can lead to inflammation, and steroids might be helpful. Otherwise, she agrees that there does not seem to be any emergent need for more advanced imaging at this time. He is already scheduled for another CT next week. Patient is agreeable to this plan. I will send him with a steroid burst, have him follow-up next week. He is to return to the ED with worsening. - Vital Signs Vital signs: Temp Pulse Resp BP Pulse Ox 98.2 F 80 18 132/87 H 98 11/01/19 14:13 11/01/19 14:13 11/01/19 14:13 11/01/19 14:13 11/01/19 14:13 - Laboratory Result Diagrams: 11/01/19 14:35 11/01/19 14:35 Laboratory results interpreted by me: 11/01/19 11/01/19 14:35 14:35 RDW 14.1 H Lymph % (Auto) 12.7 L Carbon Dioxide 31 H - Diagnostic Test Radiology reviewed: Reports reviewed Radiology results interpreted by me: 11/01/19 16:37 Chest X-Ray 11/01/19 14:22 IMPRESSION: NO ACUTE RADIOGRAPHIC FINDING IN THE CHEST. Discharge - Discharge Clinical Impression: Hemoptysis Condition: Stable Disposition: HOME, SELF-CARE Instructions: Hemoptysis ([facility]) Additional Instructions: After discussion with your oncologist, the coughing up of blood may be in part due to inflammation. We will treat this with steroids. Otherwise, follow-up with oncology next week. Have your imaging as previously scheduled. If you develop increased coughing up blood, increased shortness of breath, or any other new or concerning symptoms, please return immediately to the ER for further evaluation. Referrals: BRANDON CARROLL MD [Primary Care Provider] - Follow up as needed
[2019-11-01 17:29] VITALS: BP 139/87
== END 2019-11-01 17:15 | disposition home or self-care (01) ==
LOC: ER 13:59
DX: R04.2 Hemoptysis (principal); Z88.0 Allergy status to penicillin; Z88.8 Allergy status to other drugs, medicaments and biological substances; Z79.899 Other long term (current) drug therapy; Z87.891 Personal history of nicotine dependence
CPT/HCPCS: 36415; 71046; 80053; 85025; 99284

== ENCOUNTER 2019-11-02 19:21 | Emergency (ER) | payer OTHER ==
[2019-11-02] MEDS ORDERED: ONDANSETRON HCL INJ/PF 4 MG/2 ML SDV IV ONE (20:52)
[2019-11-02] MEDS ORDERED: HYDROMORPHONE HCL INJ/PF 2 MG/ML AMPULE IV ONE ×3 (20:52→23:13)
[2019-11-02] MEDS ORDERED: NORMAL SALINE 1000 ML 1,000 ML IV ONE (20:56)
--- NOTE | 2019-11-02 20:59 | ER Document Report ---
Entered by BRUCE GUERRA SCRIBE 11/02/192052 Acting as scribe for:SYDNIE DAILEY IV, MD ED General - General Chief Complaint: Chest Pain Stated Complaint: CHEST PAIN, DIFFICULTY BREATHING Time Seen by Provider: 11/02/19 19:49 Primary Care Provider: BRANDON HURTADO MD [Primary Care Provider] - Follow up as needed Mode of Arrival: Wheelchair Information source: Patient Notes: This 54 year old male patient with a history of lung cancer, currently on immunotherapy presents to the ED today with complaints of mid-sternal nonradiating chest pain that started this morning. Patient states that the pain is worse with position and breathing. He was evaluated here yesterday for hemotpysis which has resolved at this time. He states that he took a total of x3 5 mg Hydrocodone tablets without relief, last dose was around 1730 this evening. at bedside mentions that the patient has a chest CT scheduled for next week, but they are trying to move it up due to his worsening symptoms. Denies any other complaints. TRAVEL OUTSIDE OF THE [place] IN LAST 30 DAYS: No - Related Data Allergies/Adverse Reactions: Penicillins Allergy (Intermediate, Verified 03/12/19 19:36) Generalized rash ceftriaxone [From Rocephin] Adverse Reaction (Intermediate, Verified 03/12/19 19:36) Edema Past Medical History - General Information source: Patient, [facility] Records - Social History Smoking Status: Former Smoker Smoking Education Provided: No Lives with: Spouse/Significant other Family History: Reviewed & Not Pertinent, DM, Hypertension, Other - Stomach ulcers, gout Patient has suicidal ideation: No Patient has homicidal ideation: No - Past Medical History Cardiac Medical History: Reports: Hx Hypercholesterolemia Pulmonary Medical History: Reports: Hx COPD, Hx Pneumonia Renal/ Medical History: Reports: Hx Kidney Stones Malignancy Medical History: Reports Hx Lung Cancer Past Surgical History: Reports: Hx Tonsillectomy, Other - 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 denies: Hemoptysis Gastrointestinal: No symptoms reported Genitourinary: No symptoms reported Male Genitourinary: No symptoms reported Musculoskeletal: No symptoms reported Skin: No symptoms reported Hematologic/Lymphatic: No symptoms reported Neurological/Psychological: No symptoms reported -: Yes All other systems reviewed and negative Physical Exam - Vital signs Vitals: Temp Pulse Resp BP 98.6 F 104 H 24 H 150/96 H 11/02/19 19:41 11/02/19 19:41 11/02/19 19:41 11/02/19 19:41 - General General appearance: Alert - HEENT Head: Normocephalic, Atraumatic Eyes: Normal Pupils: PERRL - Respiratory Respiratory status: Tachypnea Chest status: Nontender Breath sounds: Normal Chest palpation: Normal - Cardiovascular Rhythm: Regular, Tachycardia Heart sounds: Normal auscultation Murmur: No Friction rub: No Gallop: None auscultated - Abdominal Inspection: Normal Distension: No distension Bowel sounds: Normal Tenderness: Nontender - Abdomen soft Organomegaly: No organomegaly - Back Back: Normal, Nontender - Extremities General upper extremity: Normal inspection General lower extremity: Normal inspection - Neurological Neuro grossly intact: Yes Orientation: AAOx4 Monica Coma Scale Eye Opening: Spontaneous Amorita Coma Scale Verbal: Oriented Amorita Coma Scale Motor: Obeys Commands Monica Coma Scale Total: 15 - Psychological Associated symptoms: Normal affect, Normal mood - Skin Skin Temperature: Warm Skin Moisture: Dry Skin Color: Normal Course - Re-evaluation Re-evalutation: 11/03/19 01:03 Patient states his pain is improved from before. Results of ED MSE including CAT scan discussed with patient and patient's significant other. All questions were answered. Plan to discharge patient home discussed with patient and patient's significant other. Consult with Dr. Hernandez discussed with patient and patient's significant other. Patient and patient's significant other are comfortable with patient being discharged home at this time. Emergency signs and symptoms, reasons to return to the emergency department discussed with dudley chilel and patient's significant other. 11/03/19 01:08 - Vital Signs Vital signs: Temp Pulse Resp BP Pulse Ox 98.6 F 104 H 24 H 150/96 H 11/02/19 19:41 11/02/19 19:41 11/02/19 19:41 11/02/19 19:41 - Laboratory Result Diagrams: 11/02/19 21:50 11/02/19 21:50 Laboratory results interpreted by me: 11/02/19 11/02/19 21:50 21:50 Seg Neuts % (Manual) 90 H Lymphocytes % (Manual) 5 L Monocytes % (Manual) 0 L Abs Lymphs (Manual) 0.4 L Abs Monocytes (Manual) 0.0 L Sodium 136.4 L BUN 23 H Glucose 162 H - Diagnostic Test Radiology reviewed: Reports reviewed - EKG Interpretation by Me Additional EKG results interpreted by me: 11/03/19 01:04 EKG obtained on 11/02/2019 at 1930 hrs. was interpreted by this MD. Findings sinus tachycardia, rate 117, normal axis, P waves preceding QRS complexes, QRS complexes appear narrow, there are no obvious patterns of ST segment elevation or depression present to suggest acute myocardial ischemia or infarction. Impression: Sinus tachycardia with nonspecific ST segments. - Consults Dr. Hernandez Time consulted: 20:56 - Dr. Hernandez with doing CTA. Results of CTA of chest d/w Dr. Hernandez at 0024 hours. Pt's pain is controlled and vital signs are stable at this time. Dr. Hernandez agrees with plan to discharge patient home with prescription for Percocet and follow-up on 11/05/2019. Reason for consultation: 11/03/19 01:05 persistent chest pain, tachycardia, lung cancer patient Consulted provider: follow-up in office Discharge - Discharge Clinical Impression: Lung cancer Qualifiers: Laterality: unspecified laterality Lung location: unspecified part of lung Qualified Code(s): C34.90 - Malignant neoplasm of unspecified part of unspecified bronchus or lung Chest pain Qualifiers: Chest pain type: chest pain on breathing Qualified Code(s): R07.1 - Chest pain on breathing; R07.81 - Pleurodynia Condition: Stable Disposition: HOME, SELF-CARE Additional Instructions: Return to the Emergency Department without delay if any worse. Follow-up with Dr. Hernandez or Dr. Hurtado on 11/05/2019. Do not take hydrocodone when using percocet. HOME CARE INSTRUCTIONS & INFORMATION: Thank you for choosing us for your m edical needs. We hope you're satisfied with the care you received. After you leave, you must properly care for your problem and, at the same time, observe its progress. Any condition can change. Some illnesses can change rapidly over hours or days. If your condition worsens, return to the Emergency Department or see your physician promptly. ABOUT YOUR X-RAYS AND EKG'S: If you had an EKG or X-rays taken, they have been read by the Emergency Physician. The X-rays and EKG's will also be read by a Radiologist or Hand Drawer In within 24 hours. If discrepancies are noted, you will be notified by telephone. Please be certain the ED has a correct telephone number & address where you can be reached. Also, realize that some fractures or abnormalities do not show up on initial X-rays. If your symptoms continue, see your physician. ABOUT YOUR LABORATORY TEST: If you had laboratory tests, the results have been reviewed by the Emergency Physician. Some test results (for example cultures) may not be available for several days. You will be contacted if any test result shows you need additional treatment. Please be certain the ED has a correct telephone number and address where you can be reached. ABOUT YOUR MEDICATIONS: You will receive instructions on how to take your medicine on the prescription label you receive. Additional information may be provided by the Pharmacy. If you have questions afterwards, call the ED for clarification or further instructions. Some prescribed medications may cause drowsiness. Do not perform tasks such as driving a car or operating machinery without consulting your Pharmacist. If you feel you need a refill of pain medication, your condition will need re-evaluation. Please do not call for a refill of any medication. ABOUT YOUR SIGNATURE: Signature of this document acknowledges to followin. Understanding that you received emergency treatment and that you may be released before al medical problems are known or treated. Please be certain the ED has a correct phone number & address where you can be reached. 2. Acknowledgement that you will arrange for follow-up care as recommended. 3. Authorization for the Emergency Physician to provide information to your follow-up Physician in order to maximize your care. AT ANY TIME, IF YOUR SYMPTOMS CHANGE SIGNIFICANTLY OR WORSEN OR YOU DEVELOP NEW SYMPTOMS, RETURN TO THE EMERGENCY DEPARTMENT IMMEDIATELY FOR RE-EVALUATION. OUR GOAL IS TO PROVIDE EXCELLENT MEDICAL CARE! WE HOPE THAT WE HAVE MET YOUR EXPECTATIONS DURING YOUR EMERGENCY DEPARTMENT VISIT AND THAT YOU FEEL YOU HAVE RECEIVED EXCELLENT CARE! Prescriptions: Oxycodone HCl/Acetaminophen [Percocet 5-325 mg Tablet] 1 tab PO Q4H PRN #20 tablet PRN Reason: pain Referrals: BRANDON HURTADO MD [Primary Care Provider] - 11/05/19 I personally performed the services described in the documentation, reviewed and edited the documentation which was dictated to the scribe in my presence, and it accurately records my words and actions.
[2019-11-02 22:35] LABS: HEMOGLOBIN 15.4 g/dL (13.5-17.0); MEAN CORPUSCULAR HEMOGLOBIN 31.4 pg (27.0-33.4); MEAN CORPUSCULAR HGB CONC 34.3 g/dL (32.0-36.0); MEAN CORPUSCULAR VOLUME 92 fl (80-97); PLATELET COUNT 287 10^3/uL (150-450); RED BLOOD COUNT 4.91 10^6/uL (4.35-5.55); RED CELL DISTRIBUTION WIDTH 13.8 % (11.5-14.0); WHITE BLOOD COUNT 7.9 10^3/uL (4.0-10.5)
[2019-11-02 22:38] LABS: ALBUMIN 4.7 g/dL (3.5-5.0); ALKALINE PHOSPHATASE 77 U/L (38-126); ANION GAP 9 (5-19); ASPARTATE AMINO TRANSFERASE 25 U/L (17-59); BILIRUBIN,DIRECT 0.1 mg/dL (0.0-0.4); BILIRUBIN,TOTAL 0.7 mg/dL (0.2-1.3); BLOOD UREA NITROGEN 23 mg/dL (7-20); CARBON DIOXIDE 26 mmol/L (22-30); CHLORIDE 101 mmol/L (98-107); GLUCOSE 162 mg/dL (75-110); POTASSIUM 4.5 mmol/L (3.6-5.0); TOTAL PROTEIN 7.2 g/dL (6.3-8.2)
[2019-11-02 22:48] LABS: ABSOLUTE LYMPHOCYTES# (MANUAL) 0.4 10^3/uL (0.5-4.7); BAND NEUTROPHILS % (MANUAL) 5 % (3-5); BASOPHILS % (MANUAL) 0 % (0-2); EOSINOPHILS % (MANUAL) 0 % (0-6); LYMPHOCYTES % (MANUAL) 5 % (13-45); MONOCYTES % (MANUAL) 0 % (3-13); PLATELET COMMENT ADEQUATE; RBC MORPHOLOGY COMMENT NORMO-CYTIC/CHROMIC; SEGMENTED NEUTROPHILS % (MAN) 90 % (42-78); TOTAL CELLS COUNTED 100
[2019-11-03 01:41] VITALS: BP 151/99
--- NOTE | 2019-11-03 14:05 | EKG REPORT ---
SEVERITY:- ABNORMAL ECG - SINUS TACHYCARDIA RIGHT AXIS DEVIATION PROBABLE INFERIOR INFARCT, OLD : Confirmed by: Andrea Ordaz 03-Nov-2019 14:05:11
== END 2019-11-03 01:42 | disposition home or self-care (01) ==
LOC: ER 19:21
DX: C34.90 Malignant neoplasm of unspecified part of unspecified bronchus or lung (principal); R07.1 Chest pain on breathing; R00.0 Tachycardia, unspecified; J44.9 Chronic obstructive pulmonary disease, unspecified; Z79.899 Other long term (current) drug therapy; Z87.891 Personal history of nicotine dependence; Z87.01 Personal history of pneumonia (recurrent); Z88.0 Allergy status to penicillin
CPT/HCPCS: 93005; 36591; 96376; 99285; 96361; 96374; 96375; 36415; 85025; 80053; 84484; 71275; 93010; J1170; J2405; J7030; J1642

== ENCOUNTER → 2019-11-05 | Outpatient (CLI) | payer OTHER ==
--- NOTE | 2019-11-05 15:38 | RADIOLOGY REPORT (SQ) ---
EXAM DESCRIPTION: CT ABDOMEN IV CONTRAST ONLY IMAGES COMPLETED DATE/TIME: 11/05/2019 3:15 pm REASON FOR STUDY: C34.32 MALIGNANT NEOPLASM OF LOWER LOBE, LEFT BRONCHUS OR LUNG C34.32 MALIGNANT N EOPLASM OF LOWER LOBE, LEFT BRONCHUS OR ANGIE 10/31 COMPARISON: 11/02/2019, 08/13/2019 TECHNIQUE: CT scan of the abdomen performed with intravenous and without oral contrast using helical scanning technique with dynamic intravenous contrast injection. Images reviewed with lung, soft tiss ue, and bone windows. Reconstructed coronal and sagittal MPR images reviewed. Delayed images for eval uation of the urinary system also acquired and evaluated. All images stored on PACS. All CT scanners at this facility use dose modulation, iterative reconstruc tion, and/or weight based dosing when appropriate to reduce radiation dose to as low as reasonably ac hievable (ALARA). [facility]: Dose Right [facility]: CareDose [facility]: Dose Right [facility]: Teradose 4D [facility]: Klipfolio CONTRAST TYPE AND DOSE: contrast/concentration: Isovue 350.00 mmol/ml; Total Contrast Delivered: 94. 0 ml; Total Saline Delivered: 71.0 ml RENAL FUNCTION: Creatinine 0.8 RADIATION DOSE: CT Rad equipment meets quality standard of care and radiation dose reduction techniq ues were employed. CTDIvol: 5.2 - 7.0 mGy. DLP: 495 mGy-cm. . LIMITATIONS: None. FINDINGS: LOWER CHEST: Again seen is left basilar consolidation with evidence of volume loss and lef tward mediastinal shift. LIVER: Unchanged hypodense segment 4 lesion, likely cyst, stable since 2007. No other hepatic lesion s. No intrahepatic ductal dilation. SPLEEN: Normal size. No focal lesions. PANCREAS: No masses. No significant calcifications. No adjacent inflammation or peripancreatic fluid collections. Pancreatic duct not dilated. GALLBLADDER: No identified stones by CT criteria. No inflammatory changes to suggest cholecystitis. ADRENAL GLANDS: No significant masses or asymmetry. RIGHT KIDNEY AND URETER: No solid masses. 4 mm nonobstructing lower pole stone. No hydronephrosis or hydroureter. LEFT KIDNEY AND URETER: No solid masses. No significant calcifications. No hydronephrosis or hydr oureter. AORTA AND VESSELS: No aneurysm. No dissection. Renal arteries, SMA, celiac without stenosis. RETROPERITONEUM: No retroperitoneal adenopathy, hemorrhage or masses. BOWEL AND PERITONEAL CAVITY: No evidence of intestinal obstruction. No focal bowel wall thickening. Moderate formed stool throughout the colon. APPENDIX: Normal. ABDOMINAL WALL: No masses. No hernias. BONES: No acute bony abnormality. No discrete lytic or blastic osseous lesions. Lower lumbar facet arthropathy. OTHER: No other significant finding. IMPRESSION: 1. No evidence of acute intra-abdominal process. 2. No evidence of metastatic disease within the abdomen. 3. Additional incidental findings as above. TECHNICAL DOCUMENTATION: JOB ID: [id number] Quality ID # [id number]: Final reports with documentation of one or more dose reduction techniques (e.g., Au tomated exposure control, adjustment of the mA and/or kV according to patient size, use of iterative reconstruction technique) 2010 [employer]- All Rights Reserved Reading location - IP/workstation name: [email or web address]
== END ==
LOC: RAD 14:48
PROVIDERS: ATTEND Internal Medicine
DX: C34.32 Malignant neoplasm of lower lobe, left bronchus or lung (principal)
CPT/HCPCS: 74160

== ENCOUNTER 2019-12-11 15:01 | Inpatient (IN) | payer OTHER, MEDICAID ==
--- NOTE | 2019-12-11 15:29 | ER Document Report ---
ED Medical Screen (RME) - General Chief Complaint: Shortness Of Breath Stated Complaint: SHORTNESS OF BREATH Time Seen by Provider: 12/11/19 15:15 Primary Care Provider: BRANDON CARROLL MD [Primary Care Provider] - Follow up as needed TRAVEL OUTSIDE OF THE [place] IN LAST 30 DAYS: No - HPI Notes: 12/11/19 15:25 54-year-old male with history of lung cancer sent to the emergency department by his oncologist, Dr. Carroll, for increased shortness of breath, cough, fever since getting chemo infusion 2 days ago. Patient states he feels like he cannot really get a good deep breath and he feels very short of breath. He is on 2 L of oxygen continuously. He states he has had nausea. He states he feels awful and like he cannot get around. He states he called his oncologist office and asked him to come here. His significant other who is with him states that they called in some Levaquin but has not been able to get that filled. They deny any positive contacts with potential COVID-19 patients. He is not a current smoker. He quit smoking 1 year ago. I performed a brief medical screening exam on the patient determined that the patient needs further evaluation and management by main side provider. I have placed initial orders to help expedite care. - Related Data Allergies/Adverse Reactions: Penicillins Allergy (Intermediate, Verified 03/12/19 19:36) Generalized rash ceftriaxone [From Rocephin] Adverse Reaction (Intermediate, Verified 03/12/19 19:36) Edema Past Medical History - Past Medical History Cardiac Medical History: Reports: Hx Hypercholesterolemia Denies: Hx Coronary Artery Disease, Hx Hypertension Pulmonary Medical History: Reports: Hx COPD, Hx Pneumonia Denies: Hx Asthma Neurological Medical History: Denies: Hx Seizures Endocrine Medical History: Denies: Hx Diabetes Mellitus Type 1, Hx Diabetes Mellitus Type 2, Hx Hyperthyroidism, Hx Hypothyroidism Renal/ Medical History: Reports: Hx Kidney Stones Malignancy Medical History: Reports Hx Lung Cancer GI Medical History: Denies: Hx Cirrhosis, Hx Crohn's Disease, Hx Gastroesophageal Reflux Disease, Hx Hepatitis, Hx Ulcerative Colitis Musculoskeltal Medical History: Denies Hx Arthritis, Denies Hx Gout Skin Medical History: Denies Hx Eczema, Denies Hx Psoriasis - Hearing aids Psychiatric Medical History: Denies: Hx Depression Infectious Medical History: Denies: Hx Hepatitis Past Surgical History: Reports: Hx Tonsillectomy, Other - 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
[2019-12-11 16:21] LABS: HEMOGLOBIN 13.9 g/dL (13.5-17.0); MEAN CORPUSCULAR HEMOGLOBIN 32.4 pg (27.0-33.4); MEAN CORPUSCULAR HGB CONC 34.8 g/dL (32.0-36.0); MEAN CORPUSCULAR VOLUME 93 fl (80-97); PLATELET COUNT 121 10^3/uL (150-450); RED BLOOD COUNT 4.28 10^6/uL (4.35-5.55); RED CELL DISTRIBUTION WIDTH 13.6 % (11.5-14.0)
[2019-12-11 16:23] LABS: PROTHROMBIN TIME 13.4 SEC (11.4-15.4)
[2019-12-11 16:24] LABS: PARTIAL THROMBOPLASTIN TIME 46.1 SEC (23.5-35.8)
[2019-12-11 16:38] LABS: ABSOLUTE LYMPHOCYTES# (MANUAL) 0.4 10^3/uL (0.5-4.7); BASOPHILS % (MANUAL) 0 % (0-2); EOSINOPHILS % (MANUAL) 0 % (0-6); LYMPHOCYTES % (MANUAL) 22 % (13-45); MONOCYTES % (MANUAL) 2 % (3-13); SEGMENTED NEUTROPHILS % (MAN) 76 % (42-78); TOTAL CELLS COUNTED 50
[2019-12-11 16:42] LABS: PLATELET COMMENT DECREASED; RBC MORPHOLOGY COMMENT NORMO-CYTIC/CHROMIC
--- NOTE | 2019-12-11 16:42 | RADIOLOGY REPORT (SQ) ---
EXAM DESCRIPTION: CHEST SINGLE VIEW IMAGES COMPLETED DATE/TIME: 12/11/2019 4:24 pm REASON FOR STUDY: cough, fever, lung ca patinet on chemo COMPARISON: 11/01/2019 EXAM PARAMETERS: NUMBER OF VIEWS: One view. TECHNIQUE: Single frontal radiographic view of the chest acquired. RADIATION DOSE: NA LIMITATIONS: Patient rotation. FINDINGS: LUNGS AND PLEURA: No opacities, masses or pneumothorax. No pleural effusion. MEDIASTINUM AND HILAR STRUCTURES: No masses. Contour normal. HEART AND VASCULAR STRUCTURES: Heart normal in size. Normal vasculature. BONES: No acute findings. HARDWARE: Port-A-Cath terminates in the region of the distal superior vena cava. OTHER: No other significant finding. IMPRESSION: NO ACUTE RADIOGRAPHIC FINDING IN THE CHEST. TECHNICAL DOCUMENTATION: JOB ID: [id number] 2010 [employer]- All Rights Reserved Reading location - IP/workstation name: [email or web address]
[2019-12-11 16:45] LABS: ALBUMIN 3.9 g/dL (3.5-5.0); ALKALINE PHOSPHATASE 73 U/L (38-126); ANION GAP 6 (5-19); ASPARTATE AMINO TRANSFERASE 52 U/L (17-59); BILIRUBIN,DIRECT 0.2 mg/dL (0.0-0.4); BLOOD UREA NITROGEN 13 mg/dL (7-20); CARBON DIOXIDE 29 mmol/L (22-30); CHLORIDE 90 mmol/L (98-107); GLUCOSE 122 mg/dL (75-110); POTASSIUM 4.1 mmol/L (3.6-5.0); TOTAL PROTEIN 6.4 g/dL (6.3-8.2)
[2019-12-11] MEDS ORDERED: RINGERS SOLUTION,LACTATED 1,000 ML IV ONE ×2 (16:51→17:24)
--- NOTE | 2019-12-11 17:39 | ER Document Report ---
ED General - General Chief Complaint: Fever Stated Complaint: SHORTNESS OF BREATH Time Seen by Provider: 12/11/19 15:15 Primary Care Provider: BRANDON CARROLL MD [ACTIVE STAFF] - Follow up as needed TRAVEL OUTSIDE OF THE [place] IN LAST 30 DAYS: No - HPI Notes: Patient is a 54-year-old male who presents to the emergency department for evaluation of fever, cough, increase shortness of breath. He has a history of non-small cell lung cancer, is currently on chemotherapy, last dose on December 05. The patient states that he is had fevers intermittently since Tuesday. He feels weak. He is coughing nonstop. He has pain in his chest when he coughs. It is sharp and stabbing, he rates it a 4 out of 5. Nothing seems to make it better or worse. He has had some chills. No nausea or vomiting. He is still urinating. - Related Data Allergies/Adverse Reactions: Penicillins Allergy (Intermediate, Verified 03/12/19 19:36) Generalized rash ceftriaxone [From Rocephin] Adverse Reaction (Intermediate, Verified 03/12/19 19:36) Edema Past Medical History - General Information source: Patient - Social History Smoking Status: Former Smoker Frequency of alcohol use: None Family History: Reviewed & Not Pertinent, DM, Hypertension, Other - Stomach ulcers, gout - Past Medical History Cardiac Medical History: Reports: Hx Hypercholesterolemia Denies: Hx Coronary Artery Disease, Hx Hypertension Pulmonary Medical History: Reports: Hx COPD, Hx Pneumonia Denies: Hx Asthma Neurological Medical History: Denies: Hx Seizures Endocrine Medical History: Denies: Hx Diabetes Mellitus Type 1, Hx Diabetes Mellitus Type 2, Hx Hyperthyroidism, Hx Hypothyroidism Renal/ Medical History: Reports: Hx Kidney Stones Malignancy Medical History: Reports Hx Lung Cancer GI Medical History: Denies: Hx Cirrhosis, Hx Crohn's Disease, Hx Gastroesophageal Reflux Disease, Hx Hepatitis, Hx Ulcerative Colitis Musculoskeletal Medical History: Denies Hx Arthritis, Denies Hx Gout Skin Medical History: Denies Hx Eczema, Denies Hx Psoriasis - Hearing aids Psychiatric Medical History: Denies: Hx Depression Infectious Medical History: Denies: Hx Hepatitis Past Surgical History: Reports: Hx Tonsillectomy, Other - 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 - Immunizations Hx Diphtheria, Pertussis, Tetanus Vaccination: No Hx Pneumococcal Vaccination: 11/28/18 Review of Systems - Review of Systems Constitutional: See HPI EENT: No symptoms reported Cardiovascular: See HPI Respiratory: See HPI Gastrointestinal: No symptoms reported Genitourinary: No symptoms reported Musculoskeletal: No symptoms reported Skin: No symptoms reported Neurological/Psychological: No symptoms reported Physical Exam - Vital signs Vitals: Temp Pulse Resp BP Pulse Ox 99.3 F 115 H 18 140/87 H 97 12/11/19 15:12/11/19 15:12/11/19 15:12/11/19 15:12/11/19 15:09 - Notes Notes: This is a 54-year-old male who appears older than his stated age, in no acute distress. Vital signs reviewed, please refer to chart. Head is normocephalic, atraumatic. Pupils equal round, reactive to light. Neck is supple without meningismus. Heart is regular rate and rhythm. Lungs reveal diminished breath sounds, occasional expiratory wheezes. Abdomen is soft, nontender, normoactive bowel sounds throughout. Extremities without cyanosis, clubbing. Posterior calves are nontender. Peripheral pulses are equal. Skin is warm and dry. Patient is awake, alert, neurological exam is nonfocal. Course - Re-evaluation Re-evalutation: 12/11/19 17:38 Patient presents to the emergency department for evaluation. Laboratory investigations and cultures were obtained. Patient given IV fluids. Patient has a leukopenia, absolute neutrophils are low at 1.5. He is thrombocytopenic. He is hyponatremic. Chest x-ray is unremarkable. Still awaiting urinalysis. Otherwise, I will contact Dr. Carroll, who is on-call, for further management. 12/11/19 17:54 Discussed this with the patient's oncologist. He recommends Merrem. The patient is not feeling well, states he is not sleeping, not eating well at home, is concerned he would not do well there. Decision was made to keep the patient. I spoke with Dr. Joe, and the patient will be admitted to [facility] for further care. - Vital Signs Vital signs: Temp Pulse Resp BP Pulse Ox 99.3 F 115 H 18 140/87 H 97 12/11/19 15:12/11/19 15:12/11/19 15:12/11/19 15:12/11/19 15:09 - Laboratory Result Diagrams: 12/11/19 15:49 12/11/19 15:49 Laboratory results interpreted by me: 12/11/19 12/11/19 12/11/19 15:49 15:49 15:49 WBC 2.0 L RBC 4.28 L Plt Count 121 L Monocytes % (Manual) 2 L Abs Neuts (Manual) 1.5 L Abs Lymphs (Manual) 0.4 L Abs Monocytes (Manual) 0.0 L APTT 46.1 H Sodium 125.2 L Chloride 90 L Glucose 122 H ALT 120 H - Diagnostic Test Radiology reviewed: Image reviewed, Reports reviewed Radiology results interpreted by me: 12/11/19 17:39 Chest X-Ray 12/11/19 15:22 IMPRESSION: NO ACUTE RADIOGRAPHIC FINDING IN THE CHEST. - EKG Interpretation by Me Additional EKG results interpreted by me: 12/11/19 17:39 Sinus tachycardia with a rate of 135 bpm. Borderline right axis deviation. Normal intervals. Incomplete right bundle branch block. No acute ST elevation concerning for infarction. No significant change compared to prior study. Discharge - Discharge Clinical Impression: Neutropenic fever, Hyponatremia, Person under investigation for COVID-19 Condition: Stable Disposition: ADMITTED INPATIENT Admitting Provider: Tatyana (Hospitalist) Unit Admitted: [facility]U Referrals: BRANDON CARROLL MD [ACTIVE STAFF] - Follow up as needed
[2019-12-11] MEDS ORDERED: MEROPENEM 1 GM VIAL IV ONE (17:42)
[2019-12-11] MEDS ORDERED: MORPHINE SULFATE 10 MG/ML INJ IV ONE (17:49)
[2019-12-11 18:07] LABS: APPEARANCE,URINE CLEAR; BILIRUBIN,URINE NEGATIVE (NEGATIVE); COLOR,URINE YELLOW; GLUCOSE, URINE NEGATIVE (NEGATIVE); KETONES,URINE NEGATIVE (NEGATIVE); LEUKOCYTE ESTERASE,URINE NEGATIVE (NEGATIVE); NITRITE,URINE NEGATIVE (NEGATIVE); PROTEIN,URINE NEGATIVE (NEGATIVE); URINE SPECIFIC GRAVITY 1.006; UROBILINOGEN,URINE NEGATIVE mg/dL (<2.0)
--- NOTE | 2019-12-11 18:54 | EKG REPORT ---
SEVERITY:- BORDERLINE ECG - SINUS TACHYCARDIA PROBABLE LEFT ATRIAL ABNORMALITY BORDERLINE RIGHT AXIS DEVIATION : Confirmed by: Louis Holloway MD 11-Dec-2019 18:54:19
[2019-12-11] MEDS ORDERED: IPRATROPIUM/ALBUTEROL 0.5-2.5 MG/3 ML AMPUL NEB PRN (18:57)
[2019-12-11] MEDS ORDERED: OXYCODONE-ACETAMINOPHEN 5-325 MG TABLET PO PRN (19:00)
[2019-12-11] MEDS ORDERED: HYDROMORPHONE HCL INJ/PF 2 MG/ML AMPULE IV PRN (19:02)
[2019-12-11] MEDS ORDERED: LORAZEPAM 1 MG TABLET PO PRN (19:07)
[2019-12-11] MEDS ORDERED: VANCOMYCIN HCL 0 MG in DEXTROSE 5%-WATER 250 ML IV NR (19:30)
[2019-12-11] MEDS: FLUTICASONE/VILANTEROL 200-25 MCG/DOSE IH SCH (19:53)
--- NOTE | 2019-12-11 19:53 | PDOC H&P ---
History of Present Illness Admission Date/PCP: 12/11/19 18:36 History of Present Illness: CAITLIN CASTELLANO is a 54 year old male, past medical history of COPD, diagnosed February 2019 of non-small cell lung cancer last received chemo December 06, 2019, on 2 L of nasal cannula for chronic respiratory failure, who came to the ED due to fever. According to the patient he received his last chemotherapy last , since then he is developed shortness of breath, minimal cough, and fever of 101.5. He also has nausea and generalized fatigue. He denied any urinary symptoms, no diarrhea. Persistence of shortness of breath and fever prompted ED consult. In the emergency room, blood pressure 140/87, heart rate 115, respiratory rate 18, temperature 99.3. CBC showed WBC count 2.0 hemoglobin 13.9, platelet count 121. Absolute neutrophil count 1.5. CMP showed sodium of 125.2 potassium 4.1 troponin negative. As x-ray negative for pneumonia, urinalysis negative for infection. He was empirically started on meropenem for neutropenic fever, blood cultures and urine culture sent. He received LR bolus as well. Dr. Patel was consulted Past Medical History Cardiac Medical History: Reports: Hyperlipidema Denies: Coronary Artery Disease, Hypertension Pulmonary Medical History: Reports: Chronic Obstructive Pulmonary Disease (COPD), Pneumonia Denies: Asthma Neurological Medical History: Denies: Seizures Endocrine Medical History: Denies: Diabetes Mellitus Type 1, Diabetes Mellitus Type 2, Hyperthyroidism, Hypothyroidism Malignancy Medical History: Reports: Lung Cancer GI Medical History: Denies: Cirrhosis, Crohn's Disease, Gastroesophageal Reflux Disease, Hepatitis, Ulcerative Colitis Musculoskeltal Medical History: Denies: Arthritis, Gout Skin Medical History: Denies: Eczema, Psoriasis - Hearing aids Psychiatric Medical History: Denies: Depression Hematology: Denies: Anemia, Bleeding Tendencies Past Surgical History Past Surgical History: Reports: Tonsillectomy, Other - 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 Social History Information Source: Patient Smoking Status: Former Smoker Cigarettes Packs Per Day: 20 Number of Years Smokin Frequency of Alcohol Use: None Hx Recreational Drug Use: No Drugs: None Hx Prescription Drug Abuse: No Family History Family History: Reviewed & Not Pertinent, DM, Hypertension, Other - Stomach ulcers, gout Parental Family History Reviewed: Yes Children Family History Reviewed: Yes Sibling(s) Family History Reviewed.: Yes Medication/Allergy Allergies/Adverse Reactions: Penicillins Allergy (Intermediate, Verified 03/12/19 19:36) Generalized rash ceftriaxone [From Rocephin] Adverse Reaction (Intermediate, Verified 03/12/19 19:36) Edema Review of Systems Constitutional: PRESENT: anorexia, chills, fatigue, fever(s), weakness Nose, Mouth, and Throat: ABSENT: sore throat Cardiovascular: ABSENT: edema, orthropnea, palpitations Respiratory: PRESENT: cough, dyspnea Gastrointestinal: ABSENT: diarrhea, dysphagia, heartburn Genitourinary: ABSENT: difficulty urinating, dysuria, hematuria Neurological: PRESENT: numbness, paresthesias. ABSENT: focal weakness Physical Exam Vital Signs: Temp Pulse Resp BP Pulse Ox 99.3 F 115 H 18 140/87 H 97 12/11/19 15:09 12/11/19 15:09 12/11/19 15:09 12/11/19 15:09 12/11/19 15:09 Intake & Output 12/10/19 12/11/19 12/12/19 06:59 06:59 06:59 Intake Total 1050 Balance 1050 Weight 86.183 kg General appearance: PRESENT: cooperative, mild distress Head exam: PRESENT: atraumatic Eye exam: PRESENT: EOMI, PERRLA Ear exam: PRESENT: normal external ear exam Mouth exam: PRESENT: moist Throat exam: ABSENT: tonsillar erythema Neck exam: PRESENT: full ROM Respiratory exam: PRESENT: clear to auscultation rian, symmetrical, tachypnea. ABSENT: wheezes Cardiovascular exam: PRESENT: RRR, +S1, +S2 Pulses: PRESENT: +2 pedal pulses bilateral Vascular exam: PRESENT: normal capillary refill GI/Abdominal exam: PRESENT: normal bowel sounds, soft. ABSENT: rebound, tenderness Extremities exam: PRESENT: full ROM Musculoskeletal exam: PRESENT: full ROM Neurological exam: PRESENT: alert, awake, oriented to person, oriented to place, oriented to time, oriented to situation Psychiatric exam: PRESENT: normal mood Results Laboratory Results: 12/11/19 15:49 12/11/19 15:49 12/11/19 12/11/19 12/11/19 15:49 15:49 15:49 WBC 2.0 L RBC 4.28 L Hgb 13.9 Hct 40.0 MCV 93 MCH 32.4 MCHC 34.8 RDW 13.6 Plt Count 121 L Seg Neutrophils % Not Reportable Sodium 125.2 L Potassium 4.1 Chloride 90 L Carbon Dioxide 29 Anion Gap 6 BUN 13 Creatinine 0.71 Est GFR ( Amer) > 60 Glucose 122 H Lactic Acid 1.0 Calcium 9.0 Total Bilirubin 1.0 AST 52 Alkaline Phosphatase 73 Total Protein 6.4 Albumin 3.9 Urine Color Urine Appearance Urine pH Ur Specific [place] Urine Protein Urine Glucose (UA) Urine Ketones Urine Blood Urine Nitrite Ur Leukocyte Esterase Urine WBC (Auto) Urine RBC (Auto) 12/11/19 17:32 WBC RBC Hgb Hct MCV MCH MCHC RDW Plt Count Seg Neutrophils % Sodium Potassium Chloride Carbon Dioxide Anion Gap BUN Creatinine Est GFR ( Amer) Glucose Lactic Acid Calcium Total Bilirubin AST Alkaline Phosphatase Total Protein Albumin Urine Color YELLOW Urine Appearance CLEAR Urine pH 8.0 Ur Specific [place] 1.006 Urine Protein NEGATIVE Urine Glucose (UA) NEGATIVE Urine Ketones NEGATIVE Urine Blood NEGATIVE Urine Nitrite NEGATIVE Ur Leukocyte Esterase NEGATIVE Urine WBC (Auto) 1 Urine RBC (Auto) 1 12/11/19 15:49 Troponin I < 0.012 Impressions: Chest X-Ray 12/11/19 15:22 IMPRESSION: NO ACUTE RADIOGRAPHIC FINDING IN THE CHEST. Assessment and Plan - Diagnosis (1) Neutropenic fever Is this a current diagnosis for this admission?: Yes Plan: -Patient diagnosed case of non-small cell lung cancer with last chemotherapy 4 days prior to admission coming in with fever (cisplatin based?) -T-max 101.5 at home -WBC count 2.0, ANC 1.5 -Chest x-ray negative - UA negative -Blood Cultures pending -Urine cultures pending -Empirically started on meropenem and vancomycin pending culture results -Will monitor CBC daily -Oncology followingRober Patel informed (2) Neutropenia Qualifiers: Neutropenia type: secondary to cancer chemotherapy Qualified Code(s): D70.1 - Agranulocytosis secondary to cancer chemotherapy; T45.1X5A - Adverse effect of antineoplastic and immunosuppressive drugs, initial encounter Is this a current diagnosis for this admission?: Yes Plan: -Being treated for non-small cell lung cancer last chemo December 06, 2019 -WBC count 2.0 -ANC 1.5 -Empirically started on meropenem and Vanco -This is likely secondary to ongoing chemo -Neutropenic precautions, neutropenic diet -Daily CBC -No indication for G-CSF for now (3) Chronic respiratory failure with hypoxia Is this a current diagnosis for this admission?: Yes Plan: - normally on 2L NC at home - currently at his baseline needs (4) Hyponatremia Is this a current diagnosis for this admission?: Yes Plan: - Na 125.6, likely chronic - ddx 2/2 dehydration or SIADH - appears euvolemic on exam - received 2L LR - awaiting urine/serum osm, urine sodium - continue IV fluids for now - repeat BMP tonight. 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 Was slowly tapered. Last dose of prednisone 20 mg was on Tuesday - Dr. Patel consulted. No need to resume prednisone if he's not experiencing adrenal insufficiency (6) COPD (chronic obstructive pulmonary disease) Qualifiers: Chronic bronchitis type: unspecified Is this a current diagnosis for this admission?: Yes Plan: -Former smoker quit 1 year ago. 1 pack/day x 40 years -Chronically on 2 L of nasal cannula at home -On Symbicort, albutero inhaler at home -Switch to Breo inpatient -DuoNeb every 4 hours as needed (7) Person under investigation for COVID-19 Is this a current diagnosis for this admission?: Yes Plan: -COVID test pending - Time Time Spent with patient: 35 or more minutes Medications reviewed and adjusted accordingly: Yes Anticipated Discharge Disposition: Home, Self Care Anticipated Discharge Timeframe: within 48 hours - Inpatient Certification Based on my medical assessment, after consideration of the patient's comorbidities, presenting symptoms, or acuity I expect that the services needed warrant INPATIENT care.: Yes I certify that my determination is in accordance with my understanding of Medicare's requirements for reasonable and necessary INPATIENT services [42 CFR 412.3e].: Yes Medical Necessity: Need for IV Antibiotics
[2019-12-11 20:22] LABS: ANION GAP 5 (5-19); BLOOD UREA NITROGEN 12 mg/dL (7-20); CALCIUM 9.2 mg/dL (8.4-10.2); CARBON DIOXIDE 32 mmol/L (22-30); CHLORIDE 93 mmol/L (98-107); GLUCOSE 114 mg/dL (75-110); POTASSIUM 4.8 mmol/L (3.6-5.0)
[2019-12-11 20:50] LABS: URINE SODIUM 57 mmol/L (30-90)
[2019-12-11 20:59] LABS: OSMOLALITY,URINE 150 mOsm/kg (300-900)
[2019-12-11] MEDS: HEPARIN SOD (PORCINE) 5,000 UNIT/ML 1 ML VIAL SUBCUT SCH (21:12)
[2019-12-11] MEDS: RINGERS SOLUTION,LACTATED 1,000 ML IV PRN (21:19)
[2019-12-11] MEDS: VANCOMYCIN HCL 1,250 MG in DEXTROSE 5%-WATER 250 ML IV SCH (21:21)
[2019-12-11] MEDS: MEROPENEM 1 GM in NORMAL SALINE 50 ML IV SCH (21:22)
[2019-12-12] MEDS: HEPARIN SOD (PORCINE) 5,000 UNIT/ML 1 ML VIAL SUBCUT SCH ×3 (05:29→21:51)
[2019-12-12] MEDS: VANCOMYCIN HCL 1,250 MG in DEXTROSE 5%-WATER 250 ML IV SCH (05:33)
[2019-12-12] MEDS: MEROPENEM 1 GM in NORMAL SALINE 50 ML IV SCH ×3 (05:34→21:56)
[2019-12-12 06:27] LABS: ABSOLUTE LYMPHOCYTES (AUTO) 0.4 10^3/uL (0.5-4.7); ABSOLUTE MONOCYTES (AUTO) 0.1 10^3/uL (0.1-1.4); ABSOLUTE NEUT (AUTO) 1.8 10^3/uL (1.7-8.2); BASOPHILS % (AUTO) 0.3 % (0-2); EOSINOPHILS % (AUTO) 0.3 % (0-6); HEMATOCRIT 36.3 % (37.9-51.0); HEMOGLOBIN 12.8 g/dL (13.5-17.0); LYMPHOCYTES % (AUTO) 16.2 % (13-45); MEAN CORPUSCULAR HEMOGLOBIN 32.8 pg (27.0-33.4); MEAN CORPUSCULAR HGB CONC 35.3 g/dL (32.0-36.0); MEAN CORPUSCULAR VOLUME 93 fl (80-97); MONOCYTES % (AUTO) 5.5 % (3-13); PLATELET COUNT 100 10^3/uL (150-450); RED CELL DISTRIBUTION WIDTH 13.8 % (11.5-14.0); SEGMENTED NEUTROPHILS % (AUTO) 77.7 % (42-78); TOTAL CELLS COUNTED % (AUTO) 100 %; WHITE BLOOD COUNT 2.3 10^3/uL (4.0-10.5)
[2019-12-12 06:35] LABS: ALBUMIN 3.1 g/dL (3.5-5.0); ALKALINE PHOSPHATASE 61 U/L (38-126); ANION GAP 6 (5-19); ASPARTATE AMINO TRANSFERASE 39 U/L (17-59); BILIRUBIN,DIRECT 0.3 mg/dL (0.0-0.4); BILIRUBIN,TOTAL 0.9 mg/dL (0.2-1.3); BLOOD UREA NITROGEN 10 mg/dL (7-20); CALCIUM 8.5 mg/dL (8.4-10.2); CARBON DIOXIDE 30 mmol/L (22-30); CHLORIDE 92 mmol/L (98-107); GLUCOSE 144 mg/dL (75-110); TOTAL PROTEIN 5.3 g/dL (6.3-8.2)
[2019-12-12 06:45] LABS: POTASSIUM 3.8 mmol/L (3.6-5.0)
--- NOTE | 2019-12-12 08:27 | PDOC CONSULTATION ---
Consultation Consult Date: 12/12/19 Attending physician:: ALCON FANG Provider Consulted: BRANDON CARROLL Consult reason:: Patient with known stage IV lung cancer here with likely pneumonia, fever cough History of Present Illness Admission Date/PCP: 12/11/19 18:36 Patient complains of: Shortness of breath, fever, cough, chills History of Present Illness: This is a telemedicine visit. Patient voiced understanding of what a telemedicine is and was identified with 2 patient identifiers. CAITLIN CASTELLANO is a 54 year old male with known history of stage IV lung cancer that we diagnosed initially with stage III lung cancer about a year ago. He received concurrent chemoradiation and then was placed on adjuvant immunotherapy, unfortunately recently he had worsening shortness of breath and initially I thought it was pneumonitis caused by the immunotherapy and he started on high-dose steroids, but after imaging it was evident that he had progressive disease in the chest. He was then started on chemotherapy with Gemzar, received his last chemotherapy about 5 days ago. Over the weekend he began having fever and chills, yesterday morning I received a call and he was weak and had chills and initially I was going to treat him as an outpatient but his shortness of breath and fever got worse, and his weakness got worse and he h ad some bouts of confusion, and he presented to the ER. There he was tachycardic, and had fever, and he was admitted for concern of neutropenic fever although the ANC was 1500 so not pure neutropenia. He was placed on meropenem and vancomycin. He is having pain in the chest currently. Past Medical History Cardiac Medical History: Reports: Hyperlipidema Denies: Coronary Artery Disease, Hypertension Pulmonary Medical History: Reports: Chronic Obstructive Pulmonary Disease (COPD), Pneumonia Denies: Asthma Neurological Medical History: Denies: Seizures Endocrine Medical History: Denies: Diabetes Mellitus Type 1, Diabetes Mellitus Type 2, Hyperthyroidism, Hypothyroidism Malignancy Medical History: Reports: Lung Cancer GI Medical History: Denies: Cirrhosis, Crohn's Disease, Gastroesophageal Reflux Disease, Hepatitis, Ulcerative Colitis Musculoskeltal Medical History: Denies: Arthritis, Gout Skin Medical History: Denies: Eczema, Psoriasis - Hearing aids Psychiatric Medical History: Denies: Depression Hematology: Denies: Anemia, Bleeding Tendencies Past Surgical History Past Surgical History: Reports: Tonsillectomy, Other - 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 Social History Information Source: Patient Smoking Status: Former Smoker Cigarettes Packs Per Day: 20 Number of Years Smokin Frequency of Alcohol Use: None Hx Recreational Drug Use: No Drugs: None Hx Prescription Drug Abuse: No - Advance Directive Resuscitation Status: Full Code Family History Family History: Reviewed & Not Pertinent, DM, Hypertension, Other - Stomach ulcers, gout Parental Family History Reviewed: Yes Children Family History Reviewed: Yes Sibling(s) Family History Reviewed.: Yes Medication/Allergy Home Medications: Albuterol Sulfate [Proair Hfa Inhalation Aerosol 8.5 gm Mdi] 1 puff IH Q4HP PRN 12/11/19 Albuterol Sulfate [Ventolin 0.083% Neb 2.5 mg/3 ml Ampul] 1 vial NEB QAM 12/11/19 Budesonide/Formoterol Fumarate [Symbicort Hfa 160-4.5 Mcg Inhaler 6 gm] 2 puff IH Q12 12/11/19 Hydrocodone/Acetaminophen [Kirk 5-325 Tablet] 1 each PO Q6HP PRN 12/11/19 Ipratropium/Albuterol Sulfate [Combivent Respimat 4 gm Mdi] 1 puff IH Q6HP PRN 12/11/19 Lorazepam [Ativan 1 mg Tablet] 1 mg PO QHS 12/11/19 Magnesium Oxide 500 mg PO DAILY 12/11/19 Multivitamin [Tab-A-Jarred (Multiple Vitamin) Tablet] 1 tab PO DAILY 12/11/19 Potassium Gluconate [Potassium] 99 mg PO DAILY 12/11/19 Allergies/Adverse Reactions: Penicillins Allergy (Intermediate, Verified 03/12/19 19:36) Generalized rash ceftriaxone [From Rocephin] Adverse Reaction (Intermediate, Verified 03/12/19 19:36) Edema Review of Systems Constitutional: ABSENT: chills, fever(s), headache(s), weight gain, weight loss Eyes: ABSENT: visual disturbances Ears: ABSENT: hearing changes Cardiovascular: ABSENT: chest pain, dyspnea on exertion, edema, orthropnea, palpitations Respiratory: ABSENT: cough, hemoptysis Gastrointestinal: ABSENT: abdominal pain, constipation, diarrhea, hematemesis, hematochezia, nausea, vomiting Genitourinary: ABSENT: dysuria, hematuria Musculoskeletal: ABSENT: joint swelling Integumentary: ABSENT: rash, wounds Neurological: ABSENT: abnormal gait, abnormal speech, confusion, dizziness, focal weakness, syncope Psychiatric: ABSENT: anxiety, depression, homidical ideation, suicidal ideation Endocrine: ABSENT: cold intolerance, heat intolerance, polydipsia, polyuria Hematologic/Lymphatic: ABSENT: easy bleeding, easy bruising Physical Exam Vital Signs: Temp Pulse Resp BP Pulse Ox 102.2 F H 82 16 158/99 H 96 12/11/19 20:01 12/12/19 02:00 12/11/19 20:26 12/11/19 20:01 12/11/19 20:26 Intake & Output 12/11/19 12/12/19 12/13/19 06:59 06:59 06:59 Intake Total 2950 Output Total 1300 Balance 1650 Weight 83.1 kg General appearance: PRESENT: no acute distress, well-developed, well-nourished Head exam: PRESENT: atraumatic, normocephalic Eye exam: PRESENT: conjunctiva pink, EOMI, PERRLA. ABSENT: scleral icterus Ear exam: PRESENT: normal external ear exam Mouth exam: PRESENT: moist, tongue midline Neck exam: ABSENT: carotid bruit, JVD, lymphadenopathy, thyromegaly Respiratory exam: PRESENT: clear to auscultation rian. ABSENT: rales, rhonchi, wheezes Cardiovascular exam: PRESENT: RRR. ABSENT: diastolic murmur, rubs, systolic murmur Pulses: PRESENT: normal dorsalis pedis pul Vascular exam: PRESENT: normal capillary refill GI/Abdominal exam: PRESENT: normal bowel sounds, soft. ABSENT: distended, guarding, mass, organolmegaly, rebound, tenderness Rectal exam: PRESENT: deferred Extremities exam: PRESENT: full ROM. ABSENT: calf tenderness, clubbing, pedal edema Neurological exam: PRESENT: alert, awake, oriented to person, oriented to place, oriented to time, oriented to situation, CN II-XII grossly intact. ABSENT: motor sensory deficit Psychiatric exam: PRESENT: appropriate affect, normal mood. ABSENT: homicidal ideation, suicidal ideation Skin exam: PRESENT: dry, intact, warm. ABSENT: cyanosis, rash Results Laboratory Results: 12/12/19 05:24 12/12/19 05:24 12/11/19 12/11/19 12/11/19 15:49 15:49 15:49 WBC 2.0 L RBC 4.28 L Hgb 13.9 Hct 40.0 MCV 93 MCH 32.4 MCHC 34.8 RDW 13.6 Plt Count 121 L Seg Neutrophils % Not Reportable Sodium 125.2 L Potassium 4.1 Chloride 90 L Carbon Dioxide 29 Anion Gap 6 BUN 13 Creatinine 0.71 Est GFR ( Amer) > 60 Glucose 122 H Serum Osmolality Lactic Acid 1.0 Calcium 9.0 Total Bilirubin 1.0 AST 52 Alkaline Phosphatase 73 Total Protein 6.4 Albumin 3.9 Urine Color Urine Appearance Urine pH Ur Specific [place] Urine Protein Urine Glucose (UA) Urine Ketones Urine Blood Urine Nitrite Ur Leukocyte Esterase Urine WBC (Auto) Urine RBC (Auto) Urine Osmolality 12/11/19 12/11/19 12/11/19 17:32 19:44 19:44 WBC RBC Hgb Hct MCV MCH MCHC RDW Plt Count Seg Neutrophils % Sodium 129.5 L Potassium 4.8 Chloride 93 L Carbon Dioxide 32 H Anion Gap 5 BUN 12 Creatinine 0.81 Est GFR ( Amer) > 60 Glucose 114 H Serum Osmolality 270 L Lactic Acid Calcium 9.2 Total Bilirubin AST Alkaline Phosphatase Total Protein Albumin Urine Color YELLOW Urine Appearance CLEAR Urine pH 8.0 Ur Specific [place] 1.006 Urine Protein NEGATIVE Urine Glucose (UA) NEGATIVE Urine Ketones NEGATIVE Urine Blood NEGATIVE Urine Nitrite NEGATIVE Ur Leukocyte Esterase NEGATIVE Urine WBC (Auto) 1 Urine RBC (Auto) 1 Urine Osmolality 12/11/19 12/12/19 12/12/19 20:14 05:24 05:24 WBC 2.3 L RBC 3.90 L Hgb 12.8 L Hct 36.3 L MCV 93 MCH 32.8 MCHC 35.3 RDW 13.8 Plt Count 100 L Seg Neutrophils % 77.7 Sodium 127.7 L Potassium 3.8 D Chloride 92 L Carbon Dioxide 30 Anion Gap 6 BUN 10 Creatinine 0.76 Est GFR ( Amer) > 60 Glucose 144 H Serum Osmolality Lactic Acid Calcium 8.5 Total Bilirubin 0.9 AST 39 Alkaline Phosphatase 61 Total Protein 5.3 L Albumin 3.1 L Urine Color Urine Appearance Urine pH Ur Specific [place] Urine Protein Urine Glucose (UA) Urine Ketones Urine Blood Urine Nitrite Ur Leukocyte Esterase Urine WBC (Auto) Urine RBC (Auto) Urine Osmolality 150 L 12/11/19 15:49 Troponin I < 0.012 Impressions: Chest X-Ray 12/11/19 15:22 IMPRESSION: NO ACUTE RADIOGRAPHIC FINDING IN THE CHEST. Assessment & Plan - Diagnosis (1) Non-small cell lung cancer (NSCLC) Qualifiers: Laterality: left Qualified Code(s): C34.92 - Malignant neoplasm of unspecified part of left bronchus or lung Is this a current diagnosis for this admission?: Yes Plan: Patient with known lung cancer, currently on chemotherapy with Gemzar. This is his week off. He would generally continue chemotherapy next week but will probably need to hold for at least a week post hospitalization to make sure he recovers well. Counts will probably go down further over the next few days but should be short lasting. (2) Neutropenic fever Is this a current diagnosis for this admission?: Yes Plan: White count slightly improved today, should resolve quickly, continue with vancomycin until preliminary cultures are negative, of note I called pharmacy because I thought bank dosing was a little bit too high, pharmacy is adjusting now. Continue with meropenem. (3) Person under investigation for COVID-19 Is this a current diagnosis for this admission?: Yes Plan: Unlikely to be COVID but agreed with testing. We will continue with telehealth visit until patient is ruled out and moved. (4) Obstructive pneumonia Is this a current diagnosis for this admission?: Yes Plan: Continue with meropenem. Await cultures. (5) Acute respiratory failure with hypoxia Is this a current diagnosis for this admission?: Yes Plan: Probably secondary to postobstructive pneumonia, continue with supportive O2 and antibiotics (6) Pain, neoplasm-related Is this a current diagnosis for this admission?: Yes Plan: I will adjust pain medications, I adjusted pain medications today. - Time Time Spent: Greater than 70 Minutes - Inpatient Certification Based on my medical assessment, after consideration of the patient's comorbidities, presenting symptoms, or acuity I expect that the services needed warrant INPATIENT care.: Yes I certify that my determination is in accordance with my understanding of Medicare's requirements for reasonable and necessary INPATIENT services [42 CFR 412.3e].: Yes Medical Necessity: Need For Continuous Telemetry Monitoring, Need for Nebulizer Therapy and Monitoring of Response, Need for IV Antibiotics, Risk of Complication if Not Cared For in Hospital
[2019-12-12] MEDS: MULTIVITAMIN TABLET PO SCH (09:08)
[2019-12-12] MEDS: BENZONATATE 100 MG CAPSULE PO PRN (09:08)
[2019-12-12] MEDS: MAGNESIUM OXIDE 400 MG TABLET PO SCH (09:08)
[2019-12-12] MEDS: FLUTICASONE/VILANTEROL 200-25 MCG/DOSE IH SCH (09:08)
[2019-12-12] MEDS: HYDROMORPHONE HCL INJ/PF 2 MG/ML AMPULE IV PRN ×2 (09:08→21:15)
[2019-12-12] MEDS: RINGERS SOLUTION,LACTATED 1,000 ML IV PRN ×2 (12:27→21:56)
[2019-12-12 13:44] LABS: PATH REVIEW PATHOLOGIST REVIEWED
[2019-12-12] MEDS: ONDANSETRON 4 MG TAB.RAPDIS PO PRN (14:01)
--- NOTE | 2019-12-12 15:12 | PDOC PROGRESS REPORT ---
Subjective Progress Note for:: 12/12/19 Subjective:: CAITLIN CASTELLANO is a 54 year old male, past medical history of COPD, diagnosed February 2019 of non-small cell lung cancer last received chemo December 06, 2019, on 2 L of nasal cannula for chronic respiratory failure, who came to the ED due to fever. According to the patient he received his last chemotherapy last , since then he is developed shortness of breath, minimal cough, and fever of 101.5. He also has nausea and generalized fatigue. He denied any urinary symptoms, no diarrhea. Persistence of shortness of breath and fever prompted ED consult. In the emergency room, blood pressure 140/87, heart rate 115, respiratory rate 18, temperature 99.3. CBC showed WBC count 2.0 hemoglobin 13.9, platelet count 121. Absolute neutrophil count 1.5. CMP showed sodium of 125.2 potassium 4.1 troponin negative. As x-ray negative for pneumonia, urinalysis negative for infection. He was empirically started on meropenem for neutropenic fever, blood cultures and urine culture sent. He received LR bolus as well. Dr. Patel was consulted D2 hospital stay 12/12/19. He was seen and examined at bedside. He had another fever 102 at around 8 pm yesterday. He still has generalized body malaise and cough. WBC improved from 2.0 to 2.3. Na improved to 127.7. Blood cultures are still pending, urine cultures negative.He is on D2 of meropenem and vanc. COVID test pending. Reason For Visit: NEUTROPENIC FEVER,NON SMALL CELL LUNG CANCER Physical Exam Vital Signs: Temp Pulse Resp BP Pulse Ox 99.8 F 107 H 21 H 145/80 H 97 12/12/19 11:57 12/12/19 14:00 12/12/19 11:57 12/12/19 11:57 12/12/19 11:57 Intake & Output 12/11/19 12/12/19 12/13/19 06:59 06:59 06:59 Intake Total 2950 1250 Output Total 1300 Balance 1650 1250 Weight 83.1 kg General appearance: PRESENT: cooperative, mild distress Head exam: PRESENT: atraumatic, normocephalic Eye exam: PRESENT: EOMI, PERRLA Mouth exam: PRESENT: moist Neck exam: PRESENT: full ROM Respiratory exam: PRESENT: rales, symmetrical, unlabored. ABSENT: tachypnea, wheezes Cardiovascular exam: PRESENT: RRR, +S1, +S2 Pulses: PRESENT: +2 pedal pulses bilateral GI/Abdominal exam: PRESENT: normal bowel sounds Extremities exam: PRESENT: other - limited ROM right hip due to arthritis. ABSENT: +2 edema Musculoskeletal exam: PRESENT: ambulatory. ABSENT: deformity, dislocation Neurological exam: PRESENT: alert, awake, oriented to person, oriented to place, oriented to time, oriented to situation Psychiatric exam: PRESENT: normal mood Skin exam: PRESENT: normal color Results Laboratory Results: 12/12/19 05:24 12/12/19 05:24 12/11/19 12/11/19 12/11/19 15:49 15:49 15:49 WBC 2.0 L RBC 4.28 L Hgb 13.9 Hct 40.0 MCV 93 MCH 32.4 MCHC 34.8 RDW 13.6 Plt Count 121 L Seg Neutrophils % Not Reportable Sodium 125.2 L Potassium 4.1 Chloride 90 L Carbon Dioxide 29 Anion Gap 6 BUN 13 Creatinine 0.71 Est GFR ( Amer) > 60 Glucose 122 H Serum Osmolality Lactic Acid 1.0 Calcium 9.0 Total Bilirubin 1.0 AST 52 Alkaline Phosphatase 73 Total Protein 6.4 Albumin 3.9 Urine Color Urine Appearance Urine pH Ur Specific [place] Urine Protein Urine Glucose (UA) Urine Ketones Urine Blood Urine Nitrite Ur Leukocyte Esterase Urine WBC (Auto) Urine RBC (Auto) Urine Osmolality 12/11/19 12/11/19 12/11/19 17:32 19:44 19:44 WBC RBC Hgb Hct MCV MCH MCHC RDW Plt Count Seg Neutrophils % Sodium 129.5 L Potassium 4.8 Chloride 93 L Carbon Dioxide 32 H Anion Gap 5 BUN 12 Creatinine 0.81 Est GFR ( Amer) > 60 Glucose 114 H Serum Osmolality 270 L Lactic Acid Calcium 9.2 Total Bilirubin AST Alkaline Phosphatase Total Protein Albumin Urine Color YELLOW Urine Appearance CLEAR Urine pH 8.0 Ur Specific [place] 1.006 Urine Protein NEGATIVE Urine Glucose (UA) NEGATIVE Urine Ketones NEGATIVE Urine Blood NEGATIVE Urine Nitrite NEGATIVE Ur Leukocyte Esterase NEGATIVE Urine WBC (Auto) 1 Urine RBC (Auto) 1 Urine Osmolality 12/11/19 12/12/19 12/12/19 20:14 05:24 05:24 WBC 2.3 L RBC 3.90 L Hgb 12.8 L Hct 36.3 L MCV 93 MCH 32.8 MCHC 35.3 RDW 13.8 Plt Count 100 L Seg Neutrophils % 77.7 Sodium 127.7 L Potassium 3.8 D Chloride 92 L Carbon Dioxide 30 Anion Gap 6 BUN 10 Creatinine 0.76 Est GFR ( Amer) > 60 Glucose 144 H Serum Osmolality Lactic Acid Calcium 8.5 Total Bilirubin 0.9 AST 39 Alkaline Phosphatase 61 Total Protein 5.3 L Albumin 3.1 L Urine Color Urine Appearance Urine pH Ur Specific [place] Urine Protein Urine Glucose (UA) Urine Ketones Urine Blood Urine Nitrite Ur Leukocyte Esterase Urine WBC (Auto) Urine RBC (Auto) Urine Osmolality 150 L 12/11/19 15:49 Troponin I < 0.012 Impressions: Chest X-Ray 12/11/19 15:22 IMPRESSION: NO ACUTE RADIOGRAPHIC FINDING IN THE CHEST. Assessment and Plan - Diagnosis (1) Neutropenic fever Is this a current diagnosis for this admission?: Yes Plan: -Patient diagnosed case of non-small cell lung cancer with last chemotherapy 4 days prior to admission coming in with fever (cisplatin based?) -T-max 102 8 pm yesterday -WBC count 2.0>2.3, ANC 1.5 -Chest x-ray negative - UA negative -Blood Cultures pending -Urine cultures negative x 1 -on meropenem and vancomycin D2 pending culture results - will consider adding antifungal if still spiking fever or worsening neutropenia -Will monitor CBC daily -Oncology following. Dy. Patel informed (2) Neutropenia Qualifiers: Neutropenia type: secondary to cancer chemotherapy Qualified Code(s): D70.1 - Agranulocytosis secondary to cancer chemotherapy; T45.1X5A - Adverse effect of antineoplastic and immunosuppressive drugs, initial encounter Is this a current diagnosis for this admission?: Yes Plan: -Being treated for non-small cell lung cancer last chemo December 06, 2019 -WBC count 2.0>2.3 -ANC 1.5 -Empirically started on meropenem and Vanco -This is likely secondary to ongoing chemo -Neutropenic precautions, neutropenic diet -Daily CBC -No indication for G-CSF for now (3) Chronic respiratory failure with hypoxia Is this a current diagnosis for this admission?: Yes Plan: - normally on 2L NC at home - currently at his baseline needs (4) Hyponatremia Is this a current diagnosis for this admission?: Yes Plan: - Na 125.6>127, likely chronic - ddx 2/2 dehydration or SIADH -improved with hydration so hyponatremia 2/2 to hypovolemia - continue IV fluids for now -will monitor daily CMP (5) Non-small cell lung cancer (NSCLC) Qualifiers: Laterality: left Qualified Code(s): C34.92 - Malignant neoplasm of unspecified part of left bronchus or lung Is this a current diagnosis for this admission?: Yes Plan: -Diagnosed February 2019 -Currently receiving second cycle chemotherapy Gemcitabine last dose December 06, 2019 -Received immunotherapy few months ago currently not on immunotherapy -Was on steroids for 1 month for pneumonitis secondary to immunotherapy. Was slowly tapered. Last dose of prednisone 20 mg was on Tuesday - Dr. Patel consulted. No need to resume prednisone if he's not experiencing adrenal insufficiency - steroids not resumed (6) COPD (chronic obstructive pulmonary disease) Qualifiers: Chronic bronchitis type: unspecified Is this a current diagnosis for this admission?: Yes Plan: -Former smoker quit 1 year ago. 1 pack/day x 40 years -Chronically on 2 L of nasal cannula at home -On Symbicort, albutero inhaler at home -Switch to Breo inpatient -DuoNeb every 4 hours as needed (7) Person under investigation for COVID-19 Is this a current diagnosis for this admission?: Yes Plan: -COVID test pending - Time Time Spent with patient: 25-34 minutes Medications reviewed and adjusted accordingly: Yes Anticipated Discharge Disposition: Home, Self Care Anticipated Discharge Timeframe: to be determined
[2019-12-12] MEDS: OXYCODONE HCL IR 5 MG TABLET PO PRN (16:13)
[2019-12-12] MEDS ORDERED: VANCOMYCIN HCL 1,500 MG in DEXTROSE 5%-WATER 250 ML IV SCH (22:00)
[2019-12-12 23:19] LABS: VANCOMYCIN,TROUGH < 5.0 ug/mL (5.0-20.0)
[2019-12-13] MEDS: OXYCODONE HCL IR 5 MG TABLET PO PRN (01:51)
[2019-12-13] MEDS: BENZONATATE 100 MG CAPSULE PO PRN (01:51)
[2019-12-13] MEDS: ONDANSETRON 4 MG TAB.RAPDIS PO PRN (03:34)
[2019-12-13] MEDS: HYDROMORPHONE HCL INJ/PF 2 MG/ML AMPULE IV PRN (05:01)
[2019-12-13] MEDS: HEPARIN SOD (PORCINE) 5,000 UNIT/ML 1 ML VIAL SUBCUT SCH ×2 (06:35→13:06)
[2019-12-13] MEDS: MEROPENEM 1 GM in NORMAL SALINE 50 ML IV SCH ×3 (06:39→22:11)
[2019-12-13] MEDS ORDERED: RINGERS SOLUTION,LACTATED 1,000 ML IV PRN (07:29)
--- NOTE | 2019-12-13 07:54 | PDOC PROGRESS REPORT ---
Subjective Progress Note for:: 12/13/19 Subjective:: Pt still feels pain in chest. But in discussion this am was slow to answer on the phone and confused at times. I discussed changing pain meds with pt. Fever 99 this am Reason For Visit: NEUTROPENIC FEVER,NON SMALL CELL LUNG CANCER Physical Exam Vital Signs: Temp Pulse Resp BP Pulse Ox 99.1 F 92 16 147/87 H 96 12/12/19 16:06 12/13/19 02:00 12/12/19 20:36 12/12/19 16:06 12/13/19 05:36 Intake & Output 12/12/19 12/13/19 12/14/19 06:59 06:59 06:59 Intake Total 2950 2300 Output Total 1300 Balance 1650 2300 Weight 83.1 kg 86.4 kg General appearance: PRESENT: no acute distress, well-developed, well-nourished Head exam: PRESENT: atraumatic, normocephalic Eye exam: PRESENT: conjunctiva pink, EOMI, PERRLA. ABSENT: scleral icterus Ear exam: PRESENT: normal external ear exam Mouth exam: PRESENT: moist, tongue midline Neck exam: ABSENT: carotid bruit, JVD, lymphadenopathy, thyromegaly Respiratory exam: PRESENT: clear to auscultation rian. ABSENT: rales, rhonchi, wheezes Cardiovascular exam: PRESENT: RRR. ABSENT: diastolic murmur, rubs, systolic murmur Pulses: PRESENT: normal dorsalis pedis pul Vascular exam: PRESENT: normal capillary refill GI/Abdominal exam: PRESENT: normal bowel sounds, soft. ABSENT: distended, guarding, mass, organolmegaly, rebound, tenderness Rectal exam: PRESENT: deferred Extremities exam: PRESENT: full ROM. ABSENT: calf tenderness, clubbing, pedal edema Neurological exam: PRESENT: alert, awake, oriented to person, oriented to place, oriented to time, oriented to situation, CN II-XII grossly intact. ABSENT: motor sensory deficit Psychiatric exam: PRESENT: appropriate affect, normal mood. ABSENT: homicidal ideation, suicidal ideation Skin exam: PRESENT: dry, intact, warm. ABSENT: cyanosis, rash Results Laboratory Results: 12/12/19 05:24 12/12/19 21:55 12/12/19 21:55 Creatinine 0.78 Est GFR ( Amer) > 60 12/11/19 12/12/19 15:49 16:16 Troponin I < 0.012 < 0.012 Impressions: Chest X-Ray 12/11/19 15:22 IMPRESSION: NO ACUTE RADIOGRAPHIC FINDING IN THE CHEST. Assessment & Plan - Diagnosis (1) Non-small cell lung cancer (NSCLC) Qualifiers: Laterality: left Qualified Code(s): C34.92 - Malignant neoplasm of unspecified part of left bronchus or lung Is this a current diagnosis for this admission?: Yes Plan: Plan to restart chemo as ouptt (2) Neutropenic fever Is this a current diagnosis for this admission?: Yes Plan: Awaiting cbc from this am (3) Person under investigation for COVID-19 Is this a current diagnosis for this admission?: Yes Plan: COVID pending. Once negative and pt transferred from COVID floor we will start seeing him in person (4) Obstructive pneumonia Is this a current diagnosis for this admission?: Yes Plan: Vanc stopped, cont meropenum (5) Acute respiratory failure with hypoxia Is this a current diagnosis for this admission?: Yes Plan: Seems improved, pt was able to speak in full sentences this am (6) Pain, neoplasm-related Is this a current diagnosis for this admission?: Yes Plan: I decreased dilaudid IV and changed pain scale on dilaudid, oxycodone, started long acting oxycontin, decreased ativan. - Time Time Spent with patient: 35 or more minutes - Inpatient Certification Based on my medical assessment, after consideration of the patient's comorbidities, presenting symptoms, or acuity I expect that the services needed warrant INPATIENT care.: Yes I certify that my determination is in accordance with my understanding of Medicare's requirements for reasonable and necessary INPATIENT services [42 CFR 412.3e].: Yes Medical Necessity: Risk of Complication if Not Cared For in Hospital
[2019-12-13 08:04] LABS: ABSOLUTE LYMPHOCYTES (AUTO) 0.4 10^3/uL (0.5-4.7); ABSOLUTE MONOCYTES (AUTO) 0.3 10^3/uL (0.1-1.4); ABSOLUTE NEUT (AUTO) 2.2 10^3/uL (1.7-8.2); BASOPHILS % (AUTO) 0.2 % (0-2); EOSINOPHILS % (AUTO) 0.9 % (0-6); HEMATOCRIT 34.8 % (37.9-51.0); HEMOGLOBIN 12.5 g/dL (13.5-17.0); LYMPHOCYTES % (AUTO) 12.2 % (13-45); MEAN CORPUSCULAR HEMOGLOBIN 32.8 pg (27.0-33.4); MEAN CORPUSCULAR HGB CONC 35.8 g/dL (32.0-36.0); MEAN CORPUSCULAR VOLUME 92 fl (80-97); MONOCYTES % (AUTO) 10.1 % (3-13); RED CELL DISTRIBUTION WIDTH 13.6 % (11.5-14.0); SEGMENTED NEUTROPHILS % (AUTO) 76.6 % (42-78); TOTAL CELLS COUNTED % (AUTO) 100 %; WHITE BLOOD COUNT 2.9 10^3/uL (4.0-10.5)
[2019-12-13] MEDS ORDERED: LORAZEPAM 0.5 MG TABLET PO PRN (08:05)
[2019-12-13] MEDS ORDERED: HYDROMORPHONE HCL INJ/PF 2 MG/ML AMPULE IV PRN (08:30)
[2019-12-13 08:31] LABS: PLATELET COUNT 81 10^3/uL (150-450)
[2019-12-13 08:45] LABS: ALBUMIN 3.2 g/dL (3.5-5.0); ALKALINE PHOSPHATASE 63 U/L (38-126); ANION GAP 7 (5-19); ASPARTATE AMINO TRANSFERASE 41 U/L (17-59); BILIRUBIN,DIRECT 0.4 mg/dL (0.0-0.4); BILIRUBIN,TOTAL 0.8 mg/dL (0.2-1.3); BLOOD UREA NITROGEN 12 mg/dL (7-20); CALCIUM 8.3 mg/dL (8.4-10.2); CARBON DIOXIDE 31 mmol/L (22-30); CHLORIDE 86 mmol/L (98-107); GLUCOSE 124 mg/dL (75-110); POTASSIUM 4.2 mmol/L (3.6-5.0); TOTAL PROTEIN 5.4 g/dL (6.3-8.2)
[2019-12-13] MEDS: MAGNESIUM OXIDE 400 MG TABLET PO SCH (09:15)
[2019-12-13] MEDS: FLUTICASONE/VILANTEROL 200-25 MCG/DOSE IH SCH (09:15)
[2019-12-13] MEDS: MULTIVITAMIN TABLET PO SCH (09:15)
[2019-12-13] MEDS: OXYCODONE HCL SR 10 MG TABLET PO SCH ×2 (09:15→22:08)
[2019-12-13] MEDS ORDERED: SODIUM CHLORIDE 1 GM TABLET PO ONE ×2 (09:20→13:00)
--- NOTE | 2019-12-13 12:02 | PDOC PROGRESS REPORT ---
Subjective Progress Note for:: 12/13/19 Subjective:: CAITLIN CASTELLANO is a 54 year old male, past medical history of COPD, diagnosed February 2019 of non-small cell lung cancer last received chemo December 06, 2019, on 2 L of nasal cannula for chronic respiratory failure, who came to the ED due to fever. According to the patient he received his last chemotherapy last , since then he is developed shortness of breath, minimal cough, and fever of 101.5. He also has nausea and generalized fatigue. He denied any urinary symptoms, no diarrhea. Persistence of shortness of breath and fever prompted ED consult. In the emergency room, blood pressure 140/87, heart rate 115, respiratory rate 18, temperature 99.3. CBC showed WBC count 2.0 hemoglobin 13.9, platelet count 121. Absolute neutrophil count 1.5. CMP showed sodium of 125.2 potassium 4.1 troponin negative. As x-ray negative for pneumonia, urinalysis negative for infection. He was empirically started on meropenem for neutropenic fever, blood cultures and urine culture sent. He received LR bolus as well. Dr. Samaniego was consulted D2 hospital stay 12/12/19. He was seen and examined at bedside. He had another fever 102 at around 8 pm yesterday. He still has generalized body malaise and cough. WBC improved from 2.0 to 2.3. Na improved to 127.7. Blood cultures are still pending, urine cultures negative.He is on D2 of meropenem and vanc. COVID test pending. D3 hospital stay 12/13/19. He was seen and examined at bedside. He seems very groggy and falls asleep when talking to him. He has been afebrile for >24 hrs. He is on meropenem D3, vancomycin stopped today because cultures have been negative. Pain medications adjusted by Dr. samaniego, awaiting COVID test result. He was noted to be hyponatremic to 123 today. Nephrology was consulted Dr. Dueñas informed. Reason For Visit: NEUTROPENIC FEVER,NON SMALL CELL LUNG CANCER Physical Exam Vital Signs: Temp Pulse Resp BP Pulse Ox 99.1 F 90 16 147/87 H 96 12/13/19 08:18 12/13/19 07:00 12/12/19 20:36 12/12/19 16:06 12/13/19 05:36 Intake & Output 12/12/19 12/13/19 12/14/19 06:59 06:59 06:59 Intake Total 2950 2300 Output Total 1300 Balance 1650 2300 Weight 83.1 kg 86.4 kg General appearance: PRESENT: cooperative, mild distress Head exam: PRESENT: atraumatic, normocephalic Eye exam: PRESENT: EOMI, PERRLA Mouth exam: PRESENT: moist Neck exam: PRESENT: full ROM Respiratory exam: PRESENT: decreased breath sounds, symmetrical, unlabored. ABSENT: tachypnea, wheezes Cardiovascular exam: PRESENT: RRR, +S1, +S2 Pulses: PRESENT: +2 pedal pulses bilateral GI/Abdominal exam: PRESENT: normal bowel sounds, soft. ABSENT: rebound, tenderness Extremities exam: PRESENT: full ROM Musculoskeletal exam: PRESENT: full ROM Neurological exam: PRESENT: awake, oriented to person, other - mildly drowsy and groggy. but answers questions appropriately. Psychiatric exam: PRESENT: normal mood Results Laboratory Results: 12/13/19 07:15 12/13/19 07:15 12/12/19 12/13/19 12/13/19 21:55 07:15 07:15 WBC 2.9 L RBC 3.80 L Hgb 12.5 L Hct 34.8 L MCV 92 MCH 32.8 MCHC 35.8 RDW 13.6 Plt Count 81 L Seg Neutrophils % 76.6 Sodium 123.7 L Potassium 4.2 Chloride 86 L Carbon Dioxide 31 H Anion Gap 7 BUN 12 Creatinine 0.78 0.76 Est GFR ( Amer) > 60 > 60 Glucose 124 H Serum Osmolality Calcium 8.3 L Total Bilirubin 0.8 AST 41 Alkaline Phosphatase 63 Total Protein 5.4 L Albumin 3.2 L 12/13/19 07:15 WBC RBC Hgb Hct MCV MCH MCHC RDW Plt Count Seg Neutrophils % Sodium Potassium Chloride Carbon Dioxide Anion Gap BUN Creatinine Est GFR ( Amer) Glucose Serum Osmolality 259 L Calcium Total Bilirubin AST Alkaline Phosphatase Total Protein Albumin 12/11/19 17:32 Clean Catch Midstream Urine Culture - Final NO GROWTH 2 DAYS 12/11/19 12/12/19 15:49 16:16 Troponin I < 0.012 < 0.012 Impressions: Chest X-Ray 12/11/19 15:22 IMPRESSION: NO ACUTE RADIOGRAPHIC FINDING IN THE CHEST. Assessment and Plan - Diagnosis (1) Neutropenic fever Is this a current diagnosis for this admission?: Yes Plan: -Patient diagnosed case of non-small cell lung cancer with last chemotherapy 4 days prior to admission coming in with fever (cisplatin based?) -afebrile >24 hrs -WBC count 2.0>2.3>2.9, -Chest x-ray negative - UA negative -Blood Cultures negative x 1 -Urine cultures negative x 2 -on meropenem and vancomycin D3 pending culture results -plan to stop abx if afebrile >72 hrs -Will monitor CBC daily -Oncology following. Dy. Samaniego (2) Neutropenia Qualifiers: Neutropenia type: secondary to cancer chemotherapy Qualified Code(s): D70.1 - Agranulocytosis secondary to cancer chemotherapy; T45.1X5A - Adverse effect of antineoplastic and immunosuppressive drugs, initial encounter Is this a current diagnosis for this admission?: Yes Plan: -Being treated for non-small cell lung cancer last chemo December 06, 2019 -WBC count 2.0>2.3>2.9 -ANC 1.5>2.2 -on meropenem D3 vanc stopped -This is likely secondary to ongoing chemo -Neutropenic precautions, neutropenic diet -Daily CBC -No indication for G-CSF for now (3) Hyponatremia Is this a current diagnosis for this admission?: Yes Plan: - Na 125.6>127>123, likely chronic - ddx 2/2 dehydration or SIADH -initially improved with hydration now decreased again - IV fluids stopped - fluid restrcition 1L - 1 dose of oral salt tablet - Nephrology consulted - Awaiting repeat serum and urine osmolality, urine Na (4) Chronic respiratory failure with hypoxia Is this a current diagnosis for this admission?: Yes Plan: - normally on 2L NC at home - currently at his baseline needs (5) Non-small cell lung cancer (NSCLC) Qualifiers: Laterality: left Qualified Code(s): C34.92 - Malignant neoplasm of unspecified part of left bronchus or lung Is this a current diagnosis for this admission?: Yes Plan: -Diagnosed February 2019 -Currently receiving second cycle chemotherapy Gemcitabine last dose December 06, 2019 -Received immunotherapy few months ago currently not on immunotherapy -Was on steroids for 1 month for pneumonitis secondary to immunotherapy. Was slowly tapered. Last dose of prednisone 20 mg was on Tuesday - Dr. Samaniego consulted. No need to resume prednisone if he's not experiencing adrenal insufficiency - steroids not resumed (6) COPD (chronic obstructive pulmonary disease) Qualifiers: Chronic bronchitis type: unspecified Is this a current diagnosis for this admission?: Yes Plan: -Former smoker quit 1 year ago. 1 pack/day x 40 years -Chronically on 2 L of nasal cannula at home -On Symbicort, albutero inhaler at home -Switch to Breo inpatient -DuoNeb every 4 hours as needed (7) Person under investigation for COVID-19 Is this a current diagnosis for this admission?: Yes Plan: -COVID test pending (8) Pain, neoplasm-related Is this a current diagnosis for this admission?: Yes Plan: - has chest wall pain chronic - troponin negative so far, EKG sinus - likely cancer related - pain meds adjustment per Dr. Samaniego - Time Time Spent with patient: 25-34 minutes Medications reviewed and adjusted accordingly: Yes Anticipated Discharge Disposition: Home, Self Care Anticipated Discharge Timeframe: to be determined
[2019-12-13] MEDS ORDERED: METOPROLOL TARTRATE PF/INJ 5 MG/5 ML SDV IV ONE (17:15)
--- NOTE | 2019-12-13 17:29 | Progress Note ---
Provider Note Provider Note: Patient noted to be tachycardic 140s, BP 147/87. EKG confirmed atrial fibrillation. This is a new onset a.fib, no prior history. Given 1 dose of IV lopressor, started on PO lopressor 25 BID for rate control. Lovenox 1mg/kg started. Echo and TSH ordered. Cardio consulted Dr. Granados.
--- NOTE | 2019-12-13 18:12 | EKG REPORT ---
SEVERITY:- ABNORMAL ECG - ATRIAL FIBRILLATION, V-RATE 109-140 : Confirmed by: Louis Holloway MD 13-Dec-2019 18:11:42
[2019-12-13 18:20] LABS: ANION GAP 7 (5-19); BLOOD UREA NITROGEN 11 mg/dL (7-20); CALCIUM 8.8 mg/dL (8.4-10.2); CARBON DIOXIDE 32 mmol/L (22-30); CHLORIDE 88 mmol/L (98-107); GLUCOSE 117 mg/dL (75-110); POTASSIUM 4.1 mmol/L (3.6-5.0)
[2019-12-13] MEDS ORDERED: TOLVAPTAN 15 MG TABLET PO ONE (19:00)
[2019-12-13] MEDS: ACETAMINOPHEN 325 MG TABLET PO PRN (20:00)
[2019-12-13] MEDS ORDERED: ENOXAPARIN SODIUM INJ 80 MG/0.8 ML DISP.SYRIN SUBCUT SCH (22:00)
[2019-12-13] MEDS ORDERED: METOPROLOL TARTRATE 25 MG TABLET PO SCH (22:00)
--- NOTE | 2019-12-13 22:06 | PDOC CONSULTATION ---
Consultation Consult Date: 12/13/19 Provider Consulted: YANETH KERR Consult reason:: Hyponatremia History of Present Illness Admission Date/PCP: 12/11/19 18:36 History of Present Illness: CAITLIN CASTELLANO is a 54 year old male with history of non-small cell lung cancer diagnosed in February 2019 on chemotherapy recently given on December 06, 2019, COPD, chronic respiratory failure on oxygen of 2 L who was admitted on 12/11/2023 shortness of breath, cough, fever, nausea and generalized fatigue. He was diagnosed with neutropenic fever and was started on empiric treatment with meropenem and vancomycin. He is being followed by his oncologist, Dr. Hurtado. He is also came in with hyponatremia with initial sodium level of 125.2. He was given IV fluids and the sodium level initially improved to 127. His intake and output are not accurately recorded but it looks like he was at least given 5 L of fluids since admission. His sodium level today went down to 123 so IV fluids were discontinued. Repeat sodium level this afternoon was 126.8. His serum osmolality was 259, urine osmolality of 150, urine sodium of 57, uric acid level of 3.4 and TSH of 1.17. When I saw the patient he tells me that he was feeling crappy. He was constantly coughing productive was with purulent phlegm and blood-streaked sputum. He tested negative for COVID. He still nauseated although denies vom iting. He admits having some tremors on his hands and legs. He denies any unsteadiness. He denies feeling confused or disoriented. He states that he drinks probably around 16 to 20 ounces of water daily. He seems to be making adequate amount of urine. He also developed new onset atrial fibrillation with initial heart rate around 180s and so when I was in the room the nursing staff were given the ordered IV metoprolol which actually lowered down the heart rate to around 110 when I was in the room. 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 Social History Information Source: Patient Lives with: Family, Spouse/Significant other Smoking Status: Former Smoker - Has [id number] history, quit a year ago Cigarettes Packs Per Day: 20 Electronic Cigarette use?: No Number of Years Smokin Frequency of Alcohol Use: Rare Hx Recreational Drug Use: No Drugs: None Hx Prescription Drug Abuse: No - Advance Directive Resuscitation Status: Full Code Family History Family History: DM - Father and brother, Hypertension - Father, mother and brothers, Other - Epilepsy on his brother Parental Family History Reviewed: Yes Children Family History Reviewed: Yes Sibling(s) Family History Reviewed.: Yes Medication/Allergy Home Medications: Albuterol Sulfate [Proair Hfa Inhalation Aerosol 8.5 gm Mdi] 1 puff IH Q4HP PRN 12/11/19 Albuterol Sulfate [Ventolin 0.083% Neb 2.5 mg/3 ml Ampul] 1 vial NEB QAM 12/11/19 Budesonide/Formoterol Fumarate [Symbicort Hfa 160-4.5 Mcg Inhaler 6 gm] 2 puff IH Q12 12/11/19 Hydrocodone/Acetaminophen [Henderson 5-325 Tablet] 1 each PO Q6HP PRN 12/11/19 Ipratropium/Albuterol Sulfate [Combivent Respimat 4 gm Mdi] 1 puff IH Q6HP PRN 12/11/19 Lorazepam [Ativan 1 mg Tablet] 1 mg PO QHS 12/11/19 Magnesium Oxide 500 mg PO DAILY 12/11/19 Multivitamin [Tab-A-Jarred (Multiple Vitamin) Tablet] 1 tab PO DAILY 12/11/19 Potassium Gluconate [Potassium] 99 mg PO DAILY 12/11/19 Allergies/Adverse Reactions: Penicillins Allergy (Intermediate, Verified 03/12/19 19:36) Generalized rash ceftriaxone [From Rocephin] Adverse Reaction (Intermediate, Verified 03/12/19 19:36) Edema Review of Systems All systems: reviewed and no additional remarkable complaints except as stated Review of Systems: Constitutional: ABSENT: chills, fever(s), headache(s), weight gain, weight loss; admits fatigue Eyes: ABSENT: visual disturbances Ears: ABSENT: hearing changes Cardiovascular: ABSENT: chest pain, dyspnea on exertion, edema, orthropnea, palpitations Respiratory: Admits cough, dyspnea, mild hemoptysis Gastrointestinal: ABSENT: abdominal pain, constipation, diarrhea, hematemesis, hematochezia, vomiting; admits nausea Genitourinary: ABSENT: dysuria, hematuria Musculoskeletal: ABSENT: joint swelling Integumentary: ABSENT: rash, wounds Neurological: ABSENT: abnormal gait, abnormal speech, confusion, dizziness, focal weakness, numbness, syncope Psychiatric: ABSENT: anxiety, depression Endocrine: ABSENT: cold intolerance, heat intolerance, polydipsia, polyuria Hematologic/Lymphatic: ABSENT: easy bleeding, easy bruising, lymphadenopathy Physical Exam Vital Signs: Temp Pulse Resp BP Pulse Ox 99.1 F 90 16 147/87 H 96 12/13/19 08:18 12/13/19 07:00 12/12/19 20:36 12/12/19 16:06 12/13/19 05:36 Intake & Output 12/12/19 12/13/19 12/14/19 06:59 06:59 06:59 Intake Total 2950 2300 200 Output Total 1300 Balance 1650 2300 200 Weight 83.1 kg 86.4 kg Exam: General appearance: No acute distress, cooperative, well-developed, well- nourished Head exam: PRESENT: atraumatic, normocephalic Eye exam: PRESENT: Conjunctiva slightly pale, EOMI, PERRLA. ABSENT: conjunctival injection, scleral icterus Mouth exam: PRESENT: moist, neck supple, tongue midline Neck exam: PRESENT: full ROM. ABSENT: carotid bruit, JVD, lymphadenopathy, thyromegaly Respiratory exam: PRESENT: Decreased breath sounds in the whole left lung sifuentes breath sounds on the right lung sifuentes. Positive crackles in the right base ABSENT: Rhonchi, stridor, wheezes Cardiovascular exam: PRESENT: RRR, +S1, +S2. Tachycardic ABSENT: systolic murmur Pulses: PRESENT: normal radial pulses, normal dorsalis pedis pulses GI/Abdominal exam: PRESENT: normal bowel sounds, soft. ABSENT: guarding, mass, tenderness Rectal exam: Deferred Extremities exam: PRESENT: full ROM. ABSENT: calf tenderness, pedal edema Musculoskeletal: PRESENT: full ROM. ABSENT: deformity Neurological exam: PRESENT: alert, Awake, Oriented to person, Oriented to place, Oriented to time, reflexes normal, CN II-XII grossly intact. ABSENT: motor sensory deficit Psychiatric exam: PRESENT: appropriate affect, normal mood. ABSENT: homicidal ideation, suicidal ideation Skin exam: PRESENT: intact, dry, warm. ABSENT: rash Results Laboratory Results: 12/13/19 07:15 12/13/19 07:15 12/12/19 12/13/19 12/13/19 21:55 07:15 07:15 WBC 2.9 L RBC 3.80 L Hgb 12.5 L Hct 34.8 L MCV 92 MCH 32.8 MCHC 35.8 RDW 13.6 Plt Count 81 L Seg Neutrophils % 76.6 Sodium 123.7 L Potassium 4.2 Chloride 86 L Carbon Dioxide 31 H Anion Gap 7 BUN 12 Creatinine 0.78 0.76 Est GFR ( Amer) > 60 > 60 Glucose 124 H Serum Osmolality Calcium 8.3 L Total Bilirubin 0.8 AST 41 Alkaline Phosphatase 63 Total Protein 5.4 L Albumin 3.2 L 12/13/19 07:15 WBC RBC Hgb Hct MCV MCH MCHC RDW Plt Count Seg Neutrophils % Sodium Potassium Chloride Carbon Dioxide Anion Gap BUN Creatinine Est GFR ( Amer) Glucose Serum Osmolality 259 L Calcium Total Bilirubin AST Alkaline Phosphatase Total Protein Albumin 12/11/19 17:32 Clean Catch Midstream Urine Culture - Final NO GROWTH 2 DAYS 12/11/19 12/12/19 15:49 16:16 Troponin I < 0.012 < 0.012 Impressions: Chest X-Ray 12/11/19 15:22 IMPRESSION: NO ACUTE RADIOGRAPHIC FINDING IN THE CHEST. Assessment & Plan - Diagnosis (1) Hyponatremia Is this a current diagnosis for this admission?: Yes Plan: Patient appears to be euvolemic. No significant response with IV fluids. Initial labs is consistent with SIADH likely related to the diagnosis of lung cancer. At this time I do not think he warrants any 3% saline solution. Continue water restriction to 1 L a day. I will give a dose of Tolvaptan 15 mg now. Repeat labs in the morning. (2) Neutropenic fever Is this a current diagnosis for this admission?: Yes Plan: Received vancomycin for 2 days and now discontinued. Still on meropenem. (3) Non-small cell lung cancer (NSCLC) Qualifiers: Laterality: left Qualified Code(s): C34.92 - Malignant neoplasm of unspecified part of left bronchus or lung Is this a current diagnosis for this admission?: Yes Plan: Being followed by oncologist, Dr. Hurtado. Last chemotherapy received on 12/06/2019. Also received immunotherapy. (4) New onset atrial fibrillation Is this a current diagnosis for this admission?: Yes Plan: IV metoprolol given. Defer to hospital service. (5) COPD (chronic obstructive pulmonary disease) Qualifiers: Chronic bronchitis type: unspecified Is this a current diagnosis for this admission?: Yes - Notes Notes: Thank you very much for this consultation. Discussed with Dr. Joe. Dr. Obregon will start to be on nephrology hospital service starting tomorrow to fol low the patient.
[2019-12-13 22:24] LABS: APPEARANCE,URINE SLIGHTLY-CLOUDY; BILIRUBIN,URINE NEGATIVE (NEGATIVE); COLOR,URINE YELLOW; GLUCOSE, URINE NEGATIVE (NEGATIVE); KETONES,URINE NEGATIVE (NEGATIVE); LEUKOCYTE ESTERASE,URINE NEGATIVE (NEGATIVE); NITRITE,URINE NEGATIVE (NEGATIVE); PROTEIN,URINE NEGATIVE (NEGATIVE); URINE SPECIFIC GRAVITY 1.008; UROBILINOGEN,URINE NEGATIVE mg/dL (<2.0)
[2019-12-14] MEDS: MEROPENEM 1 GM in NORMAL SALINE 50 ML IV SCH ×3 (05:08→22:02)
[2019-12-14] MEDS ORDERED: MICAFUNGIN SODIUM INJ/PF 100 MG VIAL IV ONE (06:47)
[2019-12-14 06:54] LABS: ALKALINE PHOSPHATASE 59 U/L (38-126); ASPARTATE AMINO TRANSFERASE 37 U/L (17-59); BILIRUBIN,DIRECT 0.3 mg/dL (0.0-0.4); BILIRUBIN,TOTAL 0.6 mg/dL (0.2-1.3); BLOOD UREA NITROGEN 11 mg/dL (7-20); CALCIUM 8.7 mg/dL (8.4-10.2); CARBON DIOXIDE 36 mmol/L (22-30); CHLORIDE 95 mmol/L (98-107); GLUCOSE 139 mg/dL (75-110); POTASSIUM 4.7 mmol/L (3.6-5.0); TOTAL PROTEIN 5.1 g/dL (6.3-8.2)
[2019-12-14] MEDS: OXYCODONE HCL IR 5 MG TABLET PO PRN (06:55)
[2019-12-14] MEDS: BENZONATATE 100 MG CAPSULE PO PRN (06:55)
[2019-12-14 06:56] LABS: HEMATOCRIT 35.7 % (37.9-51.0); HEMOGLOBIN 12.7 g/dL (13.5-17.0); WHITE BLOOD COUNT 2.6 10^3/uL (4.0-10.5)
[2019-12-14 07:05] LABS: ANION GAP 3 (5-19)
[2019-12-14 07:06] LABS: MEAN CORPUSCULAR HEMOGLOBIN 32.7 pg (27.0-33.4); MEAN CORPUSCULAR HGB CONC 35.7 g/dL (32.0-36.0); MEAN CORPUSCULAR VOLUME 92 fl (80-97); RED BLOOD COUNT 3.89 10^6/uL (4.35-5.55); RED CELL DISTRIBUTION WIDTH 13.5 % (11.5-14.0)
[2019-12-14 07:23] LABS: PLATELET COUNT 99 10^3/uL (150-450)
--- NOTE | 2019-12-14 07:51 | EKG REPORT ---
SEVERITY:- NORMAL ECG - SINUS RHYTHM : Confirmed by: Louis Holloway MD 14-Dec-2019 07:51:31
--- NOTE | 2019-12-14 08:22 | PDOC PROGRESS REPORT ---
Subjective Progress Note for:: 12/14/19 Subjective:: Breathing is better today but still having severe cough. Had A. fib yesterday. Fungal infection found in sputum so started on micafungin. Reason For Visit: NEUTROPENIC FEVER,NON SMALL CELL LUNG CANCER Physical Exam Vital Signs: Temp Pulse Resp BP Pulse Ox 98.3 F 78 21 H 108/69 98 12/14/19 08:15 12/14/19 02:00 12/13/19 23:29 12/13/19 23:29 12/14/19 05:07 Intake & Output 12/13/19 12/14/19 12/15/19 06:59 06:59 06:59 Intake Total 2300 800 Balance 2300 800 Weight 86.4 kg 83.3 kg General appearance: PRESENT: no acute distress, well-developed, well-nourished Head exam: PRESENT: atraumatic, normocephalic Eye exam: PRESENT: conjunctiva pink, EOMI, PERRLA. ABSENT: scleral icterus Ear exam: PRESENT: normal external ear exam Mouth exam: PRESENT: moist, tongue midline Neck exam: ABSENT: carotid bruit, JVD, lymphadenopathy, thyromegaly Respiratory exam: PRESENT: clear to auscultation rian. ABSENT: rales, rhonchi, wheezes Cardiovascular exam: PRESENT: RRR. ABSENT: diastolic murmur, rubs, systolic murmur Pulses: PRESENT: normal dorsalis pedis pul Vascular exam: PRESENT: normal capillary refill GI/Abdominal exam: PRESENT: normal bowel sounds, soft. ABSENT: distended, guarding, mass, organolmegaly, rebound, tenderness Rectal exam: PRESENT: deferred Extremities exam: PRESENT: full ROM. ABSENT: calf tenderness, clubbing, pedal edema Neurological exam: PRESENT: alert, awake, oriented to person, oriented to place, oriented to time, oriented to situation, CN II-XII grossly intact. ABSENT: motor sensory deficit Psychiatric exam: PRESENT: appropriate affect, normal mood. ABSENT: homicidal ideation, suicidal ideation Skin exam: PRESENT: dry, intact, warm. ABSENT: cyanosis, rash Results Laboratory Results: 12/14/19 06:40 12/14/19 06:26 12/13/19 12/13/19 12/13/19 07:15 07:15 07:15 WBC 2.9 L RBC 3.80 L Hgb 12.5 L Hct 34.8 L MCV 92 MCH 32.8 MCHC 35.8 RDW 13.6 Plt Count 81 L Seg Neutrophils % 76.6 Sodium 123.7 L Potassium 4.2 Chloride 86 L Carbon Dioxide 31 H Anion Gap 7 BUN 12 Creatinine 0.76 Est GFR ( Amer) > 60 Glucose 124 H Serum Osmolality 259 L Uric Acid Calcium 8.3 L Total Bilirubin 0.8 AST 41 Alkaline Phosphatase 63 Total Protein 5.4 L Albumin 3.2 L TSH Urine Color Urine Appearance Urine pH Ur Specific [place] Urine Protein Urine Glucose (UA) Urine Ketones Urine Blood Urine Nitrite Ur Leukocyte Esterase Urine WBC (Auto) Urine RBC (Auto) 12/13/19 12/13/19 12/13/19 15:35 15:35 15:35 WBC RBC Hgb Hct MCV MCH MCHC RDW Plt Count Seg Neutrophils % Sodium 126.8 L Potassium 4.1 Chloride 88 L Carbon Dioxide 32 H Anion Gap 7 BUN 11 Creatinine 0.78 Est GFR ( Amer) > 60 Glucose 117 H Serum Osmolality Uric Acid 3.4 L Calcium 8.8 Total Bilirubin AST Alkaline Phosphatase Total Protein Albumin TSH 1.17 Urine Color Urine Appearance Urine pH Ur Specific [place] Urine Protein Urine Glucose (UA) Urine Ketones Urine Blood Urine Nitrite Ur Leukocyte Esterase Urine WBC (Auto) Urine RBC (Auto) 12/13/19 12/14/19 12/14/19 21:45 06:26 06:40 WBC 2.6 L RBC 3.89 L Hgb 12.7 L Hct 35.7 L MCV 92 MCH 32.7 MCHC 35.7 RDW 13.5 Plt Count 99 L Seg Neutrophils % Sodium 133.8 L Potassium 4.7 Chloride 95 L Carbon Dioxide 36 H Anion Gap 3 L BUN 11 Creatinine 0.85 Est GFR ( Amer) > 60 Glucose 139 H Serum Osmolality Uric Acid Calcium 8.7 Total Bilirubin 0.6 AST 37 Alkaline Phosphatase 59 Total Protein 5.1 L Albumin 3.0 L TSH Urine Color YELLOW Urine Appearance SLIGHTLY-CLOUDY Urine pH 7.0 Ur Specific [place] 1.008 Urine Protein NEGATIVE Urine Glucose (UA) NEGATIVE Urine Ketones NEGATIVE Urine Blood NEGATIVE Urine Nitrite NEGATIVE Ur Leukocyte Esterase NEGATIVE Urine WBC (Auto) 1 Urine RBC (Auto) 1 12/11/19 17:32 Clean Catch Midstream Urine Culture - Final NO GROWTH 2 DAYS 09/12/12/19 12/13/19 15:49 16:16 18:46 Troponin I < 0.012 < 0.012 < 0.012 12/13/19 22:00 Troponin I 0.016 Impressions: Chest X-Ray 12/11/19 15:22 IMPRESSION: NO ACUTE RADIOGRAPHIC FINDING IN THE CHEST. Assessment & Plan - Diagnosis (1) Non-small cell lung cancer (NSCLC) Qualifiers: Laterality: left Qualified Code(s): C34.92 - Malignant neoplasm of unspecified part of left bronchus or lung Is this a current diagnosis for this admission?: Yes Plan: Plan to continue treatment as an outpatient but a lot of the cough that he is experiencing is due to the cancer (2) Neutropenic fever Is this a current diagnosis for this admission?: Yes Plan: On meropenem and micafungin, agree with continuing (3) Person under investigation for COVID-19 Is this a current diagnosis for this admission?: Yes Plan: Ruled out now (4) Obstructive pneumonia Is this a current diagnosis for this admission?: Yes Plan: Continue antibiotic (5) Acute respiratory failure with hypoxia Is this a current diagnosis for this admission?: Yes Plan: Continue oxygen supportive care (6) Pain, neoplasm-related Is this a current diagnosis for this admission?: Yes Plan: Continue current pain control will optimize - Time Time Spent with patient: 35 or more minutes
[2019-12-14] MEDS ORDERED: ENOXAPARIN SODIUM INJ 80 MG/0.8 ML DISP.SYRIN SUBCUT SCH (10:00)
[2019-12-14] MEDS ORDERED: ENOXAPARIN SODIUM INJ 40 MG/0.4 ML DISP.SYRIN SUBCUT SCH (10:00)
[2019-12-14] MEDS: FLUTICASONE/VILANTEROL 200-25 MCG/DOSE IH SCH (10:20)
[2019-12-14] MEDS: OXYCODONE HCL SR 10 MG TABLET PO SCH ×2 (10:38→22:04)
[2019-12-14] MEDS: MAGNESIUM OXIDE 400 MG TABLET PO SCH (10:38)
[2019-12-14] MEDS: MULTIVITAMIN TABLET PO SCH (10:38)
[2019-12-14] MEDS: TRIAMCINOLONE ACETONIDE 0.5% CREAM 15 GM TP SCH ×2 (10:41→17:55)
[2019-12-14] MEDS: MICAFUNGIN SODIUM 100 MG in NORMAL SALINE 100 ML IV SCH (10:57)
--- NOTE | 2019-12-14 13:32 | PDOC PROGRESS REPORT ---
Subjective Progress Note for:: 12/14/19 Subjective:: CAITLIN CASTELLANO is a 54 year old male, past medical history of COPD, diagnosed February 2019 of non-small cell lung cancer last received chemo December 06, 2019, on 2 L of nasal cannula for chronic respiratory failure, who came to the ED due to fever. According to the patient he received his last chemotherapy last , since then he is developed shortness of breath, minimal cough, and fever of 101.5. He also has nausea and generalized fatigue. He denied any urinary symptoms, no diarrhea. Persistence of shortness of breath and fever prompted ED consult. In the emergency room, blood pressure 140/87, heart rate 115, respiratory rate 18, temperature 99.3. CBC showed WBC count 2.0 hemoglobin 13.9, platelet count 121. Absolute neutrophil count 1.5. CMP showed sodium of 125.2 potassium 4.1 troponin negative. As x-ray negative for pneumonia, urinalysis negative for infection. He was empirically started on meropenem for neutropenic fever, blood cultures and urine culture sent. He received LR bolus as well. Dr. Samaniego was consulted D2 hospital stay 12/12/19. He was seen and examined at bedside. He had another fever 102 at around 8 pm yesterday. He still has generalized body malaise and cough. WBC improved from 2.0 to 2.3. Na improved to 127.7. Blood cultures are still pending, urine cultures negative.He is on D2 of meropenem and vanc. COVID test pending. D3 hospital stay 12/13/19. He was seen and examined at bedside. He seems very groggy and falls asleep when talking to him. He has been afebrile for >24 hrs. He is on meropenem D3, vancomycin stopped today because cultures have been negative. Pain medications adjusted by Dr. samaniego, awaiting COVID test result. He was noted to be hyponatremic to 123 today. Nephrology was consulted Dr. Leana coronado. D4 hospital stay 12/14/19. He was seen and examined at bedside. He reports less lethargy, less SOB. He spiked fever of 103 at 9 pm last night. Sputum culture noted to be growing C.albicans/C.dubliniensis. Repeat blood cx ordered. He was started on micafungin and ID was consulted. Meropenem was continued. Dr. Granados from cardiology reviewed his EKG and noted that he does not have a.fib but rather MAT. Therapeutic lovenox stopped, switched to 40 mg daily. Lopressor stop ped, switched to diltiazem [address] Granados recs. Sodium improved to 133 after tolvaptan. Reason For Visit: NEUTROPENIC FEVER,NON SMALL CELL LUNG CANCER Physical Exam Vital Signs: Temp Pulse Resp BP Pulse Ox 98.3 F 101 H 21 H 108/69 98 12/14/19 08:15 12/14/19 07:00 12/13/19 23:29 12/13/19 23:29 12/14/19 05:07 Intake & Output 12/13/19 12/14/19 12/15/19 06:59 06:59 06:59 Intake Total 2300 800 50 Balance 2300 800 50 Weight 86.4 kg 83.3 kg General appearance: PRESENT: cooperative, mild distress Head exam: PRESENT: atraumatic, normocephalic Eye exam: PRESENT: EOMI Mouth exam: PRESENT: moist Neck exam: PRESENT: full ROM Respiratory exam: PRESENT: rales, symmetrical, tachypnea, unlabored. ABSENT: wheezes Cardiovascular exam: PRESENT: RRR, +S1, +S2 Pulses: PRESENT: +2 pedal pulses bilateral GI/Abdominal exam: PRESENT: normal bowel sounds, soft. ABSENT: rebound, tenderness Extremities exam: PRESENT: full ROM Musculoskeletal exam: PRESENT: full ROM Neurological exam: PRESENT: alert, awake, oriented to person, oriented to place, oriented to time Psychiatric exam: PRESENT: normal mood Results Laboratory Results: 12/14/19 06:40 12/14/19 06:26 12/13/19 12/13/19 12/13/19 15:35 15:35 15:35 WBC RBC Hgb Hct MCV MCH MCHC RDW Plt Count Sodium 126.8 L Potassium 4.1 Chloride 88 L Carbon Dioxide 32 H Anion Gap 7 BUN 11 Creatinine 0.78 Est GFR ( Amer) > 60 Glucose 117 H Uric Acid 3.4 L Calcium 8.8 Total Bilirubin AST Alkaline Phosphatase Total Protein Albumin TSH 1.17 Urine Color Urine Appearance Urine pH Ur Specific [place] Urine Protein Urine Glucose (UA) Urine Ketones Urine Blood Urine Nitrite Ur Leukocyte Esterase Urine WBC (Auto) Urine RBC (Auto) 12/13/19 12/14/1912/13/20 21:45 06:26 06:40 WBC 2.6 L RBC 3.89 L Hgb 12.7 L Hct 35.7 L MCV 92 MCH 32.7 MCHC 35.7 RDW 13.5 Plt Count 99 L Sodium 133.8 L Potassium 4.7 Chloride 95 L Carbon Dioxide 36 H Anion Gap 3 L BUN 11 Creatinine 0.85 Est GFR ( Amer) > 60 Glucose 139 H Uric Acid Calcium 8.7 Total Bilirubin 0.6 AST 37 Alkaline Phosphatase 59 Total Protein 5.1 L Albumin 3.0 L TSH Urine Color YELLOW Urine Appearance SLIGHTLY-CLOUDY Urine pH 7.0 Ur Specific [place] 1.008 Urine Protein NEGATIVE Urine Glucose (UA) NEGATIVE Urine Ketones NEGATIVE Urine Blood NEGATIVE Urine Nitrite NEGATIVE Ur Leukocyte Esterase NEGATIVE Urine WBC (Auto) 1 Urine RBC (Auto) 1 12/11/19 17:32 Clean Catch Midstream Urine Culture - Final NO GROWTH 2 DAYS 12/11/19 12/12/19 12/13/19 15:49 16:16 18:46 Troponin I < 0.012 < 0.012 < 0.012 12/13/19 22:00 Troponin I 0.016 Impressions: Chest X-Ray 12/11/19 15:22 IMPRESSION: NO ACUTE RADIOGRAPHIC FINDING IN THE CHEST. Assessment and Plan - Diagnosis (1) Neutropenic fever Is this a current diagnosis for this admission?: Yes Plan: -Patient diagnosed case of non-small cell lung cancer with last chemotherapy 4 days prior to admission coming in with fever (cisplatin based?) -Fever 2100 12/14/19 Tmax 103 -WBC count 2.0>2.3>2.9>2.6, -Chest x-ray negative - UA negative -12/10 Blood Cultures negative x 2 - repeat Blood cx 12/14/19 pending - sputum culture growing C.albicans -Urine cultures negative x 2 -on meropenem d3 - started on micafungin since patient is neutropenic and immunocompromised -Will monitor CBC daily - ID consulted -Oncology followingRober Samaniego (2) Neutropenia Qualifiers: Neutropenia type: secondary to cancer chemotherapy Qualified Code(s): D70.1 - Agranulocytosis secondary to cancer chemotherapy; T45.1X5A - Adverse effect of antineoplastic and immunosuppressive drugs, initial encounter Is this a current diagnosis for this admission?: Yes Plan: -Being treated for non-small cell lung cancer last chemo December 06, 2019 -WBC count 2.0>2.3>2.9 -ANC 1.5>2.2 -on meropenem D4 - On micafungin D1 -This is likely secondary to ongoing chemo -Neutropenic precautions, neutropenic diet -Daily CBC -No indication for G-CSF for now (3) Hyponatremia Is this a current diagnosis for this admission?: Yes Plan: - Na 125.6>127>123>133, likely chronic - ddx 2/2 dehydration or SIADH -initially improved with hydration now decreased again - 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 - IV fluids stopped - fluid restrcition 1L - 1 dose of oral salt tablet - s/p 1 dose tolvaptan - Nephrology consulted (4) Chronic respiratory failure with hypoxia Is this a current diagnosis for this admission?: Yes Plan: - normally on 2L NC at home - currently at his baseline needs (5) Non-small cell lung cancer (NSCLC) Qualifiers: Laterality: left Qualified Code(s): C34.92 - Malignant neoplasm of unspecified part of left bronchus or lung Is this a current diagnosis for this admission?: Yes Plan: -Diagnosed February 2019 -Currently receiving second cycle chemotherapy Gemcitabine last dose December 06, 2019 -Received immunotherapy few months ago currently not on immunotherapy -Was on steroids for 1 month for pneumonitis secondary to immunotherapy. Was slowly tapered. Last dose of prednisone 20 mg was on Tuesday - Dr. Samaniego consulted. No need to resume prednisone if he's not experiencing adrenal insufficiency - steroids not resumed (6) COPD (chronic obstructive pulmonary disease) Qualifiers: Chronic bronchitis type: unspecified Is this a current diagnosis for this admission?: Yes Plan: -Former smoker quit 1 year ago. 1 pack/day x 40 years -Chronically on 2 L of nasal cannula at home -On Symbicort, albutero inhaler at home -Switch to Breo inpatient -DuoNeb every 4 hours as needed (7) Person under investigation for COVID-19 Is this a current diagnosis for this admission?: Yes Plan: -COVID test negative (8) Pain, neoplasm-related Is this a current diagnosis for this admission?: Yes Plan: - has chest wall pain chronic - troponin negative so far, EKG sinus - likely cancer related - pain meds adjustment per Dr. Samaniego (9) Dalia infection Is this a current diagnosis for this admission?: Yes Plan: - growing in sputum culture - in light of his neutropenia and immunosuppression, would not treat as contaminant - started on micafungin - ID consulted - Time Time Spent with patient: 35 or more minutes Smoking Cessation Education: 3 to 10 minutes Medications reviewed and adjusted accordingly: Yes Anticipated Discharge Disposition: Home, Self Care Anticipated Discharge Timeframe: to be determined
[2019-12-14] MEDS ORDERED: ENOXAPARIN SODIUM INJ 40 MG/0.4 ML DISP.SYRIN SUBCUT ONE (15:00)
--- NOTE | 2019-12-14 17:04 | RADIOLOGY REPORT (SQ) ---
EXAM DESCRIPTION: VENOUS UNILATERAL UPPER IMAGES COMPLETED DATE/TIME: 12/14/2019 4:14 pm REASON FOR STUDY: Swelling in LUE COMPARISON: None. TECHNIQUE: Dynamic and static xavier scale and color images acquired of the left arm venous system. Se lected spectral images acquired with additional compression and augmentation maneuvers. The contralat eral subclavian vein and internal jugular vein were also imaged. Images stored on PACS. LIMITATIONS: None. FINDINGS: INTERNAL JUGULAR VEIN: Normal phasicity, compression, augmentation. No visualized echogeni c material on xavier scale. No defects on color images. Comparison opposite side normal. SUBCLAVIAN VEIN: Normal compression, augmentation. No visualized echogenic material on xavier scale. No defects on color images. AXILLARY VEIN: Normal compression, augmentation. No visualized echogenic material on xavier scale. No d efects on color images. BRACHIAL VEIN: Normal compression, augmentation. No visualized echogenic material on xavier scale. No d efects on color images. BASILIC VEIN: Normal compression, augmentation. No visualized echogenic material on xavier scale. No de fects on color images. CEPHALIC VEIN: Normal compression, augmentation. No visualized echogenic material on xavier scale. No d efects on color images. OTHER: No other significant finding. CONTRALATERAL INTERNAL JUGULAR VEIN: Normal phasicity, compression and augmentation. No visualized echogenic material on xavier scale. No de fects on color images. IMPRESSION: 1. NO EVIDENCE DVT OR SVT RIGHT OR LEFT ARM. TECHNICAL DOCUMENTATION: JOB ID: [id number] 2010 [employer]- All Rights Reserved Reading location - IP/workstation name: [email or web address]
--- NOTE | 2019-12-14 17:15 | Progress Note ---
Provider Note Provider Note: [facility] Telephone Advice Consultation Chart reviewed, patient not examined. Patient is a 54-year-old man who was d iagnosed with non-small cell lung cancer. He received chemotherapy, he was then transitioned to immunotherapy and developed what seemed to be pneumonitis for which he received steroids for approximately 4 weeks. He completed therapy with steroids last week. He restarted chemotherapy and became leukopenic with borderline ANC. He started complaining of weakness, fever and cough that kept worsening and he was admitted on 12/11. CXR was negative for any pulmonary process. He has been leukopenic and thrombocytopenic. He has hyponatremia. Renal function stable, hepatic function test stable. He was started on vancomycin and meropenem. Vancomycin discontinued after cultures negative for 48 hr. He has a port-A cath in right IJ. Sputum culture positive for yeast. He was started on micafungin. ID consulted for recommendations. Allergies: Penicillins Allergy (Intermediate, Verified 03/12/19 19:36) Generalized rash ceftriaxone [From Rocephin] Adverse Reaction (Intermediate, Verified 03/12/19 19:36) Edema Medications: Albuterol Sulfate [Proair Hfa Inhalation Aerosol 8.5 gm Mdi] 1 puff IH Q4HP PRN 12/11/19 Albuterol Sulfate [Ventolin 0.083% Neb 2.5 mg/3 ml Ampul] 1 vial NEB QAM 12/11/19 Budesonide/Formoterol Fumarate [Symbicort Hfa 160-4.5 Mcg Inhaler 6 gm] 2 puff IH Q12 12/11/19 Hydrocodone/Acetaminophen [[employer] 5-325 Tablet] 1 each PO Q6HP PRN 12/11/19 Ipratropium/Albuterol Sulfate [Combivent Respimat 4 gm Mdi] 1 puff IH Q6HP PRN 12/11/19 Lorazepam [Ativan 1 mg Tablet] 1 mg PO QHS 12/11/19 Magnesium Oxide 500 mg PO DAILY 12/11/19 Multivitamin [Tab-A-Jarred (Multiple Vitamin) Tablet] 1 tab PO DAILY 12/11/19 Potassium Gluconate [Potassium] 99 mg PO DAILY 12/11/19 Vital Signs: Temp Pulse Resp BP Pulse Ox 98.3 F 85 21 H 108/69 98 12/14/19 08:15 12/14/19 14:00 12/13/19 23:29 12/13/19 23:29 12/14/19 05:07 Intake & Output 12/13/19 12/14/19 12/15/19 06:59 06:59 06:59 Intake Total 2300 800 150 Balance 2300 800 150 Weight 86.4 kg 83.3 kg Weight/Height Weight 83.3 kg Height 6 ft Laboratories: 12/14/19 06:40 12/14/19 06:26 MCV 92 fl (80-97) 12/14/19 06:40 MCH 32.7 pg (27.0-33.4) 12/14/19 06:40 MCHC 35.7 g/dL (32.0-36.0) 12/14/19 06:40 RDW 13.5 % (11.5-14.0) 12/14/19 06:40 Seg Neutrophils % 76.6 % (42-78) 12/13/19 07:15 Chloride 95 mmol/L (98-107) L 12/14/19 06:26 Carbon Dioxide 36 mmol/L (22-30) H 12/14/19 06:26 Anion Gap 3 (5-19) L 12/14/19 06:26 Est GFR ( Amer) > 60 (>60) 12/14/19 06:26 Glucose 139 mg/dL (75-110) H 12/14/19 06:26 Serum Osmolality 259 mOsm/kg (275-301) L 12/13/19 07:15 Lactic Acid 1.0 mmol/L (0.7-2.1) 12/11/19 15:49 Uric Acid 3.4 mg/dL (3.5-8.5) L 12/13/19 15:35 Calcium 8.7 mg/dL (8.4-10.2) 12/14/19 06:26 Total Bilirubin 0.6 mg/dL (0.2-1.3) 12/14/19 06:26 AST 37 U/L (17-59) 12/14/19 06:26 Alkaline Phosphatase 59 U/L (38-126) 12/14/19 06:26 Total Protein 5.1 g/dL (6.3-8.2) L 12/14/19 06:26 Albumin 3.0 g/dL (3.5-5.0) L 12/14/19 06:26 TSH 1.17 uIU/mL (0.47-4.68) 12/13/19 15:35 Urine Color YELLOW 12/13/19 21:45 Urine Appearance SLIGHTLY-CLOUDY 12/13/19 21:45 Urine pH 7.0 (5.0-9.0) 12/13/19 21:45 Ur Specific [place] 1.008 12/13/19 21:45 Urine Protein NEGATIVE mg/dL (NEGATIVE) 12/13/19 21:45 Urine Glucose (UA) NEGATIVE mg/dL (NEGATIVE) 12/13/19 21:45 Urine Ketones NEGATIVE mg/dL (NEGATIVE) 12/13/19 21:45 Urine Blood NEGATIVE (NEGATIVE) 12/13/19 21:45 Urine Nitrite NEGATIVE (NEGATIVE) 12/13/19 21:45 Ur Leukocyte Esterase NEGATIVE (NEGATIVE) 12/13/19 21:45 Urine WBC (Auto) 1 /HPF 12/13/19 21:45 Urine RBC (Auto) 1 /HPF 12/13/19 21:45 Urine Osmolality 150 mOsm/kg (300-900) L 12/11/19 20:14 12/11/19 12/12/19 12/13/19 15:49 16:16 18:46 Troponin I < 0.012 < 0.012 < 0.012 12/13/19 22:00 Troponin I 0.016 MIcrobiology: Blood culture 12/10 NGTD 12/12 NGTD Sputum culture 12/11 Yeast, normal natty Urine culture 12/10 NGTD Radiology: Chest X-Ray 12/11/19 15:22 IMPRESSION: NO ACUTE RADIOGRAPHIC FINDING IN THE CHEST. Assessment and Recommendations: Patient evaluated for fever in the setting of active lung malignancy, chemotherapy, recent steroids therapy for pneumonitis and borderline neutropenia. Source of the fever still not clear but patient does have cough and shortness of breath. Even though the CXR is negative, in neutropenic patients sometimes is difficult to identify infection with a simple CXR. CT scan of the chest wo contrast recommended. Yeast from sputum culture may represent airway colonization, in order to identify invasive fungal infection, a CT and BAL is usually needed. Will wait for CT to identify any possible source of invasive infection, although this is usually noted with profound and prolonged neutropenia which patient didn't have. Serum Galactomanan and Fungitell may help. He was on steroids for a month, this increases the risk of PJP, Cryptococcus, Nocardia. Can send sputum for AFB, Cryptococcal antigen from serum and Fungitell for PJP. Procalcitonin would be helpful for bacterial pneumonia, although bacterial cultures negative so far. May add doxycycline or azithromycin for atypical coverage like Legionella (can send for urine Legionella antigen) and Mycoplasma titers. COVID negative. Encephalopathy li kley due to hyponatremia in the setting of SIADH with lung malignancy. If encephalopathy persists despite sodium correction, may consider LP. Will give further recommendations after CT scan and work up available if continues febrile. Alize Dubon MD [facility] ID [phone]
[2019-12-14] MEDS: DILTIAZEM HCL 30 MG TABLET PO SCH (17:54)
--- NOTE | 2019-12-14 19:11 | XCELERA REPORT ---
[address] [address] Transthoracic Echocardiogram Report Name: CAITLIN CASTELLANO Age: 54 yrs Gender: Male : 1965 Patient Status: Inpatient Patient Location: [address] [place], [place] [address] Study Date: 12/13/2019 08:15 PM Height: 72 in Weight: 190 lb BSA: 2.1 m2 Procedure: A two-dimensional transthoracic echocardiogram with color flow and Doppler was performed. The study was technically limited with all images being suboptimal in quality. Reason For Study: new onset a.fib History: new onset a.fib. Ordering Physician: ALCON FANG Performed By: Kely Tubbs Interpretation Summary The left ventricle is normal in size. There is normal left ventricular wall thickness. LV EF is 60% Left ventricular systolic function is normal. Doppler measurements suggest impaired left ventricular relaxation, which is associated with grade I/IV or mild diastolic dysfunction The right ventricle is normal in size and function. The right ventricle is not well visualized secondary to technical limitations The right atrium is normal. The left atrial size is normal. Cannot assess ASD,VSD,or PFO seen. There is no evidence of mitral valve prolapse. There is no vegetation seen on the mitral valve. There is no mitral valve stenosis. There is a trace amount of mitral regurgitation There is no aortic valvular vegetation. There is no aortic valve stenosis There is no LVOT obstruction. No aortic regurgitation is present. There is no tricuspid stenosis. There is a trace amount of tricuspid regurgitation There is mild pulmonary hypertension by echo RVSP is 33 to 38 mm of Hg , with RA mean of 5 to [id number]. There is no pulmonic valvular stenosis. There is a trace amount of pulmonic regurgitation The aortic root is normal size. The inferior vena cava appeared normal and decreased > 50% with respiration (RAP 5-10 mmHg) There is no pericardial effusion. MMode/2D Measurements & Calculations RVDd: 2.7 cm LVIDd: 4.5 cm FS: 31.0 % Ao root diam: 3.5 cm IVSd: 1.2 cm LVIDs: 3.1 cm EDV(Teich): 90.2 ml Ao root area: 9.8 cm2 LVPWd: 0.96 cm ESV(Teich): 37.1 ml LA dimension: 3.2 cm EF(Teich): 58.9 % Doppler Measurements & Calculations MV E max carroll: MV P1/2t max carroll: Ao V2 max: LV V1 max P.0 cm/sec 92.8 cm/sec 164.4 cm/sec 10.2 mmHg MV A max carroll: MV P1/2t: 72.4 msec Ao max PG: LV V1 max: 96.8 cm/sec MVA(P1/2t): 3.0 cm2 10.8 mmHg 159.6 cm/sec MV E/A: 0.78 MV dec slope: 375.4 cm/sec2 MV dec time: 0.29 sec PA V2 max: TR max carroll: MV P1/2t-pr_phl: 89.8 cm/sec 263.3 cm/sec 72.4 msec PA max PG: TR max P.7 mmHg 3.2 mmHg Left Ventricle The left ventricle is normal in size. There is normal left ventricular wall thickness. LV EF is 60%. Left ventricular systolic function is normal. Doppler measurements suggest impaired left ventricular relaxation, which is associated with grade I/IV or mild diastolic dysfunction. Right Ventricle The right ventricle is normal in size and function. The right ventricle is not well visualized secondary to technical limitations. Atria The right atrium is normal. The left atrial size is normal. Cannot assess ASD,VSD,or PFO seen. Mitral Valve There is no evidence of mitral valve prolapse. There is no vegetation seen on the mitral valve. There is no mitral valve stenosis. There is a trace amount of mitral regurgitation. Aortic Valve There is no aortic valvular vegetation. There is no aortic valve stenosis. There is no LVOT obstruction. No aortic regurgitation is present. Tricuspid Valve There is no tricuspid stenosis. There is a trace amount of tricuspid regurgitation. There is mild pulmonary hypertension by echo. RVSP is 33 to 38 mm of Hg , with RA mean of 5 to [id number]. Pulmonic Valve There is no pulmonic valvular stenosis. There is a trace amount of pulmonic regurgitation. Great Vessels The aortic root is normal size. The inferior vena cava appeared normal and decreased > 50% with respiration (RAP 5-10 mmHg). Effusions There is no pericardial effusion. : ALCON FANG Lakshmi
--- NOTE | 2019-12-14 19:16 | PDOC CONSULTATION ---
Consultation-Blank Consultation: CARDIOLOGY consultation by Dr. Van Poole on 12/14/2019. Patient seen at 11:00 AM. 60 minutes spent as patient more than 50% of time spent in direct patient care. REASON FOR CONSULTATION: Patient reported to have an episode of atrial fibrillation with rapid ventricular response. CONSULT REQUESTING PHYSICIAN: [facility] HISTORY OF PRESENT ILLNESS: Patient is a 54-year-old male with known history of COPD and history of non-small cell lung cancer on the left side admitted with respiratory failure with also cough. The patient yesterday was reported as per official EKG reading to have atrial fibrillation with rapid ventricle response. Subsequent EKG shows that the patient converted to sinus rhythm. On review of the EKG done on 12/13/2019 earlier shows a heart rate of 135 and clearly this is multifocal atrial tachycardia. On further looking at the EKG that has been reported as atrial fibrillation, I still feel that there are multiple P waves with different morphology and hence this is multifocal atrial tachycardia and not atrial fibrillation. Also subsequent EKG shows chaotic atrial mechanism/wandering atrial pacemaker with at least 53 different morphological P waves seen. Hence I feel that anticoagulation is not needed. The patient denies any anginal symptoms. He has no prior history of cardiac arrhythmia. The patient does not feel any palpitations even when his heart rate was 150 bpm with the patient being in multifocal atrial tachycardia. There is no syncope or near syncope. There is no history of congestive heart failure. The patient quit smoking. He does have COPD. The patient probably has pneumonia on the left side where also he has a lung cancer. He had chemotherapy about a week ago on . Subsequent to which she developed cough and fever. He denies history of hypertension or diabetes mellitus. His COVID19 test is negative. Oncology is on the case. Due to his low sodium nephrology is also on the case. Past Medical History Cardiac Medical History: Reports: Hyperlipidema Denies: Coronary Artery Disease, Hypertension Pulmonary Medical History: Reports: Chronic Obstructive Pulmonary Disease (COPD), Pneumonia Denies: Asthma Neurological Medical History: Denies: Seizures Endocrine Medical History: Denies: Diabetes Mellitus Type 1, Diabetes Mellitus Type 2, Hyperthyroidism, Hypothyroidism Malignancy Medical History: Reports: Lung Cancer GI Medical History: Denies: Cirrhosis, Crohn's Disease, Gastroesophageal Reflux Disease, Hepatitis, Ulcerative Colitis Musculoskeltal Medical History: Denies: Arthritis, Gout Skin Medical History: Denies: Eczema, Psoriasis - Hearing aids Psychiatric Medical History: Denies: Depression Hematology: Denies: Anemia, Bleeding Tendencies Past Surgical History Past Surgical History: Reports: Tonsillectomy, Other - 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 Social History Information Source: Patient Smoking Status: Former Smoker Cigarettes Packs Per Day: 20 Number of Years Smokin Frequency of Alcohol Use: None Hx Recreational Drug Use: No Drugs: None Hx Prescription Drug Abuse: No Family History Family History: Reviewed & Not Pertinent, DM, Hypertension, Other - Stomach ulcers, gout Parental Family History Reviewed: Yes Children Family History Reviewed: Yes Sibling(s) Family History Reviewed.: Yes Medication/Allergy Allergies/Adverse Reactions: Penicillins Allergy (Intermediate, Verified 03/12/19 19:36) Generalized rash ceftriaxone [From Rocephin] Adverse Reaction (Intermediate, Verified 03/12/19 19:36) Edema RESUSCITATION STATUS: The patient is a full code. The patient's is his surrogate healthcare decision maker. Current Medications Generic Name Dose Route Start Last Admin Trade Name Freq PRN Reason Stop Dose Admin Acetaminophen 650 mg 12/13/19 19:52 12/13/19 20:00 Tylenol 325 Mg Tablet PO 01/12/20 19:51 650 mg Q4HP PRN Administration FEVER/PAIN Albuterol/Ipratropium 3 ml 12/11/19 18:57 Duoneb 3 Ml Ampul NEB 01/10/20 18:56 RTQ4HP PRN SHORTNESS OF BREATH Benzonatate 100 mg 12/12/19 08:41 12/14/19 06:55 Tessalon Perles 100 Mg Capsule PO 01/11/20 08:40 100 mg Q8HP PRN Administration FOR COUGH Diltiazem HCl 30 mg 12/14/19 18:00 12/14/19 17:54 Cardizem 30 Mg Tablet PO 01/13/20 17:59 30 mg Q6 JAYA Administration Fluticasone/Vilanterol 1 inh 12/11/19 20:00 12/14/19 10:20 Breo 200-25 Mcg Ellipta 14 Dose/Dpi IH 01/10/20 19:59 Not Given DAILY JAYA Heparin Sodium (Porcine) 50 unit 12/14/19 14:00 12/14/19 22:04 Heparin Flush 10 Unit/Ml 5 Ml Disp.Syrg IV 01/13/20 13:59 50 unit Q8 JAYA Administration Heparin Sodium (Porcine) 50 unit 12/14/19 09:30 Heparin Flush 10 Unit/Ml 5 Ml Disp.Syrg IV 01/13/20 09:29 .AFTER EACH USE PRN AFTER EACH INTERMITTENT USE Heparin Sodium (Porcine) 5,000 unit 12/14/19 22:00 12/14/19 22:03 Heparin Inj 5,000 Units/Ml 1 Ml Vial SUBCUT 01/13/20 21:59 5,000 unit Q12 JAYA Administration Hydromorphone HCl 1 mg 12/13/19 08:30 Dilaudid Inj/Pf 2 Mg/Ml Ampule IV 12/18/19 19:01 Q4HP PRN FOR PAIN SCALE 5 Meropenem 1 gm/ Sodium 50 mls @ 100 mls/hr 12/11/19 22:00 12/14/19 22:32 Chloride IV 12/18/19 21:59 Infused Q8 JAYA Infusion Micafungin Sodium 100 mg/ 100 mls @ 100 mls/hr 12/14/19 10:00 12/14/19 10:57 Sodium Chloride IV 12/21/19 09:59 100 mls/hr DAILY JAYA Administration Lorazepam 0.5 mg 12/13/19 08:05 Ativan 0.5 Mg Tablet PO 12/20/19 08:04 Q8HP PRN FOR ANXIETY Magnesium Oxide 400 mg 12/12/19 10:00 12/14/19 10:38 Mag-Ox 400 Mg Tablet PO 01/11/20 09:59 400 mg DAILY JAYA Administration Multivitamins 1 tab 12/12/19 10:00 12/14/19 10:38 Tab-A-Jarred (Multiple Vitamin) Tablet PO 01/11/20 09:59 1 tab DAILY JAYA Administration Ondansetron HCl 4 mg 12/11/19 19:00 12/13/19 03:34 Zofran Odt 4 Mg Tablet PO 01/10/20 18:59 4 mg Q8HP PRN Administration FOR NAUSEA/VOMITING Oxycodone HCl 10 mg 12/13/19 10:00 12/14/19 22:04 Oxycontin Sr 10 Mg Tablet PO 12/20/19 09:59 10 mg Q12 JAYA Administration Oxycodone HCl 10 mg 12/13/19 08:30 12/14/19 06:55 Oxy-Ir 5 Mg Tablet PO 12/19/19 08:39 10 mg Q4HP PRN Administration PAIN SCALE 1-4 Triamcinolone Acetonide 1 applic 12/14/19 10:00 12/14/19 17:55 Aristocort 0.5% Cream 15 Gm TP 01/13/20 09:59 1 applic BID JAYA Administration Discontinued Medications Generic Name Dose Route Start Last Admin Trade Name [place] PRN Reason Stop Dose Admin Enoxaparin Sodium 80 mg 12/13/19 22:00 12/13/19 22:09 Lovenox Inj 80 Mg/0.8 Ml Disp.Syrin SUBCUT 01/12/20 21:59 Not Given Q12 [facility] Enoxaparin Sodium 40 mg 12/14/19 10:00 12/14/19 10:08 Lovenox Inj 40 Mg/0.4 Ml Disp.Syrin SUBCUT 01/13/20 09:59 Not Given DAILY [facility] Enoxaparin Sodium 40 mg 12/14/19 15:00 12/14/19 15:14 Lovenox Inj 40 Mg/0.4 Ml Disp.Syrin SUBCUT 12/14/19 15:01 40 mg NOW ONE Administration Heparin Sodium (Porcine) 5,000 unit 12/11/19 22:00 12/13/19 13:06 Heparin Inj 5,000 Units/Ml 1 Ml Vial SUBCUT 01/10/20 21:59 Not Given Q8 [facility] Heparin Sodium (Porcine) 500 unit 12/14/19 09:09 Heparin Flush 100 Unit/Ml 5 Ml Syringe IV 12/14/19 23:59 .DE-ACCESSING PRN THIS MED IS NOT "PRN" Hydromorphone HCl 1 mg 12/11/19 19:02 12/12/19 00:21 Dilaudid Inj/Pf 2 Mg/Ml Ampule IV 12/18/19 19:01 1 mg Q4HP PRN Administration FOR PAIN SCALE 4-5 Hydromorphone HCl 2 mg 12/12/19 09:00 12/13/19 05:01 Dilaudid Inj/Pf 2 Mg/Ml Ampule IV 12/18/19 19:01 2 mg Q4HP PRN Administration FOR PAIN SCALE 4-5 Lactated Ringer's 1,000 mls @ 0 mls/hr 12/11/19 16:51 12/11/19 18:16 Lactated Ringers 1000 Ml Iv Soln IV 12/11/19 16:52 Infused BOLUS ONE Infusion Wide Open Lactated Ringer's 1,000 mls @ 0 mls/hr 12/11/19 17:24 12/11/19 19:46 Lactated Ringers 1000 Ml Iv Soln IV 12/11/19 17:25 Infused BOLUS ONE Infusion Wide Open Lactated Ringer's 1,000 mls @ 125 mls/hr 12/11/19 19:00 12/12/19 21:56 Lactated Ringers 1000 Ml Iv Soln IV 01/10/20 18:59 125 mls/hr CONTINUOUS PRN Administration THIS MED IS NOT "PRN" Vancomycin HCl 1,250 mg/ 250 mls @ 166.667 mls/hr 12/11/19 22:00 12/12/19 10:51 Dextrose IV 12/18/19 21:59 Infused Q8 JAYA Infusion Vancomycin HCl 1,500 mg/ 250 mls @ 166.667 mls/hr 12/12/19 22:00 12/12/19 21:58 Dextrose IV 12/19/19 21:59 166.67 mls/hr Q12 JAYA 166.67 mls/hr Administration Lactated Ringer's 1,000 mls @ 80 mls/hr 12/13/19 07:29 Lactated Ringers 1000 Ml Iv Soln IV 01/10/20 18:59 CONTINUOUS PRN THIS MED IS NOT "PRN" Lorazepam 1 mg 12/11/19 19:07 12/12/19 03:33 Ativan 1 Mg Tablet PO 12/18/19 19:06 1 mg Q8HP PRN Administration ANXIETY/AGITATION Meropenem 1 gm 12/11/19 17:42 12/11/19 18:15 Merrem 1 Gm Vial IV 12/11/19 17:43 1 gm IVBAG (ED) ONE Administration Metoprolol Tartrate 5 mg 12/13/19 17:15 12/13/19 17:37 Lopressor Inj/Pf 5 Mg/5 Ml Sdv IV 12/13/19 17:16 5 mg NOW ONE Administration Metoprolol Tartrate 25 mg 12/13/19 22:00 12/13/19 22:08 Lopressor 25 Mg Tablet PO 01/12/20 21:59 25 mg Q12 JAYA Administration Morphine Sulfate 4 mg 12/11/19 17:49 12/11/19 18:08 Morphine 10 Mg/Ml Inj IV 12/11/19 17:50 4 mg NOW ONE Administration Oxycodone HCl 10 mg 12/12/19 08:40 12/13/19 01:51 Oxy-Ir 5 Mg Tablet PO 12/19/19 08:39 10 mg Q4HP PRN Administration PAIN SCALE 1-3 Oxycodone/Acetaminophen 1 tab 12/11/19 19:00 12/12/19 03:33 Percocet 5-325 Mg Tablet PO 12/18/19 18:59 1 tab Q4HP PRN Administration FOR PAIN Sodium Chloride 1 gm 12/13/19 09:20 12/13/19 12:57 Sodium Chloride 1 Gm Tablet PO 12/13/19 09:21 1 gm NOW ONE Administration Sodium Chloride 1 gm 12/13/19 13:00 12/13/19 12:57 Sodium Chloride 1 Gm Tablet PO 12/13/19 13:01 Not Given NOW ONE Tolvaptan 15 mg 12/13/19 19:00 12/13/19 18:53 Samsca 15 Mg Tablet PO 12/13/19 19:01 15 mg ONCE ONE Administration Review of Systems Constitutional: PRESENT: anorexia, chills, fatigue, fever(s), weakness Nose, Mouth, and Throat: ABSENT: sore throat Cardiovascular: ABSENT: edema, orthropnea, palpitations Respiratory: PRESENT: cough, dyspnea Gastrointestinal: ABSENT: diarrhea, dysphagia, heartburn Genitourinary: ABSENT: difficulty urinating, dysuria, hematuria Neurological: PRESENT: numbness, paresthesias. ABSENT: focal weakness Physical Exam The patient is average build he is in acute distress due to severe cough. Selected Entries 12/14/19 10:48 Temperature 97.9 F Temperature Oral Source Pulse Rate 93 Respiratory 18 Rate Blood Pressure 135/80 H Blood Pressure 98 Mean BP Location Right Arm BP Position Sitting O2 Sat by Pulse 98 Oximetry Oxygen Flow 1.50 Rate Oxygen Delivery Nasal Cannula Method HEAD: Is atraumatic normocephalic. EYES: Pupils are equal round regular reactive light accommodation. Extraocular movements are normal. There is no conjunctival pallor. There is no scleral icterus. EARS: Tympanic membranes are intact external auditory canals clear. NOSE: There is no deviated nasal septum. There is no inflammation nasal mucous membrane. MOUTH: Extremities mouth are dry tongue is dry. There is no ulcers. There is no bleeding from the gums. THROAT: There is no redness of the oropharynx. There is no exudates. SKIN: There is no skin rashes. There is no petechia or ecchymosis. NECK: Supple. There is no JVD. Carotids are equal there is no bruit. There is no lymphadenopathy. There is no goiter. There is no accessory muscles of respiration use. Trachea central. LUNGS: There is absent breath sounds and dullness in the left base. Scattered rhonchi and few expiratory wheezes. There is dry crackles in the right lung. There is no rales of CHF. There is diminished air entry and prolonged expiration elsewhere. On percussion there is hyperresonance in the area where there is no dullness. HEART: S1-S2 is heard. There is no S3 gallop. There is no S4 gallop. S1 is of normal intensity. There is no S3 or S4 gallop. Systolic murmur of mild mitral regurgitation present. There is no significant aortic stenosis stenosis murmur or aortic regurgitation murmur. There is no rub. ABDOMEN: Soft. Nontender. There is no paraspinal megaly. Bowel sounds are well heard. EXTREMITIES: Femorals are well felt. There is no femoral bruits. Leg pulses are well felt. There is no DVT or cellulitis in the lower extremity. There is no pedal edema. There is no calf tenderness. ANUS: The patient is conscious awake alert oriented x3 with no focal deficits. PSYCHIATRIC: The patient judgment insight are intact his affect is normal. The patient's echocardiogram shows normal left ventricular wall thickness and ejection fraction with normal wall motion. There is mild pulmonary hypertension. No significant stenotic or significant regurgitant lesions noted on the echo. Please see report. The patient is EKG on 12/11/2019 shows multifocal atrial tachycardia. His EKG on 12/13/2019 shows again multifocal atrial tachycardia. The second EKG done on 12/13/2019 which is reported as atrial fibrillation in my opinion is again multifocal atrial tachycardia. There is no evidence of atrial fibrillation. Also the monitor strips have been reviewed by me. There is no evidence of atrial fibrillation. His subsequent EKG shows chaotic atrial mechanism/wandering atrial pacemaker. Labs- Entire Visit 12/11/19 12/11/19 12/11/19 15:49 15:49 15:49 WBC 2.0 L RBC 4.28 L Hgb 13.9 Hct 40.0 MCV 93 MCH 32.4 MCHC 34.8 RDW 13.6 Plt Count 121 L Lymph % (Auto) Not Reportable [place] % (Auto) Not Reportable Eos % (Auto) Not Reportable Baso % (Auto) Not Reportable Absolute Neuts (auto) Not Reportable Absolute Lymphs (auto) Not Reportable Absolute Monos (auto) Not Reportable Absolute Eos (auto) Not Reportable Absolute Basos (auto) Not Reportable Total Counted 50 Seg Neutrophils % Not Reportable Seg Neuts % (Manual) 76 Lymphocytes % (Manual) 22 Monocytes % (Manual) 2 L Eosinophils % (Manual) 0 Basophils % (Manual) 0 Abs Neuts (Manual) 1.5 L Abs Lymphs (Manual) 0.4 L Abs Monocytes (Manual) 0.0 L Absolute Eos (Manual) 0.0 Abs Basophils (Manual) 0.0 Platelet Comment DECREASED RBC Morph Comment NORMO-CYTIC/CHROMIC PT INR APTT Sodium 125.2 L Potassium 4.1 Chloride 90 L Carbon Dioxide 29 Anion Gap 6 BUN 13 Creatinine 0.71 Est GFR ( Amer) > 60 Est GFR (MDRD) Non-Af > 60 Glucose 122 H Serum Osmolality Lactic Acid 1.0 Uric Acid Calcium 9.0 Total Bilirubin 1.0 Direct Bilirubin 0.2 Neonat Total Bilirubin Not Reportable Neonat Direct Bilirubin Not Reportable Neonat Indirect Bili Not Reportable AST 52 ALT 120 H Alkaline Phosphatase 73 Troponin I Total Protein 6.4 Albumin 3.9 TSH Cortisol AM Sample Urine Color Urine Appearance Urine pH Ur Specific [place] Urine Protein Urine Glucose (UA) Urine Ketones Urine Blood Urine Nitrite Urine Bilirubin Urine Urobilinogen Ur Leukocyte Esterase Urine WBC (Auto) Urine RBC (Auto) Urine Mucus (Auto) Urine Osmolality Urine Sodium Urine Ascorbic Acid Time Trough Drawn Vancomycin Trough COVID-19 Source COVID-19 (JORGE ALBERTO) Slides for Path Review PATHOLOGIST REVIEWED 12/11/19 12/11/19 12/11/19 15:49 15:49 17:32 WBC RBC Hgb Hct MCV MCH MCHC RDW Plt Count Lymph % (Auto) [place] % (Auto) Eos % (Auto) Baso % (Auto) Absolute Neuts (auto) Absolute Lymphs (auto) Absolute Monos (auto) Absolute Eos (auto) Absolute Basos (auto) Total Counted Seg Neutrophils % Seg Neuts % (Manual) Lymphocytes % (Manual) Monocytes % (Manual) Eosinophils % (Manual) Basophils % (Manual) Abs Neuts (Manual) Abs Lymphs (Manual) Abs Monocytes (Manual) Absolute Eos (Manual) Abs Basophils (Manual) Platelet Comment RBC Morph Comment PT 13.4 INR 1.00 APTT 46.1 H Sodium Potassium Chloride Carbon Dioxide Anion Gap BUN Creatinine Est GFR ( Amer) Est GFR (MDRD) Non-Af Glucose Serum Osmolality Lactic Acid Uric Acid Calcium Total Bilirubin Direct Bilirubin Neonat Total Bilirubin Neonat Direct Bilirubin Neonat Indirect Bili AST ALT Alkaline Phosphatase Troponin I < 0.012 Total Protein Albumin TSH Cortisol AM Sample Urine Color YELLOW Urine Appearance CLEAR Urine pH 8.0 Ur Specific [place] 1.006 Urine Protein NEGATIVE Urine Glucose (UA) NEGATIVE Urine Ketones NEGATIVE Urine Blood NEGATIVE Urine Nitrite NEGATIVE Urine Bilirubin NEGATIVE Urine Urobilinogen NEGATIVE Ur Leukocyte Esterase NEGATIVE Urine WBC (Auto) 1 Urine RBC (Auto) 1 Urine Mucus (Auto) Urine Osmolality Urine Sodium Urine Ascorbic Acid NEGATIVE Time Trough Drawn Vancomycin Trough COVID-19 Source COVID-19 (JORGE ALBERTO) Slides for Path Review 12/11/19 12/11/19 12/11/19 18:21 19:44 19:44 WBC RBC Hgb Hct MCV MCH MCHC RDW Plt Count Lymph % (Auto) [place] % (Auto) Eos % (Auto) Baso % (Auto) Absolute Neuts (auto) Absolute Lymphs (auto) Absolute Monos (auto) Absolute Eos (auto) Absolute Basos (auto) Total Counted Seg Neutrophils % Seg Neuts % (Manual) Lymphocytes % (Manual) Monocytes % (Manual) Eosinophils % (Manual) Basophils % (Manual) Abs Neuts (Manual) Abs Lymphs (Manual) Abs Monocytes (Manual) Absolute Eos (Manual) Abs Basophils (Manual) Platelet Comment RBC Morph Comment PT INR APTT Sodium 129.5 L Potassium 4.8 Chloride 93 L Carbon Dioxide 32 H Anion Gap 5 BUN 12 Creatinine 0.81 Est GFR ( Amer) > 60 Est GFR (MDRD) Non-Af > 60 Glucose 114 H Serum Osmolality 270 L Lactic Acid Uric Acid Calcium 9.2 Total Bilirubin Direct Bilirubin Neonat Total Bilirubin Neonat Direct Bilirubin Neonat Indirect Bili AST ALT Alkaline Phosphatase Troponin I Total Protein Albumin TSH Cortisol AM Sample Urine Color Urine Appearance Urine pH Ur Specific [place] Urine Protein Urine Glucose (UA) Urine Ketones Urine Blood Urine Nitrite Urine Bilirubin Urine Urobilinogen Ur Leukocyte Esterase Urine WBC (Auto) Urine RBC (Auto) Urine Mucus (Auto) Urine Osmolality Urine Sodium Urine Ascorbic Acid Time Trough Drawn Vancomycin Trough COVID-19 Source See comment COVID-19 (JORGE ALBERTO) Not Detected Slides for Path Review 12/11/19 12/12/19 12/12/19 20:14 05:24 05:24 WBC 2.3 L RBC 3.90 L Hgb 12.8 L Hct 36.3 L MCV 93 MCH 32.8 MCHC 35.3 RDW 13.8 Plt Count 100 L Lymph % (Auto) 16.2 [place] % (Auto) 5.5 Eos % (Auto) 0.3 Baso % (Auto) 0.3 Absolute Neuts (auto) 1.8 Absolute Lymphs (auto) 0.4 L Absolute Monos (auto) 0.1 Absolute Eos (auto) 0.0 Absolute Basos (auto) 0.0 Total Counted Seg Neutrophils % 77.7 Seg Neuts % (Manual) Lymphocytes % (Manual) Monocytes % (Manual) Eosinophils % (Manual) Basophils % (Manual) Abs Neuts (Manual) Abs Lymphs (Manual) Abs Monocytes (Manual) Absolute Eos (Manual) Abs Basophils (Manual) Platelet Comment RBC Morph Comment PT INR APTT Sodium 127.7 L Potassium 3.8 D Chloride 92 L Carbon Dioxide 30 Anion Gap 6 BUN 10 Creatinine 0.76 Est GFR ( Amer) > 60 Est GFR (MDRD) Non-Af > 60 Glucose 144 H Serum Osmolality Lactic Acid Uric Acid Calcium 8.5 Total Bilirubin 0.9 Direct Bilirubin 0.3 Neonat Total Bilirubin Not Reportable Neonat Direct Bilirubin Not Reportable Neonat Indirect Bili Not Reportable AST 39 ALT 84 H Alkaline Phosphatase 61 Troponin I Total Protein 5.3 L Albumin 3.1 L TSH Cortisol AM Sample Urine Color Urine Appearance Urine pH Ur Specific [place] Urine Protein Urine Glucose (UA) Urine Ketones Urine Blood Urine Nitrite Urine Bilirubin Urine Urobilinogen Ur Leukocyte Esterase Urine WBC (Auto) Urine RBC (Auto) Urine Mucus (Auto) Urine Osmolality 150 L Urine Sodium 57 Urine Ascorbic Acid Time Trough Drawn Vancomycin Trough COVID-19 Source COVID-19 (JORGE ALBERTO) Slides for Path Review 12/12/19 12/12/19 12/12/19 16:16 21:55 21:55 WBC RBC Hgb Hct MCV MCH MCHC RDW Plt Count Lymph % (Auto) [place] % (Auto) Eos % (Auto) Baso % (Auto) Absolute Neuts (auto) Absolute Lymphs (auto) Absolute Monos (auto) Absolute Eos (auto) Absolute Basos (auto) Total Counted Seg Neutrophils % Seg Neuts % (Manual) Lymphocytes % (Manual) Monocytes % (Manual) Eosinophils % (Manual) Basophils % (Manual) Abs Neuts (Manual) Abs Lymphs (Manual) Abs Monocytes (Manual) Absolute Eos (Manual) Abs Basophils (Manual) Platelet Comment RBC Morph Comment PT INR APTT Sodium Potassium Chloride Carbon Dioxide Anion Gap BUN Creatinine 0.78 Est GFR ( Amer) > 60 Est GFR (MDRD) Non-Af > 60 Glucose Serum Osmolality Lactic Acid Uric Acid Calcium Total Bilirubin Direct Bilirubin Neonat Total Bilirubin Neonat Direct Bilirubin Neonat Indirect Bili AST ALT Alkaline Phosphatase Troponin I < 0.012 Total Protein Albumin TSH Cortisol AM Sample Urine Color Urine Appearance Urine pH Ur Specific [place] Urine Protein Urine Glucose (UA) Urine Ketones Urine Blood Urine Nitrite Urine Bilirubin Urine Urobilinogen Ur Leukocyte Esterase Urine WBC (Auto) Urine RBC (Auto) Urine Mucus (Auto) Urine Osmolality Urine Sodium Urine Ascorbic Acid Time Trough Drawn 2155 Vancomycin Trough < 5.0 L COVID-19 Source COVID-19 (JORGE ALBERTO) Slides for Path Review 12/13/19 12/13/19 12/13/19 07:15 07:15 07:15 WBC 2.9 L RBC 3.80 L Hgb 12.5 L Hct 34.8 L MCV 92 MCH 32.8 MCHC 35.8 RDW 13.6 Plt Count 81 L Lymph % (Auto) 12.2 L [place] % (Auto) 10.1 Eos % (Auto) 0.9 Baso % (Auto) 0.2 Absolute Neuts (auto) 2.2 Absolute Lymphs (auto) 0.4 L Absolute Monos (auto) 0.3 Absolute Eos (auto) 0.0 Absolute Basos (auto) 0.0 Total Counted Seg Neutrophils % 76.6 Seg Neuts % (Manual) Lymphocytes % (Manual) Monocytes % (Manual) Eosinophils % (Manual) Basophils % (Manual) Abs Neuts (Manual) Abs Lymphs (Manual) Abs Monocytes (Manual) Absolute Eos (Manual) Abs Basophils (Manual) Platelet Comment RBC Morph Comment PT INR APTT Sodium 123.7 L Potassium 4.2 Chloride 86 L Carbon Dioxide 31 H Anion Gap 7 BUN 12 Creatinine 0.76 Est GFR ( Amer) > 60 Est GFR (MDRD) Non-Af > 60 Glucose 124 H Serum Osmolality 259 L Lactic Acid Uric Acid Calcium 8.3 L Total Bilirubin 0.8 Direct Bilirubin 0.4 Neonat Total Bilirubin Not Reportable Neonat Direct Bilirubin Not Reportable Neonat Indirect Bili Not Reportable AST 41 ALT 69 H Alkaline Phosphatase 63 Troponin I Total Protein 5.4 L Albumin 3.2 L TSH Cortisol AM Sample Urine Color Urine Appearance Urine pH Ur Specific [place] Urine Protein Urine Glucose (UA) Urine Ketones Urine Blood Urine Nitrite Urine Bilirubin Urine Urobilinogen Ur Leukocyte Esterase Urine WBC (Auto) Urine RBC (Auto) Urine Mucus (Auto) Urine Osmolality Urine Sodium Urine Ascorbic Acid Time Trough Drawn Vancomycin Trough COVID-19 Source COVID-19 (JORGE ALBERTO) Slides for Path Review 12/13/19 12/13/19 12/13/19 15:35 15:35 15:35 WBC RBC Hgb Hct MCV MCH MCHC RDW Plt Count Lymph % (Auto) [place] % (Auto) Eos % (Auto) Baso % (Auto) Absolute Neuts (auto) Absolute Lymphs (auto) Absolute Monos (auto) Absolute Eos (auto) Absolute Basos (auto) Total Counted Seg Neutrophils % Seg Neuts % (Manual) Lymphocytes % (Manual) Monocytes % (Manual) Eosinophils % (Manual) Basophils % (Manual) Abs Neuts (Manual) Abs Lymphs (Manual) Abs Monocytes (Manual) Absolute Eos (Manual) Abs Basophils (Manual) Platelet Comment RBC Morph Comment PT INR APTT Sodium 126.8 L Potassium 4.1 Chloride 88 L Carbon Dioxide 32 H Anion Gap 7 BUN 11 Creatinine 0.78 Est GFR ( Amer) > 60 Est GFR (MDRD) Non-Af > 60 Glucose 117 H Serum Osmolality Lactic Acid Uric Acid 3.4 L Calcium 8.8 Total Bilirubin Direct Bilirubin Neonat Total Bilirubin Neonat Direct Bilirubin Neonat Indirect Bili AST ALT Alkaline Phosphatase Troponin I Total Protein Albumin TSH 1.17 Cortisol AM Sample Urine Color Urine Appearance Urine pH Ur Specific [place] Urine Protein Urine Glucose (UA) Urine Ketones Urine Blood Urine Nitrite Urine Bilirubin Urine Urobilinogen Ur Leukocyte Esterase Urine WBC (Auto) Urine RBC (Auto) Urine Mucus (Auto) Urine Osmolality Urine Sodium Urine Ascorbic Acid Time Trough Drawn Vancomycin Trough COVID-19 Source COVID-19 (JORGE ALBERTO) Slides for Path Review 12/13/19 12/13/19 12/13/19 18:46 21:45 21:45 WBC RBC Hgb Hct MCV MCH MCHC RDW Plt Count Lymph % (Auto) [place] % (Auto) Eos % (Auto) Baso % (Auto) Absolute Neuts (auto) Absolute Lymphs (auto) Absolute Monos (auto) Absolute Eos (auto) Absolute Basos (auto) Total Counted Seg Neutrophils % Seg Neuts % (Manual) Lymphocytes % (Manual) Monocytes % (Manual) Eosinophils % (Manual) Basophils % (Manual) Abs Neuts (Manual) Abs Lymphs (Manual) Abs Monocytes (Manual) Absolute Eos (Manual) Abs Basophils (Manual) Platelet Comment RBC Morph Comment PT INR APTT Sodium Potassium Chloride Carbon Dioxide Anion Gap BUN Creatinine Est GFR ( Amer) Est GFR (MDRD) Non-Af Glucose Serum Osmolality Lactic Acid Uric Acid Calcium Total Bilirubin Direct Bilirubin Neonat Total Bilirubin Neonat Direct Bilirubin Neonat Indirect Bili AST ALT Alkaline Phosphatase Troponin I < 0.012 Total Protein Albumin TSH Cortisol AM Sample Urine Color YELLOW Urine Appearance SLIGHTLY-CLOUDY Urine pH 7.0 Ur Specific [place] 1.008 Urine Protein NEGATIVE Urine Glucose (UA) NEGATIVE Urine Ketones NEGATIVE Urine Blood NEGATIVE Urine Nitrite NEGATIVE Urine Bilirubin NEGATIVE Urine Urobilinogen NEGATIVE Ur Leukocyte Esterase NEGATIVE Urine WBC (Auto) 1 Urine RBC (Auto) 1 Urine Mucus (Auto) RARE Urine Osmolality Urine Sodium 43 Urine Ascorbic Acid NEGATIVE Time Trough Drawn Vancomycin Trough COVID-19 Source COVID-19 (JORGE ALBERTO) Slides for Path Review 12/13/19 12/14/19 12/14/19 22:00 06:26 06:26 WBC RBC Hgb Hct MCV MCH MCHC RDW Plt Count Lymph % (Auto) [place] % (Auto) Eos % (Auto) Baso % (Auto) Absolute Neuts (auto) Absolute Lymphs (auto) Absolute Monos (auto) Absolute Eos (auto) Absolute Basos (auto) Total Counted Seg Neutrophils % Seg Neuts % (Manual) Lymphocytes % (Manual) Monocytes % (Manual) Eosinophils % (Manual) Basophils % (Manual) Abs Neuts (Manual) Abs Lymphs (Manual) Abs Monocytes (Manual) Absolute Eos (Manual) Abs Basophils (Manual) Platelet Comment RBC Morph Comment PT INR APTT Sodium 133.8 L Potassium 4.7 Chloride 95 L Carbon Dioxide 36 H Anion Gap 3 L BUN 11 Creatinine 0.85 Est GFR ( Amer) > 60 Est GFR (MDRD) Non-Af > 60 Glucose 139 H Serum Osmolality Lactic Acid Uric Acid Calcium 8.7 Total Bilirubin 0.6 Direct Bilirubin 0.3 Neonat Total Bilirubin Not Reportable Neonat Direct Bilirubin Not Reportable Neonat Indirect Bili Not Reportable AST 37 ALT 58 H Alkaline Phosphatase 59 Troponin I 0.016 Total Protein 5.1 L Albumin 3.0 L TSH Cortisol AM Sample 14.80 Urine Color Urine Appearance Urine pH Ur Specific [place] Urine Protein Urine Glucose (UA) Urine Ketones Urine Blood Urine Nitrite Urine Bilirubin Urine Urobilinogen Ur Leukocyte Esterase Urine WBC (Auto) Urine RBC (Auto) Urine Mucus (Auto) Urine Osmolality Urine Sodium Urine Ascorbic Acid Time Trough Drawn Vancomycin Trough COVID-19 Source COVID-19 (JORGE ALBERTO) Slides for Path Review 12/14/19 06:40 WBC 2.6 L RBC 3.89 L Hgb 12.7 L Hct 35.7 L MCV 92 MCH 32.7 MCHC 35.7 RDW 13.5 Plt Count 99 L Lymph % (Auto) [place] % (Auto) Eos % (Auto) Baso % (Auto) Absolute Neuts (auto) Absolute Lymphs (auto) Absolute Monos (auto) Absolute Eos (auto) Absolute Basos (auto) Total Counted Seg Neutrophils % Seg Neuts % (Manual) Lymphocytes % (Manual) Monocytes % (Manual) Eosinophils % (Manual) Basophils % (Manual) Abs Neuts (Manual) Abs Lymphs (Manual) Abs Monocytes (Manual) Absolute Eos (Manual) Abs Basophils (Manual) Platelet Comment RBC Morph Comment PT INR APTT Sodium Potassium Chloride Carbon Dioxide Anion Gap BUN Creatinine Est GFR ( Amer) Est GFR (MDRD) Non-Af Glucose Serum Osmolality Lactic Acid Uric Acid Calcium Total Bilirubin Direct Bilirubin Neonat Total Bilirubin Neonat Direct Bilirubin Neonat Indirect Bili AST ALT Alkaline Phosphatase Troponin I Total Protein Albumin TSH Cortisol AM Sample Urine Color Urine Appearance Urine pH Ur Specific [place] Urine Protein Urine Glucose (UA) Urine Ketones Urine Blood Urine Nitrite Urine Bilirubin Urine Urobilinogen Ur Leukocyte Esterase Urine WBC (Auto) Urine RBC (Auto) Urine Mucus (Auto) Urine Osmolality Urine Sodium Urine Ascorbic Acid Time Trough Drawn Vancomycin Trough COVID-19 Source COVID-19 (JORGE ALBERTO) Slides for Path Review Chest X-Ray 12/11/19 15:22 IMPRESSION: NO ACUTE RADIOGRAPHIC FINDING IN THE CHEST. Chest CT 12/14/19 00:00 IMPRESSION: Progression of disease bilaterally as described. Venous Doppler Study 12/14/19 00:00 IMPRESSION: 1. NO EVIDENCE DVT OR SVT RIGHT OR LEFT ARM. IMPRESSION/RECOMMENDATION: 1. In my opinion there is no evidence of atrial fibrillation. What we are seeing is multifocal atrial tachycardia. Hence there is no need for chronic anticoagulation. In fact the patient's Indra vasc 2 score if at all the patient has atrial fibrillation is still 0. Hence would treat the patient eminently with aspirin since the risk of bleeding on anticoagulation and the risk of stroke in this patient are about the same. Hence there is no benefit for the patient with heparin. 2. Multifocal atrial tachycardia. Would recommend treat the patient with Cardizem. One option would be to get a 30-day event monitor at when the patient is discharged. 3. Acute on chronic respiratory failure. 4. Non-small cell cancer of the lung with disease progression bilaterally. 5. Probable pneumonia. 6. Neutropenic fever. 7. 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 Nephrology on the case. 8. COPD. 9. Severe cough. Most likely secondary to the patient's malignancy and also possibly pneumonia. 10. Fungal culture isolated from patient's sputum culture. Patient is on antifungal therapy now. Echo findings discussed with the patient. Also discussed that the patient does not have atrial fibrillation. Medical regimen and management plan discussed with attending provider on the case. Medical decision making is of high complexity. 60 minutes spent as patient more than 50% of time spent in direct patient care. Will follow.
--- NOTE | 2019-12-14 19:24 | RADIOLOGY REPORT (SQ) ---
EXAM DESCRIPTION: CT CHEST WITHOUT IMAGES COMPLETED DATE/TIME: 12/14/2019 6:35 pm REASON FOR STUDY: concern for Invasive candidiasis COMPARISON: 11/02/2019 TECHNIQUE: CT scan performed of the chest without intravenous contrast. Images reviewed with lung, soft tissue and bone windows. Reconstructed coronal and sagittal MPR images reviewed. All images st ored on PACS. All CT scanners at this facility use dose modulation, iterative reconstruction, and/or weight based d osing when appropriate to reduce radiation dose to as low as reasonably achievable (ALARA). [facility]: Dose Right [facility]: CareDose [facility]: Dose Right [facility]: Teradose 4D [facility]: Smart iRezQ RADIATION DOSE: CT Rad equipment meets quality standard of care and radiation dose reduction techniq ues were employed. CTDIvol: 11.9 mGy. DLP: 442 mGy-cm. mGy. LIMITATIONS: No technical limitations. FINDINGS: LUNGS AND PLEURA: There are new areas of nodularity and ground-glass opacity in the right lung when compared with the prior study, some small patchy areas in the lateral aspect of the right u pper lobe and more confluent areas in thebasilar segments of the right lower lobe. Similar appearanc e of the 1.7 cm irregular nodule at the right medial apex. There has been interval increase of a left pleural effusion, now moderate in size. There is persiste nt dense consolidation throughout the left lung which involves the entire left lobe which is progress ed since the prior exam. There is also increased consolidation in the left upper lobe with some spar ing of the lateral portion of the lobe and apex. HILAR AND MEDIASTINAL STRUCTURES: Persistent occlusion of the left mainstem bronchus by parahilar mas ses, some of which are calcified. Persistent retraction of the mediastinum to the patient's left side . Multilevel lymphadenopathy is again noted appear HEART AND VASCULAR STRUCTURES: No aneurysm. No pericardial effusion. UPPER ABDOMEN: No acute findings. Limited exam. THYROID AND OTHER SOFT TISSUES: No masses. No adenopathy. BONES: No significant finding. HARDWARE: Right chest port. OTHER: No other significant findings. IMPRESSION: Progression of disease bilaterally as described. TECHNICAL DOCUMENTATION: JOB ID: [id number] [id number] Quality ID # [id number]: Final reports with documentation of one or more dose reduction techniques (e.g., Au tomated exposure control, adjustment of the mA and/or kV according to patient size, use of iterative reconstruction technique) 2010 [employer]- All Rights Reserved Reading location - IP/workstation name: [email or web address]
[2019-12-14] MEDS: HEPARIN SOD (PORCINE) 5,000 UNIT/ML 1 ML VIAL SUBCUT SCH (22:03)
[2019-12-15] MEDS: DILTIAZEM HCL 30 MG TABLET PO SCH ×5 (01:05→23:45)
[2019-12-15] MEDS: OXYCODONE HCL IR 5 MG TABLET PO PRN ×2 (02:31→08:25)
[2019-12-15] MEDS: MEROPENEM 1 GM in NORMAL SALINE 50 ML IV SCH ×3 (05:06→21:42)
[2019-12-15 07:12] LABS: ALBUMIN 3.1 g/dL (3.5-5.0); ALKALINE PHOSPHATASE 61 U/L (38-126); ANION GAP 8 (5-19); ASPARTATE AMINO TRANSFERASE 32 U/L (17-59); BILIRUBIN,DIRECT 0.3 mg/dL (0.0-0.4); BILIRUBIN,TOTAL 0.7 mg/dL (0.2-1.3); BLOOD UREA NITROGEN 9 mg/dL (7-20); CALCIUM 8.3 mg/dL (8.4-10.2); CARBON DIOXIDE 32 mmol/L (22-30); CHLORIDE 92 mmol/L (98-107); GLUCOSE 140 mg/dL (75-110); NEONATAL BILIRUBIN RESULT 0.3 mg/dL (0.1-1.1); TOTAL PROTEIN 5.3 g/dL (6.3-8.2)
[2019-12-15 07:25] LABS: POTASSIUM 3.6 mmol/L (3.6-5.0)
[2019-12-15] MEDS: ACETAMINOPHEN 325 MG TABLET PO PRN (08:24)
[2019-12-15] MEDS: BENZONATATE 100 MG CAPSULE PO PRN (08:27)
[2019-12-15] MEDS: MAGNESIUM OXIDE 400 MG TABLET PO SCH (10:31)
[2019-12-15] MEDS: OXYCODONE HCL SR 10 MG TABLET PO SCH ×2 (10:31→21:43)
[2019-12-15] MEDS: MULTIVITAMIN TABLET PO SCH (10:32)
[2019-12-15] MEDS: TRIAMCINOLONE ACETONIDE 0.5% CREAM 15 GM TP SCH ×2 (10:32→17:06)
[2019-12-15] MEDS: MICAFUNGIN SODIUM 100 MG in NORMAL SALINE 100 ML IV SCH (10:33)
[2019-12-15] MEDS ORDERED: LORAZEPAM INJ 2 MG/1 ML VIAL IV PRN (10:58)
[2019-12-15 11:10] LABS: ABSOLUTE LYMPHOCYTES (AUTO) 0.3 10^3/uL (0.5-4.7); ABSOLUTE MONOCYTES (AUTO) 0.4 10^3/uL (0.1-1.4); ABSOLUTE NEUT (AUTO) 2.5 10^3/uL (1.7-8.2); BASOPHILS % (AUTO) 0.4 % (0-2); EOSINOPHILS % (AUTO) 1.1 % (0-6); HEMATOCRIT 33.2 % (37.9-51.0); HEMOGLOBIN 11.9 g/dL (13.5-17.0); MEAN CORPUSCULAR HEMOGLOBIN 32.8 pg (27.0-33.4); MEAN CORPUSCULAR VOLUME 91 fl (80-97); MONOCYTES % (AUTO) 12.1 % (3-13); PLATELET COUNT 147 10^3/uL (150-450); RED BLOOD COUNT 3.65 10^6/uL (4.35-5.55); RED CELL DISTRIBUTION WIDTH 13.6 % (11.5-14.0); SEGMENTED NEUTROPHILS % (AUTO) 77.4 % (42-78); TOTAL CELLS COUNTED % (AUTO) 100 %; WHITE BLOOD COUNT 3.2 10^3/uL (4.0-10.5)
--- NOTE | 2019-12-15 11:28 | PDOC PROGRESS REPORT ---
Subjective Progress Note for:: 12/15/19 Subjective:: Patient still having some cough and shortness of breath. Cough has been the major issue especially when he lays flat. I reviewed the CT images with the patient, I do not believe that there is overt progression compared to recent imaging that we did as an outpatient, but there is some left pleural effusion, asked surgery to take a look at patient for consideration of thoracentesis. Reason For Visit: NEUTROPENIC FEVER,NON SMALL CELL LUNG CANCER Physical Exam Vital Signs: Temp Pulse Resp BP Pulse Ox 98.1 F 138 H 27 H 139/89 H 92 12/15/19 08:36 12/15/19 08:38 12/15/19 08:10 12/15/19 08:10 12/15/19 08:10 Intake & Output 12/14/19 12/15/19 12/16/19 06:59 06:59 06:59 Intake Total 800 1050 Output Total 90 Balance 800 960 Weight 83.3 kg 53.5 kg General appearance: PRESENT: no acute distress, well-developed, well-nourished Head exam: PRESENT: atraumatic, normocephalic Eye exam: PRESENT: conjunctiva pink, EOMI, PERRLA. ABSENT: scleral icterus Ear exam: PRESENT: normal external ear exam Mouth exam: PRESENT: moist, tongue midline Neck exam: ABSENT: carotid bruit, JVD, lymphadenopathy, thyromegaly Respiratory exam: PRESENT: clear to auscultation rian. ABSENT: rales, rhonchi, wheezes Cardiovascular exam: PRESENT: RRR. ABSENT: diastolic murmur, rubs, systolic murmur Pulses: PRESENT: normal dorsalis pedis pul Vascular exam: PRESENT: normal capillary refill GI/Abdominal exam: PRESENT: normal bowel sounds, soft. ABSENT: distended, guarding, mass, organolmegaly, rebound, tenderness Rectal exam: PRESENT: deferred Extremities exam: PRESENT: full ROM. ABSENT: calf tenderness, clubbing, pedal edema Neurological exam: PRESENT: alert, awake, oriented to person, oriented to place, oriented to time, oriented to situation, CN II-XII grossly intact. ABSENT: motor sensory deficit Psychiatric exam: PRESENT: appropriate affect, normal mood. ABSENT: homicidal ideation, suicidal ideation Skin exam: PRESENT: dry, intact, warm. ABSENT: cyanosis, rash Results Laboratory Results: 12/15/19 10:49 12/15/19 05:11 12/15/19 12/15/19 05:11 10:49 WBC 3.2 L RBC 3.65 L Hgb 11.9 L Hct 33.2 L MCV 91 MCH 32.8 MCHC 36.0 RDW 13.6 Plt Count 147 L Seg Neutrophils % 77.4 Sodium 131.6 L Potassium 3.6 D Chloride 92 L Carbon Dioxide 32 H Anion Gap 8 BUN 9 Creatinine 0.75 Est GFR ( Amer) > 60 Glucose 140 H Calcium 8.3 L Total Bilirubin 0.7 AST 32 Alkaline Phosphatase 61 Total Protein 5.3 L Albumin 3.1 L 12/12/19 20:40 Sputum Gram Stain - Final 12/12/19 20:40 Sputum Sputum Culture - Final C.albicans/C.dubliniensis Greatly Reduced Normal Bella 12/11/19 12/12/19 12/13/19 15:49 16:16 18:46 Troponin I < 0.012 < 0.012 < 0.012 12/13/19 22:00 Troponin I 0.016 Impressions: Chest X-Ray 12/11/19 15:22 IMPRESSION: NO ACUTE RADIOGRAPHIC FINDING IN THE CHEST. Chest CT 12/14/19 00:00 IMPRESSION: Progression of disease bilaterally as described. Venous Doppler Study 12/14/19 00:00 IMPRESSION: 1. NO EVIDENCE DVT OR SVT RIGHT OR LEFT ARM. Assessment & Plan - Diagnosis (1) Non-small cell lung cancer (NSCLC) Qualifiers: Laterality: left Qualified Code(s): C34.92 - Malignant neoplasm of unspecified part of left bronchus or lung Is this a current diagnosis for this admission?: Yes Plan: Further chemotherapy as an outpatient (2) Neutropenic fever Is this a current diagnosis for this admission?: Yes Plan: Improved (3) Obstructive pneumonia Is this a current diagnosis for this admission?: Yes Plan: Continue current antibiotic regimen (4) Acute respiratory failure with hypoxia Is this a current diagnosis for this admission?: Yes Plan: May be related may be related in some part of the pleural effusion, plan for thoracentesis today (5) Pain, neoplasm-related Is this a current diagnosis for this admission?: Yes Plan: Continue current pain regimen (6) Malignant pleural effusion Is this a current diagnosis for this admission?: Yes Plan: Probable malignant pleural effusion, hopefully there is enough fluid to tap when they do the bedside ultrasound. This would help him if that's the case. - Time Time Spent with patient: 35 or more minutes - Inpatient Certification Based on my medical assessment, after consideration of the patient's comorbidities, presenting symptoms, or acuity I expect that the services needed warrant INPATIENT care.: Yes I certify that my determination is in accordance with my understanding of Medicare's requirements for reasonable and necessary INPATIENT services [42 CFR 412.3e].: Yes Medical Necessity: Need for Surgery, Risk of Complication if Not Cared For in Hospital
[2019-12-15] MEDS ORDERED: POLYETHYLENE GLYCOL 3350 POWDER 17 GM/1 PACKET PO ONE (11:52)
[2019-12-15] MEDS: HEPARIN SOD (PORCINE) 5,000 UNIT/ML 1 ML VIAL SUBCUT SCH ×2 (14:40→21:42)
--- NOTE | 2019-12-15 15:30 | Operative Report ---
Nonrecallable Operative Report DATE OF SURGERY: 12/15/19 PREOPERATIVE DIAGNOSIS: left lung cancer POSTOPERATIVE DIAGNOSIS: left lung cancer, pleural effusion OPERATION: Left chest thoracentesis SURGEON: BETTY KIMBALL ANESTHESIA: Local TISSUE REMOVED OR ALTERED: 450 cc of straw-colored fluid left chest COMPLICATIONS: None ESTIMATED BLOOD LOSS: 0 INTRAOPERATIVE FINDINGS: See note PROCEDURE: The procedure was done in the patient's room with him sitting up. After proper consent and site verification the left posterior chest was prepped and draped. Using 1% lidocaine plain the area of the posterior axillary line was prepped and draped at the level of the 6 7 vertebra plate. Using 1% lidocaine the area was anesthetized on top of the rib. The catheter needle combination was then placed into the pleural cavity on top of the sixth rib at the posterior axillary line and the catheter was then advanced into the chest cavity. We immediately got a small vogel of air at which point we attached the Luer-Sofiya syringe begin aspirating straw-colored fluid. Approximately 450 cc of straw-colored fluid was aspirated inducing patient to cough. After after the entire amount of fluid that could be aspirated was removed the catheter was slowly withdrawn intact. Sterile dressing was applied. Follow-up chest x-ray revealed no significant pneumothorax however there was left lung collapse still and some deviation of the midline trachea towards the left. The findings were discussed with Dr. Pamela cheatham. The patient felt more comfortable breathing after the thoracentesis was completed. This was a therapeutic procedure and no fluid was sent to pathology or the lab.
--- NOTE | 2019-12-15 17:02 | RADIOLOGY REPORT (SQ) ---
EXAM DESCRIPTION: CHEST SINGLE VIEW IMAGES COMPLETED DATE/TIME: 12/15/2019 3:00 pm REASON FOR STUDY: After thoracentesis COMPARISON: CT chest 12/14/2019. FINDINGS: One-view chest AP upright portable "Post thora" . Persistent near complete opacification of the left hemithorax related to extensive consolidation, vol ume loss and pleural effusion. No pneumothorax component. Shift of mediastinal structures to the left. Right port remains in place. Right lung clear. TECHNICAL DOCUMENTATION: JOB ID: [id number] Reading location - IP/workstation name: [email or web address]
--- NOTE | 2019-12-15 18:27 | PDOC PROGRESS REPORT ---
Subjective Progress Note for:: 12/15/19 Subjective:: CAITLIN CASTELLANO is a 54 year old male, past medical history of COPD, diagnosed February 2019 of non-small cell lung cancer last received chemo December 06, 2019, on 2 L of nasal cannula for chronic respiratory failure, who came to the ED due to fever. According to the patient he received his last chemotherapy last , since then he is developed shortness of breath, minimal cough, and fever of 101.5. He also has nausea and generalized fatigue. He denied any urinary symptoms, no diarrhea. Persistence of shortness of breath and fever prompted ED consult. In the emergency room, blood pressure 140/87, heart rate 115, respiratory rate 18, temperature 99.3. CBC showed WBC count 2.0 hemoglobin 13.9, platelet count 121. Absolute neutrophil count 1.5. CMP showed sodium of 125.2 potassium 4.1 troponin negative. As x-ray negative for pneumonia, urinalysis negative for infection. He was empirically started on meropenem for neutropenic fever, blood cultures and urine culture sent. He received LR bolus as well. Dr. Hurtado was consulted D2 hospital stay 12/12/19. He was seen and examined at bedside. He had another fever 102 at around 8 pm yesterday. He still has generalized body malaise and cough. WBC improved from 2.0 to 2.3. Na improved to 127.7. Blood cultures are still pending, urine cultures negative.He is on D2 of meropenem and vanc. COVID test pending. D3 hospital stay 12/13/19. He was seen and examined at bedside. He seems very groggy and falls asleep when talking to him. He has been afebrile for >24 hrs. He is on meropenem D3, vancomycin stopped today because cultures have been negative. Pain medications adjusted by Dr. samaniego, awaiting COVID test result. He was noted to be hyponatremic to 123 today. Nephrology was consulted Dr. Leana coronado. D4 hospital stay 12/14/19. He was seen and examined at bedside. He reports less lethargy, less SOB. He spiked fever of 103 at 9 pm last night. Sputum culture noted to be growing C.albicans/C.dubliniensis. Repeat blood cx ordered. He was started on micafungin and ID was consulted. Meropenem was continued. Dr. Granados from cardiology reviewed his EKG and noted that he does not have a.fib but rather MAT. Therapeutic lovenox stopped, switched to 40 mg daily. Lopressor stopped, switched to diltiazem [address] Granados recmikey. Sodium improved to 133 after tolvaptan. D5 hospital stay 12/15/19. He was seen and examined at bedside. Feels less drowsy and lethargic. No further episodes of fever (last episode 12/13/19 9 pm). [place] disease recommended repeat CT, Legionella urine, serum galactomannan, Fungitell for PJP, cryptococcal work-up. Repeat CT chest showed new areas of nodularity and global groundglass opacity in the right lung when compared with the prior study, some small patchy areas in the lateral aspect of the right upper lobe and more confluent areas in the basilar segment of the right lower lobe. Interval increase of the left pleural effusion now moderate in size. Persistent dense consolidation throughout the left lung. Persistent occlusion of the left mainstem bronchus by perihilar masses. Dr. Hurtado called Dr. Rabago personally to do a ultrasound-guided thoracentesis. Dr. Rabago did the procedure and was able to take out 450 mL of fluid which was not sent for analysis. I have spoken to Adelaida from the lab regarding cerumen galactomannan, Fungitell, cryptococcal antigen serum test. She is waiting on a call back from [facility] regarding this test as they are sent out and are not done here. He is on D4 of meropenem, D2 of micafungin. WBC count has increased to 3.2, platelet has increased to 147. Sodium 131.6. Reason For Visit: NEUTROPENIC FEVER,NON SMALL CELL LUNG CANCER Physical Exam Vital Signs: Temp Pulse Resp BP Pulse Ox 98.7 F 75 15 145/78 H 99 12/15/19 15:47 12/15/19 15:47 12/15/19 15:47 12/15/19 15:47 12/15/19 15:47 Intake & Output 12/14/19 12/15/19 12/16/19 06:59 06:59 06:59 Intake Total 800 1050 410 Output Total 90 Balance 800 960 410 Weight 83.3 kg 53.5 kg General appearance: PRESENT: no acute distress, cooperative Head exam: PRESENT: atraumatic, normocephalic Eye exam: PRESENT: EOMI, PERRLA Ear exam: PRESENT: normal external ear exam Mouth exam: PRESENT: moist Neck exam: PRESENT: full ROM. ABSENT: JVD, lymphadenopathy Respiratory exam: PRESENT: decreased breath sounds - bibasal, rales, symmetr ical, unlabored. ABSENT: tachypnea, wheezes Cardiovascular exam: PRESENT: RRR, +S1, +S2 Pulses: PRESENT: +2 pedal pulses bilateral Vascular exam: PRESENT: normal capillary refill GI/Abdominal exam: PRESENT: normal bowel sounds, soft. ABSENT: rebound, tenderness Extremities exam: PRESENT: other - Left arm swelling. ABSENT: +2 edema Musculoskeletal exam: PRESENT: ambulatory, full ROM Neurological exam: PRESENT: alert, awake, oriented to person, oriented to place, oriented to time, oriented to situation Psychiatric exam: PRESENT: normal mood Skin exam: PRESENT: normal color Results Laboratory Results: 12/15/19 10:49 12/15/19 05:11 12/15/19 12/15/19 05:11 10:49 WBC 3.2 L RBC 3.65 L Hgb 11.9 L Hct 33.2 L MCV 91 MCH 32.8 MCHC 36.0 RDW 13.6 Plt Count 147 L Seg Neutrophils % 77.4 Sodium 131.6 L Potassium 3.6 D Chloride 92 L Carbon Dioxide 32 H Anion Gap 8 BUN 9 Creatinine 0.75 Est GFR ( Amer) > 60 Glucose 140 H Calcium 8.3 L Total Bilirubin 0.7 AST 32 Alkaline Phosphatase 61 Total Protein 5.3 L Albumin 3.1 L 12/12/19 20:40 Sputum Gram Stain - Final 12/12/19 20:40 Sputum Sputum Culture - Final C.albicans/C.dubliniensis Greatly Reduced Normal Bella 12/11/19 12/12/19 12/13/19 15:49 16:16 18:46 Troponin I < 0.012 < 0.012 < 0.012 12/13/19 22:00 Troponin I 0.016 Impressions: Chest CT 12/14/19 00:00 IMPRESSION: Progression of disease bilaterally as described. Venous Doppler Study 12/14/19 00:00 IMPRESSION: 1. NO EVIDENCE DVT OR SVT RIGHT OR LEFT ARM. Assessment and Plan - Diagnosis (1) Malignant pleural effusion Is this a current diagnosis for this admission?: Yes Plan: - noted on repeat CT moderate size - Dr. Hurtado called Dr. Rabago for a bedside thoracentesis who performed the procedure. Drained 450cc of straw colored fluid, not sent for analysis (2) Neutropenic fever Is this a current diagnosis for this admission?: Yes Plan: -Patient diagnosed case of non-small cell lung cancer with last chemotherapy 4 days prior to admission coming in with fever (cisplatin based?) -Afebrile x 24 hrs now. Last Fever 2100 12/14/19 Tmax 103 -WBC count 2.0>2.3>2.9>2.6>3.2, -Chest x-ray negative - UA negative -12/10 Blood Cultures negative x 2 -12/13 Blood culture negative x 1 - sputum culture growing C.albicans - Urine cultures negative x 2 - legionella pending - AFB smear and culture pending - Serum galactommanan - Fungitell - Cryptococcal Ag serum - Procal pending - on meropenem d4 - micafungin D2 - ID consulted. recommend work up for legionella with urine ag, PJP with fungitell, Invasive aspergillosis with serum galactomannan, TB with AFB -Oncology following. Dy. Samaniego (3) Neutropenia Qualifiers: Neutropenia type: secondary to cancer chemotherapy Qualified Code(s): D70.1 - Agranulocytosis secondary to cancer chemotherapy; T45.1X5A - Adverse effect of antineoplastic and immunosuppressive drugs, initial encounter Is this a current diagnosis for this admission?: Yes Plan: -Being treated for non-small cell lung cancer last chemo December 06, 2019 -WBC count 2.0>2.3>2.9>3.2 -ANC 1.5>2.2 -on meropenem D4 -On micafungin D2 -This is likely secondary to ongoing chemo -Neutropenic precautions, neutropenic diet -Daily CBC (4) Hyponatremia Is this a current diagnosis for this admission?: Yes Plan: - Na 125.6>127>123>133, likely chronic - ddx 2/2 dehydration or SIADH - 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 - IV fluids stopped - fluid restrcition 1L - 1 dose of oral salt tablet - s/p 1 dose tolvaptan - Nephrology consulted - continue to monitor (5) Chronic respiratory failure with hypoxia Is this a current diagnosis for this admission?: Yes Plan: - normally on 2L NC at home - currently at his baseline needs (6) Non-small cell lung cancer (NSCLC) Qualifiers: Laterality: left Qualified Code(s): C34.92 - Malignant neoplasm of unspecified part of left bronchus or lung Is this a current diagnosis for this admission?: Yes Plan: -Diagnosed February 2019 -Currently receiving second cycle chemotherapy Gemcitabine last dose December 06, 2019 -Received immunotherapy few months ago currently not on immunotherapy -Was on steroids for 1 month for pneumonitis secondary to immunotherapy. Was slowly tapered. Last dose of prednisone 20 mg was on Tuesday - Dr. Samaniego consulted. No need to resume prednisone if he's not experiencing adrenal insufficiency - steroids not resumed (7) Person under investigation for COVID-19 Is this a current diagnosis for this admission?: Yes Plan: -COVID test negative (8) COPD (chronic obstructive pulmonary disease) Qualifiers: Chronic bronchitis type: unspecified Is this a current diagnosis for this admission?: Yes Plan: -Former smoker quit 1 year ago. 1 pack/day x 40 years -Chronically on 2 L of nasal cannula at home -On Symbicort, albutero inhaler at home -Switch to Breo inpatient -DuoNeb every 4 hours as needed (9) [place] infection Is this a current diagnosis for this admission?: Yes Plan: - growing in sputum culture - in light of his neutropenia and immunosuppression, would not treat as contaminant - started on micafungin D2 - ID following (10) Pain, neoplasm-related Is this a current diagnosis for this admission?: Yes - Time Time Spent with patient: 25-34 minutes Anticipated Discharge Disposition: Home, Self Care Anticipated Discharge Timeframe: to be determined
[2019-12-15] MEDS ORDERED: DEXTROSE 5%-WATER 250 ML with NOREPINEPHRINE BITARTRATE 4 MG IV PRN ×2 (19:12)
--- NOTE | 2019-12-15 23:06 | Progress Note ---
Provider Note Provider Note: CARDIOLOGY PROGRESS NOTE by Dr. Kary King on 12/15/2019. SUBJECTIVE: The patient continues to have cough which is at times productive sputum which is blood tinged. He has no no chest pain. He does have some shortness of breath. There is no atrial fibrillation. There is no ventricular arrhythmias. Occasionally his heart rate goes up into the 120s to 130s which the monitor showing multifocal atrial tachycardia. The patient is tolerating Cardizem. Will increase the dosage of Cardizem to 30 mg p.o. every 6 hours and subsequently converted to a long-acting preparation. PHYSICAL EXAMINATION: The patient is of average build. At present he is not coughing and hence is not is not in any acute distress. Selected Entries 12/15/19 15:47 Temperature 98.7 F Temperature Oral Source Pulse Rate 75 Respiratory 15 Rate Blood Pressure 145/78 H Blood Pressure 100 Mean BP Location Right Arm BP Position Supine O2 Sat by Pulse 99 Oximetry Oxygen Delivery Room Air Method HEAD: Is atraumatic normocephalic. EYES: Pupils are equal round regular reactive light accommodation. Extraocular movements are normal. There is no conjunctival pallor. There is no scleral icterus. EARS: Tympanic membranes are intact external auditory canals clear. NOSE: There is no deviated nasal septum. There is no inflammation nasal mucous membrane. MOUTH: Extremities mouth are dry tongue is dry. There is no ulcers. There is no bleeding from the gums. THROAT: There is no redness of the oropharynx. There is no exudates. SKIN: There is no skin rashes. There is no petechia or ecchymosis. NECK: Supple. There is no JVD. Carotids are equal there is no bruit. There is no lymphadenopathy. There is no goiter. There is no accessory muscles of respiration use. Trachea central. LUNGS: There is absent breath sounds and dullness in the left base. Scattered rhonchi and few expiratory wheezes. There is dry crackles in the right lung. There is no rales of CHF. There is diminished air entry and prolonged expiration elsewhere. On percussion there is hyperresonance in the area where there is no dullness. HEART: S1-S2 is heard. There is no S3 gallop. There is no S4 gallop. S1 is of normal intensity. There is no S3 or S4 gallop. Systolic murmur of mild mitral regurgitation present. There is no significant aortic stenosis stenosis murmur or aortic regurgitation murmur. There is no rub. ABDOMEN: Soft. Nontender. There is no paraspinal megaly. Bowel sounds are well heard. EXTREMITIES: Femorals are well felt. There is no femoral bruits. Leg pulses are well felt. There is no DVT or cellulitis in the lower extremity. There is no pedal edema. There is no calf tenderness. ANUS: The patient is conscious awake alert oriented x3 with no focal deficits. PSYCHIATRIC: The patient judgment insight are intact his affect is normal. Labs- All tests 24 hr 12/15/19 12/15/19 12/15/19 02:43 05:11 10:49 WBC 3.2 L RBC 3.65 L Hgb 11.9 L Hct 33.2 L MCV 91 MCH 32.8 MCHC 36.0 RDW 13.6 Plt Count 147 L Lymph % (Auto) 9.0 L [place] % (Auto) 12.1 Eos % (Auto) 1.1 Baso % (Auto) 0.4 Absolute Neuts (auto) 2.5 Absolute Lymphs (auto) 0.3 L Absolute Monos (auto) 0.4 Absolute Eos (auto) 0.0 Absolute Basos (auto) 0.0 Seg Neutrophils % 77.4 Sodium 131.6 L Potassium 3.6 D Chloride 92 L Carbon Dioxide 32 H Anion Gap 8 BUN 9 Creatinine 0.75 Est GFR ( Amer) > 60 Est GFR (MDRD) Non-Af > 60 Glucose 140 H Calcium 8.3 L Total Bilirubin 0.7 Direct Bilirubin 0.3 Neonat Total Bilirubin 0.3 Neonat Direct Bilirubin 0.0 Neonat Indirect Bili 0.3 AST 32 ALT 47 Alkaline Phosphatase 61 Total Protein 5.3 L Albumin 3.1 L AFB Smear NO ACID FAST BACILLI Chest X-Ray 12/11/19 15:22 IMPRESSION: NO ACUTE RADIOGRAPHIC FINDING IN THE CHEST. Chest CT 12/14/19 00:00 IMPRESSION: Progression of disease bilaterally as described. Venous Doppler Study 12/14/19 00:00 IMPRESSION: 1. NO EVIDENCE DVT OR SVT RIGHT OR LEFT ARM. IMPRESSION/RECOMMENDATION: 1. There is no atrial fibrillation. What we are seeing is multifocal atrial tachycardia. Hence there is no need for chronic anticoagulation. In fact the patient's Indra vasc 2 score if at all the patient has atrial fibrillation is still 0. Hence would treat the patient eminently with aspirin since the risk of bleeding on anticoagulation and the risk of stroke in this patient are about the same. Hence there is no benefit for the patient with heparin. 2. Multifocal atrial tachycardia. Would recommend treat the patient with Cardizem. One option would be to get a 30-day event monitor at when the patient is discharged. 3. Acute on chronic respiratory failure. 4. Non-small cell cancer of the lung with disease progression bilaterally. 5. Probable pneumonia. 6. Neutropenic fever. 7. 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 Nephrology on the case. 8. COPD. 9. Severe cough. Most likely secondary to the patient's malignancy and also possibly pneumonia. 10. Fungal culture isolated from patient's sputum culture. Patient is on antifungal therapy now. EMedical regimen and management plan discussed with attending provider on the case. Medication dosage increased. Medical decision making is of high complexity. 60 minutes spent as patient more than 50% of time spent in direct patient care. Will follow.
[2019-12-16] MEDS: BENZONATATE 100 MG CAPSULE PO PRN ×2 (01:32→10:38)
[2019-12-16] MEDS: METOPROLOL TARTRATE PF/INJ 5 MG/5 ML SDV IV PRN ×2 (05:24→10:18)
[2019-12-16] MEDS: DILTIAZEM HCL 30 MG TABLET PO SCH (05:25)
[2019-12-16] MEDS: MEROPENEM 1 GM in NORMAL SALINE 50 ML IV SCH ×3 (05:25→21:55)
[2019-12-16 06:23] LABS: ALKALINE PHOSPHATASE 62 U/L (38-126); ANION GAP 9 (5-19); ASPARTATE AMINO TRANSFERASE 29 U/L (17-59); BILIRUBIN,DIRECT 0.4 mg/dL (0.0-0.4); BILIRUBIN,TOTAL 0.9 mg/dL (0.2-1.3); BLOOD UREA NITROGEN 11 mg/dL (7-20); CALCIUM 8.4 mg/dL (8.4-10.2); CARBON DIOXIDE 29 mmol/L (22-30); CHLORIDE 88 mmol/L (98-107); GLUCOSE 145 mg/dL (75-110); POTASSIUM 3.9 mmol/L (3.6-5.0)
--- NOTE | 2019-12-16 08:51 | EKG REPORT ---
SEVERITY:- ABNORMAL ECG - ATRIAL FIBRILLATION, V-RATE 92-[address]-T CHANGES-LATERAL LEADS : Confirmed by: Louis Holloway MD 16-Dec-2019 08:50:37
[2019-12-16] MEDS: MULTIVITAMIN TABLET PO SCH (10:16)
[2019-12-16] MEDS: MAGNESIUM OXIDE 400 MG TABLET PO SCH (10:16)
[2019-12-16] MEDS: TRIAMCINOLONE ACETONIDE 0.5% CREAM 15 GM TP SCH ×2 (10:16→17:53)
[2019-12-16] MEDS: HEPARIN SOD (PORCINE) 5,000 UNIT/ML 1 ML VIAL SUBCUT SCH ×2 (10:17→21:55)
[2019-12-16] MEDS: OXYCODONE HCL SR 10 MG TABLET PO SCH (10:18)
[2019-12-16] MEDS: MICAFUNGIN SODIUM 100 MG in NORMAL SALINE 100 ML IV SCH (10:34)
[2019-12-16] MEDS: ONDANSETRON 4 MG TAB.RAPDIS PO PRN (12:28)
[2019-12-16 12:29] LABS: ABSOLUTE LYMPHOCYTES (AUTO) 0.3 10^3/uL (0.5-4.7); ABSOLUTE MONOCYTES (AUTO) 0.5 10^3/uL (0.1-1.4); ABSOLUTE NEUT (AUTO) 2.6 10^3/uL (1.7-8.2); BASOPHILS % (AUTO) 0.4 % (0-2); EOSINOPHILS % (AUTO) 0.6 % (0-6); HEMATOCRIT 31.7 % (37.9-51.0); HEMOGLOBIN 11.6 g/dL (13.5-17.0); LYMPHOCYTES % (AUTO) 8.9 % (13-45); MEAN CORPUSCULAR HEMOGLOBIN 33.3 pg (27.0-33.4); MEAN CORPUSCULAR HGB CONC 36.6 g/dL (32.0-36.0); MEAN CORPUSCULAR VOLUME 91 fl (80-97); MONOCYTES % (AUTO) 14.3 % (3-13); PLATELET COUNT 251 10^3/uL (150-450); RED BLOOD COUNT 3.49 10^6/uL (4.35-5.55); RED CELL DISTRIBUTION WIDTH 13.5 % (11.5-14.0); SEGMENTED NEUTROPHILS % (AUTO) 75.8 % (42-78); TOTAL CELLS COUNTED % (AUTO) 100 %; WHITE BLOOD COUNT 3.5 10^3/uL (4.0-10.5)
--- NOTE | 2019-12-16 12:40 | PDOC PROGRESS REPORT ---
Subjective Progress Note for:: 12/16/19 Subjective:: Pt feels better, less chest pain now post thoracentesis, he stopped his pain meds. Today feels more dyspepsia and BMs. D/w pt that since he has been 24 hours off opiates he maybe having slight withdrawal and this will be that way for next 24-48 hours. Reason For Visit: NEUTROPENIC FEVER,NON SMALL CELL LUNG CANCER Physical Exam Vital Signs: Temp Pulse Resp BP Pulse Ox 99.5 F 92 18 111/82 97 12/16/19 11:20 12/16/19 11:20 12/16/19 11:20 12/16/19 11:20 12/16/19 11:20 Intake & Output 12/15/19 12/16/19 12/17/19 06:59 06:59 06:59 Intake Total 1050 895 Output Total 90 450 Balance 960 445 Weight 53.5 kg 85.1 kg General appearance: PRESENT: no acute distress, well-developed, well-nourished Head exam: PRESENT: atraumatic, normocephalic Eye exam: PRESENT: conjunctiva pink, EOMI, PERRLA. ABSENT: scleral icterus Ear exam: PRESENT: normal external ear exam Mouth exam: PRESENT: moist, tongue midline Neck exam: ABSENT: carotid bruit, JVD, lymphadenopathy, thyromegaly Respiratory exam: PRESENT: clear to auscultation rian. ABSENT: rales, rhonchi, wheezes Cardiovascular exam: PRESENT: RRR. ABSENT: diastolic murmur, rubs, systolic murmur Pulses: PRESENT: normal dorsalis pedis pul Vascular exam: PRESENT: normal capillary refill GI/Abdominal exam: PRESENT: normal bowel sounds, soft. ABSENT: distended, guarding, mass, organolmegaly, rebound, tenderness Rectal exam: PRESENT: deferred Extremities exam: PRESENT: full ROM. ABSENT: calf tenderness, clubbing, pedal edema Neurological exam: PRESENT: alert, awake, oriented to person, oriented to place, oriented to time, oriented to situation, CN II-XII grossly intact. ABSENT: motor sensory deficit Psychiatric exam: PRESENT: appropriate affect, normal mood. ABSENT: homicidal ideation, suicidal ideation Skin exam: PRESENT: dry, intact, warm. ABSENT: cyanosis, rash Results Laboratory Results: 12/16/19 12:00 12/16/19 05:40 12/16/19 12/16/19 05:40 12:00 WBC 3.5 L RBC 3.49 L Hgb 11.6 L Hct 31.7 L MCV 91 MCH 33.3 MCHC 36.6 H RDW 13.5 Plt Count 251 Seg Neutrophils % 75.8 Sodium 125.9 L Potassium 3.9 Chloride 88 L Carbon Dioxide 29 Anion Gap 9 BUN 11 Creatinine 0.69 Est GFR ( Amer) > 60 Glucose 145 H Calcium 8.4 Total Bilirubin 0.9 AST 29 Alkaline Phosphatase 62 Total Protein 5.0 L Albumin 3.0 L 12/12/19 20:40 Sputum Gram Stain - Final 12/12/19 20:40 Sputum Sputum Culture - Final C.albicans/C.dubliniensis Greatly Reduced Normal Bella 12/11/19 12/12/19 12/13/19 15:49 16:16 18:46 Troponin I < 0.012 < 0.012 < 0.012 12/13/19 22:00 Troponin I 0.016 Impressions: Chest CT 12/14/19 00:00 IMPRESSION: Progression of disease bilaterally as described. Venous Doppler Study 12/14/19 00:00 IMPRESSION: 1. NO EVIDENCE DVT OR SVT RIGHT OR LEFT ARM. Assessment & Plan - Diagnosis (1) Non-small cell lung cancer (NSCLC) Qualifiers: Laterality: left Qualified Code(s): C34.92 - Malignant neoplasm of unspecified part of left bronchus or lung Is this a current diagnosis for this admission?: Yes Plan: Cont chemo as outpt (2) Neutropenic fever Is this a current diagnosis for this admission?: Yes Plan: CBC pending. Getting better (3) Obstructive pneumonia Is this a current diagnosis for this admission?: Yes Plan: Cont atbx for now (4) Acute respiratory failure with hypoxia Is this a current diagnosis for this admission?: Yes Plan: Improved post thoracentesis (5) Pain, neoplasm-related Is this a current diagnosis for this admission?: Yes Plan: d/c'd pain meds but pt having slight withdrawal now. He wants to stay off pain meds though for now. (6) Malignant pleural effusion Is this a current diagnosis for this admission?: Yes Plan: Pain reduced post thoracentesis - Time Time Spent with patient: 35 or more minutes
[2019-12-16] MEDS: DILTIAZEM HCL 60 MG TABLET PO SCH ×2 (13:06→21:55)
[2019-12-16] MEDS: FAMOTIDINE 20 MG TABLET PO SCH (13:06)
--- NOTE | 2019-12-16 17:03 | PDOC PROGRESS REPORT ---
Subjective Progress Note for:: 12/16/19 Subjective:: CAITLIN MYLES is a 54 year old male, past medical history of COPD, diagnosed February 2019 of non-small cell lung cancer last received chemo December 06, 2019, on 2 L of nasal cannula for chronic respiratory failure, who came to the ED due to fever. According to the patient he received his last chemotherapy last , since then he is developed shortness of breath, minimal cough, and fever of 101.5. He also has nausea and generalized fatigue. He denied any urinary symptoms, no diarrhea. Persistence of shortness of breath and fever prompted ED consult. In the emergency room, blood pressure 140/87, heart rate 115, respiratory rate 18, temperature 99.3. CBC showed WBC count 2.0 hemoglobin 13.9, platelet count 121. Absolute neutrophil count 1.5. CMP showed sodium of 125.2 potassium 4.1 troponin negative. As x-ray negative for pneumonia, urinalysis negative for infection. He was empirically started on meropenem for neutropenic fever, blood cultures and urine culture sent. He received LR bolus as well. Dr. Hurtado was consulted D2 hospital stay 12/12/19. He was seen and examined at bedside. He had another fever 102 at around 8 pm yesterday. He still has generalized body malaise and cough. WBC improved from 2.0 to 2.3. Na improved to 127.7. Blood cultures are still pending, urine cultures negative.He is on D2 of meropenem and vanc. COVID test pending. D3 hospital stay 12/13/19. He was seen and examined at bedside. He seems very groggy and falls asleep when talking to him. He has been afebrile for >24 hrs. He is on meropenem D3, vancomycin stopped today because cultures have been negative. Pain medications adjusted by Dr. samaniego, awaiting COVID test result. He was noted to be hyponatremic to 123 today. Nephrology was consulted Dr. Leana coronado. D4 hospital stay 12/14/19. He was seen and examined at bedside. He reports less lethargy, less SOB. He spiked fever of 103 at 9 pm last night. Sputum culture noted to be growing C.albicans/C.dubliniensis. Repeat blood cx ordered. He was started on micafungin and ID was consulted. Meropenem was continued. Dr. Granados from cardiology reviewed his EKG and noted that he does not have a.fib but rather MAT. Therapeutic lovenox stopped, switched to 40 mg daily. Lopressor stopped, switched to diltiazem [address] Granados recs. Sodium improved to 133 after tolvaptan. D5 hospital stay 12/15/19. He was seen and examined at bedside. Feels less drowsy and lethargic. No further episodes of fever (last episode 12/13/19 9 pm). Guion disease recommended repeat CT, Legionella urine, serum galactomannan, Fungitell for PJP, cryptococcal work-up. Repeat CT chest showed new areas of nodularity and global groundglass opacity in the right lung when compared with the prior study, some small patchy areas in the lateral aspect of the right upper lobe and more confluent areas in the basilar segment of the right lower lobe. Interval increase of the left pleural effusion now moderate in size. Persistent dense consolidation throughout the left lung. Persistent occlusion of the left mainstem bronchus by perihilar masses. Dr. Hurtado called Dr. Rabago personally to do a ultrasound-guided thoracentesis. Dr. Rabago did the procedure and was able to take out 450 mL of fluid which was not sent for analysis. I have spoken to Adelaida from the lab regarding cerumen galactomannan, Fungitell, cryptococcal antigen serum test. She is waiting on a call back from [facility] regarding this test as they are sent out and are not done here. He is on D4 of meropenem, D2 of micafungin. WBC count has increased to 3.2, platelet has increased to 147. Sodium 131.6. D6 hospital stay 12/16/19. He was seen and examined at bedside. He feels that he might be dehydrated due to fluid restriction. I explained to him the need for the fluid restriction so as not to drop his sodium more. He reports significant improvement of his cough and SOB after the thoracentesis yesterday. HE has been afebrile for >48 hrs. On D5 meropenem and D3 micafungin. Blood culture have been negative. Still awaiting work up for invasive aspergillosis, PJP and cryptococal tests. ID following. He can likely be de escalated to another abx pending ID recs. Reason For Visit: NEUTROPENIC FEVER,NON SMALL CELL LUNG CANCER Physical Exam Vital Signs: Temp Pulse Resp BP Pulse Ox 99.5 F 66 18 111/82 97 12/16/19 11:20 12/16/19 14:00 12/16/19 11:20 12/16/19 11:20 12/16/19 11:20 Intake & Output 12/15/19 12/16/19 12/17/19 06:59 06:59 06:59 Intake Total 1050 895 580 Output Total 90 450 Balance 960 445 580 Weight 53.5 kg 85.1 kg General appearance: PRESENT: cooperative, mild distress Head exam: PRESENT: atraumatic, normocephalic Eye exam: PRESENT: EOMI, PERRLA Mouth exam: PRESENT: moist Neck exam: PRESENT: full ROM Respiratory exam: PRESENT: rales, symmetrical, unlabored. ABSENT: wheezes Cardiovascular exam: PRESENT: RRR, +S1, +S2 Pulses: PRESENT: +2 pedal pulses bilateral GI/Abdominal exam: PRESENT: normal bowel sounds, soft. ABSENT: rebound, te nderness Extremities exam: PRESENT: full ROM Musculoskeletal exam: PRESENT: full ROM Neurological exam: PRESENT: alert, awake, oriented to person, oriented to place, oriented to time, oriented to situation Psychiatric exam: PRESENT: normal mood Skin exam: PRESENT: normal color Results Laboratory Results: 12/16/19 12:00 12/16/19 05:40 12/16/19 12/16/19 05:40 12:00 WBC 3.5 L RBC 3.49 L Hgb 11.6 L Hct 31.7 L MCV 91 MCH 33.3 MCHC 36.6 H RDW 13.5 Plt Count 251 Seg Neutrophils % 75.8 Sodium 125.9 L Potassium 3.9 Chloride 88 L Carbon Dioxide 29 Anion Gap 9 BUN 11 Creatinine 0.69 Est GFR ( Amer) > 60 Glucose 145 H Calcium 8.4 Total Bilirubin 0.9 AST 29 Alkaline Phosphatase 62 Total Protein 5.0 L Albumin 3.0 L 12/11/19 16:19 Blood Blood Culture - Final NO GROWTH IN 5 DAYS 12/11/19 15:49 Blood Blood Culture - Final NO GROWTH IN 5 DAYS 12/11/19 12/12/19 12/13/19 15:49 16:16 18:46 Troponin I < 0.012 < 0.012 < 0.012 12/13/19 22:00 Troponin I 0.016 Impressions: Chest CT 12/14/19 00:00 IMPRESSION: Progression of disease bilaterally as described. Venous Doppler Study 12/14/19 00:00 IMPRESSION: 1. NO EVIDENCE DVT OR SVT RIGHT OR LEFT ARM. Assessment and Plan - Diagnosis (1) Malignant pleural effusion Is this a current diagnosis for this admission?: Yes Plan: - noted on repeat CT moderate size - Dr. Hurtado called Dr. Rabago for a bedside thoracentesis who performed the procedure. Drained 450cc of straw colored fluid, not sent for analysis - significant improvement of chronic chest pain and cough post thoracentesis (2) Neutropenic fever Is this a current diagnosis for this admission?: Yes Plan: -Patient diagnosed case of non-small cell lung cancer with last chemotherapy 4 days prior to admission coming in with fever (cisplatin based?) -Afebrile x 48 hrs now. Last Fever 2100 12/14/19 Tmax 103 -WBC count 2.0>2.3>2.9>2.6>3.2>3.5, -Chest x-ray negative - UA negative -12/10 Blood Cultures negative x 2 -12/13 Blood culture negative x 2 - sputum culture growing C.albicans - Urine cultures negative x 2 - legionella pending - AFB smear and culture pending - Serum galactommanan pending - Fungitell pending - Cryptococcal Ag serum pending - Procal pending - on meropenem d5 - micafungin D3 - ID consulted. Likely can be de escalated in terms of Abx awaiting ID recs and result of work up -Oncology following. Dy. Samaniego (3) Neutropenia Qualifiers: Neutropenia type: secondary to cancer chemotherapy Qualified Code(s): D70.1 - Agranulocytosis secondary to cancer chemotherapy; T45.1X5A - Adverse effect of antineoplastic and immunosuppressive drugs, initial encounter Is this a current diagnosis for this admission?: Yes Plan: -RESOLVED Being treated for non-small cell lung cancer last chemo December 06, 2019 -WBC count 2.0>2.3>2.9>3.2 -ANC 1.5>2.2 -on meropenem D5 -On micafungin D3 -This is likely secondary to ongoing chemo -Neutropenic precautions, neutropenic diet -Daily CBC (4) Hyponatremia Is this a current diagnosis for this admission?: Yes Plan: - Na 125.6>127>123>133, likely chronic - ddx 2/2 dehydration or SIADH - 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 - IV fluids stopped - fluid restrcition 1L - 1 dose of oral salt tablet - s/p 1 dose tolvaptan - Nephrology consulted - continue to monitor (5) Chronic respiratory failure with hypoxia Is this a current diagnosis for this admission?: Yes Plan: - normally on 2L NC at home - currently at his baseline needs (6) Non-small cell lung cancer (NSCLC) Qualifiers: Laterality: left Qualified Code(s): C34.92 - Malignant neoplasm of unspecified part of left bronchus or lung Is this a current diagnosis for this admission?: Yes Plan: -Diagnosed February 2019 -Currently receiving second cycle chemotherapy Gemcitabine last dose December 06, 2019 -Received immunotherapy few months ago currently not on immunotherapy -Was on steroids for 1 month for pneumonitis secondary to immunotherapy. Was slowly tapered. Last dose of prednisone 20 mg was on Tuesday - Dr. Samaniego consulted. No need to resume prednisone if he's not experiencing adrenal insufficiency - steroids not resumed (7) Person under investigation for COVID-19 Is this a current diagnosis for this admission?: Yes Plan: -COVID test negative (8) COPD (chronic obstructive pulmonary disease) Qualifiers: Chronic bronchitis type: unspecified Is this a current diagnosis for this admission?: Yes Plan: -Former smoker quit 1 year ago. 1 pack/day x 40 years -Chronically on 2 L of nasal cannula at home -On Symbicort, albutero inhaler at home -Switch to Breo inpatient -DuoNeb every 4 hours as needed (9) Dalia infection Is this a current diagnosis for this admission?: Yes Plan: - growing in sputum culture - in light of his neutropenia and immunosuppression, would not treat as contaminant - started on micafungin D3 - ID following (10) Pain, neoplasm-related Is this a current diagnosis for this admission?: Yes Plan: - has chest wall pain chronic - troponin negative so far, EKG sinus - likely cancer related - pain meds adjustment per Dr. Samaniego - Plan Summary Summary: Caitlin Myles 54/M, diagnosed with non-small cell lung cancer, history of obstructive pneumonia secondary to his cancer, who was admitted due to generalized weakness, and neutropenic fever. Due to his immunocompromised state and neutropenia he was started on meropenem and Vanco. Vancomycin has since been stopped due to negative blood cultures. He was afebrile for about 2 days while on meropenem, then spiked fever of 103 on December 13, 2019. Sputum culture showed Dalia infection. Light of his immunocompromise state from chemo and steroids Dalia in the sputum was treated as an infection and he was started on micafungin Garret on top of the meropenem. Infectious disease consult was made who recommended further work-up for other invasive pathogen. Cryptococcal, serum galactomannan, Fungitell, were ordered for cryptococcus, invasive aspergillosis, P JHONY. Thoracentesis was performed on December 14, [address] Rabago for his malignant pleural effusion. He has been afebrile for more than 48 hours. He can be de-escalated to another antibiotics pending ID recommendations and results of further work-up. - Time Time Spent with patient: 25-34 minutes Anticipated Discharge Disposition: Home, Self Care Anticipated Discharge Timeframe: to be determined.
--- NOTE | 2019-12-16 20:50 | Progress Note ---
Provider Note Provider Note: CARDIOLOGY PROGRESS NOTE by Dr. Kary King on 12/16/2019. OBJECTIVE: The patient states he had 400 cc of fluid removed from his left lung. He is breathing better and is coughing up less. He is also his cough is productive of yellowish sputum. There is no chest pain or discomfort. The patient 20 coughs his heart rate now goes up to 102 as opposed to 130 5 in the morning. This morning the patient's Cardizem has been increased to 60 mg p.o. every 8 hours. There is no ventricle arrhythmia seen on the monitor. Patient has no anginal symptoms. There is no PND or orthopnea. There is no leg edema. PHYSICAL EXAMINATION: The patient is of average build. At present in no acute distress. Selected Entries 12/16/19 19:18 Temperature 98.0 F Temperature Oral Source Pulse Rate 90 Respiratory 18 Rate Blood Pressure 147/68 H Blood Pressure 94 Mean BP Location Right Arm BP Position Supine O2 Sat by Pulse 96 Oximetry Oxygen Flow 2.00 Rate Oxygen Delivery Nasal Cannula Method HEAD: Is atraumatic normocephalic. EYES: Pupils are equal round regular reactive light accommodation. Extraocular movements are normal. There is no conjunctival pallor. There is no scleral icterus. EARS: Tympanic membranes are intact external auditory canals clear. NOSE: There is no deviated nasal septum. There is no inflammation nasal mucous membrane. MOUTH: Extremities mouth are dry tongue is dry. There is no ulcers. There is no bleeding from the gums. TH ROAT: There is no redness of the oropharynx. There is no exudates. SKIN: There is no skin rashes. There is no petechia or ecchymosis. NECK: Supple. There is no JVD. Carotids are equal there is no bruit. There is no lymphadenopathy. There is no goiter. There is no accessory muscles of respiration use. Trachea central. LUNGS: There is absent breath sounds and dullness in the left base. S cattered rhonchi and few expiratory wheezes. There is dry crackles in the right lung. There is no rales of CHF. There is diminished air entry and prolonged expiration elsewhere. On percussion there is hyperresonance in the area where there is no dullness. HEART: S1-S2 is heard. There is no S3 gallop. There is no S4 gallop. S1 is of normal intensity. There is no S3 or S4 gallop. Systolic murmur of mild mitral regurgitation present. There is no significant aortic stenosis stenosis murmur or aortic regurgitation murmur. There is no rub. ABDOMEN: Soft. Nontender. There is no paraspinal megaly. Bowel sounds are well heard. EXTREMITIES: Femorals are well felt. There is no femoral bruits. Leg pulses are well felt. There is no DVT or cellulitis in the lower extremity. There is no pedal edema. There is no calf tenderness. ANUS: The patient is conscious awake alert oriented x3 with no focal deficits. PSYCHIATRIC: The patient judgment insight are intact his affect is normal. Labs- All tests 24 hr 12/16/19 12/16/19 05:40 12:00 WBC 3.5 L RBC 3.49 L Hgb 11.6 L Hct 31.7 L MCV 91 MCH 33.3 MCHC 36.6 H RDW 13.5 Plt Count 251 Lymph % (Auto) 8.9 L [place] % (Auto) 14.3 H Eos % (Auto) 0.6 Baso % (Auto) 0.4 Absolute Neuts (auto) 2.6 Absolute Lymphs (auto) 0.3 L Absolute Monos (auto) 0.5 Absolute Eos (auto) 0.0 Absolute Basos (auto) 0.0 Seg Neutrophils % 75.8 Sodium 125.9 L Potassium 3.9 Chloride 88 L Carbon Dioxide 29 Anion Gap 9 BUN 11 Creatinine 0.69 Est GFR ( Amer) > 60 Est GFR (MDRD) Non-Af > 60 Glucose 145 H Calcium 8.4 Total Bilirubin 0.9 Direct Bilirubin 0.4 Neonat Total Bilirubin Not Reportable Neonat Direct Bilirubin Not Reportable Neonat Indirect Bili Not Reportable AST 29 ALT 39 Alkaline Phosphatase 62 Total Protein 5.0 L Albumin 3.0 L Chest X-Ray 12/11/19 15:22 IMPRESSION: NO ACUTE RADIOGRAPHIC FINDING IN THE CHEST. Chest CT 12/14/19 00:00 IMPRESSION: Progression of disease bilaterally as described. Venous Doppler Study 12/14/19 00:00 IMPRESSION: 1. NO EVIDENCE DVT OR SVT RIGHT OR LEFT ARM. IMPRESSION/recommendation 1. There is no atrial fibrillation. What we are seeing is multifocal atrial tachycardia. Hence there is no need for chronic anticoagulation. In fact the patient's Indra vasc 2 score if at all the patient has atrial fibrillation is still 0. Hence would treat the patient eminently with aspirin since the risk of bleeding on anticoagulation and the risk of stroke in this patient are about the same. Hence there is no benefit for the patient with heparin. 2. Multifocal atrial tachycardia. Would recommend treat the patient with Cardizem. One option would be to get a 30-day event monitor at when the patient is discharged. Would recommend change the patient's Cardizem to Cardizem CD 120 mg p.o. every 12 hours from tomorrow. 3. Acute on chronic respiratory failure. 4. Non-small cell cancer of the lung with disease progression bilaterally. 5. Probable pneumonia. 6. Neutropenic fever. 7. 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 Nephrology on the case. 8. COPD. 9. Severe cough. Most likely secondary to the patient's malignancy and also possibly pneumonia. 10. Fungal culture isolated from patient's sputum culture. Patient is on antifungal therapy now. EMedical regimen and management plan discussed with attending provider on the case. Medication dosage increased. Medical decision making is of moderate complexity. 60 minutes spent as patient more than 50% of time spent in direct patient care. Will follow.
[2019-12-17] MEDS: ACETAMINOPHEN 325 MG TABLET PO PRN (00:01)
[2019-12-17] MEDS: BENZONATATE 100 MG CAPSULE PO PRN ×2 (00:43→18:51)
[2019-12-17] MEDS: DILTIAZEM HCL 60 MG TABLET PO SCH (05:52)
[2019-12-17] MEDS: MEROPENEM 1 GM in NORMAL SALINE 50 ML IV SCH ×3 (05:53→22:55)
[2019-12-17 06:25] LABS: APPEARANCE,URINE CLEAR; BILIRUBIN,URINE NEGATIVE (NEGATIVE); COLOR,URINE YELLOW; GLUCOSE, URINE NEGATIVE (NEGATIVE); KETONES,URINE 20 mg/dL (NEGATIVE); LEUKOCYTE ESTERASE,URINE NEGATIVE (NEGATIVE); NITRITE,URINE NEGATIVE (NEGATIVE); PROTEIN,URINE NEGATIVE (NEGATIVE); URINE SPECIFIC GRAVITY 1.005; UROBILINOGEN,URINE NEGATIVE mg/dL (<2.0)
--- NOTE | 2019-12-17 08:28 | PDOC PROGRESS REPORT ---
Subjective Progress Note for:: 12/17/19 Subjective:: Patient is improved, p.o. intake is much better and he is able to take down several ensures, had BM yesterday. He has not gotten up and out of the room yet so I have asked nursing to do that with him. Discussed that he is close to discharge, once hospitalist team is confirmed what antibiotic to discharge him with, he should be able to go home. Reason For Visit: NEUTROPENIC FEVER,NON SMALL CELL LUNG CANCER Physical Exam Vital Signs: Temp Pulse Resp BP Pulse Ox 98.1 F 71 18 134/75 H 93 12/17/19 02:14 12/17/19 02:00 12/16/19 23:36 12/16/19 23:36 12/16/19 23:36 Intake & Output 12/16/19 12/17/19 12/18/19 06:59 06:59 06:59 Intake Total 895 1068 Output Total 450 2650 Balance 445 -1582 Weight 85.1 kg 82.6 kg General appearance: PRESENT: no acute distress, well-developed, well-nourished Head exam: PRESENT: atraumatic, normocephalic Eye exam: PRESENT: conjunctiva pink, EOMI, PERRLA. ABSENT: scleral icterus Ear exam: PRESENT: normal external ear exam Mouth exam: PRESENT: moist, tongue midline Neck exam: ABSENT: carotid bruit, JVD, lymphadenopathy, thyromegaly Respiratory exam: PRESENT: clear to auscultation rian. ABSENT: rales, rhonchi, wheezes Cardiovascular exam: PRESENT: RRR. ABSENT: diastolic murmur, rubs, systolic murmur Pulses: PRESENT: normal dorsalis pedis pul Vascular exam: PRESENT: normal capillary refill GI/Abdominal exam: PRESENT: normal bowel sounds, soft. ABSENT: distended, guarding, mass, organolmegaly, rebound, tenderness Rectal exam: PRESENT: deferred Extremities exam: PRESENT: full ROM. ABSENT: calf tenderness, clubbing, pedal edema Neurological exam: PRESENT: alert, awake, oriented to person, oriented to place, oriented to time, oriented to situation, CN II-XII grossly intact. ABSENT: motor sensory deficit Psychiatric exam: PRESENT: appropriate affect, normal mood. ABSENT: homicidal ideation, suicidal ideation Skin exam: PRESENT: dry, intact, warm. ABSENT: cyanosis, rash Results Laboratory Results: 12/16/19 12:00 12/16/19 05:40 12/16/19 12/17/19 12:00 06:00 WBC 3.5 L RBC 3.49 L Hgb 11.6 L Hct 31.7 L MCV 91 MCH 33.3 MCHC 36.6 H RDW 13.5 Plt Count 251 Seg Neutrophils % 75.8 Urine Color YELLOW Urine Appearance CLEAR Urine pH 6.0 Ur Specific [place] 1.005 Urine Protein NEGATIVE Urine Glucose (UA) NEGATIVE Urine Ketones 20 H Urine Blood NEGATIVE Urine Nitrite NEGATIVE Ur Leukocyte Esterase NEGATIVE Urine WBC (Auto) 1 Urine RBC (Auto) 0 12/11/19 16:19 Blood Blood Culture - Final NO GROWTH IN 5 DAYS 12/11/19 15:49 Blood Blood Culture - Final NO GROWTH IN 5 DAYS 12/11/19 12/12/19 12/13/19 15:49 16:16 18:46 Troponin I < 0.012 < 0.012 < 0.012 12/13/19 22:00 Troponin I 0.016 Impressions: Chest CT 12/14/19 00:00 IMPRESSION: Progression of disease bilaterally as described. Venous Doppler Study 12/14/19 00:00 IMPRESSION: 1. NO EVIDENCE DVT OR SVT RIGHT OR LEFT ARM. Assessment & Plan - Diagnosis (1) Non-small cell lung cancer (NSCLC) Qualifiers: Laterality: left Qualified Code(s): C34.92 - Malignant neoplasm of unspecified part of left bronchus or lung Is this a current diagnosis for this admission?: Yes Plan: Would like to continue therapy as an outpatient. Once patient is discharged she will follow-up within 1 week in our office. (2) Neutropenic fever Is this a current diagnosis for this admission?: Yes Plan: Improved, awaiting recommendation on antibiotic regimen with hospitalist team who is working with infectious disease. (3) Obstructive pneumonia Is this a current diagnosis for this admission?: Yes Plan: Antibiotic plan as above (4) Acute respiratory failure with hypoxia Is this a current diagnosis for this admission?: Yes Plan: Improved (5) Pain, neoplasm-related Is this a current diagnosis for this admission?: Yes Plan: Holding all pain meds for now (6) Malignant pleural effusion Is this a current diagnosis for this admission?: Yes Plan: Status post thoracentesis. - Time Time Spent with patient: 35 or more minutes
[2019-12-17 08:39] LABS: ABSOLUTE LYMPHOCYTES (AUTO) 0.3 10^3/uL (0.5-4.7); ABSOLUTE MONOCYTES (AUTO) 0.5 10^3/uL (0.1-1.4); ABSOLUTE NEUT (AUTO) 2.2 10^3/uL (1.7-8.2); BASOPHILS % (AUTO) 0.7 % (0-2); EOSINOPHILS % (AUTO) 0.8 % (0-6); HEMATOCRIT 31.8 % (37.9-51.0); HEMOGLOBIN 11.5 g/dL (13.5-17.0); LYMPHOCYTES % (AUTO) 10.3 % (13-45); MEAN CORPUSCULAR HEMOGLOBIN 32.9 pg (27.0-33.4); MEAN CORPUSCULAR HGB CONC 36.1 g/dL (32.0-36.0); MEAN CORPUSCULAR VOLUME 91 fl (80-97); MONOCYTES % (AUTO) 16.8 % (3-13); PLATELET COUNT 410 10^3/uL (150-450); RED BLOOD COUNT 3.49 10^6/uL (4.35-5.55); RED CELL DISTRIBUTION WIDTH 13.6 % (11.5-14.0); SEGMENTED NEUTROPHILS % (AUTO) 71.4 % (42-78); TOTAL CELLS COUNTED % (AUTO) 100 %; WHITE BLOOD COUNT 3.1 10^3/uL (4.0-10.5)
[2019-12-17 08:59] LABS: ANION GAP 7 (5-19); BLOOD UREA NITROGEN 10 mg/dL (7-20); CALCIUM 8.5 mg/dL (8.4-10.2); CARBON DIOXIDE 31 mmol/L (22-30); CHLORIDE 93 mmol/L (98-107); GLUCOSE 172 mg/dL (75-110)
[2019-12-17] MEDS: MULTIVITAMIN TABLET PO SCH (09:52)
[2019-12-17] MEDS: FAMOTIDINE 20 MG TABLET PO SCH (09:52)
[2019-12-17] MEDS: HEPARIN SOD (PORCINE) 5,000 UNIT/ML 1 ML VIAL SUBCUT SCH ×2 (09:52→22:55)
[2019-12-17] MEDS: MAGNESIUM OXIDE 400 MG TABLET PO SCH (09:52)
[2019-12-17] MEDS: MICAFUNGIN SODIUM 100 MG in NORMAL SALINE 100 ML IV SCH (09:53)
[2019-12-17] MEDS: TRIAMCINOLONE ACETONIDE 0.5% CREAM 15 GM TP SCH ×2 (09:53→17:36)
[2019-12-17] MEDS: DILTIAZEM HCL 120 MG CAP.SR.24H PO SCH ×2 (10:06→22:54)
--- NOTE | 2019-12-17 12:19 | PDOC PROGRESS REPORT ---
Subjective Progress Note for:: 12/17/19 Reason For Visit: Patient seen today he denies any specific complaints of chest pain or shortness of breath. Currently on antibiotics/antifungals for neutropenic fever in the face of non-small cell lung cancer on chemo. Sodium today is 130. He received 1 dose of tolvaptan last week. Labs and medications were reviewed. Physical Exam Vital Signs: Temp Pulse Resp BP Pulse Ox 98.1 F 70 18 134/75 H 93 12/17/19 08:36 12/17/19 07:00 12/16/19 23:36 12/16/19 23:36 12/16/19 23:36 Intake & Output 12/16/19 12/17/19 12/18/19 06:59 06:59 06:59 Intake Total 895 1068 Output Total 450 2650 Balance 445 -1582 Weight 85.1 kg 82.6 kg General appearance: PRESENT: no acute distress Respiratory exam: PRESENT: clear to auscultation rian, decreased breath sounds. ABSENT: crackles Cardiovascular exam: PRESENT: +S1, +S2 GI/Abdominal exam: PRESENT: normal bowel sounds, soft. ABSENT: organomegaly, tenderness Extremities exam: ABSENT: pedal edema Neurological exam: PRESENT: alert, awake, oriented to person Psychiatric exam: PRESENT: appropriate affect Results Laboratory Results: 12/17/19 08:10 12/17/19 08:10 12/16/19 12/17/19 12/17/19 12:00 06:00 08:10 WBC 3.5 L 3.1 L RBC 3.49 L 3.49 L Hgb 11.6 L 11.5 L Hct 31.7 L 31.8 L MCV 91 91 MCH 33.3 32.9 MCHC 36.6 H 36.1 H RDW 13.5 13.6 Plt Count 251 410 Seg Neutrophils % 75.8 71.4 Sodium Potassium Chloride Carbon Dioxide Anion Gap BUN Creatinine Est GFR ( Amer) Glucose Calcium Magnesium Urine Color YELLOW Urine Appearance CLEAR Urine pH 6.0 Ur Specific [place] 1.005 Urine Protein NEGATIVE Urine Glucose (UA) NEGATIVE Urine Ketones 20 H Urine Blood NEGATIVE Urine Nitrite NEGATIVE Ur Leukocyte Esterase NEGATIVE Urine WBC (Auto) 1 Urine RBC (Auto) 0 12/17/19 08:10 WBC RBC Hgb Hct MCV MCH MCHC RDW Plt Count Seg Neutrophils % Sodium 130.9 L Potassium 4.0 Chloride 93 L Carbon Dioxide 31 H Anion Gap 7 BUN 10 Creatinine 0.62 Est GFR ( Amer) > 60 Glucose 172 H Calcium 8.5 Magnesium 2.1 Urine Color Urine Appearance Urine pH Ur Specific [place] Urine Protein Urine Glucose (UA) Urine Ketones Urine Blood Urine Nitrite Ur Leukocyte Esterase Urine WBC (Auto) Urine RBC (Auto) 12/11/19 16:19 Blood Blood Culture - Final NO GROWTH IN 5 DAYS 12/11/19 15:49 Blood Blood Culture - Final NO GROWTH IN 5 DAYS 12/11/19 12/12/19 12/13/19 15:49 16:16 18:46 Troponin I < 0.012 < 0.012 < 0.012 12/13/19 22:00 Troponin I 0.016 Impressions: Chest CT 12/14/19 00:00 IMPRESSION: Progression of disease bilaterally as described. Venous Doppler Study 12/14/19 00:00 IMPRESSION: 1. NO EVIDENCE DVT OR SVT RIGHT OR LEFT ARM. 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 Received 1 dose of tolvaptan and that seems to have stabilized his sodium in the low 130s/high 120s. Discussed with the patient about limitation of his fluid intake to between 30-40 ounces a day. If he does that he should be fine to a large extent. His sodium needs to be monitored once discharged periodically to see that he is stable. (2) Neutropenic fever Is this a current diagnosis for this admission?: Yes Plan: Now on antibiotics and stable. Currently on antifungals as well. (3) Non-small cell lung cancer (NSCLC) Qualifiers: Laterality: left Qualified Code(s): C34.92 - Malignant neoplasm of unspecified part of left bronchus or lung Is this a current diagnosis for this admission?: Yes Plan: As per heme oncologist. (4) Obstructive pneumonia Is this a current diagnosis for this admission?: Yes Plan: Status quo. Being managed by hospitalist/heme oncologist.
--- NOTE | 2019-12-17 15:14 | ADVANCED CARE ---
- Diagnosis (1) Non-small cell lung cancer (NSCLC) Diagnosis Current: Yes (2) Acute respiratory failure with hypoxia Diagnosis Current: Yes Attendance: Patient, Mr. Myles, and his /POA, Mrs. Obi Myles Resuscitation Status: Do Not Resuscitate Discussion: Discussed code status and goals of care at length with and Mrs. Myles. They have not filled out an advance directive or living will, but have discussed options in the past. Mr. Myles wishes to be DNR/DNI. His , Obi, is his medical POA. I encouraged them to fill out an advance directive together and they are agreeable. Document(s) Completed: Code Status: DNR/DNI Time Spent: >20 minutes
[2019-12-17] MEDS: ONDANSETRON 4 MG TAB.RAPDIS PO PRN (16:58)
--- NOTE | 2019-12-17 17:01 | Progress Note ---
Provider Note Provider Note: Cardiology PROGRESS NOTE by Dr. Kary King on 12/17/2019. SUBJECTIVE: The patient states he has no chest pain. His cough is better. He still has some episodes of multifocal atrial tachycardia but the rate is not very high. He denies any chest pain or discomfort. There is no shortness of breath or wheezing. He still has cough but this is better. He is productive of yellowish sputum. There is no ventricle arrhythmia seen on the monitor. There is no pauses or AV blocks on Cardizem. The patient is declared himself to be a DNR. PHYSICAL EXAMINATION: The patient is of average build. He is in no acute distress Selected Entries 12/17/19 11:05 Temperature 97.6 F Temperature Oral Source Pulse Rate 83 Respiratory 13 Rate Blood Pressure 131/76 H Blood Pressure 94 Mean BP Location Right Arm BP Position Supine O2 Sat by Pulse 93 Oximetry Oxygen Flow 2.00 Rate Oxygen Delivery Nasal Cannula Method HEAD: Is atraumatic normocephalic. EYES: Pupils are equal round regular reactive light accommodation. Extraocular movements are normal. There is no conjunctival pallor. There is no scleral icterus. EARS: Tympanic membranes are intact external auditory canals clear. NOSE: There is no deviated nasal septum. There is no inflammation nasal mucous membrane. MOUTH: Extremities mouth are dry tongue is dry. There is no ulcers. There is no bleeding from the gums. THROAT: There is no redness of the oropharynx. There is no exudates. SKIN: There is no skin rashes. There is no petechia or ecchymosis. NECK: Supple. There is no JVD. Carotids are equal there is no bruit. There is no lymphadenopathy. There is no goiter. There is no accessory muscles of respiration use. Trachea central. LUNGS: There is absent breath sounds and dullness in the left base. Scattered rhonchi and few expiratory wheezes. There is dry crackles in the right lung. There is no rales of CHF. There is diminished air entry and prolonged expiration elsewhere. On percussion there is hyperresonance in the area where there is no dullness. HEART: S1-S2 is heard. There is no S3 gallop. There is no S4 gallop. S1 is of normal intensity. There is no S3 or S4 gallop. Systolic murmur of mild mitral regurgitation present. There is no significant aortic stenosis stenosis murmur or aortic regurgitation murmur. There is no rub. ABDOMEN: Soft. Nontender. There is no paraspinal megaly. Bowel sounds are well heard. EXTREMITIES: Femorals are well felt. There is no femoral bruits. Leg pulses are well felt. There is no DVT or cellulitis in the lower extremity. There is no pedal edema. There is no calf tenderness. ANUS: The patient is conscious awake alert oriented x3 with no focal deficits. PSYCHIATRIC: The patient judgment insight are intact his affect is normal. Labs- All tests 24 hr 12/14/19 12/17/19 12/17/19 06:26 06:00 08:10 WBC 3.1 L RBC 3.49 L Hgb 11.5 L Hct 31.8 L MCV 91 MCH 32.9 MCHC 36.1 H RDW 13.6 Plt Count 410 Lymph % (Auto) 10.3 L [place] % (Auto) 16.8 H Eos % (Auto) 0.8 Baso % (Auto) 0.7 Absolute Neuts (auto) 2.2 Absolute Lymphs (auto) 0.3 L Absolute Monos (auto) 0.5 Absolute Eos (auto) 0.0 Absolute Basos (auto) 0.0 Seg Neutrophils % 71.4 Sodium Potassium Chloride Carbon Dioxide Anion Gap BUN Creatinine Est GFR ( Amer) Est GFR (MDRD) Non-Af Glucose Calcium Magnesium Procalcitonin 0.41 H Urine Color YELLOW Urine Appearance CLEAR Urine pH 6.0 Ur Specific [place] 1.005 Urine Protein NEGATIVE Urine Glucose (UA) NEGATIVE Urine Ketones 20 H Urine Blood NEGATIVE Urine Nitrite NEGATIVE Urine Bilirubin NEGATIVE Urine Urobilinogen NEGATIVE Ur Leukocyte Esterase NEGATIVE Urine WBC (Auto) 1 Urine RBC (Auto) 0 Urine Ascorbic Acid NEGATIVE 12/17/19 08:10 WBC RBC Hgb Hct MCV MCH MCHC RDW Plt Count Lymph % (Auto) [place] % (Auto) Eos % (Auto) Baso % (Auto) Absolute Neuts (auto) Absolute Lymphs (auto) Absolute Monos (auto) Absolute Eos (auto) Absolute Basos (auto) Seg Neutrophils % Sodium 130.9 L Potassium 4.0 Chloride 93 L Carbon Dioxide 31 H Anion Gap 7 BUN 10 Creatinine 0.62 Est GFR ( Amer) > 60 Est GFR (MDRD) Non-Af > 60 Glucose 172 H Calcium 8.5 Magnesium 2.1 Procalcitonin Urine Color Urine Appearance Urine pH Ur Specific [place] Urine Protein Urine Glucose (UA) Urine Ketones Urine Blood Urine Nitrite Urine Bilirubin Urine Urobilinogen Ur Leukocyte Esterase Urine WBC (Auto) Urine RBC (Auto) Urine Ascorbic Acid Chest X-Ray 12/11/19 15:22 IMPRESSION: NO ACUTE RADIOGRAPHIC FINDING IN THE CHEST. Chest CT 12/14/19 00:00 IMPRESSION: Progression of disease bilaterally as described. Venous Doppler Study 12/14/19 00:00 IMPRESSION: 1. NO EVIDENCE DVT OR SVT RIGHT OR LEFT ARM. IMPRESSION/recommendation 1. There is no atrial fibrillation. What we are seeing is multifocal atrial tachycardia. Hence there is no need for chronic anticoagulation. In fact the patient's Indra vasc 2 score if at all the patient has atrial fibrillation is still 0. Hence would treat the patient eminently with aspirin since the risk of bleeding on anticoagulation and the risk of stroke in this patient are about the same. Hence there is no benefit for the patient with heparin. 2. Multifocal atrial tachycardia. Would recommend treat the patient with Cardizem. One option would be to get a 30-day event monitor when the patient is discharged. His Cardizem has been changed to Cardizem CD 130 mg p.o. every 12 hours. 3. Acute on chronic respiratory failure. 4. Non-small cell cancer of the lung with disease progression bilaterally. 5. Probable pneumonia. 6. Neutropenic fever. 7. 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 Nephrology on the case. 8. COPD. 9. Severe cough. Most likely secondary to the patient's malignancy and also p ossibly pneumonia. This is improved. 10. Fungal culture isolated from patient's sputum culture. Patient is on antifungal therapy now. EMedical regimen and management plan discussed with attending provider on the case. The patient's Cardizem has been changed to a long-acting preparation in the form of Cardizem CD 120 mg p.o. twice daily.. Medical decision making is of moderate complexity. 60 minutes spent as patient more than 50% of time spent in direct patient care. Cardiac status is stable. Will sign off the patient will follow-up with me in the office if he so desires. Contact numbers given.
--- NOTE | 2019-12-17 17:06 | PDOC PROGRESS REPORT ---
Subjective Progress Note for:: 12/17/19 Subjective:: Feeling quite well today despite repeat fever overnight. Last BM: today. Pain is controlled. Cough is at baseline. Reason For Visit: NEUTROPENIC FEVER,NON SMALL CELL LUNG CANCER Physical Exam Vital Signs: Temp Pulse Resp BP Pulse Ox 97.6 F 86 13 131/76 H 93 12/17/19 11:05 12/17/19 14:00 12/17/19 11:05 12/17/19 11:05 12/17/19 11:05 Intake & Output 12/16/19 12/17/19 12/18/19 06:59 06:59 06:59 Intake Total 895 1068 50 Output Total 450 2650 160 Balance 303 -4063 -110 Weight 85.1 kg 82.6 kg General appearance: PRESENT: no acute distress, cooperative Eye exam: ABSENT: scleral icterus Mouth exam: PRESENT: moist Neck exam: ABSENT: JVD Respiratory exam: PRESENT: clear to auscultation rian Cardiovascular exam: PRESENT: RRR GI/Abdominal exam: PRESENT: normal bowel sounds, soft Extremities exam: ABSENT: pedal edema Neurological exam: PRESENT: alert, awake Psychiatric exam: PRESENT: appropriate affect Skin exam: ABSENT: rash Results Laboratory Results: 12/17/19 08:10 12/17/19 08:10 12/17/19 12/17/19 12/17/19 06:00 08:10 08:10 WBC 3.1 L RBC 3.49 L Hgb 11.5 L Hct 31.8 L MCV 91 MCH 32.9 MCHC 36.1 H RDW 13.6 Plt Count 410 Seg Neutrophils % 71.4 Sodium 130.9 L Potassium 4.0 Chloride 93 L Carbon Dioxide 31 H Anion Gap 7 BUN 10 Creatinine 0.62 Est GFR ( Amer) > 60 Glucose 172 H Calcium 8.5 Magnesium 2.1 Urine Color YELLOW Urine Appearance CLEAR Urine pH 6.0 Ur Specific [place] 1.005 Urine Protein NEGATIVE Urine Glucose (UA) NEGATIVE Urine Ketones 20 H Urine Blood NEGATIVE Urine Nitrite NEGATIVE Ur Leukocyte Esterase NEGATIVE Urine WBC (Auto) 1 Urine RBC (Auto) 0 12/15/19 02:05 Clean Catch Midstream Legionella Urinary Antigen - Final 12/15/19 02:43 Sputum AFB Smear Concentration - Final 12/15/19 02:43 Sputum Acid Fast Bacilli Smear - Final 12/11/19 16:19 Blood Blood Culture - Final NO GROWTH IN 5 DAYS 12/11/19 15:49 Blood Blood Culture - Final NO GROWTH IN 5 DAYS 12/11/19 12/12/19 12/13/19 15:49 16:16 18:46 Troponin I < 0.012 < 0.012 < 0.012 12/13/19 22:00 Troponin I 0.016 Impressions: Chest CT 12/14/19 00:00 IMPRESSION: Progression of disease bilaterally as described. Venous Doppler Study 12/14/19 00:00 IMPRESSION: 1. NO EVIDENCE DVT OR SVT RIGHT OR LEFT ARM. Assessment and Plan - Diagnosis (1) Non-small cell lung cancer (NSCLC) Qualifiers: Laterality: left Qualified Code(s): C34.92 - Malignant neoplasm of u nspecified part of left bronchus or lung Is this a current diagnosis for this admission?: Yes (2) Acute respiratory failure with hypoxia Is this a current diagnosis for this admission?: Yes (3) Multifocal atrial tachycardia Is this a current diagnosis for this admission?: Yes (4) COPD (chronic obstructive pulmonary disease) Qualifiers: COPD type: chronic bronchitis Chronic bronchitis type: unspecified Qualified Code(s): J42 - Unspecified chronic bronchitis Is this a current diagnosis for this admission?: Yes (5) Hyponatremia Is this a current diagnosis for this admission?: Yes (6) Malignant pleural effusion Is this a current diagnosis for this admission?: Yes (7) Neutropenia Qualifiers: Neutropenia type: secondary to cancer chemotherapy Qualified Code(s): D70.1 - Agranulocytosis secondary to cancer chemotherapy; T45.1X5A - Adverse effect of antineoplastic and immunosuppressive drugs, initial encounter Is this a current diagnosis for this admission?: Yes (8) Obstructive pneumonia Is this a current diagnosis for this admission?: Yes - Plan Summary Summary: Mr. Joel Myles is a 54 year old male with PMH of stage IV NSCLC that was diagnosed about a year ago, on chronic home oxygen therapy, and complicated by SIADH. He initially received concurrent chemoradiation and then was placed on adjuvant immunotherapy. Unfortunately, he had worsening SOB on this therapy, and was diagnosed with progression of disease. He was then started on another course of chemotherapy with Gemzar, and received his last dose on 12/06/2019. He presented to the ED on 12/11/2019 with CC of fevers, chills, increasing weakness and fatigue. In the ED, he was febrile and tachycardic, with ANC of 1500. He was admitted due to concern for infection. Fever of unknown etiology: ANC 1500 on admission so he was never truly neutropenic. He has had ongoing fevers throughout admission despite broad spectrum antibiotics and antifungal therapy. He has not had the typical pro found/prolonged neutropenia one would expect for a patient with an invasive fungal infection. CT chest this hospitalization shows impressive tumor burden, which might be the cause of his ongoing fevers, as well a chronic post- obstructive pneumonia picture. Overall, patient feels much better today despite ongoing fevers which lead me to believe that these low grade fevers are not due to infection. - blood cultures x4 negative this admission - last febrile on 12/15 at 2300, Tm 100.7 - sputum culture 12/11 growing C.albicans - sputum AFB negative - urine legionella negative - Serum galactommanan and Fungitell to be collected 12/17 (send out labs) - Procalcitonin minimally elevated to 0.4 on 12/13 - on meropenem D6 - micafungin D4 - ID, Dr. Dubon, consulted again today to discuss de-escalation of antibiotics - Oncology, Dr. Hurtado, following closely Malignant left-sided pleural effusion - Dr. Hurtado called Dr. Rabago for a bedside thoracentesis, performed 12/14 and drained 450 mL of straw colored fluid, which was not sent for analysis - significant improvement of chronic chest pain and cough post thoracentesis Neutropenia: due to chemotherapy, and now resolved. - Being treated for non-small cell lung cancer, last chemo December 06, 2019 Hyponatremia due to SIADH - nephrology consulted and he received a dose of Tolvaptan last week - fluid restriction 1 L/day - outpatient nephrology follow up Multifocal atrial tachycardia: resolved. Likely due to COPD and lung cancer. - cardiology consulted and recommended Cardizem 130 mg BID - does not require anticoagulation Chronic respiratory failure with hypoxia - normally on 2L NC at home - currently at his baseline needs Stage IV Left-sided Non-small cell lung cancer (NSCLC) - Diagnosed February 2019 - Dr. Hurtado following closely COPD (chronic obstructive pulmonary disease) - Former smoker quit 1 year ago. 1 pack/day x 40 years - On Symbicort, albutero inhaler at home - Switch to Breo inpatient - DuoNeb every 4 hours as needed Pain, neoplasm-related - has chest wall pain, chronic - troponin negative so far, EKG sinus - pain meds adjustment per Dr. Hurtado DVT PPX: Heparin Code Status: DNR/DNI - Time Time Spent with patient: 35 or more minutes Anticipated Discharge Disposition: Home, Self Care Anticipated Discharge Timeframe: within 24 hours
[2019-12-18] MEDS: MEROPENEM 1 GM in NORMAL SALINE 50 ML IV SCH ×2 (05:30→13:36)
[2019-12-18] MEDS: BENZONATATE 100 MG CAPSULE PO PRN (05:30)
[2019-12-18 06:49] LABS: ANION GAP 8 (5-19); BLOOD UREA NITROGEN 7 mg/dL (7-20); CALCIUM 8.4 mg/dL (8.4-10.2); CARBON DIOXIDE 29 mmol/L (22-30); CHLORIDE 96 mmol/L (98-107); GLUCOSE 111 mg/dL (75-110); POTASSIUM 4.2 mmol/L (3.6-5.0)
[2019-12-18 07:25] LABS: MYCOPLASMA PNEUMONIAE IGG AB 183 U/mL (0-99); MYCOPLASMA PNEUMONIAE IGM AB <770 U/mL (0-769)
--- NOTE | 2019-12-18 08:00 | PDOC PROGRESS REPORT ---
Subjective Progress Note for:: 12/18/19 Subjective:: Patient feeling a little bit nauseous this morning. Was able to walk with a walker yesterday. Reason For Visit: NEUTROPENIC FEVER,NON SMALL CELL LUNG CANCER Physical Exam Vital Signs: Temp Pulse Resp BP Pulse Ox 98.2 F 72 16 130/70 H 94 12/17/19 23:19 12/18/19 02:00 12/17/19 23:19 12/17/19 23:19 12/17/19 23:19 Intake & Output 12/17/19 12/18/19 12/19/19 06:59 06:59 06:59 Intake Total 1068 250 Output Total 2650 400 Balance -1582 -150 Weight 82.6 kg General appearance: PRESENT: no acute distress, well-developed, well-nourished Head exam: PRESENT: atraumatic, normocephalic Eye exam: PRESENT: conjunctiva pink, EOMI, PERRLA. ABSENT: scleral icterus Ear exam: PRESENT: normal external ear exam Mouth exam: PRESENT: moist, tongue midline Neck exam: ABSENT: carotid bruit, JVD, lymphadenopathy, thyromegaly Respiratory exam: PRESENT: clear to auscultation rian. ABSENT: rales, rhonchi, wheezes Cardiovascular exam: PRESENT: RRR. ABSENT: diastolic murmur, rubs, systolic murmur Pulses: PRESENT: normal dorsalis pedis pul Vascular exam: PRESENT: normal capillary refill GI/Abdominal exam: PRESENT: normal bowel sounds, soft. ABSENT: distended, guarding, mass, organolmegaly, rebound, tenderness Rectal exam: PRESENT: deferred Extremities exam: PRESENT: full ROM. ABSENT: calf tenderness, clubbing, pedal edema Neurological exam: PRESENT: alert, awake, oriented to person, oriented to place, oriented to time, oriented to situation, CN II-XII grossly intact. ABSENT: motor sensory deficit Psychiatric exam: PRESENT: appropriate affect, normal mood. ABSENT: homicidal ideation, suicidal ideation Skin exam: PRESENT: dry, intact, warm. ABSENT: cyanosis, rash Results Laboratory Results: 12/17/19 08:10 12/18/19 05:30 12/17/19 12/17/19 12/18/19 08:10 08:10 05:30 WBC 3.1 L RBC 3.49 L Hgb 11.5 L Hct 31.8 L MCV 91 MCH 32.9 MCHC 36.1 H RDW 13.6 Plt Count 410 Seg Neutrophils % 71.4 Sodium 130.9 L 132.9 L Potassium 4.0 4.2 Chloride 93 L 96 L Carbon Dioxide 31 H 29 Anion Gap 7 8 BUN 10 7 Creatinine 0.62 0.68 Est GFR ( Amer) > 60 > 60 Glucose 172 H 111 H Calcium 8.5 8.4 Magnesium 2.1 12/15/19 02:05 Clean Catch Midstream Legionella Urinary Antigen - Final 12/15/19 02:43 Sputum AFB Smear Concentration - Final 12/15/19 02:43 Sputum Acid Fast Bacilli Smear - Final 12/11/19 12/12/19 12/13/19 15:49 16:16 18:46 Troponin I < 0.012 < 0.012 < 0.012 12/13/19 22:00 Troponin I 0.016 Impressions: Chest CT 12/14/19 00:00 IMPRESSION: Progression of disease bilaterally as described. Venous Doppler Study 12/14/19 00:00 IMPRESSION: 1. NO EVIDENCE DVT OR SVT RIGHT OR LEFT ARM. Assessment & Plan - Diagnosis (1) Non-small cell lung cancer (NSCLC) Qualifiers: Laterality: left Qualified Code(s): C34.92 - Malignant neoplasm of unspecif ied part of left bronchus or lung Is this a current diagnosis for this admission?: Yes Plan: Plan for follow-up next week. (2) Neutropenic fever Is this a current diagnosis for this admission?: Yes Plan: Resolved, hospitalist team should be able to transition to oral antibiotics now and hopeful discharge home today. (3) Obstructive pneumonia Is this a current diagnosis for this admission?: Yes Plan: Improved, hopeful DC home today on oral antibiotic, afebrile for 24 hours (4) Acute respiratory failure with hypoxia Is this a current diagnosis for this admission?: Yes Plan: Improved, on home O2 (5) Pain, neoplasm-related Is this a current diagnosis for this admission?: Yes Plan: Now off pain medication (6) Malignant pleural effusion Is this a current diagnosis for this admission?: Yes Plan: Status post thoracentesis - Time Time Spent with patient: 35 or more minutes
[2019-12-18] MEDS: MAGNESIUM OXIDE 400 MG TABLET PO SCH (09:19)
[2019-12-18] MEDS: MULTIVITAMIN TABLET PO SCH (09:19)
[2019-12-18] MEDS: DILTIAZEM HCL 120 MG CAP.SR.24H PO SCH (09:19)
[2019-12-18] MEDS: TRIAMCINOLONE ACETONIDE 0.5% CREAM 15 GM TP SCH (09:19)
[2019-12-18] MEDS: FAMOTIDINE 20 MG TABLET PO SCH (09:19)
[2019-12-18] MEDS: HEPARIN SOD (PORCINE) 5,000 UNIT/ML 1 ML VIAL SUBCUT SCH (09:19)
[2019-12-18 09:33] LABS: ABSOLUTE LYMPHOCYTES (AUTO) 0.2 10^3/uL (0.5-4.7); ABSOLUTE MONOCYTES (AUTO) 0.6 10^3/uL (0.1-1.4); ABSOLUTE NEUT (AUTO) 2.1 10^3/uL (1.7-8.2); BASOPHILS % (AUTO) 0.7 % (0-2); EOSINOPHILS % (AUTO) 1.2 % (0-6); HEMATOCRIT 30.4 % (37.9-51.0); LYMPHOCYTES % (AUTO) 7.2 % (13-45); MEAN CORPUSCULAR HEMOGLOBIN 33.2 pg (27.0-33.4); MEAN CORPUSCULAR HGB CONC 36.3 g/dL (32.0-36.0); MEAN CORPUSCULAR VOLUME 92 fl (80-97); MONOCYTES % (AUTO) 19.6 % (3-13); PLATELET COUNT 563 10^3/uL (150-450); RED BLOOD COUNT 3.32 10^6/uL (4.35-5.55); RED CELL DISTRIBUTION WIDTH 13.4 % (11.5-14.0); SEGMENTED NEUTROPHILS % (AUTO) 71.3 % (42-78); TOTAL CELLS COUNTED % (AUTO) 100 %
[2019-12-18] MEDS: MICAFUNGIN SODIUM 100 MG in NORMAL SALINE 100 ML IV SCH (10:34)
--- NOTE | 2019-12-18 12:50 | Progress Note ---
Provider Note Provider Note: ID Note- I reviewed the patient's chart, including the CT scan and CXR. Persistent fever in the setting of lung cancer with large left sided pleural effusion. All recent cultures are negative. Dalia in sputum culture is a colonizer. Patient is not neutropenic. Recommend discontinuing antibiotics and getting blood cultures after patient has been off antibiotics for 48 hours. Please contact me if there are questions. Eleno Rose MD Pager: [phone]
[2019-12-18 12:53] VITALS: BP 124/71
--- NOTE | 2019-12-18 18:09 | PDOC DISCHARGE SUMMARY ---
Impression - Admit/DC Date/PCP Admission Date/Primary Care Provider: 12/11/19 18:36 Discharge Date: 12/18/19 - Discharge Diagnosis (1) Non-small cell lung cancer (NSCLC) Is this a current diagnosis for this admission?: Yes (2) Acute respiratory failure with hypoxia Is this a current diagnosis for this admission?: Yes (3) Multifocal atrial tachycardia Is this a current diagnosis for this admission?: Yes (4) COPD (chronic obstructive pulmonary disease) Is this a current diagnosis for this admission?: Yes (5) Hyponatremia Is this a current diagnosis for this admission?: Yes (6) Malignant pleural effusion Is this a current diagnosis for this admission?: Yes (7) Neutropenia Is this a current diagnosis for this admission?: Yes (8) Obstructive pneumonia Is this a current diagnosis for this admission?: Yes - Assessment Summary: Mr. Caitlin Castellano is a 54 year old male with PMH of stage IV NSCLC that was diagnosed about a year ago, on chronic home oxygen therapy, and complicated by SIADH. He initially received concurrent chemoradiation and then was placed on adjuvant immunotherapy. Unfortunately, he had worsening SOB on this therapy, and was diagnosed with progression of disease. He was then started on another course of chemotherapy with Gemzar, and received his last dose on 12/06/2019. He presented to the ED on 12/11/2019 with CC of fevers, chills, increasing weakness and fatigue. In the ED, he was febrile with ANC of 1500. He was admitted due to concern for infection. Fever of unknown etiology: ANC 1500 on admission so he was never truly neutropenic. He has had ongoing fevers throughout admission despite broad spectrum antibiotics and antifungal therapy. He has not had the typical profound/prolonged neutropenia one would expect for a patient with an invasive fungal infection. CT chest this hospitalization shows impressive tumor burden, which might be the cause of his ongoing fevers, as well a chronic post- obstructive pneumonia picture. Overall, patient feels generally fairly well throughout most of the day, and only feels bad when he has fevers. Fevers break easily with Tylenol and tend to be low-grade. Given that he feels otherwise well and has had an extensive negative infectious work-up, his ongoing fevers lead me to believe that these low grade fevers are not due to infection at all, but rather tumor burden. ID was consulted and agreed with this, recommending to DC all antibiotics/antifungals, and to repeat BCx again 48 hours after discontinuation. Patient is to follow up with Dr. Oncology, Dr. Hurtado, in 48 hours for repeat BCx. Malignant left-sided pleural effusion: Dr. Rabago performed a bedside thoracentesis on 12/14 and drained 450 mL of straw colored fluid. Patient has had significant improvement of chronic chest pain and cough post thoracentesis. Hyponatremia due to SIADH: nephrology consulted and he received a dose of Tolvaptan. He was started on a strict fluid restriction of 1 L/day with improvement in his serum sodium. Multifocal atrial tachycardia: resolved. Likely due to COPD and lung cancer. Cardiology consulted and recommended initiating Cardizem. Chronic respiratory failure with hypoxia: normally on 2L NC at home, and currently at his baseline needs. Pain, neoplasm-related: has chronic chest wall pain and chronic cough. Managed by Oncology. Code Status: DNR/DNI Patient is stable for discharge home with close outpatient oncology follow up. He has poor overall prognosis due to his Stage IV lung cancer diagnosis. He and his are interested in learning more about home hospice services. They were referred to to discuss options regarding home hospice. He also plans to [facility], with whom he has been discussing home hospice for improved symptom control. - Additional Information Resuscitation Status: Do Not Resuscitate Discharge Diet: Regular Discharge Activity: Activity As Tolerated Referrals: BRANDON HURTADO MD [ACTIVE STAFF] - 12/20/19 10:15 am Prescriptions: Diltiazem HCl [Diltiazem 24Hr ER] 240 mg PO DAILY #30 cap.sa.24h Home Medications: Albuterol Sulfate [Proair HFA Inhalation Aerosol 8.5 gm MDI] 1 puff IH Q4HP PRN 12/11/19 Albuterol Sulfate [Ventolin 0.083% Neb 2.5 mg/3 mL Ampul] 1 vial NEB QAM 12/11/19 Budesonide/Formoterol Fumarate [Symbicort HFA 160-4.5 mcg Inhaler 6 gm] 2 puff IH Q12 12/11/19 Hydrocodone/Acetaminophen [[place] 5-325 Tablet] 1 each PO Q6HP PRN 12/11/19 Ipratropium/Albuterol Sulfate [Combivent Respimat 4 gm Mdi] 1 puff IH Q6HP PRN 12/11/19 Lorazepam [Ativan 1 mg Tablet] 1 mg PO QHS 12/11/19 Magnesium Oxide 500 mg PO DAILY 12/11/19 Multivitamin [Tab-A-Jarred (Multiple Vitamin) Tablet] 1 tab PO DAILY 12/11/19 Potassium Gluconate [Potassium] 99 mg PO DAILY 12/11/19 Diltiazem HCl [Diltiazem 24Hr ER] 240 mg PO DAILY #30 cap.sa.24h 12/18/19 History of Present Illiness History of Present Illness: CAITLIN CASTELLANO is a 54 year old male Physical Exam Vital Signs: Temp Pulse Resp BP Pulse Ox 97.3 F 69 20 124/71 95 12/18/19 16:42 12/18/19 16:42 12/18/19 16:42 12/18/19 16:42 12/18/19 16:42 Intake & Output 12/17/19 12/18/19 12/19/19 06:59 06:59 06:59 Intake Total 1068 250 100 Output Total 2650 400 Balance -1582 -150 100 Weight 82.6 kg 82.6 kg Results Laboratory Results: WBC 3.0 10^3/uL (4.0-10.5) L 12/18/19 08:45 RBC 3.32 10^6/uL (4.35-5.55) L 12/18/19 08:45 Hgb 11.0 g/dL (13.5-17.0) L 12/18/19 08:45 Hct 30.4 % (37.9-51.0) L 12/18/19 08:45 MCV 92 fl (80-97) 12/18/19 08:45 MCH 33.2 pg (27.0-33.4) 12/18/19 08:45 MCHC 36.3 g/dL (32.0-36.0) H 12/18/19 08:45 RDW 13.4 % (11.5-14.0) 12/18/19 08:45 Plt Count 563 10^3/uL (150-450) H 12/18/19 08:45 Lymph % (Auto) 7.2 % (13-45) L 12/18/19 08:45 Emanuel % (Auto) 19.6 % (3-13) H 12/18/19 08:45 Eos % (Auto) 1.2 % (0-6) 12/18/19 08:45 Baso % (Auto) 0.7 % (0-2) 12/18/19 08:45 Absolute Neuts (auto) 2.1 10^3/uL (1.7-8.2) 12/18/19 08:45 Absolute Lymphs (auto) 0.2 10^3/uL (0.5-4.7) L 12/18/19 08:45 Absolute Monos (auto) 0.6 10^3/uL (0.1-1.4) 12/18/19 08:45 Absolute Eos (auto) 0.0 10^3/uL (0.0-0.6) 12/18/19 08:45 Absolute Basos (auto) 0.0 10^3/uL (0.0-0.2) 12/18/19 08:45 Total Counted 50 12/11/19 15:49 Seg Neutrophils % 71.3 % (42-78) 12/18/19 08:45 Seg Neuts % (Manual) 76 % (42-78) 12/11/19 15:49 Lymphocytes % (Manual) 22 % (13-45) 12/11/19 15:49 Monocytes % (Manual) 2 % (3-13) L 12/11/19 15:49 Eosinophils % (Manual) 0 % (0-6) 12/11/19 15:49 Basophils % (Manual) 0 % (0-2) 12/11/19 15:49 Abs Neuts (Manual) 1.5 10^3/uL (1.7-8.2) L 12/11/19 15:49 Abs Lymphs (Manual) 0.4 10^3/uL (0.5-4.7) L 12/11/19 15:49 Abs Monocytes (Manual) 0.0 10^3/uL (0.1-1.4) L 12/11/19 15:49 Absolute Eos (Manual) 0.0 10^3/uL (0.0-0.6) 12/11/19 15:49 Abs Basophils (Manual) 0.0 10^3/uL (0.0-0.2) 12/11/19 15:49 Platelet Comment DECREASED 12/11/19 15:49 RBC Morph Comment NORMO-CYTIC/CHROMIC 12/11/19 15:49 PT 13.4 SEC (11.4-15.4) 12/11/19 15:49 INR 1.00 12/11/19 15:49 APTT 46.1 SEC (23.5-35.8) H 12/11/19 15:49 Sodium 132.9 mmol/L (137-145) L 12/18/19 05:30 Potassium 4.2 mmol/L (3.6-5.0) 12/18/19 05:30 Chloride 96 mmol/L (98-107) L 12/18/19 05:30 Carbon Dioxide 29 mmol/L (22-30) 12/18/19 05:30 Anion Gap 8 (5-19) 12/18/19 05:30 BUN 7 mg/dL (7-20) 12/18/19 05:30 Creatinine 0.68 mg/dL (0.52-1.25) 12/18/19 05:30 Est GFR ( Amer) > 60 (>60) 12/18/19 05:30 Est GFR (MDRD) Non-Af > 60 (>60) 12/18/19 05:30 Glucose 111 mg/dL (75-110) H 12/18/19 05:30 Serum Osmolality 259 mOsm/kg (275-301) L 12/13/19 07:15 Lactic Acid 1.0 mmol/L (0.7-2.1) 12/11/19 15:49 Uric Acid 3.4 mg/dL (3.5-8.5) L 12/13/19 15:35 Calcium 8.4 mg/dL (8.4-10.2) 12/18/19 05:30 Magnesium 2.1 mg/dL (1.6-2.3) 12/17/19 08:10 Total Bilirubin 0.9 mg/dL (0.2-1.3) 12/16/19 05:40 Direct Bilirubin 0.4 mg/dL (0.0-0.4) 12/16/19 05:40 Neonat Total Bilirubin Not Reportable 12/16/19 05:40 Neonat Direct Bilirubin Not Reportable 12/16/19 05:40 Neonat Indirect Bili Not Reportable 12/16/19 05:40 AST 29 U/L (17-59) 12/16/19 05:40 ALT 39 U/L (<50) 12/16/19 05:40 Alkaline Phosphatase 62 U/L (38-126) 12/16/19 05:40 Troponin I 0.016 ng/mL 12/13/19 22:00 Total Protein 5.0 g/dL (6.3-8.2) L 12/16/19 05:40 Albumin 3.0 g/dL (3.5-5.0) L 12/16/19 05:40 Procalcitonin 0.41 ng/mL (0.00-0.08) H 12/14/19 06:26 TSH 1.17 uIU/mL (0.47-4.68) 12/13/19 15:35 Cortisol AM Sample 14.80 ug/dL (4.46-22.7) 12/14/19 06:26 Urine Color YELLOW 12/17/19 06:00 Urine Appearance CLEAR 12/17/19 06:00 Urine pH 6.0 (5.0-9.0) 12/17/19 06:00 Ur Specific [place] 1.005 12/17/19 06:00 Urine Protein NEGATIVE mg/dL (NEGATIVE) 12/17/19 06:00 Urine Glucose (UA) NEGATIVE mg/dL (NEGATIVE) 12/17/19 06:00 Urine Ketones 20 mg/dL (NEGATIVE) H 12/17/19 06:00 Urine Blood NEGATIVE (NEGATIVE) 12/17/19 06:00 Urine Nitrite NEGATIVE (NEGATIVE) 12/17/19 06:00 Urine Bilirubin NEGATIVE (NEGATIVE) 12/17/19 06:00 Urine Urobilinogen NEGATIVE mg/dL (<2.0) 12/17/19 06:00 Ur Leukocyte Esterase NEGATIVE (NEGATIVE) 12/17/19 06:00 Urine WBC (Auto) 1 /HPF 12/17/19 06:00 Urine RBC (Auto) 0 /HPF 12/17/19 06:00 Urine Mucus (Auto) RARE /LPF 12/13/19 21:45 Urine Osmolality 150 mOsm/kg (300-900) L 12/11/19 20:14 Urine Sodium 43 mmol/L (30-90) 12/13/19 21:45 Urine Ascorbic Acid NEGATIVE (NEGATIVE) 12/17/19 06:00 Time Trough Drawn 2155 12/12/19 21:55 Vancomycin Trough < 5.0 ug/mL (5.0-20.0) L 12/12/19 21:55 COVID-19 Source See comment 12/11/19 18:21 COVID-19 (JORGE ALBERTO) Not Detected (Not Detect) 12/11/19 18:21 Mycoplasma pneumon IgG 183 U/mL (0-99) H 12/14/19 06:26 Mycoplasma pneumon IgM <770 U/mL (0-769) 12/14/19 06:26 AFB Smear NO ACID FAST BACILLI (NO AFB SEEN) 12/15/19 02:43 Slides for Path Review PATHOLOGIST REVIEWED 12/11/19 15:49 12/11/19 12/12/19 12/13/19 15:49 16:16 18:46 Troponin I < 0.012 < 0.012 < 0.012 12/13/19 22:00 Troponin I 0.016 Impressions: Chest X-Ray 12/11/19 15:22 IMPRESSION: NO ACUTE RADIOGRAPHIC FINDING IN THE CHEST. Chest CT 12/14/19 00:00 IMPRESSION: Progression of disease bilaterally as described. Venous Doppler Study 12/14/19 00:00 IMPRESSION: 1. NO EVIDENCE DVT OR SVT RIGHT OR LEFT ARM. Stroke Is this a Stroke Patient?: No Acute Heart Failure Is this a Heart Failure Patient?: No
== END 2019-12-18 17:20 | disposition home or self-care (01) | DRG 808 ==
LOC: ER 15:01 → EH 18:36 → 3W 20:31 → 3N 12-12 17:20 → 4N 12-13 16:03
PROVIDERS: ADMIT Internal Medicine; ATTEND Hospitalist
PROC: B24BZZ4 Ultrasonography of Heart with Aorta, Transesophageal (ICD-10-PCS; 2019-12-13)
PROC: 0W9B3ZX Drainage of Left Pleural Cavity, Percutaneous Approach, Diagnostic (ICD-10-PCS; principal; 2019-12-15)
DX: D70.1 Agranulocytosis secondary to cancer chemotherapy (principal); J18.9 Pneumonia, unspecified organism; J96.21 Acute and chronic respiratory failure with hypoxia; I47.1 Supraventricular tachycardia; J91.0 Malignant pleural effusion; E22.2 Syndrome of inappropriate secretion of antidiuretic hormone; J44.0 Chronic obstructive pulmonary disease with (acute) lower respiratory infection; C34.92 Malignant neoplasm of unspecified part of left bronchus or lung; B37.89 Other sites of candidiasis; T45.1X5A Adverse effect of antineoplastic and immunosuppressive drugs, initial encounter; R50.81 Fever presenting with conditions classified elsewhere; E78.5 Hyperlipidemia, unspecified; E86.0 Dehydration; G89.3 Neoplasm related pain (acute) (chronic); E78.00 Pure hypercholesterolemia, unspecified; Z66 Do not resuscitate; Z20.828 Contact with and (suspected) exposure to other viral communicable diseases; Z79.51 Long term (current) use of inhaled steroids; Z99.81 Dependence on supplemental oxygen; Z92.21 Personal history of antineoplastic chemotherapy; Z79.899 Other long term (current) drug therapy; Z87.891 Personal history of nicotine dependence; Z88.1 Allergy status to other antibiotic agents; Z88.0 Allergy status to penicillin; Z83.3 Family history of diabetes mellitus; Z82.49 Family history of ischemic heart disease and other diseases of the circulatory system
CPT/HCPCS: 36415; 71045; 71250; 80048; 80053; 80202; 81001; 82533; 82565; 83605; 83735; 83930; 83935; 84145; 84300; 84443; 84484; 84550; 85025; 85027; 85610; 85730; 86738; 87015; 87040; 87070; 87086; 87116; 87205; 87206; 87635; 93005; 93010; 93306; 93971; 96361; 96374; 96375; 99285; C9803; J1170; J1642; J1644; J1650; J2185; J2248; J2270; J3370; J3490; J7050; J7060; J7120; S0119